=== PATIENT | female | born 1980 | race Caucasian/White ===

== ENCOUNTER 2023-04-27 17:18 | Emergency (ER) | payer OTHER, SELFPAY ==
[2023-04-27 17:24] VITALS: BP 132/93; PULSE 100; RESP 20; TEMP 37; O2SAT 97; BMI 23.7
--- NOTE | 2023-04-27 17:31 | XR_ITS ---
The [address] [address] Patient Name: TOPHER GARCIA MRN: [id number] date: 1980 Sex: F Assigned Patient Location: ER Current Patient Location: ER Accession/Order Number: [id number] Exam Date: 04/27/2023 17:40 Report Date: 04/27/2023 18:12 At the request of: ANTONIO VEGA Procedure: XR foot LT min 3V IMAGES REVIEWED: XR foot LT min 3V COMPARISON: None available. CLINICAL INDICATION: pain, hit by falling object FINDINGS/IMPRESSION: No evidence of acute osseous abnormality of the left foot. Electronically authenticated by: RIDGE MOYA Date: 04/27/2023 18:12
--- NOTE | 2023-04-27 17:32 | ED.LOWEXI1 ---
HPI - Extremity Injury (Lower) General Chief Complaint: Extremity Injury, Lower Stated Complaint: Left Foot Injury Time Seen by Provider: 04/27/23 17:21 Source: patient Mode of arrival: walk-in Limitations: no limitations History of Present Illness HPI Narrative: 42-year-old female presents for pain of the dorsum of her left foot. She's had it for a week. A week ago she dropped an item on the dorsum of her foot but she can't remember what it was. She's been able to walk and the pain is moderate. Related Data Allergies Allergy/AdvReac Type Severity Reaction Status Date / Time Unable to Assess Allergy Verified 04/27/23 17:24 Review of Systems ROS Narrative A ten point review of systems is negative except as noted above. Exam Narrative Exam Narrative: Nurses note and vital signs reviewed and patient is not hypoxic. General: The patient appears well and in no apparent distress. Patient is resting comfortably on cart. Skin: Warm, dry, no pallor noted. There is no rash noted. Head: Normocephalic, atraumatic Eye: Normal conjunctiva, no drainage Ears, Nose, Mouth, and Throat: oral mucosa is moist. Nares patent. Cardiovascular: Regular Rate and Rhythm Respiratory: Patient is in no distress, no accessory muscle use Back: non-tender GI: nontender Musculoskeletal: left ankle is nontender. She seems have some tenderness on the dorsum of her left foot but there is no bruise or erythema or visible swelling. Neurological: A&O, normal speech Psychiatric: Cooperative Constitutional Vital Signs, click to edit/add: Last Vital Signs Temp 98.6 F 04/27/23 17:24 Pulse 100 H 04/27/23 17:24 Resp 20 04/27/23 17:24 BP 132/93 H 04/27/23 17:24 Pulse Ox 97 04/27/23 17:24 O2 Del Method Room Air 04/27/23 17:24 Course Vital Signs Vital signs: Vital Signs Temperature 98.6 F 04/27/23 17:24 Pulse Rate 100 H 04/27/23 17:24 Respiratory Rate 20 04/27/23 17:24 Blood Pressure 132/93 H 04/27/23 17:24 Pulse Oximetry 97 04/27/23 17:24 Oxygen Delivery Method Room Air 04/27/23 17:24 Temperature 98.6 F 04/27/23 17:24 Pulse Rate 100 H 04/27/23 17:24 Respiratory Rate 20 04/27/23 17:24 Blood Pressure 132/93 H 04/27/23 17:24 Pulse Oximetry 97 04/27/23 17:24 Oxygen Delivery Method Room Air 04/27/23 17:24 MDM - Extremity Injury (Lower) MDM Narrative Medical decision making narrative: X-rays per radiologist showed no acute findings and she was recommended ice rest and elevation. Treatment diagnosis and follow-up were discussed with the patient. Differential Diagnosis Differential diagnosis: Likely other (foot contusion, foot fracture) Imaging Data left foot x-ray: Radiologist's impression: Procedure: XR foot LT min 3V IMAGES REVIEWED: XR foot LT min 3V COMPARISON: None available. CLINICAL INDICATION: pain, hit by falling object FINDINGS/IMPRESSION: No evidence of acute osseous abnormality of the left foot. Electronically authenticated by: RIDGE MOYA Date: 04/27/2023 18:12 Discharge Plan Discharge Chief Complaint: Extremity Injury, Lower Clinical Impression: Contusion of foot, left Patient Disposition: Home, Self-Care Time of Disposition Decision: 18:29 Condition: Good Mode of Transportation: Private Vehicle Instructions: Foot Contusion (ED) Stand Alone Forms: Portal Instructions Referrals: VEGA RAM [Primary Care Provider] - 1 week
== END 2023-04-27 18:36 | disposition home or self-care (01) ==
PROVIDERS: Emergency Provider Emergency Medicine; PCP Family Medicine
DX: S90.32XA Contusion of left foot, initial encounter (principal); W20.8XXA Other cause of strike by thrown, projected or falling object, initial encounter
CPT/HCPCS: 73630; 99283

== ENCOUNTER 2024-03-02 02:06 | Emergency (ER) | payer OTHER, SELFPAY ==
[2024-03-02 02:08] VITALS: BP 159/96; PULSE 65; TEMP 36.7; O2SAT 99; BMI 23.7
--- NOTE | 2024-03-02 02:22 | ED.DENTAL1 ---
HPI - Dental/Oral General Chief complaint: Dental/Oral Stated complaint: DENTAL PAIN Time Seen by Provider: 03/02/24 02:12 Source: patient Mode of arrival: walk-in Limitations: no limitations History of Present Illness HPI Narrative: 43-year-old female presents for dental pain. She is complaining of pain to her lower jaw anteriorly. She understands that she has some bad teeth and she has a dentist in [place]. It began throbbing yesterday and the pain is moderate to severe. No difficulty breathing or swelling and no fever. Related Data Home Medications ?Medication ?Instructions ?Recorded ?Confirmed Saccharomyces boulardii 250 mg 03/02/24 capsule (Florastor) alprazolam 1 mg tablet mg 03/02/24 dicyclomine 10 mg capsule mg 03/02/24 venlafaxine 37.5 mg mg PO 03/02/24 capsule,extended release 24 hr Previous Rx's ?Medication ?Instructions ?Recorded acetaminophen 300 mg-codeine 30 mg 1 tab PO Q6H PRN pain 5 days #20 03/02/24 tablet tabs penicillin V potassium 250 mg 250 mg PO QID 10 days #40 tabs 03/02/24 tablet Allergies Allergy/AdvReac Type Severity Reaction Status Date / Time Unable to Assess Allergy Verified 04/27/23 17:24 Review of Systems ROS Narrative A ten point review of systems is negative except as noted above. Exam Narrative Exam Narrative: Nurses note and vital signs reviewed and patient is not hypoxic. General: The patient appears well and in no apparent distress. Patient is resting comfortably on cart. Skin: Warm, dry, no pallor noted. There is no rash noted. Head: Normocephalic, atraumatic Eye: Normal conjunctiva, no drainage Ears, Nose, Mouth, and Throat: oral mucosa is moist. Nares patent. Dental caries present in 3 mandibular incisors. No swelling to the floor of her mouth and she is handling oral secretions well. No gingival swelling. Cardiovascular: Regular Rate and Rhythm Respiratory: Patient is in no distress, no accessory muscle use Back: non-tender GI: Soft and nontender Musculoskeletal: No joint swelling Neurological: Alert and oriented Psychiatric: Cooperative Constitutional Vital Signs, click to edit/add: Last Vital Signs Temp 98.1 F 03/02/24 02:08 Pulse 65 03/02/24 02:08 Resp 18 03/02/24 02:08 BP 159/96 H 03/02/24 02:08 Pulse Ox 99 03/02/24 02:08 O2 Del Method Room Air 03/02/24 02:08 Course Vital Signs Vital signs: Vital Signs Temperature 98.1 F 03/02/24 02:08 Pulse Rate 65 03/02/24 02:08 Respiratory Rate 18 03/02/24 02:08 Blood Pressure 159/96 H 03/02/24 02:08 Pulse Oximetry 99 03/02/24 02:08 Oxygen Delivery Method Room Air 03/02/24 02:08 Temperature 98.1 F 03/02/24 02:08 Pulse Rate 65 03/02/24 02:08 Respiratory Rate 18 03/02/24 02:08 Blood Pressure 159/96 H 03/02/24 02:08 Pulse Oximetry 99 03/02/24 02:08 Oxygen Delivery Method Room Air 03/02/24 02:08 MDM - Dental/Oral MDM Narrative Medical decision making narrative: She is provided pain medication and antibiotic prescriptions and was given first dose here as well. Treatment diagnosis and follow-up were discussed with the patient. Differential Diagnosis Differential diagnosis: Likely gingival abscess, dental caries, toothache and dental abscess Discharge Plan Discharge Stand Alone Forms: Portal Instructions Chief Complaint: Dental/Oral Clinical Impression: Toothache, Dental caries Patient Disposition: Home, Self-Care Time of Disposition Decision: 02:20 Condition: Good Mode of Transportation: Private Vehicle Prescriptions / Home Meds: New acetaminophen-codeine 300-30 mg tablet 1 tab PO Q6H PRN (Reason: pain) 5 Days Qty: 20 0RF penicillin V potassium 250 mg tablet 250 mg PO QID 10 Days Qty: 40 0RF No Action venlafaxine 37.5 mg capsule,extended release 24hr PO alprazolam 1 mg tablet dicyclomine 10 mg capsule Saccharomyces boulardii [Florastor] 250 mg capsule Print Language: Sammarinese Instructions: Toothache (ED), Tooth Extraction (DC) Referrals: VEGA RAM [Primary Care Provider] - 1 week
[2024-03-02] MEDS: PENICILLIN V POTASSIUM 250 MG TABLET 500 MG PO (02:27)
[2024-03-02] MEDS: ACETAMINOPHEN 300 MG/ 30 MG CODEINE TABLET 1 TAB PO (02:27)
[2024-03-02] MEDS: BENZOCAINE 30 ML, lidocaine HCL 15 ML MM (02:37)
== END 2024-03-02 02:39 | disposition home or self-care (01) ==
PROVIDERS: Emergency Provider Emergency Medicine; PCP Family Medicine
DX: K02.9 Dental caries, unspecified (principal); K08.89 Other specified disorders of teeth and supporting structures
CPT/HCPCS: 99283

== ENCOUNTER 2024-03-05 22:23 | Emergency (ER) | payer OTHER, SELFPAY ==
[2024-03-05 22:29] VITALS: BP 167/104; PULSE 86; TEMP 36.3; O2SAT 97; BMI 23.7
[2024-03-05 22:33] VITALS: BP 174/99
--- NOTE | 2024-03-05 22:38 | ED_ITS ---
HPI - Dental/Oral General Chief complaint: Dental/Oral Stated complaint: Dental Pain Time Seen by Provider: 03/05/24 22:28 Source: patient Mode of arrival: walk-in Limitations: no limitations History of Present Illness HPI Narrative: 43-year-old female presents for tooth ache. She had 3 teeth extracted today. They are on the anterior mandibular region. The pain is severe and throbbing and she has been taking Lodine and Tylenol 3. She is requesting the dental analgesia that she has had before. No fever or difficulty breathing or swallowing. Related Data Home Medications ?Medication ?Instructions ?Recorded ?Confirmed Saccharomyces boulardii 250 mg 03/02/24 capsule (Florastor) alprazolam 1 mg tablet mg 03/02/24 dicyclomine 10 mg capsule mg 03/02/24 venlafaxine 37.5 mg mg PO 03/02/24 capsule,extended release 24 hr Previous Rx's ?Medication ?Instructions ?Recorded acetaminophen 300 mg-codeine 30 mg 1 tab PO Q6H PRN pain 5 days #20 03/02/24 tablet tabs penicillin V potassium 250 mg 250 mg PO QID 10 days #40 tabs 03/02/24 tablet hydrocodone 5 mg-acetaminophen 325 1 tab PO Q6H PRN pain 3 days #10 03/05/24 mg tablet tabs Allergies Allergy/AdvReac Type Severity Reaction Status Date / Time No Known Drug Allergies Allergy Verified 03/05/24 22:32 Review of Systems ROS Narrative A ten point review of systems is negative except as noted above. Exam Narrative Exam Narrative: Nurses note and vital signs reviewed and patient is not hypoxic. General: The patient appears uncomfortable Skin: Warm, dry, no pallor noted. There is no rash noted. Head: Normocephalic, atraumatic Eye: Normal conjunctiva, no drainage Ears, Nose, Mouth, and Throat: oral mucosa is moist. Nares patent. Extraction site appears appropriate, no bleeding or pus present. No swelling to the floor of her mouth. Cardiovascular: Regular Rate and Rhythm Respiratory: Patient is in no distress, no accessory muscle use, lungs are clear to auscultation, no wheezing, rales or rhonchi Back: non-tender GI: Soft and nontender Musculoskeletal: The patient has no evidence of calf tenderness, no pitting edema, symmetrical pulses noted bilaterally Neurological: Awake and alert Psychiatric: Cooperative Constitutional Vital Signs, click to edit/add: Last Vital Signs Temp 97.4 F L 03/05/24 22:29 Pulse 86 03/05/24 22:29 Resp 18 03/05/24 22:29 BP 174/99 H 03/05/24 22:33 Pulse Ox 97 03/05/24 22:29 O2 Del Method Room Air 03/05/24 22:29 Course Vital Signs Vital signs: Vital Signs Temperature 97.4 F L 03/05/24 22:29 Pulse Rate 86 03/05/24 22:29 Respiratory Rate 18 03/05/24 22:29 Blood Pressure 167/104 H 03/05/24 22:29 Pulse Oximetry 97 03/05/24 22:29 Oxygen Delivery Method Room Air 03/05/24 22:29 Temperature 97.4 F L 03/05/24 22:29 Pulse Rate 86 03/05/24 22:29 Respiratory Rate 18 03/05/24 22:29 Blood Pressure 174/99 H 03/05/24 22:33 Pulse Oximetry 97 03/05/24 22:29 Oxygen Delivery Method Room Air 03/05/24 22:29 MDM - Dental/Oral MDM Narrative Medical decision making narrative: She is given IM Toradol and prescribed 10 [place] tablets and dispensed dental analgesia. Treatment diagnosis and follow-up were discussed with the patient. Differential Diagnosis Differential diagnosis: Likely dental caries, toothache, dental abscess and other (Postextraction pain) Discharge Plan Discharge Stand Alone Forms: Portal Instructions Chief Complaint: Dental/Oral Clinical Impression: Toothache Patient Disposition: Home, Self-Care Time of Disposition Decision: 22:36 Condition: Good Mode of Transportation: Private Vehicle Prescriptions / Home Meds: New hydrocodone-acetaminophen 5-325 mg tablet 1 tab PO Q6H PRN (Reason: pain) 3 Days Qty: 10 0RF No Action venlafaxine 37.5 mg capsule,extended release 24hr PO alprazolam 1 mg tablet dicyclomine 10 mg capsule Saccharomyces boulardii [Florastor] 250 mg capsule acetaminophen-codeine 300-30 mg tablet 1 tab PO Q6H PRN (Reason: pain) 5 Days Qty: 20 0RF penicillin V potassium 250 mg tablet 250 mg PO QID 10 Days Qty: 40 0RF Print Language: Georgian Instructions: Toothache (ED) Referrals: VEGA RAM [Primary Care Provider] - 1 week
--- OUTSIDE RECORDS SUMMARY | 2024-03-05 22:38 | XMS_ITS | CCD ---
Author Organization [facility] Care Team Providers Care Scaffold Erector Name Role Phone YO, DR FERRARI Primary Care Unavailable MARKER ., DR YOUNGER Admitting Unavailable MARKER ., DR YOUNGER Attending Unavailable MARKER ., DR YOUNGER Consulting Unavailable YO, DR FERRARI Primary Care Unavailable HAY ., DR PEREZ Admitting Unavailable HAY ., DR PEREZ Attending Unavailable HAY ., DR PEREZ Consulting Unavailable YO, DR FERRARI Primary Care Unavailable PAY ., DR MARIE Admitting Unavailable PAY ., DR MARIE Attending Unavailable PAY ., DR MARIE Consulting Unavailable HAY ., DR PEREZ Consulting Unavailable JAYY RODRIGUEZ Admitting Unavailable JAYY RODRIGUEZ Attending Unavailable YO, DR FERRARI Primary Care Unavailable ZIEBER, DR TRAVIS [place] Consulting Unavailable JAYY RODRIGUEZ Consulting Unavailable YO, DR FERRARI Primary Care Unavailable HAY ., DR PEREZ Admitting Unavailable HAY ., DR PEREZ Attending Unavailable GRECHNY ., VETO SAMUELS Consulting Unavailabl e YO, DR FERRARI Primary Care Unavailable HAY ., DR PEREZ Admitting Unavailable HAY ., DR PEREZ Attending Unavailable MARKER ., DR YOUNGER Consulting Unavailable YO, DR FERRARI Primary Care Unavailable GILBERT .RICHIE Admitting Unavailable GILBERT ., RICHIE Attending Unavailable PETERS ., MR GUTIERREZ Consulting Unavailable YO, DR FERRARI Primary Care Unavailable HAY ., DR PEREZ Admitting Unavailable HAY ., DR PEREZ Attending Unavailable HAY ., DR PEREZ Consulting Unavailable UMM LAMA Consulting Unavailable HEMJAYY AVENDANO Attending Unavailable HEMJAYY AVENDANO Attending Unavailable Allergies Allergy Classification Reported Allergen(s) Allergy Type Date of Onset Reaction(s) Facility (1 source) Amoxicillin / Clavulanate Drug Allergy 07-26-2013 [facility] Repository Problems Active Problems Problem Classification Problem Date Documented Date Episodic/Chronic Anxiety disorders (1 source) Anxiety disorder, unspecified; Translations: [ANXIETY DISORDER UNSPECIFIED] Onset: 11-08-2022 Chronic Disorders of teeth and jaw (4 sources) Other specified disorders of teeth and supporting structures; Translations: [OTH SPEC DISORDERS TEETH SUPP STRCT] Onset: 11-07-2022 Episodic E Codes: Natural/environment (1 source) Exposure to other specified factors, initial encounter; Translations: [EXPOSURE OTHER SPEC FACTORS INITIAL] Onset: 11-08-2022 Episodic Headache; including migraine (2 sources) Migraine, unspecified, not intractable, without status migrainosus; Translations: [MIGRAINE UNS NOT INTRACT W/O SM] Onset: 04-01-2022 Chronic Headache; including migraine (3 sources) Headache; including migraine; Translations: [HEADACHE UNSPECIFIED] Onset: 05-14-2022 Other aftercare (1 source) Other halfway (current) drug therapy; Translations: [OTH MOTOR ASSEMBLER CURRENT DRUG THERAPY] Onset: 11-08-2022 Episodic Other nervous system disorders (1 source) Other acute postprocedural pain; Translations: [OTHER ACUTE POSTPROCEDURAL PAIN] Onset: 11-08-2022 Episodic Substance-related disorders (2 sources) Nicotine dependence, cigarettes, uncomplicated; Translations: [Nicotine dependence, unspecified, uncomplicated] Onset: 06-07-2022 Chronic Superficial injury; contusion (1 source) Abrasion of oral cavity, initial encounter; Translations: [ABRASION ORAL CAVITY INITIAL ENCNTR] Onset: 11-08-2022 Episodic Unclassified (1 source) CONTACT W/AND (SUSP) EXPOS COVID-19; Translations: [CONTACT W/AND (SUSP) EXPOS COVID-19] Onset: 04-01-2022 Past or Other Problems Problem Classification Problem Date Documented Da te Episodic/Chronic Allergic reactions (5 sources) Urticaria, unspecified; Translations: [Allergic contact dermatitis due to other agents] Onset: 07-21-2022 Episodic Conditions associated with dizziness or vertigo (1 source) Dizziness and giddiness; Translations: [DIZZINESS AND GIDDINESS] Onset: 07-23-2022 Episodic Nausea and vomiting (4 sources) Nausea with vomiting, unspecified; Translations: [NAUSEA WITH VOMITING UNSPECIFIED] Onset: 03-30-2022 Episodic Other nervous system disorders (1 source) Paresthesia of skin; Translations: [PARESTHESIA OF SKIN] Onset: 05-18-2022 Episodic Other skin disorders (3 sources) Rash and other nonspecific skin eruption; Translations: [RASH OTH NONSPECIFIC SKIN ERUPTION] Onset: 07-20-2022 Episodic Other skin disorders (4 sources) Generalized hyperhidrosis; Translations: [GENERALIZED HYPERHIDROSIS] Onset: 06-03-2022 Episodic Poisoning by nonmedicinal substances (4 sources) Toxic effect of venom of bees, accidental (unintentional), initial encounter; Translations: [TOXIC EFF VENOM BEES ACC INIT ENC] Onset: 02-02-2022 Episodic Viral infection (1 source) Viral infection, unspecified; Translations: [VIRAL INFECTION UNSPECIFIED] Onset: 04-01-2022 Episodic Results Test Name Value Interpretation Reference Range Facil ity GROUP A STREP CULTUREon S. pyogenes Ag Ql (Unsp spec) Culture Observations: NEGATIVE FOR GROUP A STREPTOCOCCUS. Normal [facility] Comment on above: Performed By: #### S SCRN, GRASTCX #### [facility] [address] [place] [address] Dr. Sharonda White INFLUENZA A AND B AGon 07-21 INFLUANEGH SEE BELOW Normal [facility] Comment on above: Result Comment: Nega tive for Flu A protein angiten. Infection due to Flu A cannot be ruled out. Flu A angiten in the sample may be below the detection limit of the test. Performed By: #### I NFLUAB #### [facility] [address] [place] [address] Dr. Sharonda White INFLUBNEG SEE BELOW Normal [facility] Comment on above: Result Comment: Nega tive for Flu B protein antigen. Infection due to Flu B cannot be ruled out. Flu B antigen in the sample may be below the detection limit of the test. Performed By: #### I NFLUAB #### [facility] [address] [place] [address] Dr. Sharonda White INFLUENZA A AG Negative Normal NEGATIVE SEE COMMENT [facility] Comment on above: Performed By: #### I NFLUAB #### [facility] [address] [place] [address] Dr. Sharonda White INFLUENZA B AG Negative Normal NEGATIVE SEE COMMENT [facility] Comment on above: Performed By: #### I NFLUAB #### [facility] [address] [address] [address] Sharonda White STREPT SCREENon 07-21-2022 STREP SCREEN A Negative Normal NEGATIVE [facility] Comment on above: Performed By: #### S SCRN, GRASTCX #### [facility] [address] [address] [address] Sharonda White XR CHEST 2 Von 06-03-2022 XR CHEST 2 V EXAMINATION: XR CHES T 2 V HISTORY: Generalized hyperhidrosis ; night sweats, smoker COMPARISON: XR chest 12/11/2020 FINDINGS: LUNGS: No significant pulmonary parenchymal abnormalities. VASCULATURE: No increased pulmonary vasculature. PLEURA: No pneumothorax, effusion, or pleural thickening. CARDIAC: No cardiomegaly or cardiac silhouette abnormality. MEDIASTINUM: No visible mass or adenopathy. BONES: No fracture or visible bone lesion. OTHER: Negative. IMPRESSION: 1. Normal examination. Electronically authenticated by: TRAVIS MODI Date: 2022-06-03 15:10 Normal [facility] CBC AUTO DIFFon 05-14-2022 BASO # 0.1 103/ul Normal 0.0-0.1 [facility] Comment on above: Performed By: #### C BC #### [facility] [address] [place] [address] Dr. Sharonda White Basophils/100 WBC (Bld) 0.9 % Normal 0.2-2.0 [facility] Comment on above: Performed By: #### C BC #### [facility] [address] [place] [address] Dr. Sharonda White EO # 0.2 103/ul Normal 0.0-0.7 [facility] Comment on above: Performed By: #### C BC #### [facility] [address] [address] [address] Sharonda White Eosinophils/100 WBC (Bld) 1.7 % Normal 0.9-7.0 [facility] Comment on above: Performed By: #### C BC #### [facility] [address] [place] [address] Dr. Sharonda White Erythrocyte distribution width (RBC) [Ratio] 13.3 % Normal 11.0-15.0 [facility] Comment on above: Performed By: #### C BC #### [facility] [address] [place] [address] Dr. Sharonda White Hematocrit (Bld) [Volume fraction] 39.6 % Normal 36.0-48.0 [facility] Comment on above: Performed By: #### C BC #### [facility] [address] [place] [address] Dr. Sharonda White Hemoglobin (Bld) [Mass/Vol] 13.5 g/dL Normal 12.0-16.0 [facility] Comment on above: Performed By: #### C BC #### [facility] [address] [place] [address] Dr. Sharonda White IG # 0.04 10e3/ul Critically high 0.00-0.03 [facility] Comment on above: Performed By: #### C BC #### [facility] [address] [place] [address] Dr. Sharonda White IG % 0.4 % Normal 0.0-0.5 [facility] Comment on above: Performed By: #### C BC #### [facility] [address] [place] [address] Dr. Sharonda White LYMPH # 2.3 103/ul Normal 1.2-3.8 [facility] Comment on above: Performed By: #### C BC #### [facility] [address] [place] [address] Dr. Sharonda White Lymphocytes/100 WBC (Bld) 23.0 % Normal 20.5-60.0 [facility] Comment on above: Performed By: #### C BC #### [facility] [address] [place] [address] Dr. Sharonda White MANUAL DIFF REQ NO Normal [facility] Comment on above: Performed By: #### C BC #### [facility] [address] [place] [address] Dr. Sharonda White MCH (RBC) [Entitic mass] 30.1 pg Normal 26.7-34.0 [facility] Comment on above: Performed By: #### C BC #### [facility] [address] [place] [address] Dr. Sharonda White MCHC (RBC) [Mass/Vol] 34.1 g/dL Normal 29.9-35.2 [facility] Comment on above: Performed By: #### C BC #### [facility] [address] [address] [address] Sharonda White MCV (RBC) [Entitic vol] 88.2 fL Normal 81.0-99.0 [facility] Comment on above: Performed By: #### C BC #### [facility] [address] [place] [address] Dr. Sharonda White MONO # 0.7 103/ul Normal 0.3-0.8 [facility] Comment on above: Performed By: #### C BC #### [facility] [address] [place] [address] Dr. Sharonda White Monocytes/100 WBC (Bld) 7.3 % Normal 1.7-12.0 [facility] Comment on above: Performed By: #### C BC #### [facility] [address] [place] [address] Dr. Sharonda White NEUT # 6.6 103/ul Critically high 1.4-6.5 [facility] Comment on above: Performed By: #### C BC #### [facility] [address] [place] [address] Dr. Sharonda White Neutrophils/100 WBC (Bld) 66.7 % Normal 43.0-75.0 [facility] Comment on above: Performed By: #### C BC #### [facility] [address] [place] [address] Dr. Sharonda White Platelet mean volume (Bld) [Entitic vol] 9.2 fL Critically low 9.5-13.5 [facility] Comment on above: Performed By: #### C BC #### [facility] [address] [place] [address] Dr. Sharonda White PLT 366 103/ul Normal 150-450 [facility] Comment on above: Performed By: #### C BC #### [facility] [address] [place] [address] Dr. Sharonda White RBC 4.49 106/ul Normal 4.20-5.40 [facility] Comment on above: Performed By: #### C BC #### [facility] [address] [place] [address] Dr. Sharonda White WBC 9.9 103/ul Normal 4.0-11.0 [facility] Comment on above: Performed By: #### C BC #### [facility] [address] [place] [address] Dr. Sharonda White PROF CHEM 8 (BAS METB)on Anion gap [Moles/Vol] 12.2 mmol/L Normal [facility] Comment on above: Performed By: #### B MP #### [facility] [address] [place] [address] Dr. Sharonda White Calcium [Mass/Vol] 8.0 mg/dL Critically low 8.5-10.1 [facility] Comment on above: Performed By: #### B MP #### [facility] [address] [place] [address] Dr. Sharonda White Chloride [Moles/Vol] 108 mmol/L Critically high 98-107 [facility] Comment on above: Performed By: #### B MP #### [facility] [address] [place] [address] Dr. Sharonda White CO2 [Moles/Vol] 24.2 mmol/L Normal 21.0-32.0 [facility] Comment on above: Performed By: #### B MP #### [facility] [address] [place] [address] Dr. Sharonda White Creatinine [Mass/Vol] 0.51 mg/dL Critically low 0.55-1.02 [facility] Comment on above: Performed By: #### B MP #### [facility] [address] [place] [address] Dr. Sharonda White EGFR-AF [place] >60 Normal >=60 [facility] Comment on above: Performed By: #### B MP #### [facility] [address] [place] [address] Dr. Sharonda White EGFR-NON AF [place] >60 Normal >=60 [facility] Comment on above: Performed By: #### B MP #### [facility] [address] [address] [address] Sharonda White Glucose [Mass/Vol] 83 mg/dL Normal 74-106 [facility] Comment on above: Performed By: #### B MP #### [facility] [address] [address] [address] Sharonda White Potassium [Moles/Vol] 3.4 mmol/L Critically low 3.5-5.1 [facility] Comment on above: Performed By: #### B MP #### [facility] [address] [address] [address] Sharonda White Sodium [Moles/Vol] 141 mmol/L Normal 136-145 [facility] Comment on above: Performed By: #### B MP #### [facility] [address] [address] [address] Sharonda White Urea nitrogen [Mass/Vol] 13.0 mg/dL Normal 7.0-18.0 [facility] Comment on above: Performed By: #### B MP #### [facility] [address] [address] [address] Sharonda White Urea nitrogen/Creatinin e [Mass ratio] 25.5 mg/mg Normal [facility] Comment on above: Performed By: #### B MP #### [facility] [address] [address] [address] Sharonda White CBC AUTO DIFFon 03-30-2022 BASO # 0.1 103/ul Normal 0.0-0.1 [facility] Comment on above: Performed By: #### C BC #### [facility] [address] [address] [address] Sharonda White Basophils/100 WBC (Bld) 1.2 % Normal 0.2-2.0 [facility] Comment on above: Performed By: #### C BC #### [facility] [address] [place] [address] Dr. Sharonda White EO # 0.3 103/ul Normal 0.0-0.7 [facility] Comment on above: Performed By: #### C BC #### [facility] [address] [place] [address] Dr. Sharonda White Eosinophils/100 WBC (Bld) 2.9 % Normal 0.9-7.0 [facility] Comment on above: Performed By: #### C BC #### [facility] [address] [place] [address] Dr. Sharonda White Erythrocyte distribution width (RBC) [Ratio] 13.7 % Normal 11.0-15.0 [facility] Comment on above: Performed By: #### C BC #### [facility] [address] [place] [address] Dr. Sharonda White Hematocrit (Bld) [Volume fraction] 38.5 % Normal 36.0-48.0 [facility] Comment on above: Performed By: #### C BC #### [facility] [address] [place] [address] Dr. Sharonda White Hemoglobin (Bld) [Mass/Vol] 12.9 g/dL Normal 12.0-16.0 [facility] Comment on above: Performed By: #### C BC #### [facility] [address] [place] [address] Dr. Sharonda White IG # 0.02 10e3/ul Normal 0.00-0.03 [facility] Comment on above: Performed By: #### C BC #### [facility] [address] [place] [address] Dr. Sharonda White IG % 0.2 % Normal 0.0-0.5 [facility] Comment on above: Performed By: #### C BC #### [facility] [address] [place] [address] Dr. Sharonda White LYMPH # 2.8 103/ul Normal 1.2-3.8 [facility] Comment on above: Performed By: #### C BC #### [facility] [address] [place] [address] Dr. Sharonda White Lymphocytes/100 WBC (Bld) 30.7 % Normal 20.5-60.0 [facility] Comment on above: Performed By: #### C BC #### [facility] [address] [place] [address] Dr. Sharonda White MANUAL DIFF REQ NO Normal [facility] Comment on above: Performed By: #### C BC #### [facility] [address] [place] [address] Dr. Sharonda White MCH (RBC) [Entitic mass] 30.4 pg Normal 26.7-34.0 [facility] Comment on above: Performed By: #### C BC #### [facility] [address] [place] [address] Dr. Sharonda White MCHC (RBC) [Mass/Vol] 33.5 g/dL Normal 29.9-35.2 [facility] Comment on above: Performed By: #### C BC #### [facility] [address] [place] [address] Dr. Sharonda White MCV (RBC) [Entitic vol] 90.6 fL Normal 81.0-99.0 [facility] Comment on above: Performed By: #### C BC #### [facility] [address] [place] [address] Dr. Sharonda White MONO # 0.9 103/ul Critically high 0.3-0.8 [facility] Comment on above: Performed By: #### C BC #### [facility] [address] [place] [address] Dr. Sharonda White Monocytes/100 WBC (Bld) 9.7 % Normal 1.7-12.0 [facility] Comment on above: Performed By: #### C BC #### [facility] [address] [place] [address] Dr. Sharonda White NEUT # 5.0 103/ul Normal 1.4-6.5 [facility] Comment on above: Performed By: #### C BC #### [facility] [address] [place] [address] Dr. Sharonda White Neutrophils/100 WBC (Bld) 55.3 % Normal 43.0-75.0 [facility] Comment on above: Performed By: #### C BC #### [facility] [address] [place] [address] Dr. Sharonda White Platelet mean volume (Bld) [Entitic vol] 9.3 fL Critically low 9.5-13.5 [facility] Comment on above: Performed By: #### C BC #### [facility] [address] [place] [address] Dr. Sharonda White PLT 353 103/ul Normal 150-450 [facility] Comment on above: Performed By: #### C BC #### [facility] [address] [place] [address] Dr. Sharonda White RBC 4.25 106/ul Normal 4.20-5.40 [facility] Comment on above: Performed By: #### C BC #### [facility] [address] [place] [address] Dr. Sharonda White WBC 9.1 103/ul Normal 4.0-11.0 [facility] Comment on above: Performed By: #### C BC #### [facility] [address] [place] [address] Dr. Sharonda White [facility]on 03-18 SARS-CoV-2 (COVID-19) RNA EZIO+probe Ql (Unsp spec) Not detected Normal NOT DETECTED [facility] Comment on above: Result Comment: When diagnostic testing is negative, the possibility of a false negative should be considered in the context of a patient's recent exposures and the presence of clinical signs and symptoms consistent with SARS-CoV-2. This test is not yet approved or cleared by the [place] FDA. When there are no FDA-approved or cleared tests available, and other criteria are met, FDA can make tests available under an emergency access mechanism called an Emergency Use Authorization (EUA). The EUA for this test is supported by the [place] of Health and Human Service's declaration that circumstances exist to justify the emergency use of in vitro diagnostics for the detection and/or diagnosis of the virus that causes COVID-19. This EUA will remain in effect for the duration of the COVID-19 declaration justifying emergency of IVDs, unless it is terminated or revoked by the FDA (after which the test may no longer be used). Performed By: #### C VDTB #### [facility] [address] [place] [address] Dr. Sharonda White INFLUENZA A AND B AGon 03-30 INFLUENZA A AG Negative Normal NEGATIVE SEE COMMENT [facility] Comment on above: Performed By: #### I NFLUAB #### [facility] [address] [place] [address] Dr. Sharonda White INFLUENZA B AG Negative Normal NEGATIVE SEE COMMENT [facility] Comment on above: Performed By: #### I NFLUAB #### [facility] [address] [place] [address] Dr. Sharonda White INTERNAL CONTROLS Within Normal Limits Normal Wi thin Normal Limits [facility] Comment on above: Performed By: #### I NFLUAB #### [facility] [address] [place] [address] Dr. Sharonda White PROF 14(COMP METB)on 022 Albumin [Mass/Vol] 3.1 g/dL Critically low 3.4-5.0 [facility] Comment on above: Performed By: #### C MP #### [facility] [address] [place] [address] Dr. Sharonda White Albumin/Globulin [Mass ratio] 0.9 {ratio} Normal [facility] Comment on above: Performed By: #### C MP #### [facility] [address] [place] [address] Dr. Sharonda White ALP [Catalytic activity/Vol] 95 U/L Normal 46-116 [facility] Comment on above: Performed By: #### C MP #### [facility] [address] [place] [address] Dr. Sharonda White ALT [Catalytic activity/Vol] 17 U/L Normal 14-59 [facility] Comment on above: Performed By: #### C MP #### [facility] [address] [address] [address] Sharonda White Anion gap [Moles/Vol] 13.5 mmol/L Normal [facility] Comment on above: Performed By: #### C MP #### [facility] [address] [address] [address] Sharonda White AST [Catalytic activity/Vol] 13 U/L Critically low 15-37 [facility] Comment on above: Performed By: #### C MP #### [facility] [address] [address] [address] Sharonda White Calcium [Mass/Vol] 7.9 mg/dL Critically low 8.5-10.1 [facility] Comment on above: Performed By: #### C MP #### [facility] [address] [place] [address] Dr. Sharonda White Chloride [Moles/Vol] 107 mmol/L Normal 98-107 [facility] Comment on above: Performed By: #### C MP #### [facility] [address] [address] [address] Sharonda White CO2 [Moles/Vol] 22.9 mmol/L Normal 21.0-32.0 [facility] Comment on above: Performed By: #### C MP #### [facility] [address] [address] [address] Sharonda White Creatinine [Mass/Vol] 0.63 mg/dL Normal 0.55-1.02 [facility] Comment on above: Performed By: #### C MP #### [facility] [address] [address] [address] Sharonda White EGFR-AF [place] >60 Normal >=60 [facility] Comment on above: Performed By: #### C MP #### [facility] [address] [place] [address] Dr. Sharonda White EGFR-NON AF [place] >60 Normal >=60 [facility] Comment on above: Performed By: #### C MP #### [facility] [address] [place] [address] Dr. Sharonda White Globulin (S) [Mass/Vol] 3.3 g/dL Normal [facility] Comment on above: Performed By: #### C MP #### [facility] [address] [address] [address] Sharonda White Glucose [Mass/Vol] 119 mg/dL Critically high 74-106 [facility] Comment on above: Performed By: #### C MP #### [facility] [address] [place] [address] Dr. Sharonda White Potassium [Moles/Vol] 3.4 mmol/L Critically low 3.5-5.1 [facility] Comment on above: Performed By: #### C MP #### [facility] [address] [place] [address] Dr. Sharonda White Protein [Mass/Vol] 6.4 g/dL Normal 6.4-8.2 [facility] Comment on above: Performed By: #### C MP #### [facility] [address] [place] [address] Dr. Sharonda White Sodium [Moles/Vol] 140 mmol/L Normal 136-145 [facility] Comment on above: Performed By: #### C MP #### [facility] [address] [place] [address] Dr. Sharonda White TBIL <0.2 Normal 0.2-1.0 [facility] Comment on above: Performed By: #### C MP #### [facility] [address] [place] [address] Dr. Sharonda White Urea nitrogen [Mass/Vol] 8.0 mg/dL Normal 7.0-18.0 [facility] Comment on above: Performed By: #### C MP #### [facility] [address] [place] [address] Dr. Sharonda White Urea nitrogen/Creatinin e [Mass ratio] 12.7 mg/mg Normal [facility] Comment on above: Performed By: #### C MP #### [facility] [address] [place] [address] Dr. Sharonda White Q - SUREPATH-FPGS AND HPVon 07-22-2021 CLINICAL INFORMATION: None given Normal [facility] Business Process Consultant Comment on above: Order Comment: [facility] Testing performed at: [facility], [address] [place] [address], [phone], Hydroelectric Component Machinist: Greg Barron MD Testing performed at: [facility], [facility] ([facility])-[address], [address], Hydroelectric Component Machinist: Malcolm Hamilton MD [facility] Collection Date/Time: [facility] Results Received Date/Time: [facility] Reported Date/Time: Result Comment: [QAC ] Performed By: #### 1 [id number] #### [facility] Default [address] [place] [address] COMMENT SEE NOTE Normal [facility] Business Process Consultant Comment on above: Order Comment: [facility] Testing performed at: [facility], [address] [place] [address], [address] [place] [address], [phone], Hydroelectric Component Machinist: Greg Barron MD Testing performed at: [facility] ([facility])[address], [address], Hydroelectric Component Machinist: Malcolm Hamilton MD [facility] Collection Date/Time: [facility] Results Received Date/Time: [facility] Reported Date/Time: Result Comment: EXPL ANATORY NOTE: The Pap is a screening test for cervical cancer. It is not a diagnostic test and is subject to false negative and false positive results. It is most reliable when a satisfactory sample, regularly obtained, is submitted with relevant clinical findings and history, and when the Pap result is evaluated along with historic and current clinical information. [QAC] Performed By: #### 1 [id number] #### [facility] [address] [place] [address] COMMENT: This Pap test has been evaluated with computer assisted technology. Normal [facility] Business Process Consultant Comment on above: Order Comment: [facility] Testing performed at: [facility], [address], Hydroelectric Component Machinist: Greg Barron MD Testing performed at: [facility], [facility] ([facility], [address] [place] [address], , Hydroelectric Component Machinist: Malcolm Hamilton MD [facility] Collection Date/Time: [facility] Results Received Date/Time: [facility] Reported Date/Time: Result Comment: [QAC ] Performed By: #### 1 [id number] #### [facility] [address] [place] [address] MARKETING PR INTERN: SEE NOTE Normal [facility] Comment on above: Order Comment: [facility] Testing performed at: [facility], , Hydroelectric Component Machinist: Greg Barron MD Testing performed at: [facility], [facility] ([facility], [address] [place] [address], , Hydroelectric Component Machinist: Malcolm Hamilton MD [facility] Collection Date/Time: [facility] Results Received Date/Time: [facility] Reported Date/Time: Result Comment: YANG DENIS(ASCP) For informational purposes: All Cytology specimens are processed and screened at [facility]. [address] [place] [id number] [QAC] Performed By: #### 1 [id number] #### [facility] [address] [place] [address] HPV mRNA E6/E7, SUREPATH VIAL Not detected Normal NOT DETECTED [facility] Comment on above: Order Comment: [facility] Testing performed at: [facility], , Hydroelectric Component Machinist: Greg Barron MD Testing performed at: [facility])[address], , Hydroelectric Component Machinist: Malcolm Hamilton MD [facility] Collection Date/Time: [facility] Results Received Date/Time: [facility] Reported Date/Time: Result Comment: Meth odology: Technical Support Internship-Mediated Amplification This assay detects E6/E7 viral messenger RNA (mRNA) from 14 high-risk HPV types (16,18,31,33,35,39,45,51,52,56,58,59,66,68). The analytical performance characteristics of this assay have been determined by [employer]. The modifications have not been cleared or approved by the FDA. This assay has been validated pursuant to the CLIA regulations and is used for clinical purposes. For additional information, please refer to http://education.YouEye.Dodonation/faq/JFD145m8 (This link if provided for information/ educational purposes only.) [[facility]] Performed By: #### 1 [id number] #### [facility] [address] [place] [address] INTERPRETATION/RES ULT: Negative Normal [facility] Comment on above: Order Comment: [facility] Testing performed at: [facility], [address], Hydroelectric Component Machinist: Greg Barron MD Testing performed at: [facility])[address], [address], Hydroelectric Component Machinist: Malcolm Hamilton MD [facility] Collection Date/Time: [facility] Results Received Date/Time: [facility] Reported Date/Time: Result Comment: [QA ] Performed By: #### 1 [id number] #### [facility] [address] [place] [address] LMP: None given Normal [facility] Comment on above: Order Comment: [facility] Testing performed at: [facility], [address], Hydroelectric Component Machinist: Greg Barron MD Testing performed at: [facility], , Hydroelectric Component Machinist: Malcolm Hamilton MD [facility] Collection Date/Time: [facility] Results Received Date/Time: [facility] Reported Date/Time: Result Comment: [QAC ] Performed By: #### 1 [id number] #### [facility] [address] [place] [address] PREV. BX: None given Normal [facility] Business Process Consultant Comment on above: Order Comment: [facility], [address] [place] [address], [phone], Hydroelectric Component Machinist: Greg Barron MD Testing performed at: [facility], [facility] ([facility])[address], , Hydroelectric Component Machinist: Malcolm Hamilton MD [facility] Collection Date/Time: [facility] Results Received Date/Time: [facility] Reported Date/Time: Result Comment: [QAC ] Performed By: #### 1 [id number] #### [facility] [address] [place] [address] PREV. PAP: None given Normal [facility] Business Process Consultant Comment on above: Order Comment: [facility], [address] [place] [address], [phone], Hydroelectric Component Machinist: Greg Barron MD Testing performed at: [facility], , Hydroelectric Component Machinist: Malcolm Hamilton MD [facility] Collection Date/Time: [facility] Results Received Date/Time: [facility] Reported Date/Time: Result Comment: [QAC ] Performed By: #### 1 [id number] #### [facility] [address] [place] [address] SOURCE: None given Normal [facility] Business Process Consultant Comment on above: Order Comment: [facility], [address] [place] [address], [address] [place] [address] [place], [address], Hydroelectric Component Machinist: Greg Barron MD Testing performed at: [facility], [facility], [address] [place] [address], [phone], Hydroelectric Component Machinist: Malcolm Hamilton MD [facility] Collection Date/Time: [facility] Results Received Date/Time: [facility] Reported Date/Time: Result Comment: [QA ] Performed By: #### 1 [id number] #### [facility] [address] [place] [address] Encounters Encounter Date Encounter Type Care Provider Facility Start: 02-15-2024 End: 02-15-2024 ambulatory JAYY RODRIGUEZ Not Available Start: 10-19-2023 End: 10-19-2023 ambulatory JAYY RODRIGUEZ Not Available Start: 11-07-2022 End: 11-07-[address] VEGA RAM Facility:[facility] Start: 07-21-2022 End: 07-21-[address] VEGA RAM Facility:[facility] Start: 07-20-2022 End: 07-20-[address] VEGA RAM Facility:[facility] Start: 06-03-2022 End: 06-04-2022 ambulatory JAYY RODRIGUEZ Facility:[facility] Start: 05-14-2022 End: 05-14-[address] VEGA RAM Facility:[facility] Start: 03-31-2022 End: 03-31-[address] VEGA RAM Facility:[facility] Start: 03-30-2022 End: 03-31-[address] VEGA RAM Facility:[facility] Start: 02-02-2022 End: 02-02-[address] VEGA RAM Facility:[facility] Payers Date Payer Category Payer Unknown [id number] 2.16.84 [id number] 1980 Unknown [id number] 2.16.84 [id number] 1979 Unknown [id number] 2.16.84 [id number] 1979 Unknown [id number] 2.16.84 [id number] 1979 Unknown [id number] 2.16.84 [id number] 1979 Unknown [id number] 2.16.84 [id number] 1979 Unknown [id number] 2.16.84 [id number] 1979 Unknown [id number] 2.16.84 [id number] 1979 Unknown [id number] 2.16.84 [id number] 1979 Unknown [id number] 2.16.84 [id number] 1959 Unknown [id number] Clinical Note 07-22-2021 Note Date & Type Note Facility 07-22-2021 Note SATISFACTORY FOR EVALUATION [address] [place] Business Process Consultant Comment on above: Order Comment: [facility] Testing performed at: [facility], [facility], [address], Hydroelectric Component Machinist: Greg Barron MD Testing performed at: [facility], [facility])[address], [address], Hydroelectric Component Machinist: Malcolm Hamilton MD [facility] Collection Date/Time: [id number] [facility] Results Received Date/Time: [id number] [facility] Reported Date/Time: [id number] Result Comment: [[facility] ] Performed By: #### 1 [id number] #### [facility] [address] [place] [address] Summary Purpose Family History No Family History Records FoundNo Family History Records FoundNo Family History Records Found Advance Directives No Advanced Directives Records FoundNo Advanced Directives Records FoundNo Advanced Directives Records Found Additional Source Comments INFORMATION SOURCE (unrecogn ized section and content) DATE CREATED AUTHOR 07/28/2021 [facility] dical Specialist DATE CREATED AUTHOR AUTHOR'S ORGANRADHA ATION 11/09/2022 [facility] DATE CREATED AUTHOR AUTHOR'S ORGANRADHA ATION 02/17/2024 [facility] dical Specialists [facility] FOR RECORDS PERTAINING TO PATIENTS WHO ARE OR HAVE BEEN ENROLLED IN A CHEMICAL DEPENDENCY/SUBSTANCEABUSE PROGRAM, SOME INFORMATION MAY BE OMITTED. This clinical summary was aggregated from multiple sources. Caution should be exercised in using it in the provision of clinical care. This summary normalizes information from multiple sources, and as a consequence, information in this document may materially change the coding, format and clinical context of patient data. In addition, data may be omitted in some cases. CLINICAL DECISIONS SHOULD BE BASED ON THE PRIMARY CLINICAL RECORDS. [employer] provides no warranty or guarantee of the accuracy or completeness of information in this document.
[2024-03-05] MEDS: BENZOCAINE 30 ML, lidocaine HCL 15 ML MM (22:45)
[2024-03-05] MEDS: KETOROLAC TROMETHAMINE 60 MG/2 ML VIAL IM (22:46)
[2024-03-05] MEDS: HYDROCODONE/ACET 5-325 MG TABLET 1 TAB PO (23:25)
== END 2024-03-05 23:30 | disposition home or self-care (01) ==
PROVIDERS: Emergency Provider Emergency Medicine; PCP Family Medicine
DX: K08.89 Other specified disorders of teeth and supporting structures (principal)
CPT/HCPCS: 96372; 99284; J1885

== ENCOUNTER 2024-11-27 11:23 | Outpatient (OUT) | payer OTHER, BC, SELFPAY ==
--- NOTE | 2024-11-27 11:38 | XR_ITS ---
[facility] [place] [id number] Patient Name: TOPHER GARCIA MRN: [id number] date: 1980 Sex: F Assigned Patient Location: [facility] Current Patient Location: [facility] Accession/Order Number: [id number] Exam Date: 11/27/2024 12:03 Report Date: 11/27/2024 12:06 At the request of: JENNIFER RODRIGUEZ Procedure: XR lumbar spine min 4V LUMBAR SPINE -4 views: CLINICAL HISTORY: Chronic low back pain with worsening over the past few weeks. Radiation down the legs, greater on the right COMPARISON: None AP, lateral and both oblique views of the lumbosacral junction were obtained. There is no evidence of fracture. There is slight retrolisthesis of L5 on S1. Disc space narrowing is present at the lumbosacral junction. There are tiny endplate spurs and mild lower lumbar facet hypertrophy. No pars defect is identified. The sacroiliac joints are maintained. There are no paraspinal soft tissue abnormalities. XR/XR lumbar spine min 4V IMPRESSION: MILD DEGENERATIVE CHANGES. Impression dictated by: Jennifer Reyez M.D. 11/27/2024 12:06 PM Dictation Location: [place] [address] Electronically authenticated by: [id number] Y Date: 11/27/2024 12:06
== END 2024-11-27 11:24 | disposition home or self-care (01) ==
PROVIDERS: PCP Family Medicine
DX: M54.50 Low back pain, unspecified (principal); M79.604 Pain in right leg; M79.605 Pain in left leg; M51.369 Other intervertebral disc degeneration, lumbar region without mention of lumbar back pain or lower extremity pain
CPT/HCPCS: 72110

== ENCOUNTER 2025-01-18 22:05 | Emergency (ER) | payer SELFPAY ==
[2025-01-18 22:11] VITALS: BP 134/95; PULSE 90; TEMP 37.5; O2SAT 97; BMI 24.0
--- OUTSIDE RECORDS SUMMARY | 2025-01-18 22:12 | XMS_ITS | CCD ---
Author Organization [facility] [employer] Care Team Providers Care Stake Driver Name Role Phone YO, DR FERRARI Primary [...] Unavailable HAY ., DR PEREZ Consulting Unavailable JENNIFER RODRIGUEZ Admitting Unavailable JENNIFER RODRIGUEZ Attending Unavailable YO, DR FERRARI Primary Care Unavailable ZIEBER, DR TRAVIS [place] Consulting Unavailable HEMJENNIFER AVENDANO Consulting Unavailable YO, DR FERRARI Primary Care [...] GILBERT ., RICHIE Attending Unavailable PETERS ., BRENDA Consulting Unavailable YO, DR FERRARI Primary Care Unavailable HAY ., DR PEREZ Admitting Unavailable HAY ., DR PEREZ Attending Unavailable HAY ., DR PEREZ Consulting Unavailable UMM LAMA Consulting Unavailable [place] Jerry ANDERSON Primary Care Provider Jerry Ram MD Unavailable HemJennifer Nieves Unavailable JENNIFER RODRIGUEZ Attending Unavailable JENNIFER RODRIGUEZ Attending Unavailable JENNIFER RODRIGUEZ Attending Unavailable VIDYA VU Attending Unavailable Allergies Allergy Classification Reported Allergen(s) Allergy Type Date of Onset Reaction(s) Facility (1 source) Amoxicillin / Clavulanate Drug Allergy 07-26-2013 [facility] Repository (20 sources) Amoxicillin-Pot Clavulanate Drug Allergy 07-22-2021 [facility] Work Phone: (19 sources) Dicyclomine Drug Allergy 06-13-2024 Dizziness [facility] (1 source) tiZANidine Drug Allergy 12-26-2024 Other [facility] Medications Current Medications Medication Drug Class(es) Dates Sig (Normalized) Sig (Original) ALPRAZolam 0.5 mg oral tablet (20 sources) Benzodiazepine Start: 02-13-2024 End: 01-27-2025 take 1 tablet by mouth twice daily as needed for anxiety ALPRAZolam (Xanax) 0.5 MG tablet Indications: Adjustment disorder with anxiety Take 1 tablet (0.5 mg) by mouth 2 (two) times a day as needed for anxiety 60 tablet 12/28/2024 01/27/2025 Active azithromycin 250 mg oral tablet (5 sources) Macrolide Antimicrobial Start: 07-25-2024 End: 08-27-2024 take 2 tablets by mouth once daily, then take 1 tablet by mouth once daily azithromycin (Zithromax) 250 MG tablet Indications: Acute non-recurrent frontal sinusitis Take 2 tablets (500 mg) by mouth Daily for 1 day, THEN 1 tablet (250 mg) Daily for 4 days. 6 tablet 08/22/2024 08/27/2024 Active betamethasone 0.5 mg/ml topical cream (20 sources) Corticosteroid Start: 02-15-2024 betamethasone dipropionate 0.05 % cream Indications: Sun allergy Apply 1 application topically in the morning and 1 application before bedtime. 15 g 2 02/15/2024 Active dextromethorphan hydrobromide 15 mg / guaiFENesin 400 mg / pseudoephedrine hydrochloride 60 mg oral tablet (2 sources) alpha-Adrenergic Agonist, Uncompetitive G-ojuvkk-U-aspartate Receptor Antagonist, Sigma-1 Agonist Start: 07-25-2024 End: 08-04-2024 pseudoephedrine-D M-GG 60-15-400 MG tablet Indications: Nasal congestion , Acute cough Take 1 tablet by mouth in the morning and 1 tablet at noon and 1 tablet in the evening and 1 tablet before bedtime. Do all this for 10 days. 40 tablet 07/25/2024 08/04/2024 Active dicyclomine hydrochloride 10 mg oral capsule (6 sources) Anticholinergic Start: 02-15-2024 End: 06-13-2024 take 1 capsule by mouth twice daily as needed dicyclomine (Bentyl) 10 MG capsule Indications: Irritable bowel syndrome with both constipation and diarrhea Take 1 capsule (10 mg) by mouth 2 (two) times a day as needed (Loose stools) 60 capsule 2 02/15/2024 06/13/2024 Discontinued (Side effects) [id number] 0.3 ml EPINEPHrine 1 mg/ml auto-injector (20 sources) alpha-Adrenergic Agonist, beta-Adrenergic Agonist, Catecholamine Start: 12-20-2024 EPINEPHrine (Epipen) 0.3 MG/0.3ML injection syringe Indications: Allergy to honey bee venom Inject 0.3 mL (0.3 mg) as directed 1 (one) time for 1 dose Inject into upper leg. Call 911 after use. 12/20/2024 Active Start: 11-14-2024 End: 11-14-2024 EPINEPHrine (Epipen) 0.3 MG/ 0.3ML injection syringe Indications: Allergy to honey bee venom Inject 0.3 mL (0.3 mg) as directed Daily as needed for anaphylaxis Must be seen in ER following administration 0.6 mL 1 11/14/2024 11/14/2024 Discontinued Start: 02-15-2024 End: 11-14-2024 EPINEPHrine (Epipen) 0.3 MG/ 0.3ML injection syringe Indications: Allergy to honey bee venom Inject 0.3 mL (0.3 mg) as directed 1 (one) time for 1 dose Inject into upper leg. Call 911 after use. 2 each 1 11/14/2024 Active 1.5 ml fremanezumab-vfrm 150 mg/ml prefilled syringe (20 sources) Start: 02-15-2024 End: 11-14-2024 inject 1.5 mL by subcutaneous injection every 30 days fremanezumab (Ajovy) 225 MG/1.5ML prefilled syringe Indications: Chronic migraine without aura without status migrainosus, not intractable Inject 1.5 mL (225 mg) under the skin every 30 (thirty) days 1.5 mL 5 11/14/2024 Active meloxicam 15 mg oral tablet (1 source) Nonsteroidal Anti-inflammatory Drug Start: 11-28-2024 take 1 tablet by mouth once daily at mealtime meloxicam (Mobic) 15 MG tablet Indications: Lumbar pain with radiation down both legs Take 1 tablet (15 mg) by mouth Daily Take with food 30 tablet 2 11/28/2024 Active methylPREDNISolone (1 source) Corticosteroid Start: 08-22-2024 End: 08-29-2024 methylPREDNISolone (Medrol Dospak) 4 MG tablets Indications: Acute non-recurrent frontal sinusitis Follow schedule on package instructions 21 tablet 08/22/2024 08/29/2024 Active rifAXIMin 550 mg oral tablet (9 sources) Rifamycin Antibacterial Start: 11-14-2024 End: 11-28-2024 take 1 tablet by mouth in the morning, then take 1 tablet by mouth in the evening, then take 1 tablet by mouth at bedtime rifAXIMin (Xifaxan) 550 MG tablet Indications: Irritable bowel syndrome with diarrhea Take 1 tablet (550 mg) by mouth in the morning and 1 tablet (550 mg) in the evening and 1 tablet (550 mg) before bedtime. Do all this for 14 days. 42 tablet 11/14/2024 11/28/2024 Active Start: 06-13-2024 End: 06-27-2024 take 1 tablet by mouth in the morning, then take 1 tablet by mouth in the evening, then take 1 tablet by mouth at bedtime rifAXIMin (Xifaxan) 550 MG tablet Indications: Irritable bowel syndrome with both constipation and diarrhea Take 1 tablet (550 mg) by mouth in the morning and 1 tablet (550 mg) in the evening and 1 tablet (550 mg) before bedtime. Do all this for 14 days. 42 tablet 06/13/2024 06/27/2024 Active tiZANidine 4 mg oral tablet (7 sources) Central alpha-2 Adrenergic Agonist Start: 11-14-2024 End: 11-28-2024 tiZANidine (Zanaflex) 4 MG tablet Indications: Spasm of muscle of lower back Take 1 tablet (4 mg) by mouth as needed at bedtime for muscle spasms for up to 14 days 14 tablet 11/14/2024 11/28/2024 Active ubrogepant 100 mg oral tablet (8 sources) Start: 12-20-2024 Ubrogepant (Ub relvy) 100 MG tablet Indications: Chronic migraine without aura without status migrainosus, not intractable Take 100 mg by mouth Daily as needed (Migraine) Can take second dose x 1, if needed 1-2 hours following first dose 16 tablet 5 12/20/2024 Active Start: 11-14-2024 Ubrogepant (Ub relvy) 100 MG tablet Indications: Chronic migraine without aura without status migrainosus, not intractable (CMS/HCC) Take 100 mg by mouth Daily as needed (Migraine) Can take second dose x 1, if needed 1-2 hours following first dose 8 tablet 5 11/14/2024 Active 24 hr venlafaxine 75 mg extended release oral capsule (20 sources) Serotonin and Norepinephrine Reuptake Inhibitor Start: 10-19-2023 End: 04-19-2024 take 1 capsule by mouth once daily venlafaxine XR (Effexor XR) 37.5 MG 24 hr capsule Indications: Adjustment disorder with anxiety Take 1 capsule (37.5 mg) by mouth Daily 90 capsule 3 04/19/2024 Active Start: 10-19-2023 End: 04-19-2024 take 1 capsule by mouth once daily venlafaxine XR (Effexor XR) 75 MG 24 hr capsule Indications: Adjustment disorder with anxiety Take 1 capsule (75 mg) by mouth Daily 90 capsule 3 04/19/2024 Active Completed/Discontinued Medications Medication Drug Class(es) Dates Sig (Normalized) Sig (Original) Atogepant (Qulipta) 60 MG tablet (13 sources) Start: 06-13-2024 End: 11-14-2024 take 1 tablet by mouth once daily Atogepant (Qulipta) 60 MG tablet Indications: Chronic migraine without aura without status migrainosus, not intractable (CMS/HCC) Take 60 mg by mouth Daily 30 tablet 2 06/13/2024 11/14/2024 Discontinued (Cost of medication) Start: 06-13-2024 take 1 tablet by leigh once daily Atogepant (Qulipta) 60 MG tablet Indications: Chronic migraine without aura without status migrainosus, not intractable (CMS/HCC) Take 60 mg by mouth Daily 30 tablet 2 06/13/2024 Active fluconazole 150 mg oral tablet (17 sources) Azole Antifungal Start: 03-16-2024 End: 11-14-2024 fluconazole (Diflucan) 150 MG tablet Indications: Yeast infection Take 1 tablet , and if still with symptoms after 3 days take 1 tablet 2 tablet 03/16/2024 11/14/2024 Discontinued (Therapy completed) saccharomyces boulardii 250 mg oral capsule (17 sources) Start: 02-15-2024 End: 11-14-2024 take 1 capsule by mouth in the morning saccharomyces boulardii (Florastor) 250 MG capsule Indications: Irritable bowel syndrome with both constipation and diarrhea Take 1 capsule (250 mg) by mouth in the morning and 1 capsule (250 mg) before bedtime. 60 capsule 5 02/15/2024 11/14/2024 Discontinued (Other) Problems Active Problems Problem Classification Problem Date Documented Da te Episodic/Chronic Adjustment disorders (20 sources) Adjustment disorder with anxious mood; Translations: [Adjustment disorder with anxiety] Onset: 12-06-2022 04-19-2024 Chronic Anxiety disorders (20 sources) Anxiety disorder, unspecified; Translations: [Panic disorder with agoraphobia] Onset: 11-08-2022 12-06-2022 Chronic Chronic obstructive pulmonary disease and bronchiectasis (20 sources) Chronic obstructive lung disease; Translations: [Chronic obstructive pulmonary disease, unspecified] Onset: 12-06-2022 02-15-2024 Chronic Disorders of teeth and jaw (4 sources) Other specified disorders of teeth and supporting structures; Translations: [OTH SPEC DISORDERS TEETH SUPP STRCT] Onset: 11-07-2022 Episodic E Codes: Natural/environment (1 source) Exposure to other specified factors, initial encounter; Translations: [EXPOSURE OTHER SPEC FACTORS INITIAL] Onset: 11-08-2022 Episodic Headache; including migraine (20 sources) Migraine, unspecified, not intractable, without status migrainosus; Translations: [Migraine without aura, not refractory ] Onset: 04-01-2022 Resolved: 02-15-2024 02-15-2024 Chronic Headache; including migraine (3 sources) Headache; including migraine; Translations: [HEADACHE UNSPECIFIED] Onset: 05-14-2022 Other aftercare (1 source) Other skilled nursing (current) drug therapy; Translations: [OTH INTERMEDIATE CURRENT DRUG THERAPY] Onset: 11-08-2022 Episodic Other endocrine disorders (20 sources) Hypoglycemia; Translations: [Hypoglycemia, unspecified] Onset: 12-06-2022 12-06-2022 Chronic Other gastrointestinal disorders (20 sources) Irritable bowel syndrome; Translations: [Mixed irritable bowel syndrome] Onset: 12-06-2022 02-15-2024 Chronic Other gastrointestinal disorders (2 sources) Irritable bowel syndrome with diarrhea; Translations: [Irritable bowel syndrome with diarrhea] 11-14-2024 Chronic Other lower respiratory disease (2 sources) Cough; Translations: [Acute cough] 07-25-2024 Episodic Other nervous system disorders (20 sources) Carpal tunnel syndrome of left wrist; Translations: [Carpal tunnel syndrome, left upper limb] Onset: 12-06-2022 12-06-2022 Chronic Other nervous system disorders (1 source) Other acute postprocedural pain; Translations: [OTHER ACUTE POSTPROCEDURAL PAIN] Onset: 11-08-2022 Episodic Other screening for suspected conditions (not mental disorders or infectious disease) (4 sources) Patient encounter status; Translations: [Encounter for screening for malignant neoplasm of colon] 11-14-2024 Episodic Other upper respiratory disease (2 sources) Nasal congestion; Translations: [Nasal congestion] 07-25-2024 Episodic Other upper respiratory infections (3 sources) Acute frontal sinusitis; Translations: [Acute frontal sinusitis, unspecified] 07-25-2024 Episodic Spondylosis; intervertebral disc disorders; other back problems (1 source) Lumbar spondylosis; Translations: [Spondylosis without myelopathy or radiculopathy, lumbar region] Onset: 11-27-2024 11-27-2024 Chronic Spondylosis; intervertebral disc disorders; other back problems (6 sources) Low back pain; Translations: [Spasm of muscle of lower back] 11-14-2024 Episodic Substance-related disorders (20 sources) Nicotine dependence, cigarettes, uncomplicated; Translations: [Nicotine dependence, unspecified, uncomplicated] Onset: 06-07-2022 12-06-2022 Chronic Superficial injury; contusion (1 source) Abrasion of oral cavity, initial encounter; Translations: [ABRASION ORAL CAVITY INITIAL ENCNTR] Onset: 11-08-2022 Episodic Unclassified (1 source) CONTACT W/AND (SUSP) EXPOS COVID-19; Translations: [CONTACT W/AND (SUSP) EXPOS COVID-19] Onset: 04-01-2022 Past or Other Problems Problem Classification Problem Date Documented Date Episodic/Chronic Allergic reactions (20 sources) Urticaria, unspecified; Translations: [Allergic contact dermatitis due to other agents] Onset: 12-22-2015 Episodic Cancer of cervix (20 sources) Cervicovaginal cytology: High grade squamous intraepithelial lesion or carcinoma; Translations: [High grade squamous intraepithelial lesion on cytologic smear of cervix (HGSIL)] Onset: 12-06-2022 12-06-2022 Episodic Conditions associated with dizziness or vertigo (1 source) Dizziness and giddiness; Translations: [DIZZINESS AND GIDDINESS] Onset: 07-23-2022 Episodic Nausea and vomiting (4 sources) Nausea with vomiting, unspecified; Translations: [NAUSEA WITH VOMITING UNSPECIFIED] Onset: 03-30-2022 Episodic Neoplasms of unspecified nature or uncertain behavior (20 sources) Thrombocytosis; Translations: [Thrombocytosis] Onset: 12-06-2022 12-06-2022 Episodic Other nervous system disorders (1 source) Paresthesia of skin; Translations: [PARESTHESIA OF SKIN] Onset: 05-18-2022 Episodic Other skin disorders (3 sources) Rash and other nonspecific skin eruption; Translations: [RASH OTH NONSPECIFIC SKIN ERUPTION] Onset: 07-20-2022 Episodic Other skin disorders (4 sources) Generalized hyperhidrosis; Translations: [GENERALIZED HYPERHIDROSIS] Onset: 06-03-2022 Episodic Other upper respiratory infections (20 sources) Sinusitis; Translations: [Chronic sinusitis, unspecified] Onset: 12-06-2022 Resolved: 02-15-2024 02-15-2024 Chronic Poisoning by nonmedicinal substances (4 sources) Toxic effect of venom of bees, accidental (unintentional), initial encounter; Translations: [TOXIC EFF VENOM BEES ACC INIT ENC] Onset: 02-02-2022 Episodic Residual codes; unclassified (20 sources) Family history of breast cancer; Translations: [Family history of malignant neoplasm of breast] Onset: 07-22-2021 12-07-2022 Episodic Viral infection (1 source) Viral infection, unspecified; Translations: [VIRAL INFECTION UNSPECIFIED] Onset: 04-01-2022 Episodic Results Test Name Value Interpretation Reference Range Facil ity XR LUMBAR SPINE MIN 4Von [address] [address] XRay Report Signed Patient: MARION MERIDA MR#: [id number] : 1980 Acct:[id number] Age/Sex: 44 / F ADM Date: 11/27/24 Loc: [facility] Attending Dr: Non-Staff Physician Denzel Ordering Physician: JENNIFER RODRIGUEZ Date of Service: 11/27/24 Procedure(s): XR lumbar spine min 4V Accession Number(s): [id number] cc: JERRY RAM ; JENNIFER RODRIGUEZ [place] [address] Patient Name: MARION MERIDA MRN: [id number] date: 1980 Sex: F Assigned Patient Location: [facility] Current Patient Location: [facility] Accession/Order Number: [id number] Exam Date: 11/27/2024 12:03 Report Date: 11/27/2024 12:06 At the request of: JENNIFER RODRIGUEZ Procedure: XR lumbar spine min 4V LUMBAR SPINE -4 views: CLINICAL HISTORY: Chronic low back pain with worsening over the past few weeks. Radiation down the legs, greater on the right COMPARISON: None AP, lateral and both oblique views of the lumbosacral junction were obtained. There is no evidence of fracture. There is slight retrolisthesis of L5 on S1. Disc space narrowing is present at the lumbosacral junction. There are tiny endplate spurs and mild lower lumbar facet hypertrophy. No pars defect is identified. The sacroiliac joints are maintained. There are no paraspinal soft tissue abnormalities. XR/XR lumbar spine min 4V IMPRESSION: MILD DEGENERATIVE CHANGES. Impression dictated by: Jennifer Reyez M.D. 11/27/2024 12:06 PM Dictation Location: [place] [address] Electronically authenticated by: [id number] Y Date: 11/27/2024 12:06 Dictated By: Jennifer Reyez M.D. Signed By: 11/27/24 1208 DD/ 1206 TD/TT: Citizenship Teacher: [facility] Radiology, Radiologist, MD - 11/27/2024 [place] [address] XRay Report Signed Patient: MARION MERIDA MR#: [id number] : 1980 Acct:[id number] Age/Sex: 44 / F ADM Date: 11/27/24 Loc: [facility] Attending Dr: Non-Staff Physician Denzel Ordering Physician: JENNIFER RODRIGUEZ Date of Service: 11/27/24 Procedure(s): XR lumbar spine min 4V Accession Number(s): [id number] cc: JERRY RAM ; JENNIFER RODRIGUEZ [place] [address] Patient Name: MARION MERIDA MRN: [facility]:[id number] date: 1980 Sex: F Assigned Patient Location: [facility] Current Patient Location: [facility] Accession/Order Number: [id number] Exam Date: 11/27/2024 12:03 Report Date: 11/27/2024 12:06 At the request of: JENNIFER RODRIGUEZ Procedure: XR lumbar spine min 4V LUMBAR SPINE -4 views: CLINICAL HISTORY: Chronic low back pain with worsening over the past few weeks. Radiation down the legs, greater on the right COMPARISON: None AP, lateral and both oblique views of the lumbosacral junction were obtained. There is no evidence of fracture. There is slight retrolisthesis of L5 on S1. Disc space narrowing is present at the lumbosacral junction. There are tiny endplate spurs and mild lower lumbar facet hypertrophy. No pars defect is identified. The sacroiliac joints are maintained. There are no paraspinal soft tissue abnormalities. XR/XR lumbar spine min 4V IMPRESSION: MILD DEGENERATIVE CHANGES. Impression dictated by: Jennifer Reyez M.D. 11/27/2024 12:06 PM Dictation Location: [place] [address] Electronically authenticated by: [id number] Y Date: 11/27/2024 12:06 Dictated By: Jennifer Reyez M.D. Signed By: 11/27/24 1208 DD/ 1206 TD/TT: Citizenship Teacher: [facility] Radiology Study observation (narrative) [facility] Cat[employer]ji XR LUMBAR SPINE MIN 4VOrdere d By: Radiologist Radiology on 11-27-2024 [facility] [employer] Work Phone: GROUP A STREP CULTUREon S. pyogenes Ag Ql (Unsp spec) Culture Observations: NEGATIVE FOR GROUP A STREPTOCOCCUS. Normal [facility] Comment on above: Performed By: #### S CHARLOTTE GRASTCX #### [facility] [address] [place] [address] Dr. Sharonda White INFLUENZA A AND B AGon 07-21 INFLUANEGH SEE BELOW Normal [facility] Comment on above: Result Comment: Nega tive for Flu A protein angiten. Infection due to Flu A cannot be ruled out. Flu A angiten in the sample may be below the detection limit of the test. Performed By: #### I NFLUAB #### [facility] [address] [place] [address] Dr. Sharonda White INFLUBNEGH SEE BELOW Normal [facility] Comment on above: Result Comment: Nega tive for Flu B protein antigen. Infection due to Flu B cannot be ruled out. Flu B antigen in the sample may be below the detection limit of the test. Performed By: #### I NFLUAB #### [facility] [address] [place] [address] Dr. Sharonda White INFLUENZA A AG Negative Normal NEGATIVE SEE COMMENT [facility] Comment on above: Performed By: #### I NFLUAB #### [facility] [address] [place] [address] Dr. Sharonda White INFLUENZA B AG Negative Normal NEGATIVE SEE COMMENT [facility] Comment on above: Performed By: #### I NFLUAB #### [facility] [address] [place] [address] Dr. Sharonda White STREPT SCREENon 07-21-2022 STREP SCREEN A Negative Normal NEGATIVE The [facility] Comment on above: Performed By: #### S CHARLOTTE GRASTCX #### [facility] [address] [place] [address] Dr. Sharonda White XR CHEST 2 Von [...] TRAVIS MODI Date: 2022-06-03 15:10 Normal [facility] CBC AUTO DIFFon 05-14-2022 BASO # 0.1 103/ul Normal 0.0-0.1 [facility] Comment on above: Performed By: #### C BC #### [facility] [address] [place] [address] Dr. Sharonda White Basophils/100 WBC (Bld) 0.9 % Normal 0.2-2.0 [facility] Comment on above: Performed By: #### C BC #### [facility] [address] [place] [address] Dr. Sharonda White EO # 0.2 103/ul Normal 0.0-0.7 [facility] Comment on above: Performed By: #### C BC #### [facility] [address] [place] [address] [address] Sharonda White Eosinophils/100 WBC (Bld) 1.7 % Normal 0.9-7.0 [facility] Comment on above: Performed By: #### C BC #### [facility] [address] [place] [address] Dr. Sharonda White Erythrocyte distribution width (RBC) [Ratio] 13.3 % Normal 11.0-15.0 [facility] Comment on above: Performed By: #### C BC #### [facility] [address] [place] [address] Dr. Sharonda White Hematocrit (Bld) [Volume fraction] 39.6 % Normal 36.0-48.0 [facility] Comment on above: Performed By: #### C BC #### [facility] [address] [place] [address] [address] Sharonda White Hemoglobin (Bld) [Mass/Vol] 13.5 g/dL Normal 12.0-16.0 [facility] Comment on above: Performed By: #### C BC #### [facility] [address] [place] [address] [address] Sharonda White IG # 0.04 10e3/ul Critically high 0.00-0.03 [facility] Comment on above: Performed By: #### C BC #### [facility] [address] [place] [address] [address] Sharonda White IG % 0.4 % Normal 0.0-0.5 [facility] Comment on above: Performed By: #### C BC #### [facility] [address] [place] [address] Dr. Sharonda White LYMPH # 2.3 103/ul Normal 1.2-3.8 [facility] Comment on above: Performed By: #### C BC #### [facility] [address] [place] [address] Dr. Sharonda White Lymphocytes/100 WBC (Bld) 23.0 % Normal 20.5-60.0 [facility] Comment on above: Performed By: #### C BC #### [facility] [address] [place] [address] Dr. Sharonda White MANUAL DIFF REQ NO Normal [facility] Comment on above: Performed By: #### C BC #### [facility] [address] [place] [address] Dr. Sharonda White MCH (RBC) [Entitic mass] 30.1 pg Normal 26.7-34.0 [facility] Comment on above: Performed By: #### C BC #### [facility] [address] [place] [address] [address] Sharonda White MCHC (RBC) [Mass/Vol] 34.1 g/dL Normal 29.9-35.2 [facility] Comment on above: Performed By: #### C BC #### [facility] [address] [place] [address] Dr. Sharonda White MCV (RBC) [Entitic vol] 88.2 fL Normal 81.0-99.0 [facility] Comment on above: Performed By: #### C BC #### [facility] [address] [address] [address] Sharonda White MONO # 0.7 103/ul Normal 0.3-0.8 [facility] Comment on above: Performed By: #### C BC #### [facility] [address] [address] [address] Sharonda White Monocytes/100 WBC (Bld) 7.3 % Normal 1.7-12.0 [facility] Comment on above: Performed By: #### C BC #### [facility] [address] [place] [address] Dr. Sharonda White NEUT # 6.6 103/ul Critically high 1.4-6.5 [facility] Comment on above: Performed By: #### C BC #### [facility] [address] [place] [address] Dr. Sharonda White Neutrophils/100 WBC (Bld) 66.7 % Normal 43.0-75.0 [facility] Comment on above: Performed By: #### C BC #### [facility] [address] [place] [address] Dr. Sharonda White Platelet mean volume (Bld) [Entitic vol] 9.2 fL Critically low 9.5-13.5 [facility] Comment on above: Performed By: #### C BC #### [facility] [address] [place] [address] Dr. Sharonda White PLT 366 103/ul Normal 150-450 [facility] Comment on above: Performed By: #### C BC #### [facility] [address] [place] [address] Dr. Sharonda White RBC 4.49 106/ul Normal 4.20-5.40 The [facility] Comment on above: Performed By: #### C BC #### [facility] [address] [address] [address] Sharonda White WBC 9.9 103/ul Normal 4.0-11.0 [facility] Comment on above: Performed By: #### C BC #### [facility] [address] [place] [address] Dr. Sharonda White PROF CHEM 8 (BAS METB)on Anion gap [Moles/Vol] 12.2 mmol/L Normal [facility] Comment on above: Performed By: #### B MP #### [facility] [address] [address] [address] Sharonda White Calcium [Mass/Vol] 8.0 mg/dL Critically low 8.5-10.1 [facility] Comment on above: Performed By: #### B MP #### [facility] [address] [place] [address] Dr. Sharonda White Chloride [Moles/Vol] 108 mmol/L Critically high 98-107 [facility] Comment on above: Performed By: #### B MP #### [facility] [address] [place] [address] Dr. Sharonda White CO2 [Moles/Vol] 24.2 mmol/L Normal 21.0-32.0 [facility] Comment on above: Performed By: #### B MP #### [facility] [address] [place] [address] Dr. Sharonda White Creatinine [Mass/Vol] 0.51 mg/dL Critically low 0.55-1.02 [facility] Comment on above: Performed By: #### B MP #### [facility] [address] [place] [address] Dr. Sharonda White EGFR-AF ERITREAN >60 Normal >=60 [facility] Comment on above: Performed By: #### B MP #### [facility] [address] [place] [address] Dr. Sharonda White EGFR-NON AF ERITREAN >60 Normal >=60 [facility] Comment on above: Performed By: #### B MP #### [facility] [address] [place], [place] [id number] Dr. Sharonda White Glucose [Mass/Vol] 83 mg/dL Normal 74-106 [facility] Comment on above: Performed By: #### B MP #### [facility] [address] [address] [address] Sharonda White Potassium [Moles/Vol] 3.4 mmol/L Critically low 3.5-5.1 [facility] Comment on above: Performed By: #### B MP #### [facility] [address] [address] [address] Sharonda White Sodium [Moles/Vol] 141 mmol/L Normal 136-145 [facility] Comment on above: Performed By: #### B MP #### [facility] [address] [place] [address] Dr. Sharonda White Urea nitrogen [Mass/Vol] 13.0 mg/dL Normal 7.0-18.0 [facility] Comment on above: Performed By: #### B MP #### [facility] [address] [place] [address] Dr. Sharonda White Urea nitrogen/Creatinin e [Mass ratio] 25.5 mg/mg Normal [facility] Comment on above: Performed By: #### B MP #### [facility] [address] [place] [address] Dr. Sharonda White CBC AUTO DIFFon 03-30-2022 BASO # 0.1 103/ul Normal 0.0-0.1 [facility] Comment on above: Performed By: #### C BC #### [facility] [address] [place] [address] Dr. Sharonda White Basophils/100 WBC (Bld) 1.2 % Normal 0.2-2.0 The [facility] Comment on above: Performed By: #### C BC #### [facility] [address] [place] [address] Dr. Sharonda White EO # 0.3 103/ul Normal 0.0-0.7 [facility] Comment on above: Performed By: #### C BC #### [facility] [address] [place] [address] Dr. Sharonda White Eosinophils/100 WBC (Bld) 2.9 % Normal 0.9-7.0 [facility] Comment on above: Performed By: #### C BC #### [facility] [address] [place] [address] Dr. Sharonda White Erythrocyte distribution width (RBC) [Ratio] 13.7 % Normal 11.0-15.0 [facility] Comment on above: Performed By: #### C BC #### [facility] [address] [place] [address] Dr. Sharonda White Hematocrit (Bld) [Volume fraction] 38.5 % Normal 36.0-48.0 [facility] Comment on above: Performed By: #### C BC #### [facility] [address] [place] [address] Dr. Sharonda White Hemoglobin (Bld) [Mass/Vol] 12.9 g/dL Normal 12.0-16.0 [facility] Comment on above: Performed By: #### C BC #### [facility] [address] [place] [address] Dr. Sharonda White IG # 0.02 10e3/ul Normal 0.00-0.03 [facility] Comment on above: Performed By: #### C BC #### [facility] [address] [place] [address] Dr. Sharonda White IG % 0.2 % Normal 0.0-0.5 [facility] Comment on above: Performed By: #### C BC #### [facility] [address] [place] [address] Dr. Sharonda White LYMPH # 2.8 103/ul Normal 1.2-3.8 The [facility] Comment on above: Performed By: #### C BC #### [facility] [address] [place] [address] Dr. Sharonda White Lymphocytes/100 WBC (Bld) 30.7 % Normal 20.5-60.0 The [facility] Comment on above: Performed By: #### C BC #### [facility] [address] [place] [address] Dr. Sharonda White MANUAL DIFF REQ NO Normal [facility] Comment on above: Performed By: #### C BC #### [facility] [address] [place] [address] Dr. Sharonda White MCH (RBC) [Entitic mass] 30.4 pg Normal 26.7-34.0 [facility] Comment on above: Performed By: #### C BC #### [facility] [address] [place] [address] Dr. Sharonda White MCHC (RBC) [Mass/Vol] 33.5 g/dL Normal 29.9-35.2 [facility] Comment on above: Performed By: #### C BC #### [facility] [address] [place] [address] Dr. Sharonda White MCV (RBC) [Entitic vol] 90.6 fL Normal 81.0-99.0 [facility] Comment on above: Performed By: #### C BC #### [facility] [address] [place] [address] Dr. Sharonda White MONO # 0.9 103/ul Critically high 0.3-0.8 [facility] Comment on above: Performed By: #### C BC #### [facility] [address] [place] [address] Dr. Sharonda White Monocytes/100 WBC (Bld) 9.7 % Normal 1.7-12.0 [facility] Comment on above: Performed By: #### C BC #### [facility] [address] [place] [address] Dr. Sharonda White NEUT # 5.0 103/ul Normal 1.4-6.5 The [facility] Comment on above: Performed By: #### C BC #### [facility] [address] [place] [address] Dr. Sharonda White Neutrophils/100 WBC (Bld) 55.3 % Normal 43.0-75.0 [facility] Comment on above: Performed By: #### C BC #### [facility] [address] [place] [address] Dr. Sharonda White Platelet mean volume (Bld) [Entitic vol] 9.3 fL Critically low 9.5-13.5 The [facility] Comment on above: Performed By: #### C BC #### [facility] [address] [place] [address] Dr. Sharonda White PLT 353 103/ul Normal 150-450 [facility] Comment on above: Performed By: #### C BC #### [facility] [address] [place] [address] Dr. Sharonda White RBC 4.25 106/ul Normal 4.20-5.40 [facility] Comment on above: Performed By: #### C BC #### [facility] [address] [place] [address] Dr. Sharonda White WBC 9.1 103/ul Normal 4.0-11.0 [facility] Comment on above: Performed By: #### C BC #### [facility] [address] [place] [address] Dr. Sharonda White [facility] SARS-CoV-2 (COVID-19) RNA EZIO+probe Ql (Unsp spec) Not detected Normal NOT DETECTED The [facility] Comment on above: Result Comment: When diagnostic [...] for this test is supported by the [place] [employer] and [employer] Service's declaration that [...] longer be used). Performed By: #### C VDTBH #### [facility] [address] [place] [address] Dr. Sharonda White INFLUENZA A AND B AGon 03-30 INFLUENZA A AG Negative Normal NEGATIVE SEE COMMENT [facility] Comment on above: Performed By: #### I NFLUAB #### [facility] [address] [place] [address] Dr. Sharonda White INFLUENZA B AG Negative Normal NEGATIVE SEE COMMENT [facility] Comment on above: Performed By: #### I NFLUAB #### [facility] [address] [place] [address] Dr. Sharonda White INTERNAL CONTROLS Within Normal Limits Normal Wi thin Normal Limits [facility] Comment on above: Performed By: #### I NFLUAB #### [facility] [address] [place] [address] Dr. Sharonda White PROF 14(COMP METB)on 022 Albumin [Mass/Vol] 3.1 g/dL Critically low 3.4-5.0 Th e [facility] Comment on above: Performed By: #### C MP #### [facility] [address] [place] [address] Dr. Sharonda White Albumin/Globulin [Mass ratio] 0.9 {ratio} Normal [facility] Comment on above: Performed By: #### C MP #### [facility] [address] [place] [address] Dr. Sharonda White ALP [Catalytic activity/Vol] 95 U/L Normal 46-116 [facility] Comment on above: Performed By: #### C MP #### [facility] [address] [place] [address] Dr. Sharonda Wihte ALT [Catalytic activity/Vol] 17 U/L Normal 14-59 The [facility] Comment on above: Performed By: #### C MP #### [facility] [address] [place] [address] Dr. Sharonda White Anion gap [Moles/Vol] 13.5 mmol/L Normal [facility] Comment on above: Performed By: #### C MP #### [facility] [address] [place] [address] Dr. Sharonda White AST [Catalytic activity/Vol] 13 U/L Critically low 15-37 [facility] Comment on above: Performed By: #### C MP #### [facility] [address] [place] [address] Dr. Sharonda White Calcium [Mass/Vol] 7.9 mg/dL Critically low 8.5-10.1 [facility] Comment on above: Performed By: #### C MP #### [facility] [address] [place] [address] Dr. Sharonda White Chloride [Moles/Vol] 107 mmol/L Normal 98-107 [facility] Comment on above: Performed By: #### C MP #### [facility] [address] [place] [address] Dr. Sharonda White CO2 [Moles/Vol] 22.9 mmol/L Normal 21.0-32.0 [facility] Comment on above: Performed By: #### C MP #### [facility] [address] [place] [address] Dr. Sharonda White Creatinine [Mass/Vol] 0.63 mg/dL Normal 0.55-1.02 [facility] Comment on above: Performed By: #### C MP #### [facility] [address] [place] [address] Dr. Sharonda White EGFR-AF ERITREAN >60 Normal >=60 [facility] Comment on above: Performed By: #### C MP #### [facility] [address] [place] [address] Dr. Sharonda White EGFR-NON AF ERITREAN >60 Normal >=60 [facility] Comment on above: Performed By: #### C MP #### [facility] [address] [place] [address] Dr. Sharonda White Globulin (S) [Mass/Vol] 3.3 g/dL Normal [facility] Comment on above: Performed By: #### C MP #### [facility] [address] [place] [address] Dr. Sharonda White Glucose [Mass/Vol] 119 mg/dL Critically high 74-106 [facility] Comment on above: Performed By: #### C MP #### [facility] [address] [address] [address] Sharonda White Potassium [Moles/Vol] 3.4 mmol/L Critically low 3.5-5.1 [facility] Comment on above: Performed By: #### C MP #### [facility] [address] [address] [address] Sharonda White Protein [Mass/Vol] 6.4 g/dL Normal 6.4-8.2 [facility] Comment on above: Performed By: #### C MP #### [facility] [address] [address] [address] Sharonda White Sodium [Moles/Vol] 140 mmol/L Normal 136-145 [facility] Comment on above: Performed By: #### C MP #### [facility] [address] [address] [address] Sharonda White TBIL <0.2 Normal 0.2-1.0 [facility] Comment on above: Performed By: #### C MP #### [facility] [address] [address] [address] Sharonda White Urea nitrogen [Mass/Vol] 8.0 mg/dL Normal 7.0-18.0 [facility] Comment on above: Performed By: #### C MP #### [facility] [address] [address] [address] Sharonda White Urea nitrogen/Creatinin e [Mass ratio] 12.7 mg/mg Normal [facility] Comment on above: Performed By: #### C MP #### [facility] [address] [address] [address] Sharonda White Q - SUREPATH-FPGS AND HPVon 07-22-2021 CLINICAL INFORMATION: None given Normal [facility] Russian History Professor Comment on above: Order Comment: Quality Practice Testing performed at: [facility], [facility] [place], [facility], [address] [place] [address], [address] [place] [address] [place], [phone], Derrick Car Operator: Greg Barron MD Testing performed at: [facility], [facility], [address] [place] [address], [phone], Derrick Car Operator: Malcolm Hamilton MD [facility] Collection Date/Time: [facility] Results Received Date/Time: [facility] Reported Date/Time: Result Comment: [QAC ] Performed By: #### 1 [id number] #### [facility] Default [address] [place] [address] COMMENT SEE NOTE Normal [facility] Russian History Professor Comment on above: Order Comment: [facility] Testing performed at: [facility], [address] [place] [address], [address] [place] [address], [phone], Derrick Car Operator: Greg Barron MD Testing performed at: [facility], [facility] ([facility], [address] [place] [address], , Derrick Car Operator: Malcolm Hamilton MD [facility] Collection Date/Time: [facility] [...] 1 [id number] #### [facility] Default [address] [place] [address] COMMENT: This Pap test has been evaluated with computer assisted technology. Normal [facility] Russian History Professor Comment on above: Order Comment: [facility] Testing performed at: [facility], [address] [place] [address], [address] [place] [address], [phone], Derrick Car Operator: Greg Barron MD Testing performed at: [facility], [facility] (Quality Practice)[facility], [address] [place] [address], [phone], Derrick Car Operator: Malcolm Hamilton MD [facility] Collection Date/Time: [facility] Results Received Date/Time: [facility] Reported Date/Time: Result Comment: [QAC ] Performed By: #### 1 [id number] #### [facility] Default [address] [place] [address] COLLEGE HIRE: SEE NOTE Normal [facility] Comment on above: Order Comment: [facility] Testing performed at: [facility] [place], [address] [place] [address], [address] [place] [address], [address] [place] [address], Derrick Car Operator: Greg Barron MD Testing performed at: [facility], [facility] (Quality Practice)[facility], [address] [place] [address], , Derrick Car Operator: Malcolm Hamilton MD [facility] Collection Date/Time: [facility] Results Received Date/Time: [facility] Reported Date/Time: Result Comment: TNG, CT(ASCP) For informational purposes: All Cytology specimens are processed and screened at [facility]. [address] [place] [id number] [QAC] Performed By: #### 1 [id number] #### [facility] Default [address] [place] [address] HPV mRNA E6/E7, SUREPATH VIAL Not detected Normal NOT DETECTED [facility] Comment on above: Order Comment: [facility] Testing performed at: [facility], [address] [place] [address], [address] [place] [address], [phone], Derrick Car Operator: Greg Barron MD Testing performed at: [facility], [facility] (Quality Practice)[facility], [address] [place] [address], , Derrick Car Operator: Malcolm Hamilton MD [facility] Collection Date/Time: [facility] Results Received Date/Time: [facility] Reported Date/Time: Result Comment: Meth odology: Hand Cultivator-Mediated Amplification This assay detects E6/E7 viral messenger RNA (mRNA) from 14 high-risk HPV types (16,18,31,33,35,39,45,51,52,56,58,59,66,68). The analytical performance characteristics of this assay have been determined by [facility]. The modifications have not been cleared or approved by the FDA. This assay has been validated pursuant to the CLIA regulations and is used for clinical purposes. For additional information, please refer to http://education.Fotolia/faq/YTG680v9 (This link if provided for information/ educational purposes only.) [O6K] Performed By: #### 1 [id number] #### [facility] Default [address] [place] [address] INTERPRETATION/RES ULT: Negative Normal [facility] Comment on above: Order Comment: [facility] Testing performed at: [facility], [address] [place] [address], [address] [place] [address], Derrick Car Operator: Greg Barron MD Testing performed at: [facility] (Quality Practice)[address], [phone], Derrick Car Operator: Malcolm Hamilton MD [facility] Collection Date/Time: [facility] Results Received Date/Time: [facility] Reported Date/Time: Result Comment: [QAC ] Performed By: #### 1 [id number] #### [facility] Default [address] [place] [address] LMP: None given Normal [facility] Comment on above: Order Comment: [facility] Testing performed at: [facility], [phone], Derrick Car Operator: Greg Barron MD Testing performed at: [facility] (Quality Practice)[address], [phone], Derrick Car Operator: Malcolm Hamilton MD [facility] Collection Date/Time: [facility] Results Received Date/Time: [facility] Reported Date/Time: Result Comment: [QAC ] Performed By: #### 1 [id number] #### [facility] Default [address] [place] [address] PREV. BX: None given Normal [facility] Specialist Comment on above: Order Comment: [facility] Testing performed at: [facility], [address] [place] [address], [address] [place] [address], [phone], Derrick Car Operator: Greg Barron MD Testing performed at: [facility], [facility] (Quality Practice)[facility], [address] [place] [address], , Derrick Car Operator: Malcolm Hamilton MD [facility] Collection Date/Time: [facility] Results Received Date/Time: [facility] Reported Date/Time: Result Comment: [QAC ] Performed By: #### 1 [id number] #### [facility] Default [address] [id number] PREV. PAP: None given Normal [facility] Specialist Comment on above: Order Comment: [facility] Testing performed at: [facility], [address] [place] [address], [address] [place] [address], [phone], Derrick Car Operator: Greg Barron MD Testing performed at: [facility] (Quality Practice)[facility], [address] [place] [address], , Derrick Car Operator: Malcolm Hamilton MD [facility] Collection Date/Time: [facility] Results Received Date/Time: [facility] Reported Date/Time: Result Comment: [QAC ] Performed By: #### 1 [id number] #### [facility] Default [address] [place] [address] SOURCE: None given Normal [facility] Comment on above: Order Comment: [facility] Testing performed at: [facility], [address] [place] [address], [address] [place] [address], [phone], Derrick Car Operator: Greg Barron MD Testing performed at: [facility], [facility] Clinical Laboratories (Quality Practice)[facility], [address] [place] [address], [phone], Derrick Car Operator: Malcolm Hamilton MD [facility] Collection Date/Time: [facility] Results Received Date/Time: [facility] Reported Date/Time: Result Comment: [QAC ] Performed By: #### [id number] #### [facility] [address] [place] [address] Vital Signs Date Time Vital Sign Value Performing Clinician Onel root 11-14-2024 10:59-0400 Body height 162.6 cm Jennifer Hemmer PA Work Phone: [facility] 11-14-2024 10:59-0400 Body mass index (BMI) [Ratio] 24.58 kg/m2 Jennifer Hemmer PA Work Phone: [facility] 11-14-2024 10:59-0400 Body weight 64.95 kg Jennifer Hemmer PA Work Phone: [facility] 11-14-2024 10:59-0400 Diastolic blood pressure 78 mm[Hg] Jennifer Hemmer PA Work Phone: [facility] 11-14-2024 10:59-0400 Heart rate 82 /min Jennifer Hemmer PA Work Phone: [facility] 11-14-2024 10:59-0400 Respiratory rate 16 /min Jennifer Hemmer PA Work Phone: [facility] 11-14-2024 10:59-0400 SaO2% (BldA) [Mass fraction] 97 % Jennifer Hemmer PA Work Phone: [facility] 11-14-2024 10:59-0400 Systolic blood pressure 128 mm[Hg] Jennifer Hemmer PA Work Phone: [facility] 07-25-2024 14:34-0500 Body height 162.6 cm Vidya Vu CUSTOMER CONSULTANT Work Phone: [facility] 07-25-2024 14:34-0500 Body mass index (BMI) [Ratio] 24.85 kg/m2 Vidya Vu CUSTOMER CONSULTANT Work Phone: [facility] 07-25-2024 14:34-0500 Body weight 65.68 kg Vidya Vu CUSTOMER CONSULTANT Work Phone: [facility] 07-25-2024 14:34-0500 Diastolic blood pressure 72 mm[Hg] Vidya Vu CUSTOMER CONSULTANT Work Phone: [facility] 07-25-2024 14:34-0500 Heart rate 76 /min Vidya Vu CUSTOMER CONSULTANT Work Phone: [facility] 07-25-2024 14:34-0500 Respiratory rate 17 /min Vidya Vu CUSTOMER CONSULTANT Work Phone: [facility] 07-25-2024 14:34-0500 SaO2% (BldA) [Mass fraction] 98 % Vidya Vu CUSTOMER CONSULTANT Work Phone: [facility] 07-25-2024 14:34-0500 Systolic blood pressure 116 mm[Hg] Vidya Vu CUSTOMER CONSULTANT Work Phone: [facility] 06-13-2024 10:56-0500 Body mass index (BMI) [Ratio] 24.07 kg/m2 Jennifer Hemmer PA Work Phone: [facility] 06-13-2024 10:56-0500 Body weight 63.59 kg Jennifer Hemmer PA Work Phone: [facility] 06-13-2024 10:56-0500 Diastolic blood pressure 80 mm[Hg] Jennifer Hemmer PA Work Phone: [facility] 06-13-2024 10:56-0500 Heart rate 79 /min Jennifer Hemmer PA Work Phone: [facility] 06-13-2024 10:56-0500 Respiratory rate 16 /min Jennifer Hemmer PA Work Phone: [facility] 06-13-2024 10:56-0500 SaO2% (BldA) [Mass fraction] 99 % Jennifer Hemmer PA Work Phone: [facility] 06-13-2024 10:56-0500 Systolic blood pressure 125 mm[Hg] Jennifer Hemmer PA Work Phone: [facility] Encounters Encounter Date Encounter Type Care Provider Facility Start: 12-28-2024 End: 12-28-2024 Refill Jerry Ram MD Work Phone: [facility] Comment on above: Adjustment disorder with anxiety Start: 11-27-2024 End: 11-27-2024 Clinisync Result Encounter Jennifer LAWS Work Phone: [facility] Unsolicited Start: 11-27-2024 End: 11-27-2024 Clinisync Result Encounter Jennifer LAWS Work Phone: [facility] Unsolicited Start: 11-26-2024 End: 11-26-2024 Refill Jerry Ram MD Work Phone: [facility] Comment on above: Adjustment disorder with anxiety (CMS/HCC) Start: 11-19-2024 End: 11-26-2024 Telephone encounter Jennifer LAWS Work Phone: [facility] Start: 11-14-2024 End: 11-14-2024 Bamboo flowsheet Jennifer LAWS Work Phone: [facility] Start: 11-14-2024 End: 11-14-2024 Bamboo flowsheet Jennifer LAWS Work Phone: [facility] Start: 11-14-2024 End: 11-14-2024 Office outpatient visit 25 minutes Jennifer LAWS Work Phone: [facility] Comment on above: Chronic migraine wit hout aura without status migrainosus, not intractable (CMS/HCC) (Primary Dx); Screening for malignant neoplasm of colon; Screening mammogram for breast cancer; Allergy to honey bee venom; Spasm of muscle of lower back; Carpal tunnel syndrome of left wrist; Lumbar pain with radiation down both legs; Irritable bowel syndrome with diarrhea Start: 11-14-2024 End: 11-14-2024 ambulatory JENNIFER RODRIGUEZ Not Available Start: 10-22-2024 End: 10-23-2024 Refill Jerry Ram MD Work Phone: [facility] Comment on above: Adjustment disorder with anxiety (CMS/HCC) Start: 09-18-2024 End: 09-18-2024 Refill Jerry Ram MD Work Phone: [facility] Comment on above: Adjustment disorder with anxiety (CMS/HCC) Start: 08-22-2024 End: 08-22-2024 Telephone encounter Jerry Ram MD Work Phone: [facility] Start: 08-20-2024 End: 08-20-2024 Refill Jerry Ram MD Work Phone: [facility] Comment on above: Adjustment disorder with anxiety (CMS/HCC) Start: 07-25-2024 End: 07-25-2024 Office outpatient visit 25 minutes Vidya Vu CUSTOMER CONSULTANT Work Phone: [facility] Comment on above: Acute non-recurrent frontal sinusitis (Primary Dx); Nasal congestion; Acute cough Start: 07-25-2024 End: 07-25-2024 ambulatory VIDYA VU Not Available Start: 07-25-2024 End: 07-25-2024 Bamboo flowsheet Vidya Vu CUSTOMER CONSULTANT Work Phone: [facility] Start: 07-25-2024 End: 07-25-2024 Bamboo flowsheet Vidya Vu CUSTOMER CONSULTANT Work Phone: [facility] Start: 07-09-2024 End: 07-09-2024 Refill Jerry Ram MD Work Phone: [facility] Comment on above: Adjustment disorder with anxiety (CMS/HCC) Start: 06-13-2024 End: 06-13-2024 Bamboo flowsheet Jennifer Rodriguez PA Work Phone: [facility] Start: 06-13-2024 End: 06-13-2024 Bamboo flowsheet Jennifer Rodriguez PA Work Phone: [facility] Start: 06-13-2024 End: 06-13-2024 Office outpatient visit 25 minutes Jennifer LAWS Work Phone: [facility] Comment on above: Chronic migraine wit hout aura without status migrainosus, not intractable (CMS/HCC) (Primary Dx); Adjustment disorder with anxiety (CMS/HCC); Irritable bowel syndrome with both constipation and diarrhea Start: 06-13-2024 End: 06-13-2024 ambulatory JENNIFER RODRIGUEZ Not Available Start: 04-19-2024 End: 04-20-2024 Refill Jerry Ram MD Work Phone: [facility] Comment on above: Adjustment disorder with anxiety (CMS/HCC) Start: 03-26-2024 End: 03-26-2024 Telephone encounter Jerry Ram MD Work Phone: [facility] Comment on above: Med Refill (Please s end in Effexor 37.5 mg & Effexor 75mg to [facility] ) Start: 03-16-2024 End: 03-16-2024 Refill Jerry Ram MD Work Phone: [facility] Comment on above: Adjustment disorder with anxiety (CMS/HCC) Start: 02-15-2024 End: 02-15-2024 ambulatory JENNIFER RODRIGUEZ Not Available Start: 11-07-2022 End: 11-07-[address] JERRY RAM Facility:[facility] Start: 07-21-2022 End: 07-21-[address] JERRY RAM Facility:[facility] Start: 07-20-2022 End: 07-20-[address] JERRY RAM Facility:[facility] Start: 06-03-2022 End: 06-04-2022 ambulatory JENNIFER RODRIGUEZ Facility:[facility] Start: 05-14-2022 End: 05-14-[address] JERRY RAM Facility:[facility] Start: 03-31-2022 End: 03-31-[address] JERRY RAM Facility:[facility] Start: 03-30-2022 End: 03-31-[address] JERRY RAM Facility:[facility] Start: 02-02-2022 End: 02-02-[address] JERRY RAM Facility:[facility] Procedures Date Procedure Procedure Detail Performing Clinician Start: 11-27-2024 XR LUMBAR SPINE MIN 4V Jennifer Rodriguez PA Work Phone: Plan of Treatment Date Care Activity Detail Author Start: 03-18-2025 Influenza vaccination Influenz a Vaccine (Season Ended) [facility] Start: 12-26-2024 End: 12-26-2024 Patient encounter procedure 12/26/2024 11:00 AM EDT Office Visit [facility] [address] [place] [address] Jennifer Rodriguez PA [address] [place] [address] [facility] Start: 11-14-2024 End: 01-14-2026 DBT Breast - bilateral screening Bilateral screening mammogram with tomosynthesis Imaging Routine Screening mammogram for breast cancer Expected: 11/14/2024, Expires: 01/14/2026 [facility] Comment on above: Expected: 11/14/2024 , Expires: 01/14/2026 Start: 11-14-2024 End: 11-14-2025 Noninvasive colorectal cancer DNA and occult blood screening [Presence] in Stool Cologuard colon cancer screening Lab Routine Screening for malignant neoplasm of colon Expected: 11/14/2024 (Approximate), Expires: 11/14/2025 [facility] Work Phone: Comment on above: Expected: 11/14/2024 (Approximate), Expires: 11/14/2025 Start: 11-14-2024 End: 11-14-2025 XR Lumbar spine 4 Views XR LUMBAR SPINE AP/LAT/OBLIQUES Imaging Routine Lumbar pain with radiation down both legs Expected: 11/14/2024, Expires: 11/14/2025 [facility] Comment on above: Expected: 11/14/2024 , Expires: 11/14/2025 Start: 11-14-2024 End: 11-14-2024 Patient encounter procedure 11/14/2024 11:00 AM EDT Office Visit [facility] [address] [place] [address] Jennifer Rodriguez PA [address] [place] [address] Arrived [facility] Comment on above: Arrived Start: 11-07-2024 End: 11-07-2024 Patient encounter procedure 11/07/2024 11:00 AM EDT Office Visit [facility] [address] [place] [address] Jennifer Rodriguez, PA [address] [place] [address] [facility] Start: 09-13-2024 End: 09-13-2024 Patient encounter procedure 09/13/2024 11:00 AM EST Office Visit [facility] [address] [place] [address] Jennifer Rodriguez, PA [address] [place] [address] [facility] Start: 07-25-2024 End: 07-25-2024 Patient encounter procedure 07/25/2024 2:30 PM EST Office Visit [facility] [address] [place] [address] Vidya Vu, CUSTOMER CONSULTANT [address] [place] [address] Arrived [facility] Comment on above: Arrived Start: 06-13-2024 End: 06-13-2024 Patient encounter procedure 06/13/2024 11:00 AM EST Office Visit [facility] [address] [place] [address] Jennifer Rodriguez, PA [address] [place] [address] Arrived [facility] Comment on above: Arrived Start: 04-24-2024 End: 04-24-2024 Patient encounter procedure 04/24/2024 3:30 PM EDT Office Visit [facility] [address] [place] [address] Jennifer Rodriguez, PA [address] [place] [address] [facility] Start: 03-18-2024 Influenza vaccination Influenza Vacc ine (#1) [facility] Start: 2019 Screening for malignant neoplasm of breast Mammogram [facility] Start: 2009 Screening for malignant neoplasm of cervix [facility] Start: 2000 Screening for malignant neoplasm of cervix Pap Smear [facility] Start: 1979 Screening for malignant neoplasm of colon [facility] Payers Date Payer Category Payer [facility] [id number] 2024 Unknown [id number] 2023 Medicaid [id number] 2023 Medicaid (Managed Care) [facility] MEDICAID [id number] 1979 Unknown [id number]. 2.593 1979 Unknown [id number] [id number]. 2.593 1979 Unknown [id number] [id number]. 2.593 1979 Unknown [id number] 2.16.840.1.454824.3.579. 2.593 1979 Unknown [id number] 2.16.840.1.257328.3.579. 2.593 1979 Unknown [id number] [id number]. 2.593 1979 Unknown [id number] 2.16.840.1.157862.3.579. 2.593 1979 Unknown [id number] 2.16.840.1.731008.3.579. 2.593 1979 Unknown [id number] 2.16.840.1.860374.3.579. 2.1259 1979 Unknown [id number] [id number]. 2.1259 1979 Unknown [id number] [id number]. 2.1259 1979 Unknown [id number] [id number]. 2.1259 1959 Unknown [id number] Social History Date Type Detail Facility Start: 02-15-2024 Tobacco smoking stat [facility] Smokes tobacco daily [facility] History of tobacco use Cigarette Smoker [facility] Start: 02-15-2024 End: 11-14-2024 Cigarettes smoked current (pack per day) - Reported 1 [facility] Start: 02-15-2024 Tobacco use and exposure Smoke less tobacco non-user [facility] Start: 02-15-2024 End: 11-14-2024 Alcoholic beverage intake Ex-drinker (finding) [facility] Start: 02-15-2024 End: 11-14-2024 Tobacco use panel [facility] Start: 05-25-2023 Tobacco Comment 11-20 cigs/day [facility] Start: 1979 Sex assigned at Not on file N [facility] Functional Status Date Assessment Result Facility 11-14-2024 Patient Health [facility] ionnaire 2 item (PHQ-2) [Reported] [facility] Clinical Notes 07-22-2021 to 12-28-2024 Telephone Encounter - VETO Valderrama - 12/28/2024 12:45 PM EDTTelephone Encounter - VETO Valderrama - 12/28/2024 12:45 PM EDTTelephone Encounter - DEEDEE OCONNOR - 12/28/2024 11:04 AM EDT Note Date & Type Note Facility 12-28-2024 Telephone encounter Note OARRS reviewed, Rx sent into patient's pharmacy. [facility] 12-28-2024 Miscellaneous Notes OARRS reviewed, Rx sent into patient's pharmacy. Last OV 11-14-24 Refill 11-26-24 ALPRAZolam (Xanax) 0.5 MG tablet Ddm in [place] documented in this encounter [facility] 12-28-2024 Telephone encounter Note Last OV 11-14-24 Refill 11-26-24 [facility] 12-28-2024 Telephone encounter Note ALPRAZolam (Xanax) 0.5 MG tablet Ddm in [place] [facility] 11-26-2024 Telephone encounter Note Called and left a detailed message with [facility]. There was no option for me to speak with someone. Had to leave a message. Advised them of adequate documentation already provided for the migraine medications and of the necessity of the epi-pen as a potentially life saving medication. Asked them to return my call. [facility] 11-26-2024 Miscellaneous Notes Called and left a detailed message with [facility]. There was no option for me to speak with someone. Had to leave a message. Advised them of adequate documentation already provided for the migraine medications and of the necessity of the epi-pen as a potentially life saving medication. Asked them to return my call. UBRELVY DENIED. Printed out denial and given to Jennifer for review. AJOVY denied. Printed out denial and given to Jennifer for review. EPINEPHRINE denied. Printed out denial for Jennifer to review. documented in this encounter [facility] 11-26-2024 Telephone encounter Note OARRS reviewed, Rx sent into patient's pharmacy. [facility] 11-26-2024 Miscellaneous Notes OARRS reviewed, Rx sent into patient's pharmacy. Marion called requesting a refill on her Xanax to [facility] [place] documented in this encounter [facility] 11-26-2024 Telephone encounter Note Marion called requesting a refill on her Xanax to [facility] [place] [facility] 11-20-2024 Telephone encounter Note See other TE [facility] 11-20-2024 Telephone encounter Note See other TE [facility] 11-20-2024 Miscellaneous Notes See other TE EPINEPHRINE denied. Printed out denial for Jennifer to review. documented in this encounter [facility] 11-20-2024 Miscellaneous Notes See other TE AJOVY denied. Printed out denial and given to Jennifer for review. documented in this encounter [facility] 11-19-2024 Telephone encounter Note EPINEPHRINE denied. Printed out denial for Jennifer to review. [facility] 11-19-2024 Telephone encounter Note AJOVY denied. Printed out denial and given to Jennifer for review. [facility] 11-19-2024 Telephone encounter Note UBRELVY DENIED. Printed out denial and given to Jennifer for review. AJOVY denied. Printed out denial and given to Jennifer for review. EPINEPHRINE denied. Printed out denial for Jennifer to review. [facility] 11-14-2024 History of Presen t illness Narrative Images from the original note were not included. Subjective Patient ID: Marion Merida is a 44 y.o. female who presents for anxiety. Marion is present today for follow up anxiety. She is currently on Alprazolam as needed and is working well for her. Was not able to get the Xifaxin or Ubrelvy. Migraines worse around her menses and if the weather is hot. Still having BM's every time she eats or drinks anything. C/o back pain for years, muscle spasms, sometimes with minimal activity. Worsened lately. Taking Ibuprofen, trying to use heat and/or ice. Pain does radiate to her legs at times. Using wrist brace for carpal tunnel on left side. States she has allergy to bees, has severe swelling requiring Epi-Pen in past. Her insurance denied the pens. Current Outpatient Medications on File Prior to Visit Medication Sig Dispense Refill ALPRAZolam (Xanax) 0.5 MG tablet Take 1 tablet (0.5 mg) by mouth 2 (two) times a day as needed for anxiety 60 tablet 0 betamethasone dipropionate 0.05 % cream Apply 1 application topically in the morning and 1 application before bedtime. 15 g 2 venlafaxine XR (Effexor XR) 37.5 MG 24 hr capsule Take 1 capsule (37.5 mg) by mouth Daily 90 capsule 3 venlafaxine XR (Effexor XR) 75 MG 24 hr capsule Take 1 capsule (75 mg) by mouth Daily 90 capsule 3 [DISCONTINUED] Atogepant (Qulipta) 60 MG tablet Take 60 mg by mouth Daily (Patient not taking: Reported on 11/14/2024) 30 tablet 2 [DISCONTINUED] EPINEPHrine (Epipen) 0.3 MG/0.3ML injection syringe Inject 0.3 mL (0.3 mg) as directed 1 (one) time for 1 dose (Patient not taking: Reported on 11/14/2024) 0.3 mL 1 [DISCONTINUED] fluconazole (Diflucan) 150 MG tablet Take 1 tablet , and if still with symptoms after 3 days take 1 tablet 2 tablet 0 [DISCONTINUED] fremanezumab (Ajovy) 225 MG/1.5ML prefilled syringe Inject 1.5 mL (225 mg) under the skin every 30 (thirty) days (Patient not taking: Reported on 11/14/2024) 1.5 mL 5 [DISCONTINUED] saccharomyces boulardii (Florastor) 250 MG capsule Take 1 capsule (250 mg) by mouth in the morning and 1 capsule (250 mg) before bedtime. 60 capsule 5 No current facility-administered medications on file prior to visit. I have reviewed and reconciled the history and medication list with the patient today. Allergies Allergen Reactions Dicyclomine Dizziness Amoxicillin-Pot Clavulanate Other Reaction(s): Facial numbness and SOB Social History Tobacco Use Smoking status: Every Day Current packs/day: 1.00 Average packs/day: 1 pack/day for 20.0 years (20.0 ttl pk-yrs) Types: Cigarettes Smokeless tobacco: Never Tobacco comments: 11-20 cigs/day Vaping Use Vaping status: Never Used Substance Use Topics Alcohol use: Not Currently Drug use: Not Currently Family History Problem Relation Name Age of Onset Hypertension Mother Breast cancer Father's Sister Colon cancer Paternal Grandfather Coronary artery disease Other Hypertension Other Diabetes type II Other Lung cancer Other Prostate cancer Other Past Medical History: Diagnosis Date Abscess bug bite Acute exacerbation of chronic obstructive pulmonary disease ([facility]) 12/06/2022 Adjustment disorder with anxiety ([facility]) 12/06/2022 Anxiety Carpal tunnel syndrome of left wrist 12/06/2022 Cellulitis Chronic migraine with aura ([facility]) 12/06/2022 Eczema 12/06/2022 Gastroenteritis H/O CT scan of brain 10/20/2018 H/O CT scan of chest 04/06/2019 was negative for Pulmonary Embolism, No pulmonary infiltrates Hypoglycemia 12/06/2022 Irritable bowel syndrome with diarrhea 12/06/2022 Nervousness Panic disorder with agoraphobia (CMS/HCC) 12/06/2022 Smoker 12/06/2022 Thrombocytosis 12/06/2022 Past Surgical History: Procedure Laterality Date CT ANGIOGRAM CHEST 04/06/2019 CT ANGIOGRAM CHEST [facility] DILATION AND CURETTAGE OF UTERUS 1999, 2014 Visit Vitals BP 128/78 Pulse 82 Resp 16 Ht 5' 4 Wt 143 lb 3.2 oz SpO2 97% BMI 24.58 kg/m Smoking Status Every Day BSA 1.71 m Review of Systems Constitutional: Negative for chills, fatigue and fever. Respiratory: Negative for cough, shortness of breath and wheezing. Cardiovascular: Negative for chest pain, palpitations and leg swelling. Gastrointestinal: Positive for diarrhea. Negative for abdominal pain, constipation, nausea and vomiting. Musculoskeletal: Positive for arthralgias, back pain and myalgias. Skin: Negative for rash. Neurological: Positive for headaches. Psychiatric/Behavioral: The patient is nervous/anxious. Objective Physical Exam Constitutional: General: She is not in acute distress. Appearance: Normal appearance. She is well-developed. HENT: Head: Normocephalic and atraumatic. Eyes: General: No scleral icterus. Conjunctiva/sclera: Conjunctivae normal. Cardiovascular: Rate and Rhythm: Normal rate and regular rhythm. Heart sounds: Normal heart sounds. No murmur heard. Pulmonary: Effort: Pulmonary effort is normal. No respiratory distress. Breath sounds: Normal breath sounds. No wheezing, rhonchi or rales. Musculoskeletal: Lumbar back: Spasms, tenderness (Paraspinous bilat lower lumbar) and bony tenderness (Sacrum) present. Decreased range of motion. Positive right straight leg raise test. Comments: Pain with strength testing for BLE, strength 5-/5 BLE. SLR positive with radiation to thighs bilaterally, R > L. Skin: General: Skin is warm and dry. Neurological: General: No focal deficit present. Mental Status: She is alert and oriented to person, place, and time. Comments: Sensation intact BLE Psychiatric: Mood and Affect: Mood normal. Behavior: Behavior normal. Assessment/Plan Diagnoses and all orders for this visit: Chronic migraine without aura without status migrainosus, not intractable (CMS/HCC) - fremanezumab (Ajovy) 225 MG/1.5ML prefilled syringe; Inject 1.5 mL (225 mg) under the skin every 30 (thirty) days - Ubrogepant (Ubrelvy) 100 MG tablet; Take 100 mg by mouth Daily as needed (Migraine) Can take second dose x 1, if needed 1-2 hours following first dose -Currently on Venlafaxine without significant relief. -Has tried OTC Tylenol/Motrin. -Was on Aimovig 70 mg/mL from 03/07/2019-02/04/2020 without adequate control. -Was on Imitrex 100 mg as needed from 09/11/2015-06/16/2017 without adequate relief. -Was on Nurtec 75 mg from 06/15/2021-01/15/2022 without adequate relief. -Was on Ubrelvy 50 mg as needed from 01/15/2022-06/02/2022 without adequate relief. -Ubrelvy 100 mg is effective for the patient and provided pt with samples today. Can have as many as 5-8 migraines a month. Was having none while on the Ajovy, was working well for her and was well tolerated. Screening for malignant neoplasm of colon - Cologuard colon cancer screening; Future Provided patient with order to complete Cologuard testing as a screening for colon cancer. If results are negative, will plan to recheck a Cologuard in 3 years. If results are positive, would need to provide patient with referral for a screening Colonoscopy for further evaluation. Screening for malignant neoplasm of the breast - Bilateral screening mammogram with tomosynthesis; Future Provided patient with an order for an updated Mammogram. If results are negative/normal, will plan to continue with routine yearly screenings. Allergy to honey bee venom Refill provided on Epi-pen to use in case of Anaphylaxis. Reminded pt to call 911 after use. Spasm of muscle of lower back - tiZANidine (Zanaflex) 4 MG tablet; Take 1 tablet (4 mg) by mouth as needed at bedtime for muscle spasms for up to 14 days Start Tizanidine as needed for muscle spasms. Advised may cause drowsiness. Encouraged gentle stretching. Carpal tunnel syndrome of left wrist Recommended wrist cock-up splint for better relief of CTS symptoms. Follow up if does not improve. Lumbar pain with radiation down both legs Provided pt with referral to PT and order for x-rays of the lumbar spine due to duration and intensity of symptoms. Tried Chiropractor in the past with some relief. She can continue with certified social workers in health care as needed. Irritable bowel syndrome with diarrhea - rifAXIMin (Xifaxan) 550 MG tablet; Take 1 tablet (550 mg) by mouth in the morning and 1 tablet (550 mg) in the evening and 1 tablet (550 mg) before bedtime. Do all this for 14 days. Tried Dicyclomine and it caused dizziness. Has also taken probiotics without relief. Provided her with updated Rx for Xifaxin at this time. Follow up in about 6 weeks (around 12/26/2024) for Recheck. documented in this encounter [facility] 10-23-2024 Telephone encounter Note Appt scheduled [facility] 10-23-2024 Miscellaneous Notes Appt scheduled Please help pt get scheduled for a follow up appointment within the month. OARRS reviewed, Rx sent into patient's pharmacy. [place] called requesting a refill on her ALPRAZolam (Xanax) 0.5 MG to [facility] [place] documented in this encounter [facility] 10-22-2024 Telephone encounter Note Please help pt get scheduled for a follow up appointment within the month. OARRS reviewed, Rx sent into patient's pharmacy. [facility] 10-22-2024 Telephone encounter Note [place] called requesting a refill on her ALPRAZolam (Xanax) 0.5 MG to [facility] [place] [facility] 09-18-2024 Telephone encounter Note ALPRAZolam (Xanax) 0.5 MG tablet to [facility] [place] [facility] 09-18-2024 Miscellaneous Notes ALPRAZolam (Xanax) 0.5 MG tablet to [facility] [place] documented in this encounter [facility] 08-22-2024 Telephone encounter Note Patient called stating that she did test positive for covid as stated in other telephone encounter. She said she thinks now that it is turning into a sinus infection. She berry she has a lot of pressure in her ears and can't barely hear. She has green phlegm as well. Otc meds are not working. She wondered [facility] [place] 08-22-2024 Miscellaneous Notes Patient called stating that she did test positive for covid as stated in other telephone encounter. She said she thinks now that it is turning into a sinus infection. She berry she has a lot of pressure in her ears and can't barely hear. She has green phlegm as well. Otc meds are not working. She wondered if something [facility] be [facility] [place]. documented in this encounter [facility] 08-20-2024 Telephone encounter Note Advised pt to take OTC medications to treat her symptoms. [facility] 08-20-2024 Miscellaneous Notes Advised pt to take OTC medications to treat her symptoms. Patient tested positive for covid and wondered if something could be sent in for her cough low grade fever, runny nose. ALPRAZolam (Xanax) 0.5 MG tablet [facility] [place] documented in this encounter [facility] 08-20-2024 Telephone encounter Note Patient tested positive for covid and wondered if something could be sent in for her cough low grade fever, runny nose. [facility] 08-20-2024 Telephone encounter Note ALPRAZolam (Xanax) 0.5 MG tablet D[facility] [place] [facility] 07-25-2024 History of Presen t illness Narrative Images from the original note were not included. Subjective Patient ID: [place] Merida is a 44 y.o. female who presents for sinus issues. [place] presents today with sinus issues, she things she had the flu and then it went into sinus pressure, with ear pain and headache. This has been for on for the last 2 weeks. Current Outpatient Medications on File Prior to Visit Medication Sig Dispense Refill ALPRAZolam (Xanax) 0.5 MG tablet Take 1 tablet (0.5 mg) by mouth 2 (two) times a day as needed for anxiety 60 tablet 0 Atogepant (Qulipta) 60 MG tablet Take 60 mg by mouth Daily 30 tablet 2 betamethasone dipropionate 0.05 % cream Apply 1 application topically in the morning and 1 application before bedtime. 15 g 2 EPINEPHrine (Epipen) 0.3 MG/0.3ML injection syringe Inject 0.3 mL (0.3 mg) as directed 1 (one) time for 1 dose 0.3 mL 1 fluconazole (Diflucan) 150 MG tablet Take 1 tablet , and if still with symptoms after 3 days take 1 tablet 2 tablet 0 fremanezumab (Ajovy) 225 MG/1.5ML prefilled syringe Inject 1.5 mL (225 mg) under the skin every 30 (thirty) days 1.5 mL 5 saccharomyces boulardii (Florastor) 250 MG capsule Take 1 capsule (250 mg) by mouth in the morning and 1 capsule (250 mg) before bedtime. 60 capsule 5 venlafaxine XR (Effexor XR) 37.5 MG 24 hr capsule Take 1 capsule (37.5 mg) by mouth Daily 90 capsule 3 venlafaxine XR (Effexor XR) 75 MG 24 hr capsule Take 1 capsule (75 mg) by mouth Daily 90 capsule 3 No current facility-administered medications on file prior to visit. I have reviewed and reconciled the history and medication list with the patient today. Allergies Allergen Reactions Dicyclomine Dizziness Amoxicillin-Pot Clavulanate Other Reaction(s): Facial numbness and SOB Social History Tobacco Use Smoking status: Every Day Current packs/day: 1.00 Average packs/day: 1 pack/day for 20.0 years (20.0 ttl pk-yrs) Types: Cigarettes Smokeless tobacco: Never Tobacco comments: 11-20 cigs/day Vaping Use Vaping status: Never Used Substance Use Topics Alcohol use: Not Currently Drug use: Not Currently Family History Problem Relation Name Age of Onset Hypertension Mother Breast cancer Father's Sister Colon cancer Paternal Grandfather Coronary artery disease Other Hypertension Other Diabetes type II Other Lung cancer Other Prostate cancer Other Past Medical History: Diagnosis Date Abscess bug bite Acute exacerbation of chronic obstructive pulmonary disease ([facility]) 12/06/2022 Adjustment disorder with anxiety ([facility]) 12/06/2022 Anxiety Carpal tunnel syndrome of left wrist 12/06/2022 Cellulitis Chronic migraine with aura ([facility]/HCC) 12/06/2022 Eczema 12/06/2022 Gastroenteritis H/O CT scan of brain 10/20/2018 H/O CT scan of chest 04/06/2019 was negative for Pulmonary Embolism, No pulmonary infiltrates Hypoglycemia 12/06/2022 Irritable bowel syndrome with diarrhea 12/06/2022 Nervousness Panic disorder with agoraphobia ([facility]/HCC) 12/06/2022 Smoker 12/06/2022 Thrombocytosis 12/06/2022 Past Surgical History: Procedure Laterality Date CT ANGIOGRAM CHEST 04/06/2019 CT ANGIOGRAM CHEST [facility] DILATION AND CURETTAGE OF UTERUS 1999, 2014 Visit Vitals Smoking Status Every Day Review of Systems Constitutional: Positive for fever. HENT: Positive for congestion, ear pain, sinus pressure and sore throat. Eyes: Negative. Respiratory: Negative. Cardiovascular: Negative. Gastrointestinal: Negative. Genitourinary: Negative. Musculoskeletal: Negative. Skin: Negative. Endocrine: Negative. Objective Physical Exam Vitals reviewed. Constitutional: Appearance: She is ill-appearing. HENT: Head: Normocephalic and atraumatic. Right Ear: Tympanic membrane, ear canal and external ear normal. Left Ear: Tympanic membrane, ear canal and external ear normal. Nose: Congestion and rhinorrhea present. Mouth/Throat: Mouth: Mucous membranes are moist. Pharynx: Oropharyngeal exudate and posterior oropharyngeal erythema present. Eyes: Conjunctiva/sclera: Conjunctivae normal. Cardiovascular: Rate and Rhythm: Normal rate and regular rhythm. Heart sounds: Normal heart sounds. Pulmonary: Effort: Pulmonary effort is normal. Breath sounds: Normal breath sounds. Abdominal: Palpations: Abdomen is soft. Musculoskeletal: General: Normal range of motion. Cervical back: Normal range of motion and neck supple. Skin: General: Skin is warm and dry. Neurological: General: No focal deficit present. Mental Status: She is alert and oriented to person, place, and time. Psychiatric: Mood and Affect: Mood normal. Behavior: Behavior normal. Thought Content: Thought content normal. Judgment: Judgment normal. Assessment/Plan 1. Acute non-recurrent frontal sinusitis (Primary) Discussed diagnosis, use of azithromycin and its most common side effects. Instructed to continue the capmist DM as ordered and follow up if continued symptoms. - azithromycin (Zithromax) 250 MG tablet; 2 tabs x 1 day then 1 tab x 4 days Dispense: 6 tablet; Refill: 0 2. Nasal congestion Discussed use of capmist DM and its most common side effects. - [id number] 60-15-400 MG tablet; Take 1 tablet by mouth in the morning and 1 tablet at noon and 1 tablet in the evening and 1 tablet before bedtime. Do all this for 10 days. Dispense: 40 tablet; Refill: 0 3. Acute cough - [id number] 60-15-400 MG tablet; Take 1 tablet by mouth in the morning and 1 tablet at noon and 1 tablet in the evening and 1 tablet before bedtime. Do all this for 10 days. Dispense: 40 tablet; Refill: 0 No follow-ups on file. documented in this encounter [facility] 07-25-2024 Instructions Vidya Vu NP - 07/25/2024 2:30 PM EST Mallory ordered Capmist Dm ordered documented in this encounter [facility] 07-09-2024 Telephone encounter Note OARRS reviewed, Rx sent into patient's pharmacy. [facility] 07-09-2024 Miscellaneous Notes OARRS reviewed, Rx sent into patient's pharmacy. ALPRAZolam (Xanax) 0.5 MG tablet [ [facility] [place] documented in this encounter [facility] 07-09-2024 Telephone encounter Note ALPRAZolam (Xanax) 0.5 MG tablet [ [facility] [place] [facility] 06-13-2024 History of Presen t illness Narrative Images from the original note were not included. HPI Med Refill Additional comments: xanax Last edited by Keerthi Dee MA on 06/13/2024 10:55 AM. HPI Med Refill Additional comments: xanax Last edited by Keerthi Dee MA on 06/13/2024 10:55 AM. Subjective Patient ID: [place] Merida is a 44 y.o. female who presents for a medication follow up. [place] is in today for a medication follow up on her alprazolam. States its working well and has no complaints with the medication at this time. Has had a little more anxiety lately, has had a lot going on. States about 5 minutes after she eats, she has to go to the restroom. Having watery bowel movements for a long. Having BM every time she eats. Denies it being abnormally foul smelling. Has been going on since she had her son. Couldn't tolerate Bentyl, made her dizzy. Current Outpatient Medications on File Prior to Visit Medication Sig Dispense Refill betamethasone dipropionate 0.05 % cream Apply 1 application topically in the morning and 1 application before bedtime. 15 g 2 fluconazole (Diflucan) 150 MG tablet Take 1 tablet , and if still with symptoms after 3 days take 1 tablet 2 tablet 0 fremanezumab (Ajovy) 225 MG/1.5ML prefilled syringe Inject 1.5 mL (225 mg) under the skin every 30 (thirty) days 1.5 mL 5 saccharomyces boulardii (Florastor) 250 MG capsule Take 1 capsule (250 mg) by mouth in the morning and 1 capsule (250 mg) before bedtime. 60 capsule 5 venlafaxine XR (Effexor XR) 37.5 MG 24 hr capsule Take 1 capsule (37.5 mg) by mouth Daily 90 capsule 3 venlafaxine XR (Effexor XR) 75 MG 24 hr capsule Take 1 capsule (75 mg) by mouth Daily 90 capsule 3 [DISCONTINUED] ALPRAZolam (Xanax) 0.5 MG tablet Take 1 tablet (0.5 mg) by mouth 2 (two) times a day as needed for anxiety 60 tablet 0 [DISCONTINUED] dicyclomine (Bentyl) 10 MG capsule Take 1 capsule (10 mg) by mouth 2 (two) times a day as needed (Loose stools) 60 capsule 2 EPINEPHrine (Epipen) 0.3 MG/0.3ML injection syringe Inject 0.3 mL (0.3 mg) as directed 1 (one) time for 1 dose 0.3 mL 1 No current facility-administered medications on file prior to visit. I have reviewed and reconciled the history and medication list with the patient today. Allergies Allergen Reactions Dicyclomine Dizziness Amoxicillin-Pot Clavulanate Other Reaction(s): Facial numbness and SOB Social History Tobacco Use Smoking status: Every Day Current packs/day: 1.00 Average packs/day: 1 pack/day for 20.0 years (20.0 ttl pk-yrs) Types: Cigarettes Smokeless tobacco: Never Tobacco comments: 11-20 cigs/day Vaping Use Vaping status: Never Used Substance Use Topics Alcohol use: Not Currently Drug use: Not Currently Family History Problem Relation Name Age of Onset Hypertension Mother Breast cancer Father's Sister Colon cancer Paternal Grandfather Coronary artery disease Other Hypertension Other Diabetes type II Other Lung cancer Other Prostate cancer Other Past Medical History: Diagnosis Date Abscess bug bite Acute exacerbation of chronic obstructive pulmonary disease ([facility]) 12/06/2022 Adjustment disorder with anxiety ([facility]) 12/06/2022 Anxiety Carpal tunnel syndrome of left wrist 12/06/2022 Cellulitis Chronic migraine with aura ([facility]) 12/06/2022 Eczema 12/06/2022 Gastroenteritis H/O CT scan of brain 10/20/2018 H/O [address] scan of chest 04/06/2019 was negative for Pulmonary Embolism, No pulmonary infiltrates Hypoglycemia 12/06/2022 Irritable bowel syndrome with diarrhea 12/06/2022 Nervousness Panic disorder with agoraphobia ([facility]) 12/06/2022 Smoker 12/06/2022 Thrombocytosis 12/06/2022 Past Surgical History: Procedure Laterality Date CT ANGIOGRAM CHEST 04/06/2019 CT ANGIOGRAM CHEST [facility] DILATION AND CURETTAGE OF UTERUS 1999, 2014 Visit Vitals BP 125/80 Pulse 79 Resp 16 Wt 140 lb 3.2 oz SpO2 99% BMI 24.07 kg/m Smoking Status Every Day BSA 1.69 m Review of Systems Constitutional: Negative for chills, fatigue and fever. Respiratory: Negative for cough, shortness of breath and wheezing. Cardiovascular: Negative for chest pain, palpitations and leg swelling. Gastrointestinal: Negative for abdominal pain, constipation, diarrhea, nausea and vomiting. Skin: Negative for rash. Psychiatric/Behavioral: The patient is nervous/anxious. Objective Physical Exam Constitutional: General: She is not in acute distress. Appearance: Normal appearance. She is well-developed. HENT: Head: Normocephalic and atraumatic. Eyes: General: No scleral icterus. Conjunctiva/sclera: Conjunctivae normal. Cardiovascular: Rate and Rhythm: Normal rate and regular rhythm. Heart sounds: Normal heart sounds. No murmur heard. Pulmonary: Effort: Pulmonary effort is normal. No respiratory distress. Breath sounds: Normal breath sounds. No wheezing, rhonchi or rales. Skin: General: Skin is warm and dry. Neurological: General: No focal deficit present. Mental Status: She is alert and oriented to person, place, and time. Psychiatric: Mood and Affect: Mood normal. Behavior: Behavior normal. Assessment/Plan Diagnoses and all orders for this visit: Chronic migraine without aura without status migrainosus, not intractable (CMS/HCC) - Atogepant (Qulipta) 60 MG tablet; Take 60 mg by mouth Daily Pt has to try Qulipta per her insurance prior to being approved for [facility]. Provided pt with #16 samples and a prescription. -Currently on Venlafaxine without significant relief. -Has tried OTC Tylenol/Motrin. -Was on Aimovig 70 mg/mL from 03/07/2019-02/04/2020 without adequate control. -Was on Imitrex 100 mg as needed from 09/11/2015-06/16/2017 without adequate relief. -Was on Nurtec 75 mg from 06/15/2021-01/15/2022 without adequate relief. -Was on Ubrelvy 50 mg as needed from 01/15/2022-06/02/2022 without adequate relief. Can have as many as 7-8 migraines a month. Was having none while on the Ajovy, was working well for her and was well tolerated. If Qulipta is not effective for patient, will try again to get Ajovy approved for patient. Adjustment disorder with anxiety (CMS/HCC) - ALPRAZolam (Xanax) 0.5 MG tablet; Take 1 tablet (0.5 mg) by mouth 2 (two) times a day as needed for anxiety OARRS report generated and reviewed. Stable with prn use of the above. Refill provided today. Will continue to monitor every three months. Irritable bowel syndrome with both constipation and diarrhea - rifAXIMin (Xifaxan) 550 MG tablet; Take 1 tablet (550 mg) by mouth in the morning and 1 tablet (550 mg) in the evening and 1 tablet (550 mg) before bedtime. Do all this for 14 days. Persistent issue for pt. Bentyl not effective and not tolerated. Will have patient start Xifaxin as prescribed. Provided pt with #9 samples and a prescription. Reviewed how the medication works. If not effective, would recommend she try an OTC probiotic daily. Follow up in about 3 months (around 09/13/2024) for Medication Follow Up. documented in this encounter [facility] 04-20-2024 Telephone encounter Note scheduled [facility] 04-20-2024 Miscellaneous Notes scheduled Please help pt get set up for a medication follow up visit sometime this month. Last refill on Alprazolam until seen. OARRS reviewed, Rx sent into patient's pharmacy. documented in this encounter [facility] 04-19-2024 Telephone encounter Note Please help pt get set up for a medication follow up visit sometime this month. Last refill on Alprazolam until seen. OARRS reviewed, Rx sent into patient's pharmacy. [facility] 03-16-2024 Telephone encounter Note OARRS reviewed, Rx sent into patient's pharmacy. [facility] 03-16-2024 Miscellaneous Notes OARRS reviewed, Rx sent into patient's pharmacy. ALPRAZolam (Xanax) [facility] [place] documented in this encounter [facility] 03-16-2024 Telephone encounter Note ALPRAZolam (Xanax) [facility] [place] [facility] 07-22-2021 Note SATISFACTORY FOR EVALUATION [address] [place] [employer] History Professor Comment on above: Order Comment: [facility] Testing performed at: [facility] [place], [address] [place] [address], [id number], [place] Car Operator: Greg Barron MD Testing performed at: [facility], [facility], [id number], [place] Car Operator: Malcolm Hamilton MD [facility] Collection Date/Time: [id number] [facility] Results Received Date/Time: [facility] Reported Date/Time: [id number] Result Comment: [[facility] ] Performed By: #### [id number] #### [facility] Default [address] [place] [address] Evaluation note Diagnosis Adjustment disorder with anxiety (CMS/HCC) Adjustment disorder with anxiety [facility] Diagnosis Chronic migraine without aura without status migrainosus, not intractable (CMS/HCC)- Primary Adjustment disorder with anxiety (CMS/HCC) Adjustment disorder with anxiety Irritable bowel syndrome with both constipation and diarrhea [facility] Diagnosis Adjustment disorder with anxiety (CMS/HCC) Adjustment disorder with anxiety [facility] Diagnosis Adjustment disorder with anxiety (CMS/HCC) Adjustment disorder with anxiety [facility] Diagnosis Acute non-recurrent frontal sinusitis- Primary Nasal congestion Other diseases of nasal cavity and sinuses Acute cough [facility] Diagnosis Adjustment disorder with anxiety (CMS/HCC) Adjustment disorder with anxiety [facility] Diagnosis Acute non-recurrent frontal sinusitis- Primary [facility] Diagnosis Adjustment disorder with anxiety (CMS/HCC) Adjustment disorder with anxiety [facility] Diagnosis Adjustment disorder with anxiety (CMS/HCC) Adjustment disorder with anxiety [facility] Diagnosis Chronic migraine without aura without status migrainosus, not intractable (CMS/HCC)- Primary Screening for malignant neoplasm of colon Screening mammogram for breast cancer Allergy to honey bee venom Spasm of muscle of lower back Carpal tunnel syndrome of left wrist Lumbar pain with radiation down both legs Lumbago Irritable bowel syndrome with diarrhea Irritable bowel syndrome [facility] Diagnosis Adjustment disorder with anxiety (CMS/HCC) Adjustment disorder with anxiety [facility] Diagnosis Adjustment disorder with anxiety Adjustment disorder with anxiety documented in this encounter [facility] Summary Purpose Family History No Family History Records FoundNo Family History Records FoundNo Family History Records Found Advance Directives No Advanced Directives Records FoundNo Advanced Directives Records FoundNo Advanced Directives Records Found Additional Source Comments INFORMATION SOURCE (unrecogn ized section and content) DATE CREATED AUTHOR 07/28/2021 [facility] dical Specialist DATE CREATED AUTHOR AUTHOR'S ORGANIZ ATION 11/09/2022 [facility] DATE CREATED AUTHOR AUTHOR'S ORGANIZ ATION 11/15/2024 [facility] dical Specialists EPIC Reason for Visit (unrecogniz ed section and content) Reason Onset Date Comments Med Refill 04/19/2024 Xanax and Effexo r Drug [place] Reason Comments Med Refill xanax Reason Onset Date Comments Med Refill 03/16/2024 Reason Onset Date Comments Med Refill 03/26/2024 Please send in E ffexor 37.5 mg & Effexor 75mg to [facility] [place] Reason Onset Date Comments Med Refill 07/09/2024 Reason Onset Date Comments Med Refill 08/20/2024 Reason Onset Date Comments Med Refill 12/28/2024 Care Teams (unrecognized sec tion and content) Stake Driver Relationship Specialty Start Date End Date Jerry Ram MD [address] [place] [place] [address] PCP - [facility] 12/06/22 Stake Driver Relationship Specialty Start Date End Date Jerry Ram MD [address] [place] [address] PCP - [facility] 12/06/22 Jerry Ram MD [address] [place] [address] [facility] 04/17/24 Stake Driver Relationship Specialty Start Date End Date Jerry Ram MD [address] [place] [address] PCP - [facility] 12/06/22 Jerry Ram MD [address] [place] [address] [facility] 04/17/24 Stake Driver Relationship Specialty Start Date End Date Jerry Ram MD [address] [facility] [address] [place] [address] PCP - [facility] 12/06/22 Stake Driver Relationship Specialty Start Date End Date Jerry Ram MD [address] [place] [address] PCP - [facility] 12/06/22 Jerry Ram MD [address] [place] [address] PCP - [facility] 04/17/24 Stake Driver Relationship Specialty Start Date End Date Jerry Ram MD [address] [place] [address] PCP - [facility] 12/06/22 Jerry Ram MD [address] [place] [address] PCP - [facility] 04/17/24 Stake Driver Relationship Specialty Start Date End Date Jerry Ram MD [address] [place] [address] PCP - [facility] 12/06/22 Jerry Ram MD [address] [place] [address] PCP - [facility] 04/17/24 Stake Driver Relationship Specialty Start Date End Date Jerry Ram MD [address] [place] [address] PCP - [facility] 12/06/22 Jerry Ram MD [address] [place] [address] PCP - [facility] 04/17/24 Stake Driver Relationship Specialty Start Date End Date Jerry Ram MD [address] [place] [address] PCP - [facility] 12/06/22 Jennifer Rodriguez PA [address] [place] [address] [facility] 07/18/24 Stake Driver Relationship Specialty Start Date End Date Jerry Ram MD [address] [place] [address] PCP - General Family [facility] 12/06/22 Jennifer Rodriguez PA [address] [place] [address] [facility] 07/18/24 Stake Driver Relationship Specialty Start Date End Date Jerry Ram MD [address] [place] [address] PCP - General [facility] 12/06/22 Jennifer Rodriguez PA [address] [place] [address] [facility] 07/18/24 Stake Driver Relationship Specialty Start Date End Date Jerry Ram MD [address] [place] [address] PCP - General Family [facility] 12/06/22 Jennifer Rodriguez PA [address] [place] [address] [facility] 07/18/24 Stake Driver Relationship Specialty Start Date End Date Jerry Ram MD [address] [place] [address] PCP - General Family [facility] 12/06/22 Jennifer Rodriguez PA [address] [facility] [address] [place] [address] [facility] 07/18/24 Stake Driver Relationship Specialty Start Date End Date Jerry Ram MD [address] [facility] [address] [place] [address] PCP - General Family [facility] 12/06/22 Jennifer Rodriguez PA [address] [facility] [address] [place] [address] [facility] 07/18/24 Stake Driver Relationship Specialty Start Date End Date Jerry Ram MD [address] [facility] [place] [address] PCP - General Family [facility] 12/06/22 Jennifer Rodriguez PA [address] [facility] [place] [address] [facility] 07/18/24 FOR RECORDS PERTAINING TO PATIENTS WHO ARE [...] BE BASED ON THE PRIMARY CLINICAL RECORDS. [facility] [employer] [facility]. provides no warranty or guarantee of the accuracy or completeness of information in this document.
--- NOTE | 2025-01-18 22:44 | ED.NAVMDI1 ---
HPI - Nausea/Vomiting/Diarrhea General Chief complaint: Nausea/Vomiting/Diarrhea Stated complaint: vomiting Time Seen by Provider: 01/18/25 22:39 Source: patient Mode of arrival: walk-in History of Present Illness HPI Narrative: daily cigarette smoker. Presents ill for the past week with watery diarrhea, post tussive emesis. Cough productive of green phlegm. Not able to sleep because of cough and has sinus pressure. Complains of fever and chills. No headache Related Data Home Medications �Medication �Instructions �Recorded �Confirmed alprazolam 1 mg tablet 1 mg PO BID PRN anxiety 03/02/24 01/18/25 venlafaxine 37.5 mg 37.5 mg PO DAILY 03/02/24 01/18/25 capsule,extended release 24 hr prednisone 10 mg tablet 10 mg PO Q6H 01/18/25 01/18/25 Previous Rx's �Medication �Instructions �Recorded penicillin V potassium 250 mg 250 mg PO QID 10 days #40 tabs 03/02/24 tablet Allergies Allergy/AdvReac Type Severity Reaction Status Date / Time No Known Drug Allergies Allergy Verified 01/18/25 22:14 Review of Systems ROS Status of ROS 10 or more systems reviewed and unremarkable except as noted in history and below PFSH PFSH Social History Little interest or pleasure in doing things: not at all Feeling down, depressed, or hopeless: not at all Exam Constitutional Vital Signs, click to edit/add: Last Vital Signs Temp 99.5 F 01/18/25 22:11 Pulse 80 01/19/25 01:40 Resp 18 01/19/25 01:40 BP 116/78 01/19/25 01:35 Pulse Ox 96 01/19/25 01:40 O2 Del Method Room Air 01/19/25 01:40 Common normals: no apparent distress, average body habitus, oriented x3, no limitations, healthy appearing, alert and well nourished [facility] Common normals: normocephalic and head/scalp atraumatic Other: maxillary sinus tenderness Eye Common normals: PERRL, EOMs intact bilaterally and conjunctivae normal Respiratory Common normals: normal respiratory effort, no retractions, no use of accessory muscles and clear to auscultation bilaterally Cardio Common normals: regular rate, regular rhythm, S1 normal heart sound and S2 normal heart sound GI Common normals: Normal to inspection, nondistended, normoactive bowel sounds present, soft to palpation and non-tender Extremity Common normals: normal to inspection and full ROM Neuro Common normals: oriented x3 and CN's II-XII intact bilaterally Psych Appearance: grossly normal Course Vital Signs Vital signs: Vital Signs Temperature 99.5 F 01/18/25 22:11 Pulse Rate 90 01/18/25 22:11 Respiratory Rate 20 01/18/25 22:11 Blood Pressure 134/95 H 01/18/25 22:11 Pulse Oximetry 97 01/18/25 22:11 Oxygen Delivery Method Room Air 01/18/25 22:11 Temperature 99.5 F 01/18/25 22:11 Pulse Rate 80 01/19/25 01:40 Respiratory Rate 18 01/19/25 01:40 Blood Pressure 116/78 01/19/25 01:35 Pulse Oximetry 96 01/19/25 01:40 Oxygen Delivery Method Room Air 01/19/25 01:40 MDM - Nausea/Vomiting/Diarrhea MDM Narrative Medical decision making narrative: ill with cough productive of green phlegm. Post tussive emesis. also nausea/vomiting and diarrhea. No recurrence of nausea/vomiting since this AM but continues to have watery diarrhea. Sinus pressure and tenderness. CT facial bones without sign of sinusitis. Cxray per my preliminary review with ? early infiltrate vs atelectasis RLL. Patient continues to cough frequently. Treated with solumedrol and duoneb as well as zithromax she mistakenly went to the bathroom to urinate and also had diarrhea. Since then not able to provide diarrhea sample. she no longer wanted to wait to give a sample. Discharged home with zofran, prednisone, zithromax and an albuterol inhaler Lab Data Labs: Lab Results 01/18/25 01/18/25 01/18/25 Range/Units 23:00 23:01 23:03 WBC 12.7 H (4.0-11.0) 10^3/uL RBC 4.51 (4.20-5.40) 10^6/uL Hgb 13.9 (12.0-16.0) g/dL Hct 40.2 (36.0-48.0) % MCV 89.1 (81.0-99.0) fL MCH 30.8 (26.7-34.0) pg MCHC 34.6 (29.9-35.2) g/dL RDW 13.7 (11.0-15.0) % Plt Count 393 (150-450) 10^3/uL MPV 9.0 L (9.5-13.5) fL Neut % (Auto) 68.6 (43.0-75.0) % Lymph % (Auto) 19.5 L (20.5-60.0) % [place] % (Auto) 8.7 (1.7-12.0) % Eos % (Auto) 2.0 (0.9-7.0) % Baso % (Auto) 0.8 (0.2-2.0) % Neut # (Auto) 8.7 H (1.4-6.5) 10^3/uL Lymph # (Auto) 2.5 (1.2-3.8) 10^3/uL [place] # (Auto) 1.1 H (0.3-0.8) 10^3/uL Eos # (Auto) 0.3 (0.0-0.7) 10^3/uL Baso # (Auto) 0.1 (0.0-0.1) 10^3/uL Abs Immat Gran (auto) 0.05 H (0.00-0.03) 10^3/uL Imm/Tot Granulo (auto) 0.4 (0.0-0.5) % Sodium 139 (136-145) mmol/L Potassium 3.4 L (3.5-5.1) mmol/L Chloride 102 (98-107) mmol/L Carbon Dioxide 26.8 (21.0-32.0) mmol/L Anion Gap 13.6 BUN 14.0 (7.0-18.0) mg/dL Creatinine 0.78 (0.55-1.02) mg/dL Est GFR ( Amer) >60 (>=60 mL/min/1.73m^2) Est GFR (Non-Af Amer) >60 (>=60 mL/min/1.73m^2) BUN/Creatinine Ratio 17.9 Glucose 107 H (74-106) mg/dL Lactate 1.2 (0.4-2.0) mmol/L Calcium 8.7 (8.5-10.1) mg/dL Total Bilirubin <0.1 L (0.2-1.0) mg/dL AST 15 (15-37) U/L ALT 26 (14-59) U/L Alkaline Phosphatase 135 H (46-116) U/L Total Protein 7.1 (6.4-8.2) g/dL Albumin 3.2 L (3.4-5.0) g/dL Globulin 3.9 g/dL Albumin/Globulin Ratio 0.8 Lipase 20.0 (16.0-77.0) U/L Urine Color Yellow (YELLOW) Urine Clarity Clear (CLEAR) Urine pH 5.5 (5.0-9.0) Ur Specific [place] >=1.030 A (1.005-1.025) Urine Protein Trace (NEG/TRACE) mg/dL Urine Glucose (UA) Negative (NEGATIVE) mg/dL Urine Ketones Negative (NEGATIVE) mg/dL Urine Occult Blood Negative (NEGATIVE) Urine Nitrite Negative (NEGATIVE) Urine Bilirubin Negative (NEGATIVE) Urine Urobilinogen 1.0 (0.2-1.0) EU/dL Ur Leukocyte Esterase Negative (NEGATIVE) Urine RBC 0-2 (0-2) #/HPF Urine WBC 0-2 A (NONE SEEN) #/HPF Ur Squamous Epith Cells Few A (NONE/RARE) #/LPF Urine Crystals None seen (None Seen) #/HPF Urine Bacteria Trace A (NONE SEEN) #/HPF Urine Casts None seen (NONE SEEN) #/LPF Urine Mucus Trace A (NONE SEEN) Ur Culture Indicated? No Influenza Type A Ag Negative Influenza Type B Ag Negative SARS-CoV-2 Ag (CV2AG) Negative (NEGATIVE) Discharge Plan Discharge Chief Complaint: Nausea/Vomiting/Diarrhea Clinical Impression: Gastroenteritis, Pneumonia, Acute bronchospasm Patient Disposition: Home, Self-Care Prescriptions / Home Meds: No Action prednisone 10 mg tablet 10 mg PO Q6H venlafaxine 37.5 mg capsule,extended release 24hr 37.5 mg PO DAILY alprazolam 1 mg tablet 1 mg PO BID PRN (Reason: anxiety) penicillin V potassium 250 mg tablet 250 mg PO QID 10 Days Qty: 40 0RF Print Language: Lao Instructions: Gastroenteritis (ED), Bronchospasm (ED), Pneumonia (ED) Additional Instructions: follow up with your doctor in the next 2-3 days for recheck Referrals: VEGA RAM [Primary Care Provider, Family Practice] - 1 week Discharge Date/Time: 01/19/25 02:20
--- NOTE | 2025-01-18 22:47 | XR_ITS ---
The [address] [address] Patient Name: TOPHER GARCIA MRN: [id number] date: 1980 Sex: F Assigned Patient Location: ER Current Patient Location: Accession/Order Number: [id number] Exam Date: 01/19/2025 09:28 Report Date: 01/19/2025 09:29 At the request of: UMM LAMA MD Procedure: XR chest 1V Plain film chest Single view HISTORY: Sinus pain. Cough. COMPARISON: 06/03/2022 FINDINGS: SUPPORT DEVICES: None POSTSURGICAL CHANGES: None HEART: Within normal limits PULMONARY DON: Within normal limits MEDIASTINUM: Unremarkable LUNGS AND PLEURA: No acute lung process, pleural effusion or pneumothorax identified. BONY STRUCTURES: Intact ADDITIONAL FINDINGS None XR/XR chest 1V IMPRESSION: No acute process. Impression dictated by: Malcolm Luo M.D. 01/19/2025 9:29 AM Dictation [facility] Electron[facility] authenticated by: [id number] Y Date: 01/19/2025 09:29
[2025-01-18 23:19] LABS: Glucose Urine UA NEGATIVE (NEGATIVE)
[2025-01-18 23:19] LABS: Hematocrit 40.2 % (36.0-48.0); Hemoglobin 13.9 g/dL (12.0-16.0); Immature Granulocytes Abs Auto 0.05 10^3/uL (0.00-0.03); Immature Granulocytes Pct Auto 0.4 % (0.0-0.5); Lymphocytes Absolute Auto 2.5 10^3/uL (1.2-3.8); Mean Corpuscular HGB Conc 34.6 g/dL (29.9-35.2); Mean Corpuscular Hemoglobin 30.8 pg (26.7-34.0); Mean Corpuscular Volume 89.1 fL (81.0-99.0); Platelet Count 393 10^3/uL (150-450); Red Blood Count 4.51 10^6/uL (4.20-5.40); White Blood Count 12.7 10^3/uL (4.0-11.0)
[2025-01-18] MEDS: 0.9 % SODIUM CHLORIDE 1,000 ML 999 ML IV (23:28)
[2025-01-18 23:30] LABS: Cast Seen? NONE SEEN #/LPF (NONE SEEN); Crystals Seen? None Seen #/HPF (None Seen); Urine Culture Indicated NO
[2025-01-18 23:34] LABS: Alanine Aminotransferase 26 U/L (14-59); Albumin Globulin Ratio 0.8; Albumin Level 3.2 g/dL (3.4-5.0); Alkaline Phosphatase 135 U/L (46-116); Anion Gap 13.6; Aspartate Amino Transferase 15 U/L (15-37); Blood Urea Nitrogen 14.0 mg/dL (7.0-18.0); Calcium 8.7 mg/dL (8.5-10.1); Carbon Dioxide 26.8 mmol/L (21.0-32.0); Chloride 102 mmol/L (98-107); Estimated GFR (African America >60 (>=60 mL/min/1.73m^2); Estimated GFR (Non-African Ame >60 (>=60 mL/min/1.73m^2); Globulin 3.9 g/dL; Glucose 107 mg/dL (74-106); Lipase 20.0 U/L (16.0-77.0); Potassium 3.4 mmol/L (3.5-5.1); Sodium 139 mmol/L (136-145); Total Protein 7.1 g/dL (6.4-8.2)
[2025-01-18 23:34] LABS: SARS-CoV-2 Ag NEGATIVE (NEGATIVE)
[2025-01-18 23:36] LABS: Lactate/Lactic Acid 1.2 mmol/L (0.4-2.0)
[2025-01-19] MEDS: AZITHROMYCIN 500 MG in 0.9 % SODIUM CHLORIDE 250 ML 250 MG IV (01:34)
[2025-01-19 01:35] VITALS: BP 116/78; PULSE 78; O2SAT 98
[2025-01-19] MEDS: IPRATROPIUM/ALBUTEROL SULFATE 3 ML AMPUL.NEB IH (01:37)
[2025-01-19 01:40] VITALS: PULSE 80; O2SAT 96
[2025-01-19] MEDS: METHYLPREDNISOLONE SOD SUCC PF 125 MG/2 ML VIAL IVP (01:51)
[2025-01-19] MEDS: AZITHROMYCIN 250 MG TABLET 500 MG PO (01:55)
[2025-01-19] MEDS: ALBUTEROL SULFATE 200 PUFF/6.7 GM INHALER IH (02:20)
== END 2025-01-19 02:20 | disposition home or self-care (01) ==
PROVIDERS: Emergency Provider Internal Medicine; PCP Family Medicine
DX: J18.9 Pneumonia, unspecified organism (principal); K52.9 Noninfective gastroenteritis and colitis, unspecified; J98.01 Acute bronchospasm; F17.210 Nicotine dependence, cigarettes, uncomplicated
CPT/HCPCS: 36415; 70486; 71045; 80053; 81001; 83605; 83690; 85025; 87045; 87046; 87177; 87209; 87427; 87493; 87804; 87811; 94640; 96361; 96374; 96375; 99285; J0456; J2919

== ENCOUNTER 2025-02-22 20:15 | Emergency (ER) | payer OTHER, SELFPAY ==
[2025-02-22 20:22] VITALS: BP 141/88; PULSE 101; TEMP 36.6; BMI 24.0
--- OUTSIDE RECORDS SUMMARY | 2025-02-22 20:22 | XMS_ITS | Encounter Summary ---
Author Organization [facility] Address [address] [place] [address] Care Team Providers Care Manager Center Name Role Phone Jerry Melo MD Primary Care Provider [phone] Jerry Melo MD Unavailable Jennifer Chapman PA Unavailable [phone] Vidya Henderson CONCRETER Unavailable Encounter Details Date Type Department Care Team (Late st Contact Info) Description 02/20/2024 [facility] [address] [facility] [address] [place] [address] Jerry Melo MD [address] [facility] [address] [place] [address] Social History Tobacco Use Types Packs/Day Years Used Date Smoking Tobacco: Every Day Cigarettes 1 20 Smokeless Tobacco: Never Comments:11-20 cigs/day Alcohol Use Standard Drinks/Week Comments Not Currently 0 (1 standard drink = 0.6 oz pur e alcohol) Comments Unknown Sex and Gender Information Value Date Recorded Sex Assigned at Not on file Legal Sex Female 7:28 PM EDT Gender Identity Not on file Sexual Orientation Not on file documented as of this encounter Plan of Treatment Not on file documented as of this encounter Visit Diagnoses Not on filedocumented in this encounter Care Teams Manager Center Relationship Specialty Start Date End Date Jerry Melo MD [address] [facility] [address] [place] [address] PCP - General Family Medicine 12/06/22 Jerry Melo MD [address] [facility] [address] [place] [address] PCP - [facility] 04/17/2407/17 Jennifer Chapman, PA [address] [facility] [address] [place], [place] [id number] [facility] 07/18/24 Vidya Henderson, CONCRETER [address] [facility] [address] [place] [address] PCP - [place] [facility] 01/15/25 documented as of this encounter
--- OUTSIDE RECORDS SUMMARY | 2025-02-22 20:22 | XMS_ITS | Encounter Summary ---
Author Organization [facility] Address [address] [place] [address] Care Team Providers Care Naval Architect Specialist Name Role Phone Jerry Melo MD Primary Care Provider [phone] Jennifer Chapman PA Unavailable [phone] Vidya Henderson MANUAL CONTROL AUGER PRESS OPERATOR Unavailable Encounter Details Date Type Department Care Team (Late st Contact Info) Description 11/15/[address] [place] [facility] 112 [facility] 110 [place] [address] Jerry Melo MD 112 [facility] 110 [place] [address] Social History Tobacco Use Types Packs/Day Years Used Date Smoking Tobacco: Every Day Cigarettes 1 20 Smokeless Tobacco: Never Comments:11-20 cigs/day Alcohol Use Standard Drinks/Week Comments Not Currently 0 (1 standard drink = 0.6 oz pur e alcohol) PHQ-2 Answer Date Recorded Patient Health Questionnaire-2 Score 0 11/14/2024 Comments Unknown Sex and Gender Information Value Date Recorded Sex Assigned at Not on file Legal Sex Female 7:28 PM EDT Gender Identity Not on file Sexual Orientation Not on file documented as of this encounter Plan of Treatment Not on file documented as of this encounter Visit Diagnoses Not on filedocumented in this encounter Care Teams Naval Architect Specialist Relationship Specialty Start Date End Date Jerry Melo MD 112 [facility] 110 [place] [address] PCP - General Family Medicine 12/06/22 Jennifer Chapman PA [address] [facility] [address] [place] [address] [facility] 07/18/24 Vidya Henderson NP [address] [facility] [address] [place] [address] PCP - [place] [facility] 01/15/25 documented as of this encounter
--- OUTSIDE RECORDS SUMMARY | 2025-02-22 20:22 | XMS_ITS | Encounter Summary ---
Author Organization [facility] Address [address] [place] [address] Care Team Providers Care Plug Saw Operator Name Role Phone Jerry Melo MD Primary Care Provider [phone] Jennifer Chapman PA Unavailable [phone] Vidya Henderson MANAGER MEDICAL Unavailable Encounter Details Date Type Department Care Team (Late st Contact Info) Description 11/16/2024 Abstract [facility] [place] [facility] [address] [facility] 110 [place] [address] Jerry Melo MD 112 [facility] 110 [place], [place] [id number] Social History Tobacco Use Types Packs/Day Years [...] on filedocumented in this encounter Care Teams Plug Saw Operator Relationship Specialty Start Date End Date Jerry Melo MD 112 [facility] 110 [place] [address] PCP - General Family Medicine 12/06/22 Jennifer Chapman PA [address] [facility] [address] [place] [address] [facility] 07/18/24 Vidya Hendesron NP [address] [facility] [address] [place] [address] PCP - [place] [facility] 01/15/25 documented as of this encounter
--- OUTSIDE RECORDS SUMMARY | 2025-02-22 20:22 | XMS_ITS | Patient Health Record ---
Author Organization [facility] Address [address] [place] [address] Care Team Providers Care Saddle And Side Wire Stitcher Name Role Phone Emeli Mcallister Primary Care Provider Allergies Allergen (clinical drug ingredient) Drug/Non Drug Allergy documented on EMR Reaction Allergy Type Onset Date Status Penicillin Unknown Drug Allergy Active Reason For Referral No Information Plan Of Treatment No Information Insurance Providers Payer Name Payer Address Payer Phone Subscriber Number Group Number Insured Name Patient Relationship to Insured Coverage Start Date Coverage End Date [employer] [place] Medicaid [address] CLAIMS DEPT [facility] [place] [address] [id number] TOPHER GARCIA Self - patient is the insured 3 3 Wrap [facility] [address] [place] [address] [phone] [id number] TOPHER GARCIA Self - patient is the insured 3 3 [facility] [address] [place] [address] [id number] RADHATOPHER LOZANO Self - patient is the insured 3 3 Dental Wrap [facility] [address] [place] [address] [id number] TOPHER GARCIA Self - patient is the insured 3 3
--- OUTSIDE RECORDS SUMMARY | 2025-02-22 20:22 | XMS_ITS | Encounter Summary ---
Author Organization [facility] Address [address] [place] [address] Care Team Providers Care Coconut Boiler Name Role Phone Jerry Melo MD Primary Care Provider [phone] Jennifer Chapman PA Unavailable [phone] Viday Henderson SAFETY ATTENDANT Unavailable Encounter Details Date Type Department Care Team (Late st Contact Info) Description 11/15/2024 Abstract [facility] [place] [facility] 112 [facility] 110 [place] [address] Jerry Melo MD 112 [facility] 110 [place] [address] Social History Tobacco Use Types Packs/Day Years [...] on filedocumented in this encounter Care Teams Coconut Boiler Relationship Specialty Start Date End Date Jerry Melo MD 112 [facility] 110 [place] [address] PCP - General Family Medicine 12/06/22 Jennifer Chapman PA [address] [facility] [address] [place] [address] [facility] 07/18/24 Vidya Henderson NP [address] [facility] [address] [place] [address] PCP - [place] [facility] 01/15/25 documented as of this encounter
--- OUTSIDE RECORDS SUMMARY | 2025-02-22 20:22 | XMS_ITS | Encounter Summary ---
Author Organization [facility] Address [address] [place] [address] Care Team Providers Care Java Mobile Developer Name Role Phone Jerry Melo MD Primary Care Provider [phone] Jennifer Chapman PA Unavailable [phone] Vidya Henderson SORTING AND FOLDING SUPERVISOR Unavailable Encounter Details Date Type Department Care Team (Late st Contact Info) Description 12/24/2024 Abstract [facility] [place] [facility] 112 [facility] 110 [place] [address] Jerry Melo MD 112 [facility] 110 [place], [place] [id number] Social History Tobacco Use Types Packs/Day Years [...] on filedocumented in this encounter Care Teams Java Mobile Developer Relationship Specialty Start Date End Date Jerry Melo MD 112 [facility] 110 [place] [address] PCP - General Family Medicine 12/06/22 Jennifer Chapman PA [address] [facility] [address] [place] [address] [facility] 07/18/24 Vidya Henderson NP [address] [facility] [address] [place] [address] PCP - [place] [facility] 01/15/25 documented as of this encounter
--- OUTSIDE RECORDS SUMMARY | 2025-02-22 20:22 | XMS_ITS | Clinical Summary ---
Author Organization [facility] Address [address] [place] [address] Care Team Providers Care Manager Gaming Name Role Phone Jerry Ram MD Primary Care Provider [phone] Jayy Chapman PA Unavailable [phone] Vidya Henderson NP Unavailable Allergies Active Allergy Reactions Criticality Noted Date Comments Amoxicillin-Pot Clavulanate 07/22/19 22 Other Reaction(s): Facial numbness and SOB Dicyclomine Dizziness Medium 06/13/2024 Tizanidine Other 12/26/2024 Sedation Medications betamethasone dipropionate 0.05 % creamIndications :Sun allergy Apply 1 application topically in the morning and 1 application before bedtime. 15 g 2 02/15/20 24 Active venlafaxine XR (Effexor XR) 37.5 MG 24 hr capsuleIndicatio ns:Adjustment disorder with anxiety Take 1 capsule (37.5 mg) by mouth Daily 90 capsule 3 04/19/20 24 Active venlafaxine XR (Effexor XR) 75 MG 24 hr capsuleIndicatio ns:Adjustment disorder with anxiety Take 1 capsule (75 mg) by mouth Daily 90 capsule 3 04/19/20 24 Active fremanezumab (Ajovy) 225 MG/1.5ML prefilled syringeIndicatio ns:Chronic migraine without aura without status migrainosus, not intractable Inject 1.5 mL (225 mg) under the skin every 30 (thirty) days 1.5 mL 5 11/15/19 25 Active meloxicam (Mobic) 15 MG tabletIndication s:Lumbar pain with radiation down both legs Take 1 tablet (15 mg) by mouth Daily Take with food 30 tablet 2 11/29/19 25 Active EPINEPHrine (Epipen) 0.3 MG/0.3ML injection syringeIndicatio ns:Allergy to honey bee venom Inject 0.3 mL (0.3 mg) as directed 1 (one) time for 1 dose Inject into upper leg. Call 911 after use. 12/21/19 25 Active Ubrogepant (Ubrelvy) 100 MG tabletIndication s:Chronic migraine without aura without status migrainosus, not intractable Take 100 mg by mouth Daily as needed (Migraine) Can take second dose x 1, if needed 1-2 hours following first dose 16 tablet 5 12/21/19 25 Active pseudoephedrine- DM-GG 60-15-400 MG tabletIndication s:COVID Take 1 tablet by mouth every 6 (six) hours if needed (Cough) 28 tablet 01/18/20 25 Active ALPRAZolam (Xanax) 0.5 MG tabletIndication s:Adjustment disorder with anxiety Take 1 tablet (0.5 mg) by mouth 2 (two) times a day as needed for anxiety 60 tablet 01/29/20 25 025 Active ALPRAZolam (Xanax) 0.5 MG tabletIndication s:Adjustment disorder with anxiety Take 1 tablet (0.5 mg) by mouth 2 (two) times a day as needed for anxiety 60 tablet 12/29/19 25 025 Discontinu ed(Reorder ) predniSONE (Deltasone) 10 MG tabletIndication s:COVID Take 1 tablet (10 mg) by mouth 3 (three) times a day for 3 days, THEN 1 tablet (10 mg) 2 (two) times a day for 3 days, THEN 1 tablet (10 mg) Daily for 3 days. 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) 12/06/2022 Hypoglycemia 12/06/2022 Irritable bowel syndrome wit h both constipation and diarrhea 12/06/2022 Panic disorder with agoraphobia 12/06/2022 Smoker 12/06/2022 Thrombocytosis 12/06/2022 Family history of breast cancer 07/22/2021 Sun allergy 12/22/2015 Resolved Problems Problem Noted Date Diagnosed Date Resolved Date Episodic migraine 02/15/2024 02/15/2024 Chronic migraine with aura 12/06/2022 1 07/25/2022 Sinusitis 12/06/2022 02/15/2024 Encounters Date Type Department Care Team Description 01/28/2025 Refill [facility] [address] [facility] [address] [place] [address] Jerry Ram MD Adjustment disorder with anxiety 01/21/2025 Patient Outreach [facility] [address] [place] [address] [employer] LSW 01/17/2025 [facility] [address] [facility] [address] [place] [address] Jerry Ram MD 12/28/2024 [facility] [address] [facility] [address] [place] [address] Jerry Ram MD Adjustment disorder with anxiety 12/24/2024 Abstract [facility] [address] [facility] [address] [place] [address] Jerry Ram MD 12/17/2024 Abstract [facility] [address] [facility] [address] [place] [address] Jerry Ram MD 11/27/2024 Abstract [facility] [address] [facility] [address] [place] [address] Jerry Ram MD 11/27/2024 Results Follow-Up [facility] [address] [facility] [address] [place] [address] Jayy Chapman PA Lumbar pain with radiation down both legs (Primary Dx) 11/27/2024 Clinisync Result Encounter [facility] External Department Unsolicited Jayy Chapman PA 11/27/2024 Telephone [facility] [address] [place] [address] Jayy Chapman PA medication denial 11/26/2024 Refill [facility] [address] [place] [address] Jerry Ram MD Adjustment disorder with anxiety from Last 3 Months Family History Medical History Relation Name Comments Breast cancer Father's Sister Hypertension Mother Coronary artery disease Other Diabetes type II Other Hypertension Other Lung cancer Other Prostate cancer Other Colon cancer Paternal Grandfather Relation Name Status Comments Father's Sister Mother Alive Other family hx Paternal Grandfather Social History Tobacco Use Types Packs/Day Years Used Date Smoking Tobacco: Every Day Cigarettes 1 20 Smokeless Tobacco: Never Tobacco Cessation:Ready to Q uit: Not Asked; Counseling Given: Not Answered Comments:11-20 cigs/day Alcohol Use Standard Drinks/Week Comments Not Currently 0 (1 standard drink = 0.6 oz pur e alcohol) PHQ-2 Answer Date Recorded Patient Health Questionnaire-2 Score 0 11/14/2024 Comments Unknown Sex and Gender Information Value Date Recorded Sex Assigned at Not on file Legal Sex Female 7:28 PM EDT Gender Identity Not on file Sexual Orientation Not on file Last Filed Vital Signs Vital Sign Reading Time Taken Comments Blood Pressure 128/78 11/14/2024 10:59 AM EDT Pulse 82 11/14/2024 10:59 AM EDT Temperature 37.2 C (98.9 F) 05/25/2023 1:49 PM EST Respiratory Rate 16 11/14/2024 10:59 AM EDT Oxygen Saturation 97% 11/14/2024 10:59 AM EDT Inhaled Oxygen Concentration - - Weight 65 kg (143 lb 3.2 oz) 11/14/2024 10:59 AM EDT Height 162.6 cm (5' 4 ) 11/14/2024 10:59 AM EDT Body Mass Index 24.58 11/14/2024 10:59 AM EDT Plan of Treatment Health Maintenance Due Date Last Done Comments CT Colonography 1979 Colonoscopy 1979 Colorectal Cancer Screening 1979 FIT-DNA 1979 FIT 1979 FOBT 1979 Sigmoidoscopy 1979 Pap Smear 2000 Cervical Cancer Screening 2009 HPV/Cotest 2009 Mammogram 2019 Influenza Vaccine (#1) 2025 Procedures Procedure Name Priority Date/Time Associated Diagnosis Comments XR LUMBAR SPINE MIN 4V 11/27/2024 12:06 PM EDT from Last 3 Months Results * XR LUMBAR SPINE MIN 4V (11/27/2024 12:06 PM EDT) Anatomical Region Laterality Modality Other 11/27/2024 12:0 6 PM EDT Narrative 11/27/2024 12:08 [place] [address] XRay Report Signed Patient: TOPHER GARCIA MR#: [id number] : 1980 Acct:[id number] Age/Sex: 44 / F ADM Date: 11/27/24 Loc: RAD Attending Dr: Non-Staff Physician Denzel Ordering Physician: JAYY CHAPMAN Date of Service: 11/27/24 Procedure(s): XR lumbar spine min 4V Accession Number(s): [id number] cc: JERRY RAM ; JAYY CHAPMAN [place] [id number] Patient Name: TOPHER GARCIA MRN: [id number] date: 1980 Sex: F Assigned Patient Location: RAD Current Patient Location: RAD Accession/Order Number: [id number] Exam Date: 11/27/2024 12:03 Report Date: 11/27/2024 12:06 At the request of: JAYY CHAPMAN Procedure: XR lumbar spine min 4V LUMBAR [...] IMPRESSION: MILD DEGENERATIVE CHANGES. Impression dictated by: Jayy Reyez M.D. 11/27/2024 12:06 PM Dictation Location: [place] [address] Electronically authenticated by: [id number] Y Date: 11/27/2024 12:06 Dictated By: Jayy Reyez M.D. Signed By: 11/27/24 1208 DD/ 1206 TD/TT: Piano Instructor: Procedure Note Radiology, Radiologist, MD - 11/27/2024 [place] [address] XRay Report Signed Patient: TOPHER GARCIA MMR#: [id number] : 1980Acct:[id number] Age/Sex: 44 / FADM Date: 11/27/24 Loc: [facility] Attending Dr: Non-Staff Physician Denzel Ordering Physician: JAYY CHAPMAN Date of Service: 11/27/24 Procedure(s): XR lumbar spine min 4V Accession Number(s): [id number] cc: JERRY RAM ; JAYY CHAPMAN [place] [id number] Patient Name: TOPHER GARCIA MRN: [id number] date: 1980 Sex: F Assigned Patient [facility]: [facility] Current Patient Location: [facility] Accession/Order Number: [id number] Exam Date: 11/27/2024 12:03 Report Date: 11/27/2024 12:06 At the request of: JAYY CHAPMAN Procedure: XR lumbar spine min 4V LUMBAR SPINE -4 views: CLINICAL HISTORY: Chronic low back pain with worsening over the past few weeks. Radiation down the legs, greater on the right COMPARISON: None AP, lateral and both oblique views of the lumbosacral junction wereobtained. There is no evidence of fracture. There is slight retrolisthesis of L5on S1. Disc space narrowing is present at the lumbosacral junction. Thereare tiny endplate spurs and mild lower lumbar facet hypertrophy. No parsdefect is identified. The sacroiliac joints are maintained. There are noparaspinal soft tissue abnormalities. XR/XR lumbar spine min 4V IMPRESSION: MILD DEGENERATIVE CHANGES. Impression dictated by: Jayy Reyez M.D. 11/27/2024 12:06 PM Dictation Location: [place] [address] Electronically authenticated by: [id number] Y Date: 2:06 Dictated By: Jayy Reyez M.D. Signed By:11/27/24 1208 DD/ 1206 TD/TT: Piano Instructor: Jayy [facility] Final Result from Last 3 Months Insurance [employer] [facility] Care Teams Manager Gaming Relationship Specialty Start Date End Date Jerry Ram MD [address] [facility] [address] [place] [address] PCP - General Family Medicine 12/06/22 Jayy Chapman PA [address] [facility] [address] [place], [place] [id number] PCP - [facility] 07/18/24 Vidya Henderson, WRITER PRODUCER [address] [facility] [address] [place] [address] [facility] 01/15/25
--- OUTSIDE RECORDS SUMMARY | 2025-02-22 20:22 | XMS_ITS | Encounter Summary ---
Author Organization [facility] Address [address] [place] [address] Care Team Providers Care Survey Worker Name Role Phone Jerry Melo MD Primary Care Provider [phone] Jerry Melo MD Unavailable Jerry Melo MD Unavailable Jennifer Chapman PA Unavailable [phone] Vidya Henderson NP Unavailable Encounter Details Date Type Department Care Team (Late st Contact Info) Description 12/09/2022 Abstract [facility] [address] [facility] [address] [place] [address] Jerry Melo MD [address] [facility] [address] [place], [place] [id number] Social History Tobacco Use Types Packs/Day Years Used Date Smoking Tobacco: Every Day Cigarettes 1 20 Smokeless Tobacco: Never Alcohol Use Standard Drinks/Week Comments Not Currently [...] on filedocumented in this encounter Care Teams Survey Worker Relationship Specialty Start Date End Date Jerry Melo MD [address] [facility] [address] [place], [place] [id number] PCP - General Family Medicine 12/06/22 Jerry Melo MD [address] [place] [address] [place] [address] [facility] 01/15/23 Jerry Melo MD [address] [place] [address] [place] [address] [facility] 04/17/2407/17 Jennifer Chapman PA [address] [facility] [address] [place] [address] [facility] 07/18/24 Vidya Henderson, RETAIL RESET MERCHANDISER [address] [facility] [address] [place] [address] PCP - [place] [facility] 01/15/25 documented as of this encounter
--- OUTSIDE RECORDS SUMMARY | 2025-02-22 20:22 | XMS_ITS | Encounter Summary ---
Author Organization [facility] Address [address] [place] [address] Care Team Providers Care Syrup Shed Supervisor Name Role Phone Jerry Melo MD Primary Care Provider [phone] Jerry Melo MD Unavailable Jerry Melo MD Unavailable Jennifer Chapman PA Unavailable [phone] Vidya Henderson NP Unavailable Encounter Details Date Type Department Care Team (Late st Contact Info) Description 04/28/2023 Orders Only [facility] [address] [facility] [address] [place] [id number] A, Unknown Practice [address] [place], [place] [address] Social History Tobacco Use Types Packs/Day Years [...] on file documented as of this encounter Procedures Procedure Name Priority Date/Time Associated Diagnosis Comments XR FOOT 3+ VIEWS LEFT Routine 04/27/2023 10:23 AM EDT documented in this encounter Results * XR foot 3+ views left (04/27/2023 10:23 AM EDT) Anatomical Region Laterality Modality Lower Extremities, Foot Left Radiogra phic Imaging us Unknown Practice A IMG XR PROCEDURES Final Resul t documented in this encounter Visit Diagnoses Not on filedocumented in this encounter Care Teams Syrup Shed Supervisor Relationship Specialty Start Date End Date Jerry Melo MD [address] [facility] [address] [place] [address] PCP - General Family Medicine 12/06/22 Jerry Melo MD [address] [facility] [address] [place] [address] PCP - [facility] 01/15/23 Jerry Melo MD [address] [facility] [address] [place] [address] [facility] 04/17/2407/17 Jennifer Chapman PA [address] [facility] [address] [place] [address] PCP - [facility] 07/18/24 Vidya Henderson, SNOW PLOW OPERATOR [address] [facility] [address] [place] [address] PCP - [facility] 01/15/25 documented as of this encounter
--- OUTSIDE RECORDS SUMMARY | 2025-02-22 20:22 | XMS_ITS | Encounter Summary ---
Author Organization [facility] Address [address] [place] [address] Care Team Providers Care Packing Checker Name Role Phone Jerry Melo MD Primary Care Provider [phone] Jennifer Chapman PA Unavailable [phone] Vidya Henderson RISK MGR Unavailable Encounter Details Date Type Department Care Team (Late st Contact Info) Description 12/17/2024 Abstract [facility] [place] [facility] 112 [facility] 110 [place] [address] Jerry Melo MD 112 [facility] [place] [facility] 110 [place], [place] [id number] Social History Tobacco Use Types Packs/Day Years [...] on filedocumented in this encounter Care Teams Packing Checker Relationship Specialty Start Date End Date Jerry Melo MD 112 [facility] [place] [facility] 110 [place] [address] PCP - General Family Medicine 12/06/22 Jennifer Chapman PA [address] [facility] [address] [place] [address] [facility] 07/18/24 Vidya Henderson NP [address] [facility] [address] [place] [address] PCP - [place] [facility] 01/15/25 documented as of this encounter
--- OUTSIDE RECORDS SUMMARY | 2025-02-22 20:22 | XMS_ITS | Encounter Summary ---
Author Organization [facility] Address [address] [place] [address] Care Team Providers Care Community Fundraiser Name Role Phone Jerry Melo MD Primary Care Provider [phone] Jerry Melo MD Unavailable Jerry Melo MD Unavailable Jennifer Chapman PA Unavailable [phone] Vidya Henderson NP Unavailable Encounter Details Date Type Department Care Team (Late st Contact Info) Description 03/31/2023 Abstract [facility] [address] [facility] [address] [place] [address] Jerry Melo MD [address] [facility] [address] [place], [place] [id number] Social History Tobacco Use Types Packs/Day Years [...] on filedocumented in this encounter Care Teams Community Fundraiser Relationship Specialty Start Date End Date Jerry Melo MD [address] [facility] [address] [place], [place] [phone] PCP - General Family Medicine 12/06/22 Jerry Melo MD [address] [facility] [address] [place] [address] [facility] 01/15/23 Jerry Melo MD [address] [place] [address] [place] [address] [facility] 04/17/2407/17 Jennifer Chapman PA [address] [facility] [address] [place] [address] [facility] 07/18/24 Vidya Henderson, SCHOOL BUS AIDE [address] [facility] [address] [place] [address] PCP - [place] [facility] 01/15/25 documented as of this encounter
--- OUTSIDE RECORDS SUMMARY | 2025-02-22 20:22 | XMS_ITS | Encounter Summary ---
Author Organization [facility] Address [address] [place] [address] Care Team Providers Care Cherry Pitter Name Role Phone Jerry Melo MD Primary Care Provider [phone] Jerry Melo MD Unavailable Jennifer Chapman PA Unavailable [phone] Vidya Henderson ACCOUNTING SPECIALIST Unavailable Encounter Details Date Type Department Care Team (Late st Contact Info) Description 02/16/2024 [facility] [address] [facility] 110 [place] [address] Jerry Melo MD [address] [facility] 110 [place] [address] Social History Tobacco Use Types Packs/Day Years [...] on filedocumented in this encounter Care Teams Cherry Pitter Relationship Specialty Start Date End Date Jerry Melo MD [address] [facility] 110 [place] [address] PCP - General Family Medicine 12/06/22 Jerry Melo MD [address] [facility] [address] [place] [address] PCP - [facility] 04/17/2407/17 Jennifer Chapman, PA [address] [facility] [address] [place], [place] [address] [facility] 07/18/24 Vidya Henderson, ACCOUNTING SPECIALIST [address] [facility] [address] [place] [address] PCP - [place] [facility] 01/15/25 documented as of this encounter
--- OUTSIDE RECORDS SUMMARY | 2025-02-22 20:22 | XMS_ITS | Encounter Summary ---
Author Organization [facility] Address [address] [place] [address] Care Team Providers Care Ballet Company Artistic Director Name Role Phone Jerry Melo MD Primary Care Provider [phone] Jennifer Chapman PA Unavailable [phone] Vidya Henderson FURNACE CHARGER Unavailable Encounter Details Date Type Department Care Team (Late st Contact Info) Description 11/27/2024 Abstract [facility] [place] [facility] 112 [facility] 110 [place] [address] Jerry Melo MD 112 [facility] 110 [place], [place] [id number] Social History Tobacco Use Types Packs/Day Years [...] on filedocumented in this encounter Care Teams [employer] Artistic Director Relationship Specialty Start Date End Date Jerry Mleo MD [address] [facility] 110 [place] [address] PCP - General Family Medicine 12/06/22 Jennifer Chapman PA [address] [facility] [address] [place] [address] [facility] 07/18/24 Vidya Henderson NP [address] [facility] [address] [place] [address] PCP - [place] [facility] 01/15/25 documented as of this encounter
--- OUTSIDE RECORDS SUMMARY | 2025-02-22 20:22 | XMS_ITS | Clinical Summary ---
Author Organization [facility] Address [id number] [address] [place] [address] Care Team Providers Care Er Tech Name Role Phone Jerry Melo MD Primary Care Provider [phone] Allergies No known active allergies Medications venlafaxine (EFFEXOR) 75 mg tablet Take 75 mg by mouth daily. Active ALPRAZolam (XANAX) 0.5 mg tablet Take 0.5 mg by mouth nightly as needed for anxiety. Active ketorolac (TORADOL) 10 mg tablet Take 10 mg by mouth every 6 (six) hours as needed for pain. Active diphenhydrAMINE (BENADRYL) 25 mg capsule Take 1 capsule (25 mg total) by mouth every 6 (six) hours as needed for itching for up to 10 doses. 10 capsule 12/10/2021 Active famotidine (PEPCID) 20 mg tablet Take 1 tablet (20 mg total) by mouth in the morning and 1 tablet (20 mg total) before bedtime. 20 tablet 12/10/2021 Active Social History Tobacco Use Types Packs/Day Years Used Date Smoking Tobacco: Some Days Cigarettes 0.3 20 Smokeless Tobacco: Never Tobacco Cessation:Ready to Q uit: Yes Alcohol Use Standard Drinks/Week Comments Never 0 (1 standard drink = 0.6 oz pur e alcohol) Childcare Answer Date Recorded Childcare Unknown 12/27/2018 Employment Answer Date Recorded Employment Unknown 12/27/2018 Purpose - Life Answer Date Recorded Purpose and direction in life Unknown Comments Unknown Sex and Gender Information Value Date Recorded Sex Assigned at Not on file Legal Sex Female 11:52 AM EDT Gender Identity Not on file Sexual Orientation Not on file Last Filed Vital Signs Vital Sign Reading Time Taken Comments Blood Pressure 126/79 12/10/2021 2:33 PM EDT Pulse 68 12/10/2021 2:33 PM EDT Temperature 36.9 C (98.4 F) 12/10/2021 1:20 PM EDT Respiratory Rate 18 12/10/2021 2:33 PM EDT Oxygen Saturation 98% 12/10/2021 2:33 PM EDT Inhaled Oxygen Concentration - - Weight 66.7 kg (147 lb) 12/10/2021 1:20 PM EDT Height 162.6 cm (5' 4 ) 08/31/2021 11:24 AM EST Body Mass Index 25.23 08/31/2021 11:24 AM EST Plan of Treatment Health Maintenance Due Date Last Done Comments Depression Screening 1991 Tobacco Screening 1991 Adult BMI Screening 1997 DTaP,Tdap and Td Vaccines (1 - Tdap) 1998 Pap Smear 2000 Influenza Vaccine 03/18/2025 Medical Devices Not on file Insurance [employer] Care Teams Er Tech Relationship Specialty Start Date [place] [address] PCP - General Family Medicine 08/31/21
--- OUTSIDE RECORDS SUMMARY | 2025-02-22 20:23 | XMS_ITS | CCD ---
Author Organization [facility] CliniSyhi Care Team Providers Care [employer] Operator Name Role Phone YO, DR FERRARI Primary [...] PEREZ Consulting Unavailable [facility] Consulting Unavailable Jerry Ram MD Primary Care Provider [phone] Jerry Ram MD Unavailable HemJennifer Nieves Unavailable JENNIFER RODRIGUEZ Attending Unavailable JENNIFER RODRIGUEZ Attending Unavailable JNENIFER RODRIGUEZ Attending Unavailable VIDYA VU Attending Unavailable Allergies Allergy Classification Reported Allergen(s) Allergy Type Date of Onset Reaction(s) Facility (1 source) Amoxicillin / Clavulanate Drug Allergy 07-26-2013 [facility] Repository (20 sources) Amoxicillin-Pot Clavulanate Drug Allergy 07-22-2021 [facility] Healthcare Work Phone: (20 sources) Dicyclomine Drug Allergy 06-13-2024 Dizziness [facility] Healthcare (2 sources) tiZANidine Drug Allergy 12-26-2024 Other [facility] Medications Current Medications Medication Drug Class(es) Dates Sig (Normalized) Sig (Original) ALPRAZolam 0.5 mg oral tablet (20 sources) Benzodiazepine Start: 02-13-2024 End: 02-27-2025 take 1 tablet by mouth twice daily as needed for anxiety ALPRAZolam (Xanax) 0.5 MG tablet Indications: Adjustment disorder with anxiety Take 1 tablet (0.5 mg) by mouth 2 (two) times a day as needed for anxiety 60 tablet 01/28/2025 02/27/2025 Active azithromycin 250 mg oral tablet (5 [...] / pseudoephedrine hydrochloride 60 mg oral tablet (3 sources) alpha-Adrenergic Agonist, Uncompetitive A-nzqlff-A-aspartat e Receptor Antagonist, Sigma-1 Agonist Start: 01-17-2025 take 1 tablet by mouth every six hours pseudoephedrine-DM -GG 60-15-400 MG tablet Indications: COVID Take 1 tablet by mouth every 6 (six) hours if needed (Cough) 28 tablet 01/17/2025 Active Start: 07-25-2024 End: 08-04-2024 jkbljdlthmhcjev-FT-WX 60-15- 400 MG tablet Indications: Nasal congestion , Acute [...] capsule 2 02/15/2024 06/13/2024 Discontinued (Side effects) [id number] 0.3 ml EPINEPHrine 1 mg/ml auto-injector (20 [...] 11/14/2024 Active meloxicam 15 mg oral tablet (2 sources) Nonsteroidal Anti-inflammatory Drug Start: 11-28-2024 take 1 [...] 11/28/2024 Active ubrogepant 100 mg oral tablet (9 sources) Start: 12-20-2024 Ubrogepant (Ub relvy) 100 [...] medication) Start: 06-13-2024 take 1 tablet by once daily Atogepant (Qulipta) 60 MG tablet [...] Onset: 05-14-2022 Other aftercare (1 source) Other adjunct faculty for medical terminology (current) drug therapy; Translations: [OTH USP CURRENT DRUG THERAPY] Onset: 11-08-2022 Episodic Other [...] Spondylosis; intervertebral disc disorders; other back problems (2 sources) Lumbar spondylosis; Translations: [Spondylosis without myelopathy or radiculopathy, lumbar region] Onset: 11-27-2024 11-27-2024 Chronic Spondylosis; intervertebral disc disorders; other back problems (6 sources) Low back pain; Translations: [Spasm of muscle of lower back] 11-14-2024 Episodic Substance-related disorders (20 sources) Nicotine dependence, cigarettes, uncomplicated; Translations: [Nicotine dependence, unspecified, uncomplicated] Onset: 11-21-2022 05-22-2023 Chronic Superficial injury; contusion (1 source) Abrasion [...] Facil ity XR LUMBAR SPINE [place] [address] [place] [address] XRay Report Signed Patient: MARION MERIDA MR#: [id number] : 1980 Acct:[id number] Age/Sex: 44 / F ADM Date: 11/27/24 Loc: RAD Attending Dr: Non-Staff Physician Denzel Ordering Physician: JENNIFER RODRIGUEZ Date of Service: 11/27/24 Procedure(s): XR lumbar spine min 4V Accession Number(s): [id number] cc: JERRY RAM ; JENNIFER RODRIGUEZ [place] [address] Patient Name: MARION MERIDA MRN: [id number] date: 1980 Sex: F Assigned Patient Location: [facility] Current Patient Location: [facility] Accession/Order Number: [id number] Exam Date: 11/27/2024 12:03 Report Date: 11/27/2024 [...] Reyez M.D. 11/27/2024 12:06 PM Dictation Location: [place] [address] Electronically authenticated by: [id number] Y Date: 11/27/2024 12:06 Dictated By: Jennifer Reyez M.D. Signed By: 11/27/24 1208 DD/ 1206 TD/TT: Meter And Service Line Inspector: [facility] Radiology, Radiologist, - 11/27/2024 [place] [address] XRay Report Signed Patient: MARION MERIDA MR#: [id number] : 1980 Acct:[id number] Age/Sex: 44 / F ADM Date: 11/27/24 Loc: DEEP Attending Dr: Non-Staff Physician Denzel Ordering Physician: JENNIFER RODRIGUEZ Date of Service: 11/27/24 Procedure(s): XR lumbar spine min 4V Accession Number(s): [id number] cc: JERRY RAM ; JENNIFER RODRIGUEZ [place] [address] Patient Name: MARION MERIDA MRN: [facility]:[id number] date: 1980 Sex: F Assigned Patient Location: [facility] Current Patient Location: [facility] Accession/Order Number: [id number] Exam Date: 11/27/2024 12:03 Report Date: 11/27/2024 [...] Reyez M.D. 11/27/2024 12:06 PM Dictation Location: [place] [address] Electronically authenticated by: [id number] Y Date: 11/27/2024 12:06 Dictated By: Jennifer Reyez M.D. Signed By: 11/27/24 1208 DD/ 1206 TD/TT: Meter And Service Line Inspector: [facility] Radiology Study observation (narrative) [facility] Cap[employer]ue XR LUMBAR SPINE MIN 4VOrdere d By: Radiologist Radiology on 11-27-2024 [facility] Work Phone: GROUP A STREP CULTUREon S. pyogenes Ag Ql (Unsp spec) Culture Observations: NEGATIVE FOR GROUP A STREPTOCOCCUS. Normal [facility] Comment on above: Performed By: #### S SCRN GRASTCX #### [facility] Laboratory [address] [place] [address] Dr. Sharonda White INFLUENZA A [facility] B [facility]on [facility] Normal [facility] Comment on above: Result Comment: Nega tive for Flu A protein angiten. Infection due to Flu A cannot be ruled out. Flu A angiten in the sample may be below the detection limit of the test. Performed By: #### I NFLUAB #### [facility] Laboratory [address] [place] [address] Dr. Sharonda White INFLUBNEGH SEE BELOW Normal [facility] Comment on above: Result Comment: Nega tive for Flu B protein antigen. Infection due to Flu B cannot be ruled out. Flu B antigen in the sample may be below the detection limit of the test. Performed By: #### I NFLUAB #### [facility] Laboratory [address] [place] [address] Dr. Sharonda White INFLUENZA A AG Negative Normal NEGATIVE SEE COMMENT [facility] Comment on above: Performed By: #### I NFLUAB #### [facility] Laboratory [address] [place] [address] Dr. Sharonda White INFLUENZA B AG Negative Normal NEGATIVE SEE COMMENT [facility] Comment on above: Performed By: #### I NFLUAB #### [facility] Laboratory [address] [place] [address] [address] Sharonda White STREPT SCREENon 07-21-2022 STREP SCREEN A Negative Normal NEGATIVE [facility] Comment on above: Performed By: #### S SCRSHAYNA TracyTCX #### [facility] Laboratory [address] [place] [address] [address] Sharonda White XR CHEST 2 [place] [...] TRAVIS MODI Date: 2022-06-03 15:10 Normal [facility] CBC AUTO DIFFon 05-14-2022 BASO # 0.1 103/ul Normal 0.0-0.1 [facility] Comment on above: Performed By: #### C BC #### [facility] Laboratory [address] [place] [address] [address] Sharonda White Basophils/100 WBC (Bld) 0.9 % Normal 0.2-2.0 [facility] Comment on above: Performed By: #### C BC #### [facility] Laboratory [address] [place] [address] [address] Sharonda White EO # 0.2 103/ul Normal 0.0-0.7 [facility] Comment on above: Performed By: #### C BC #### [facility] Laboratory [address] [place] [address] [address] Sharonda White Eosinophils/100 WBC (Bld) 1.7 % Normal 0.9-7.0 [facility] Comment on above: Performed By: #### C BC #### [facility] Laboratory [address] [place] [address] Dr. Sharonda White Erythrocyte distribution width (RBC) [Ratio] 13.3 % Normal 11.0-15.0 [facility] Comment on above: Performed By: #### C BC #### [facility] Laboratory [address] [place] [address] [address] Sharonda White Hematocrit (Bld) [Volume fraction] 39.6 % Normal 36.0-48.0 [facility] Comment on above: Performed By: #### C BC #### [facility] Laboratory [address] [place] [address] [address] Sharonda White Hemoglobin (Bld) [Mass/Vol] 13.5 g/dL Normal 12.0-16.0 [facility] Comment on above: Performed By: #### C BC #### [facility] Laboratory [address] [place] [address] Dr. Sharonda White IG # 0.04 10e3/ul Critically high 0.00-0.03 [facility] Comment on above: Performed By: #### C BC #### [facility] Laboratory [address] [place] [address] Dr. Sharonda White IG % 0.4 % Normal 0.0-0.5 [facility] Comment on above: Performed By: #### C BC #### [facility] Laboratory [address] [place] [address] Dr. Sharonda White LYMPH # 2.3 103/ul Normal 1.2-3.8 [facility] Comment on above: Performed By: #### C BC #### [facility] Laboratory [address] [place] [address] Dr. Sahronda White Lymphocytes/100 WBC (Bld) 23.0 % Normal 20.5-60.0 [facility] Comment on above: Performed By: #### C BC #### [facility] Laboratory [address] [place] [address] Dr. Sharonda White MANUAL DIFF REQ NO Normal [facility] Comment on above: Performed By: #### C BC #### [facility] Laboratory [address] [place] [address] Dr. Sharonda White MCH (RBC) [Entitic mass] 30.1 pg Normal 26.7-34.0 [facility] Comment on above: Performed By: #### C BC #### [facility] Laboratory [address] [place] [address] [address] Sharonda White MCHC (RBC) [Mass/Vol] 34.1 g/dL Normal 29.9-35.2 [facility] Comment on above: Performed By: #### C BC #### [facility] Laboratory [address] [place] [address] [address] Sharonda White MCV (RBC) [Entitic vol] 88.2 fL Normal 81.0-99.0 [facility] Comment on above: Performed By: #### C BC #### [facility] Laboratory [address] [place] [address] [address] Sharonda White MONO # 0.7 103/ul Normal 0.3-0.8 [facility] Comment on above: Performed By: #### C BC #### [facility] Laboratory [address] [place] [address] Dr. Sharonda White Monocytes/100 WBC (Bld) 7.3 % Normal 1.7-12.0 [facility] Comment on above: Performed By: #### C BC #### [facility] Laboratory [address] [place] [address] [address] Sharonda White NEUT # 6.6 103/ul Critically high 1.4-6.5 [facility] Comment on above: Performed By: #### C BC #### [facility] Laboratory [address] [place] [address] Dr. Sharonda White Neutrophils/100 WBC (Bld) 66.7 % Normal 43.0-75.0 [facility] Comment on above: Performed By: #### C BC #### [facility] Laboratory [address] [place] [address] [address] Sharonda White Platelet mean volume (Bld) [Entitic vol] 9.2 fL Critically low 9.5-13.5 [facility] Comment on above: Performed By: #### C BC #### [facility] Laboratory [address] [place] [address] [address] Sharonda White PLT 366 103/ul Normal 150-450 [facility] Comment on above: Performed By: #### C BC #### [facility] Laboratory [address] [place] [address] [address] Sharonda White RBC 4.49 106/ul Normal 4.20-5.40 [facility] Comment on above: Performed By: #### C BC #### [facility] Laboratory [address] [place] [address] [address] Sharonda White WBC 9.9 103/ul Normal 4.0-11.0 [facility] Comment on above: Performed By: #### C BC #### [facility] Laboratory [address] [place] [address] Dr. Sharonda White PROF CHEM 8 (BAS METB)on Anion gap [Moles/Vol] 12.2 mmol/L Normal [facility] Comment on above: Performed By: #### B MP #### [facility] Laboratory [address] [place] [address] Dr. Sharonda White Calcium [Mass/Vol] 8.0 mg/dL Critically low 8.5-10.1 [facility] Comment on above: Performed By: #### B MP #### [facility] Laboratory [address] [place] [address] Dr. Sharonda White Chloride [Moles/Vol] 108 mmol/L Critically high 98-107 [facility] Comment on above: Performed By: #### B MP #### [facility] Laboratory [address] [place] [address] Dr. Sharonda White CO2 [Moles/Vol] 24.2 mmol/L Normal 21.0-32.0 [facility] Comment on above: Performed By: #### B MP #### [facility] Laboratory [address] [place] [address] Dr. Sharonda White Creatinine [Mass/Vol] 0.51 mg/dL Critically low 0.55-1.02 [facility] Comment on above: Performed By: #### B MP #### [facility] Laboratory [address] [place] [address] Dr. Sharonda White EGFR-AF BULGARIAN >60 Normal >=60 [facility] Comment on above: Performed By: #### B MP #### [facility] Laboratory [address] [place] [address] [address] Sharonda White EGFR-NON AF BULGARIAN >60 Normal >=60 [facility] Comment on above: Performed By: #### B MP #### [facility] Laboratory [address] [place] [address] [address] Shraonda White Glucose [Mass/Vol] 83 mg/dL Normal 74-106 [facility] Comment on above: Performed By: #### B MP #### [facility] Laboratory [address] [place] [address] [address] Sharonda White Potassium [Moles/Vol] 3.4 mmol/L Critically low 3.5-5.1 [facility] Comment on above: Performed By: #### B MP #### [facility] Laboratory [address] [place] [address] [address] Sharonda White Sodium [Moles/Vol] 141 mmol/L Normal 136-145 [facility] Comment on above: Performed By: #### B MP #### [facility] Laboratory [address] [place] [address] [address] Sharonda White Urea nitrogen [Mass/Vol] 13.0 mg/dL Normal 7.0-18.0 [facility] Comment on above: Performed By: #### B MP #### [facility] Laboratory [address] [place] [address] Dr. Sharonda White Urea nitrogen/Creatinin e [Mass ratio] 25.5 mg/mg Normal [facility] Comment on above: Performed By: #### B MP #### [facility] Laboratory [address] [place] [address] [address] Sharonda White CBC AUTO DIFFon 03-30-2022 BASO # 0.1 103/ul Normal 0.0-0.1 [facility] Comment on above: Performed By: #### C BC #### [facility] Laboratory [address] [place] [address] Dr. Sharonda White Basophils/100 WBC (Bld) 1.2 % Normal 0.2-2.0 [facility] Comment on above: Performed By: #### C BC #### [facility] Laboratory [address] [place] [address] Dr. Sharonda White EO # 0.3 103/ul Normal 0.0-0.7 [facility] Comment on above: Performed By: #### C BC #### [facility] Laboratory [address] [place] [address] Dr. Sharonda White Eosinophils/100 WBC (Bld) 2.9 % Normal 0.9-7.0 [facility] Comment on above: Performed By: #### C BC #### [facility] Laboratory [address] [place] [address] Dr. Sharonda White Erythrocyte distribution width (RBC) [Ratio] 13.7 % Normal 11.0-15.0 [facility] Comment on above: Performed By: #### C BC #### [facility] Laboratory [address] [place] [address] Dr. Sharonda White Hematocrit (Bld) [Volume fraction] 38.5 % Normal 36.0-48.0 [facility] Comment on above: Performed By: #### C BC #### [facility] Laboratory [address] [place] [address] Dr. Sharonda White Hemoglobin (Bld) [Mass/Vol] 12.9 g/dL Normal 12.0-16.0 [facility] Comment on above: Performed By: #### C BC #### [facility] Laboratory [address] [place] [address] Dr. Sharonda White IG # 0.02 10e3/ul Normal 0.00-0.03 [facility] Comment on above: Performed By: #### C BC #### [facility] Laboratory [address] [place] [address] Dr. Sharonda White IG % 0.2 % Normal 0.0-0.5 [facility] Comment on above: Performed By: #### C BC #### [facility] Laboratory [address] [place] [address] Dr. Sharonda White LYMPH # 2.8 103/ul Normal 1.2-3.8 [facility] Comment on above: Performed By: #### C BC #### [facility] Laboratory [address] [place] [address] Dr. Sharonda White Lymphocytes/100 WBC (Bld) 30.7 % Normal 20.5-60.0 [facility] Comment on above: Performed By: #### C BC #### [facility] Laboratory [address] [place] [address] Dr. Sharonda White MANUAL DIFF REQ NO Normal [facility] Comment on above: Performed By: #### C BC #### [facility] Laboratory [address] [place] [address] Dr. Sharonda White MCH (RBC) [Entitic mass] 30.4 pg Normal 26.7-34.0 [facility] Comment on above: Performed By: #### C BC #### [facility] Laboratory [address] [place] [address] Dr. Sharonda White MCHC (RBC) [Mass/Vol] 33.5 g/dL Normal 29.9-35.2 [facility] Comment on above: Performed By: #### C BC #### [facility] Laboratory [address] [place] [address] Dr. Sharonda White MCV (RBC) [Entitic vol] 90.6 fL Normal 81.0-99.0 [facility] Comment on above: Performed By: #### C BC #### [facility] Laboratory [address] [place] [address] Dr. Sharonda White MONO # 0.9 103/ul Critically high 0.3-0.8 [facility] Comment on above: Performed By: #### C BC #### [facility] Laboratory [address] [place] [address] Dr. Sharonda White Monocytes/100 WBC (Bld) 9.7 % Normal 1.7-12.0 [facility] Comment on above: Performed By: #### C BC #### [facility] Laboratory [address] [place] [address] Dr. Sharonda White NEUT # 5.0 103/ul Normal 1.4-6.5 [facility] Comment on above: Performed By: #### C BC #### [facility] Laboratory [address] [place] [address] Dr. Sharonda White Neutrophils/100 WBC (Bld) 55.3 % Normal 43.0-75.0 [facility] Comment on above: Performed By: #### C BC #### [facility] Laboratory [address] [place] [address] Dr. Sharonda White Platelet mean volume (Bld) [Entitic vol] 9.3 fL Critically low 9.5-13.5 [facility] Comment on above: Performed By: #### C BC #### [facility] Laboratory [address] [place] [address] Dr. Sharonda White PLT 353 103/ul Normal 150-450 [facility] Comment on above: Performed By: #### C BC #### [facility] Laboratory [address] [place] [address] Dr. Sharonda White RBC 4.25 106/ul Normal 4.20-5.40 [facility] Comment on above: Performed By: #### C BC #### [facility] Laboratory [address] [place] [address] Dr. Sharonda White WBC 9.1 103/ul Normal 4.0-11.0 [facility] Comment on above: Performed By: #### C BC #### [facility] Laboratory [address] [place] [address] Dr. Sharonda White Covid-19 PCR ([facility])on 03-18 SARS-CoV-2 (COVID-19) RNA EZIO+probe Ql (Unsp spec) Not detected Normal NOT DETECTED [facility] Comment on above: Result Comment: When diagnostic [...] for this test is supported by the [place] of Health and Human Service's declaration that [...] used). Performed By: #### C VDTB #### [facility] Laboratory [address] [place] [address] Dr. Sharonda White INFLUENZA A AND B AGon 03-30 INFLUENZA A AG Negative Normal NEGATIVE SEE COMMENT [facility] Comment on above: Performed By: #### I NFLUAB #### [facility] Laboratory [address] [place] [address] Dr. Sharonda White INFLUENZA B AG Negative Normal NEGATIVE SEE COMMENT [facility] Comment on above: Performed By: #### I NFLUAB #### [facility] Laboratory [address] [place] [address] Dr. Sharonda White INTERNAL CONTROLS Within Normal Limits Normal Wi thin Normal Limits [facility] Comment on above: Performed By: #### I NFLUAB #### [facility] Laboratory [address] [place] [address] Dr. Sharonda White PROF 14(COMP METB)on 022 Albumin [Mass/Vol] 3.1 g/dL Critically low 3.4-5.0 Th e [facility] Comment on above: Performed By: #### C MP #### [facility] Laboratory [address] [place] [address] Dr. Sharonda White Albumin/Globulin [Mass ratio] 0.9 {ratio} Normal [facility] Comment on above: Performed By: #### C MP #### [facility] Laboratory [address] [place] [address] Dr. Sharonda White ALP [Catalytic activity/Vol] 95 U/L Normal 46-116 [facility] Comment on above: Performed By: #### C MP #### [facility] Laboratory [address] [place] [address] Dr. Sharonda White ALT [Catalytic activity/Vol] 17 U/L Normal 14-59 [facility] Comment on above: Performed By: #### C MP #### [facility] [address] [place] [address] Dr. Sharonda White Anion gap [Moles/Vol] 13.5 mmol/L Normal [facility] Comment on above: Performed By: #### C MP #### [facility] [address] [place] [address] Dr. Sharonda White AST [Catalytic activity/Vol] 13 U/L Critically low 15-37 [facility] Comment on above: Performed By: #### C MP #### [facility] [address] [place] [address] Dr. Sharonda White Calcium [Mass/Vol] 7.9 mg/dL Critically low 8.5-10.1 Th e [facility] Comment on above: Performed By: #### C MP #### [facility] [address] [place] [address] Dr. Sharonda White Chloride [Moles/Vol] 107 mmol/L Normal 98-107 [facility] Comment on above: Performed By: #### C MP #### [facility] [address] [place] [address] Dr. Sharonda White CO2 [Moles/Vol] 22.9 mmol/L Normal 21.0-32.0 [facility] Comment on above: Performed By: #### C MP #### [facility] [address] [place] [address] Dr. Sharonda White Creatinine [Mass/Vol] 0.63 mg/dL Normal 0.55-1.02 [facility] Comment on above: Performed By: #### C MP #### [facility] [address] [place] [address] Dr. Sharonda White EGFR-AF BULGARIAN >60 Normal >=60 [facility] Comment on above: Performed By: #### C MP #### [facility] [address] [place] [address] Dr. Sharonda White EGFR-NON AF BULGARIAN >60 Normal >=60 [facility] Comment on above: Performed By: #### C MP #### [facility] [address] [place] [address] Dr. Sharonda White Globulin (S) [Mass/Vol] 3.3 g/dL Normal [facility] Comment on above: Performed By: #### C MP #### [facility] [address] [address] [address] Sharonda White Glucose [Mass/Vol] 119 mg/dL Critically high 74-106 [facility] Comment on above: Performed By: #### C MP #### [facility] [address] [address] [address] Sharonda White Potassium [Moles/Vol] 3.4 mmol/L Critically low 3.5-5.1 [facility] Comment on above: Performed By: #### C MP #### [facility] [address] [address] [address] Sharonda White Protein [Mass/Vol] 6.4 g/dL Normal 6.4-8.2 [facility] Comment on above: Performed By: #### C MP #### [facility] [address] [place] [address] Dr. Sharonda White Sodium [Moles/Vol] 140 mmol/L Normal 136-145 [facility] Comment on above: Performed By: #### C MP #### [facility] [address] [address] [address] Sharonda White TBIL <0.2 Normal 0.2-1.0 [facility] Comment on above: Performed By: #### C MP #### [facility] [address] [address] [address] Sharonda White Urea nitrogen [Mass/Vol] 8.0 mg/dL Normal 7.0-18.0 [facility] Comment on above: Performed By: #### C MP #### [facility] [address] [address] [address] Sharonda White Urea nitrogen/Creatinin e [Mass ratio] 12.7 mg/mg Normal [facility] Comment on above: Performed By: #### C MP #### [facility] [address] [address] [address] Sharonda White Q - SUREPATH-FPGS AND HPVon 07-22-2021 CLINICAL INFORMATION: None given Normal [facility] Comment on above: Order Comment: [facility] Testing performed at: [employer], [facility], [address] [place] [address], [address] [place] [address], [phone], Clinical Pharmacy Manager: Greg Barron MD Testing performed at: [facility], [facility] ([employer], [address] [place] [address], [phone], Clinical Pharmacy Manager: Malcolm Hamilton MD [facility] Collection Date/Time: [facility] Results Received Date/Time: [facility] Reported Date/Time: Result Comment: [QAC ] Performed By: #### 1 [id number] #### [facility] Default [address] [place] [address] COMMENT SEE NOTE Normal [facility] Comment on above: Order Comment: [facility] Testing performed at: [employer], [facility], [address] [place] [address], [address] [place] [address], [phone], Clinical Pharmacy Manager: Greg Barron MD Testing performed at: [facility], [facility] ([employer], [address] [place] [address], [phone], Clinical Pharmacy Manager: Malcolm Hamilton MD [facility] Collection Date/Time: [facility] [...] 1 [id number] #### [facility] Default [address] [place] [address] COMMENT: This Pap test has been evaluated with computer assisted technology. Normal [facility] Comment on above: Order Comment: [facility] Testing performed at: [employer], [facility], [address] [place] [address], [address] [place] [address], [phone], Clinical Pharmacy Manager: Greg Barron MD Testing performed at: [facility], [facility], [address] [place] [address], , Clinical Pharmacy Manager: Malcolm Hamilton MD [facility] Collection Date/Time: [facility] Results Received Date/Time: [facility] Reported Date/Time: Result Comment: [QAC ] Performed By: #### 1 [id number] #### [facility] Default [address] [place] [address] [employer] FORCES SENIOR SERGEANT: SEE NOTE Normal [facility] Comment on above: Order Comment: [facility] Testing performed at: [employer], [address], Clinical Pharmacy Manager: Greg Barron MD Testing performed at: [facility] ([employer])[address], , Clinical Pharmacy Manager: Malcolm Hamilton MD [facility] Collection Date/Time: [facility] Results Received Date/Time: [facility] Reported Date/Time: Result Comment: BELLG CT(ASCP) For informational purposes: All Cytology specimens are processed and screened at [facility]. [address] [place] [id number] [QA] Performed By: #### 1 [id number] #### [facility] Default [address] [place] [address] HPV mRNA E6/E7, SUREPATH VIAL Not detected Normal NOT DETECTED [facility] Comment on above: Order Comment: [facility] Testing performed at: [facility], [address] [place] [address], [address] [place] [address], [phone], Clinical Pharmacy Manager: Greg Barron MD Testing performed at: [facility])[facility], [address] [place] [address], , Clinical Pharmacy Manager: Malcolm Hamilton MD [facility] Collection Date/Time: [facility] Results Received Date/Time: [facility] Reported Date/Time: Result Comment: Meth odology: Induction Coordination Power Engineer-Mediated Amplification This assay detects E6/E7 viral messenger RNA (mRNA) from 14 high-risk HPV types (16,18,31,33,35,39,45,51,52,56,58,59,66,68). The analytical performance characteristics of this assay have been determined by [employer]. The modifications have not been cleared or approved by the FDA. This assay has been validated pursuant to the CLIA regulations and is used for clinical purposes. For additional information, please refer to http://education.OriginG[employer]/faq/LBI326q4 (This link if provided for information/ educational purposes only.) [[facility]] Performed By: #### 1 [id number] #### [facility] Default [address] [place] [address] INTERPRETATION/RES ULT: Negative Normal [facility] Comment on above: Order Comment: [facility] Testing performed at: [employer], [address], Clinical Pharmacy Manager: Greg Barron MD Testing performed at: [facility])[address], [address], Clinical Pharmacy Manager: Malcolm Hamilton MD [facility] Collection Date/Time: [facility] Results Received Date/Time: [facility] Reported Date/Time: Result Comment: [[facility] ] Performed By: #### 1 [id number] #### [facility] Default [address] [place] [address] LMP: None given Normal [facility] Comment on above: Order Comment: [facility] Testing performed at: [employer], [address], Clinical Pharmacy Manager: Greg Barron MD Testing performed at: [facility], [facility] ([employer])[address], [address], Clinical Pharmacy Manager: Malcolm Hamilton MD [facility] Collection Date/Time: [facility] Results Received Date/Time: [facility] Reported Date/Time: Result Comment: [QAC ] Performed By: #### 1 [id number] #### [facility] Default [address] [place] [address] PREV. BX: None given Normal [facility] Comment on above: Order Comment: [facility] Testing performed at: [employer], [employer], [address] [place] [address], [address] [place] [address], [address] [place] [address], Clinical Pharmacy Manager: Greg Barron MD Testing performed at: [facility])[facility], [address] [place] [address], [phone], Clinical Pharmacy Manager: Malcolm Hamilton MD [facility] Collection Date/Time: [facility] Results Received Date/Time: [facility] Reported Date/Time: Result Comment: [QAC ] Performed By: #### 1 [id number] #### [facility] Default [address] [place] [address] PREV. PAP: None given Normal [facility] Comment on above: Order Comment: [facility] Testing performed at: [employer], [employer], [address] [place] [address], [address] [place] [address], [address] [place] [address], Clinical Pharmacy Manager: Greg Barron MD Testing performed at: [facility] ([employer])[address], [address], Clinical Pharmacy Manager: Malcolm Hamilton MD [facility] Collection Date/Time: [facility] Results Received Date/Time: [facility] Reported Date/Time: Result Comment: [QAC ] Performed By: #### 1 [id number] #### [facility] Default [address] [place] [address] SOURCE: None given Normal [facility] Comment on above: Order Comment: [facility] Testing performed at: [employer], [facility], [address] [place] [address], [address] [place] [address], [phone], Clinical Pharmacy Manager: Greg Barron MD Testing performed at: [facility], [facility], [address] [place] [address], [employer], [phone], Clinical Pharmacy Manager: Malcolm Hamilton MD [facility] Collection Date/Time: [facility] Results Received Date/Time: [facility] Reported Date/Time: Result Comment: [[facility] ] Performed By: #### 1 [id number] #### [facility] Default [address] [place] [address] Vital Signs Date Time Vital Sign Value Performing Clinician Onel root 11-14-2024 10:59-0400 Body height 162.6 cm Jennifer Hemmer PA Work Phone: [facility] 11-14-2024 10:59-0400 Body mass index (BMI) [Ratio] 24.58 kg/m2 Jennifer Hemmer PA Work Phone: [facility] 11-14-2024 10:59-0400 Body weight 64.95 kg Jennifer Hemmer PA Work Phone: [facility] 11-14-2024 10:59-0400 Diastolic blood pressure 78 mm[Hg] Jennifer Hemmer PA Work Phone: [facility] 11-14-2024 10:59-0400 Heart rate 82 /min Jennifer Hemmer PA Work Phone: [facility] 11-14-2024 10:59-0400 Respiratory rate 16 /min Jennifer Hemmer PA Work Phone: [facility] 11-14-2024 10:59-0400 SaO2% (BldA) [Mass fraction] 97 % Jennifer Hemmer PA Work Phone: [facility] 11-14-2024 10:59-0400 Systolic blood pressure 128 mm[Hg] Jennifer Hemmer PA Work Phone: [facility] 07-25-2024 14:34-0500 Body height 162.6 cm Vidya Vu EXCELLENCE SPECIALIST Work Phone: [facility] 07-25-2024 14:34-0500 Body mass index (BMI) [Ratio] 24.85 kg/m2 Vidya Vu EXCELLENCE SPECIALIST Work Phone: [facility] 07-25-2024 14:34-0500 Body weight 65.68 kg Vidya Vu EXCELLENCE SPECIALIST Work Phone: [facility] 07-25-2024 14:34-0500 Diastolic blood pressure 72 mm[Hg] Vidya Vu EXCELLENCE SPECIALIST Work Phone: [facility] 07-25-2024 14:34-0500 Heart rate 76 /min Vidya Vu EXCELLENCE SPECIALIST Work Phone: [facility] 07-25-2024 14:34-0500 Respiratory rate 17 /min Vidya Vu EXCELLENCE SPECIALIST Work Phone: [facility] 07-25-2024 14:34-0500 SaO2% (BldA) [Mass fraction] 98 % Vidya Vu EXCELLENCE SPECIALIST Work Phone: [facility] 07-25-2024 14:34-0500 Systolic blood pressure 116 mm[Hg] Vidya Vu EXCELLENCE SPECIALIST Work Phone: [facility] 06-13-2024 10:56-0500 Body mass index (BMI) [Ratio] 24.07 kg/m2 Jennifer Hemmer PA Work Phone: [facility] 06-13-2024 10:56-0500 Body weight 63.59 kg Jennifer Hemmer PA Work Phone: [facility] 06-13-2024 10:56-0500 Diastolic blood pressure 80 mm[Hg] Jennifer Hemmer PA Work Phone: [facility] 06-13-2024 10:56-0500 Heart rate 79 /min Jennifer Hemmer PA Work Phone: [facility] 06-13-2024 10:56-0500 Respiratory rate 16 /min Jennifer Hemmer PA Work Phone: [facility] 06-13-2024 10:56-0500 SaO2% (BldA) [Mass fraction] 99 % Jennifer Hemmer PA Work Phone: [facility] 06-13-2024 10:56-0500 Systolic blood pressure 125 mm[Hg] Jennifer Hemmer PA Work Phone: [facility] Encounters Encounter Date Encounter Type Care Provider Facility Start: 01-28-2025 End: 01-28-2025 Refill Jerry Ram MD Work Phone: [facility] Comment on above: Adjustment disorder with anxiety Start: 12-28-2024 End: 12-28-2024 Refill Jerry Ram MD Work Phone: [facility] Comment on above: Adjustment disorder with anxiety Start: 11-27-2024 End: 11-27-2024 Clinisync Result Encounter Jennifer LAWS Work Phone: [facility] Unsolicited Start: 11-27-2024 End: 11-27-2024 Clinisync Result Encounter Jennifer Rodriguez PA Work Phone: [facility] Unsolicited Start: 11-26-2024 End: 11-26-2024 Refill Jerry Ram MD Work Phone: [facility] 100 Comment on above: Adjustment disorder with anxiety (CMS/HCC) Start: 11-19-2024 End: 11-26-2024 Telephone encounter Jennifer LAWS Work Phone: [facility] Start: 11-14-2024 End: 11-14-2024 Bamboo flowsheet Jennifer Rodriguez PA Work Phone: [facility] Start: 11-14-2024 End: 11-14-2024 Bamboo flowsheet Jennifer Rodriguez PA Work Phone: [facility] Start: 11-14-2024 [...] Office outpatient visit 25 minutes Vidya Vu EXCELLENCE SPECIALIST Work Phone: [facility] Comment on above: Acute non-recurrent frontal sinusitis (Primary Dx); Nasal congestion; Acute cough Start: 07-25-2024 End: 07-25-2024 ambulatory VIDYA VU Not Available Start: 07-25-2024 End: 07-25-2024 Bamboo flowsheet Vidya Vu EXCELLENCE SPECIALIST Work Phone: [facility] Start: 07-25-2024 End: 07-25-2024 Bamboo flowsheet Vidya Vu EXCELLENCE SPECIALIST Work Phone: [facility] Start: 07-09-2024 End: 07-09-2024 Refill Jerry Ram MD Work Phone: [facility] Comment on above: Adjustment disorder with anxiety (CMS/HCC) Start: 06-13-2024 End: 06-13-2024 Bamboo flowsheet Jennifer Rodriguez PA Work Phone: [facility] Start: 06-13-2024 End: 06-13-2024 Bamboo flowsheet Jennifer LAWS Work Phone: [facility] Start: 06-13-2024 [...] 37.5 mg & Effexor 75mg to Drug [place] ) Start: 03-16-2024 End: 03-16-2024 Refill [...] 11-27-2024 XR LUMBAR SPINE MIN 4V Jennifer LAWS Work Phone: Plan of Treatment Date Care Activity Detail Author Start: 03-18-2025 [facility] Start: 02-12-2025 End: 02-12-2025 Patient encounter procedure 02/12/2025 10:30 AM EDT Office Visit [facility] [address] [place] [address] Jennifer Rodriguez PA [address] [place] [address] [facility] Start: 12-26-2024 End: 12-26-2024 Patient encounter procedure 12/26/2024 11:00 AM EDT Office Visit [facility] [address] [place] [address] Jennifer Rodriguez PA [address] [place] [address] [facility] Start: 11-14-2024 End: 01-14-2026 DBT Breast - bilateral screening Bilateral screening mammogram with tomosynthesis Imaging Routine Screening mammogram for breast cancer Expected: 11/14/2024, Expires: 01/14/[address] [facility] Comment on above: Expected: 11/14/2024 , Expires: 01/14/2026 Start: 11-14-2024 End: 11-14-2025 Noninvasive colorectal cancer DNA and occult blood screening [Presence] in Stool Cologuard colon cancer screening Lab Routine Screening for malignant neoplasm of colon Expected: 11/14/2024 (Approximate), Expires: 11/14/[address] [facility] Work Phone: Comment on above: Expected: 11/14/2024 (Approximate), Expires: 11/14/2025 Start: 11-14-2024 End: 11-14-2025 XR Lumbar spine 4 Views XR LUMBAR SPINE AP/LAT/OBLIQUES Imaging Routine Lumbar pain with radiation down both legs Expected: 11/14/2024, Expires: 11/14/2025 [facility] Comment on above: Expected: 11/14/2024 , Expires: 11/14/2025 Start: 11-14-2024 End: 11-14-2024 Patient encounter procedure 11/14/2024 11:00 AM EDT Office Visit [facility] [address] [place] [address] Jennifer Rodriguez, PA [address] [place] [address] Arrived [facility] Comment on above: Arrived Start: 11-07-2024 End: 11-07-2024 Patient encounter procedure 11/07/2024 11:00 AM EDT Office Visit [facility] [address] [place] [address] Jennifer Rodriguez PA [address] [place] [address] [facility] Start: 09-13-2024 End: 09-13-2024 Patient encounter procedure 09/13/2024 11:00 AM EST Office Visit [facility] [address] [place] [address] Jennifer Rodriguez, PA [address] [place] [address] [facility] Start: 07-25-2024 End: 07-25-2024 Patient encounter procedure 07/25/2024 2:30 PM EST Office Visit [facility] [address] [place] [address] Vidya Vu, EXCELLENCE SPECIALIST [address] [place] [address] Arrived [facility] Comment on above: Arrived Start: 06-13-2024 End: 06-13-2024 Patient encounter procedure 06/13/2024 11:00 AM EST Office Visit [facility] [address] [place] [address] Jennifer Rodriguez, PA [address] [place] [address] Arrived [facility] Comment on above: Arrived Start: 04-24-2024 End: 04-24-2024 Patient encounter procedure 04/24/2024 3:30 PM EDT Office Visit [facility] [address] [place] [address] Jennifer Rodriguez PA [address] [place] [address] [facility] Start: 03-18-2024 Influenza vaccination Influenza Vacc ine (#1) [facility] Start: 2019 Screening for malignant neoplasm of breast Mammogram [facility] Start: 2009 Screening for malignant neoplasm of cervix [facility] Start: 2000 Screening for malignant neoplasm of cervix Pap Smear [facility] Start: 1979 Screening for malignant neoplasm of colon [facility] Payers Date Payer Category Payer [facility] [id number] 2024 Unknown [id number] 2023 Medicaid [id number] 2023 Medicaid (Managed Care) [facility] MEDICAID [id number] 1979 Unknown [id number] 2.16.840.1.271969.3.579. 2.593 1979 Unknown [id number] 2.16.840.1.405170.3.579. 2.593 1979 Unknown [id number] 2.16.840.1.960234.3.579. 2.593 1979 Unknown [id number] 2.16.840.1.577511.3.579. 2.593 1979 Unknown [id number] 2.16.840.1.873086.3.579. 2.593 1979 Unknown [id number] 2.16.840.1.471814.3.579. 2.593 1979 Unknown [id number] 2.16.840.1.340401.3.579. 2.593 1979 Unknown [id number] 2.16.840.1.970904.3.579. 2.593 1979 Unknown [id number] 2.16.840.1.537508.3.579. 2.1259 1979 Unknown [id number] 2.16.840.1.990426.3.579. 2.1259 1979 Unknown [id number] 2.16.840.1.117533.3.579. 2.1259 1979 Unknown [id number] [id number]. 2.1259 1959 Unknown [id number] Social History Date Type Detail Facility Start[facility]15[facility]24 [facility] History of tobacco use [facility] Start: 02-15-2024 End: 11-14-2024 Cigarettes smoked current (pack per day) - Reported 1 [facility] Start: 02-15-2024 Tobacco use and exposure Smoke less tobacco non-user [facility] Start: 02-15-2024 End: 11-14-2024 Alcoholic beverage intake [facility] Start: 02-15-2024 End: 11-14-2024 Tobacco use panel [facility] Start: 05-25-2023 Tobacco Comment 11-20 cigs/day [facility] Start: 1980 Sex assigned at Not on file N [facility] Functional Status Date Assessment Result Facility 11-14-2024 Patient Health [facility] ionnaire 2 item (PHQ-2) [Reported] [facility] Clinical Notes 07-22-2021 to 01-28-2025 Telephone Encounter - Kiera Moore - 01/28/2025 9:02 AM EDTTelephone Encounter - Kiera Moore - 01/28/2025 9:02 AM EDTTelephone Encounter - VETO Valderrama - 12/28/2024 12:45 PM EDT Note Date & Type Note Facility 01-28-2025 Telephone encounter Note ALPRAZolam (Xanax) 0.5 MG tablet Ddm in [place] [facility] 01-28-2025 Miscellaneous Notes ALPRAZolam (Xanax) 0.5 MG tablet Ddm in [place] documented in this encounter [facility] 12-28-2024 Telephone encounter Note OARRS reviewed, Rx sent into patient's pharmacy. [facility] 12-28-2024 Miscellaneous Notes OARRS reviewed, Rx sent into patient's pharmacy. Last OV 11-14-24 Refill 11-26-24 ALPRAZolam (Xanax) 0.5 MG tablet Ddm in [place] documented in this encounter [facility] 12-28-2024 Telephone encounter Note Last OV 11-14-24 Refill 11-26-[address] [facility] 12-28-2024 Telephone encounter Note ALPRAZolam (Xanax) 0.5 MG tablet Ddm in [place] [facility] 11-26-2024 Telephone encounter Note Called and left a detailed message with [employer]. There was no option for me to speak with someone. Had to leave a message. Advised them of adequate documentation already provided for the migraine medications and of the necessity of the epi-pen as a potentially life saving medication. Asked them to return my call. [facility] 11-26-2024 Miscellaneous Notes Called and left a detailed message with [employer]. There was no option for me to [...] Jennifer to review. documented in this encounter [facility] 11-26-2024 Telephone encounter Note OARRS reviewed, Rx sent into patient's pharmacy. [facility] [facility] 11-26-2024 Miscellaneous Notes OARRS reviewed, Rx sent into patient's pharmacy. [place] called requesting a refill on her Xanax to [facility] in [place] documented in this encounter [facility] 11-26-2024 Telephone encounter Note [place] called requesting a refill on her Xanax to [facility] [place] [facility] 11-20-2024 Telephone encounter Note See other TE [facility] 11-20-2024 Telephone encounter Note See other TE [facility] 11-20-2024 Miscellaneous Notes See other TE EPINEPHRINE denied. Printed out denial for Jennifer to review. documented in this encounter [facility] 11-20-2024 Miscellaneous Notes See other TE AJOVY denied. Printed out denial and given to Jennifer for review. documented in this encounter [facility] 11-19-2024 Telephone encounter Note EPINEPHRINE denied. Printed out denial for Jennifer to review. [facility] 11-19-2024 Telephone encounter Note AJOVY denied. Printed out denial and given to Jennifer for review. [facility] 11-19-2024 Telephone encounter Note UBRELVY DENIED. Printed out denial and given to Jennifer for review. AJOVY denied. Printed out denial and given to Jennifer for review. EPINEPHRINE denied. Printed out denial for Jennifer to review. [facility] 11-14-2024 History of Presen t illness Narrative [...] Acute exacerbation of chronic obstructive pulmonary disease ([facility]) 12/06/2022 Adjustment disorder with anxiety ([facility]) 12/06/2022 Anxiety Carpal tunnel syndrome of left wrist 12/06/2022 Cellulitis Chronic migraine with aura ([facility]) 12/06/2022 Eczema 12/06/2022 Gastroenteritis H/O CT scan of brain 10/20/2018 H/O CT scan of chest 04/06/2019 was negative for Pulmonary Embolism, No pulmonary infiltrates Hypoglycemia 12/06/2022 Irritable bowel syndrome with diarrhea 12/06/2022 Nervousness Panic disorder with agoraphobia ([facility]) 12/06/2022 Smoker 12/06/2022 Thrombocytosis 12/06/2022 Past Surgical [...] without aura without status migrainosus, not intractable ([facility]) - fremanezumab (Ajovy) 225 MG/1.5ML prefilled syringe; [...] with some relief. She can continue with elderly caregiver as needed. Irritable bowel syndrome with diarrhea [...] 12/26/2024) for Recheck. documented in this encounter [facility] 10-23-2024 Telephone encounter Note Appt scheduled [facility] 10-23-2024 Miscellaneous Notes Appt scheduled Please help pt get scheduled for a follow up appointment within the month. OARRS reviewed, Rx sent into patient's pharmacy. [place] called requesting a refill on her ALPRAZolam (Xanax) 0.5 MG to [facility] documented in this encounter [facility] 10-22-2024 Telephone encounter Note Please help pt get scheduled for a follow up appointment within the month. OARRS reviewed, Rx sent into patient's pharmacy. [facility] 10-22-2024 Telephone encounter Note [place] called requesting a refill on her ALPRAZolam (Xanax) 0.5 MG to [facility] 09-18-2024 Telephone encounter Note ALPRAZolam (Xanax) 0.5 MG tablet to [facility] [place] [facility] 09-18-2024 Miscellaneous Notes ALPRAZolam (Xanax) 0.5 MG tablet to [facility] [place] documented in this encounter [facility] 08-22-2024 Telephone encounter Note Patient called stating [...] [facility] [place] 08-22-2024 Miscellaneous Notes Patient called stating that [...] [facility] [place] documented in this encounter [facility] 08-20-2024 Telephone encounter Note Advised pt to take OTC medications to treat her symptoms. [facility] 08-20-2024 Miscellaneous Notes Advised pt to take OTC medications to treat her symptoms. Patient tested positive for covid and wondered if something could be sent in for her cough low grade fever, runny nose. ALPRAZolam (Xanax) 0.5 MG tablet [facility] [place] documented in this encounter [facility] 08-20-2024 Telephone encounter Note Patient tested positive for covid and wondered if something could be sent in for her cough low grade fever, runny nose. [facility] 08-20-2024 Telephone encounter Note ALPRAZolam (Xanax) 0.5 MG tablet [facility] [place] [facility] 07-25-2024 History of Presen t illness Narrative [...] Acute exacerbation of chronic obstructive pulmonary disease ([facility]) 12/06/2022 Adjustment disorder with anxiety ([facility]) 12/06/2022 Anxiety Carpal tunnel syndrome of left wrist 12/06/2022 Cellulitis Chronic migraine with aura ([facility]) 12/06/2022 Eczema 12/06/2022 Gastroenteritis H/O CT scan of brain 10/20/2018 H/O CT scan of chest 04/06/2019 was negative for Pulmonary Embolism, No pulmonary infiltrates Hypoglycemia 12/06/2022 Irritable bowel syndrome with diarrhea 12/06/2022 Nervousness Panic disorder with agoraphobia ([facility]) 12/06/2022 Smoker 12/06/2022 Thrombocytosis 12/06/2022 Past Surgical [...] and its most common side effects. - myzurormrppceim-MM-IV 60-15-400 MG tablet; Take 1 tablet by mouth in the morning and 1 tablet at noon and 1 tablet in the evening and 1 tablet before bedtime. Do all this for 10 days. Dispense: 40 tablet; Refill: 0 3. Acute cough - vrdusjpmnmgaptm-YA-WY 60-15-400 MG tablet; Take 1 tablet by mouth in the morning and 1 tablet at noon and 1 tablet in the evening and 1 tablet before bedtime. Do all this for 10 days. Dispense: 40 tablet; Refill: 0 No follow-ups on file. documented in this encounter [facility] 07-25-2024 Instructions Vidya Vu NP - 07/25/2024 2:30 PM EST Mallory ordered Capmist Dm ordered documented in this encounter [facility] 07-09-2024 Telephone encounter Note OARRS reviewed, Rx sent into patient's pharmacy. [facility] 07-09-2024 Miscellaneous Notes OARRS reviewed, Rx sent into patient's pharmacy. ALPRAZolam (Xanax) 0.5 MG tablet [ [facility] [place] documented in this encounter [facility] 07-09-2024 Telephone encounter Note ALPRAZolam (Xanax) 0.5 MG tablet [ [facility] [place] [facility] 06-13-2024 History of Presen t illness Narrative [...] Acute exacerbation of chronic obstructive pulmonary disease ([facility]) 12/06/2022 Adjustment disorder with anxiety ([facility]) 12/06/2022 Anxiety Carpal tunnel syndrome of left wrist 12/06/2022 Cellulitis Chronic migraine with aura ([facility]) 12/06/2022 Eczema 12/06/2022 Gastroenteritis H/O CT scan of brain 10/20/2018 H/O [address] scan of chest 04/06/2019 was negative for Pulmonary Embolism, No pulmonary infiltrates Hypoglycemia 12/06/2022 Irritable bowel syndrome with diarrhea 12/06/2022 Nervousness Panic disorder with agoraphobia ([facility]) 12/06/2022 Smoker 12/06/2022 Thrombocytosis 12/06/2022 Past Surgical [...] without aura without status migrainosus, not intractable ([facility]) - Atogepant (Qulipta) 60 MG tablet; Take 60 mg by mouth Daily Pt has to try Qulipta per her insurance prior to being approved for [employer]. Provided pt with #16 samples and a [...] Medication Follow Up. documented in this encounter [facility] 04-20-2024 Telephone encounter Note scheduled [facility] 04-20-2024 Miscellaneous Notes scheduled Please help pt get set up for a medication follow up visit sometime this month. Last refill on Alprazolam until seen. OARRS reviewed, Rx sent into patient's pharmacy. documented in this encounter [facility] 04-19-2024 Telephone encounter Note Please help pt get set up for a medication follow up visit sometime this month. Last refill on Alprazolam until seen. OARRS reviewed, Rx sent into patient's pharmacy. [facility] 03-16-2024 Telephone encounter Note OARRS reviewed, Rx sent into patient's pharmacy. [facility] 03-16-2024 Miscellaneous Notes OARRS reviewed, Rx sent into patient's pharmacy. ALPRAZolam (Xanax) [facility] [place] documented in this encounter [facility] 03-16-2024 Telephone encounter Note ALPRAZolam (Xanax) 0.5 MG tablet [facility] [place] [facility] 07-22-2021 Note SATISFACTORY FOR EVALUATION [address] [place] [employer] Comment on above: Order Comment: [facility] Testing performed at: [facility], [facility], [address] [place] [address], [id number], Clinical Pharmacy Manager: Greg Barron MD Testing performed at: [facility], [facility], [address], Clinical Pharmacy Manager: Malcolm Hamilton MD [facility] Collection Date/Time: [facility] Results Received Date/Time: [id number] [facility] Reported Date/Time: [id number] Result Comment: [[facility] ] Performed By: #### [id number] #### [facility] Laboratory Default [address] [place] [address] Evaluation note Diagnosis Adjustment disorder with anxiety (CMS/HCC) Adjustment disorder with anxiety documented in this encounter [facility] note* Diagnosis Chronic migraine without aura without status migrainosus, not intractable (CMS/HCC)- Primary Adjustment disorder with anxiety (CMS/HCC) Adjustment disorder with anxiety Irritable bowel syndrome with both constipation and diarrhea documented in this encounter [facility] note* Diagnosis Adjustment disorder with anxiety (CMS/HCC) Adjustment disorder with anxiety documented in this encounter [facility] note* Diagnosis Adjustment disorder with anxiety (CMS/HCC) Adjustment disorder with anxiety documented in this encounter [facility] note* Diagnosis Acute non-recurrent frontal sinusitis- Primary Nasal congestion Other diseases of nasal cavity and sinuses Acute cough documented in this encounter [facility] note* Diagnosis Adjustment disorder with anxiety (CMS/HCC) Adjustment disorder with anxiety documented in this encounter [facility]* Diagnosis Acute non-recurrent frontal sinusitis- Primary documented in this encounter [facility]* Diagnosis Adjustment disorder with anxiety ([facility]) Adjustment disorder with anxiety documented in this encounter [facility]* Diagnosis Adjustment disorder with anxiety ([facility]) Adjustment disorder with anxiety documented in this encounter [facility]* Diagnosis Chronic migraine without aura without status migrainosus, not intractable ([facility])- Primary Screening for malignant neoplasm of colon Screening mammogram for breast cancer Allergy to honey bee venom Spasm of muscle of lower back Carpal tunnel syndrome of left wrist Lumbar pain with radiation down both legs Lumbago Irritable bowel syndrome with diarrhea Irritable bowel syndrome documented in this encounter [facility]* Diagnosis Adjustment disorder with anxiety ([facility]) Adjustment disorder with anxiety documented in this [...] section and content) DATE CREATED AUTHOR 07/28/2021 [facility] dical Specialist DATE CREATED AUTHOR AUTHOR'S ORGANIZ ATION 11/09/2022 [facility] DATE CREATED AUTHOR AUTHOR'S ORGANIZ ATION 11/15/2024 [facility] Specialists EPIC Reason for Visit (unrecogniz ed section and content) Reason Onset Date Comments Med Refill 04/19/2024 Xanax and Effexo r [facility] [place] Reason Comments Med Refill xanax Reason Onset Date Comments Med Refill 03/16/2024 Reason Onset Date Comments Med Refill 03/26/2024 Please send in E ffexor 37.5 mg & Effexor 75mg to [facility] [place] Reason Onset Date Comments Med Refill 07/09/2024 Reason Onset Date Comments Med Refill 08/20/2024 Reason Onset Date Comments Med Refill 12/28/2024 Reason Onset Date Comments Med Refill 01/28/2025 Care Teams (unrecognized sec tion and content) [employer] Relationship Specialty Start Date End Date Jerry Ram MD [address] [place] [address] PCP - [facility] Medicine 12/06/22 [employer] Relationship Specialty Start Date End Date Jerry Ram MD [address] [place] [address] PCP - [facility] 12/06/22 Jerry Ram MD [address] [place] [address] [facility] 04/17/24 [employer] Relationship Specialty Start Date End Date Jerry Ram MD [address] [place] [address] PCP - [facility] 12/06/22 Jerry Ram MD [address] [place] [address] [facility] 04/17/24 [employer] Relationship Specialty Start Date End Date Jerry Ram MD [address] [place] [address] PCP - [facility] 12/06/22 [employer] Relationship Specialty Start Date End Date Jerry Ram MD [address] [place] [address] PCP - [facility] 12/06/22 Jerry Ram MD [address] [place] [address] [facility] 04/17/24 [employer] Relationship Specialty Start Date End Date Jerry Ram MD [address] [place] [address] PCP - [facility] 12/06/22 Jerry Ram MD [address] [place] [address] PCP - [facility] 04/17/24 [employer] Relationship Specialty Start Date End Date Jerry Ram MD [address] [place] [address] PCP - [facility] 12/06/22 Jerry Ram MD [address] [place] [address] PCP - [facility] 04/17/24 [employer] Relationship Specialty Start Date End Date Jerry Ram MD [address] [place] [address] PCP - [facility] 12/06/22 Jerry Ram MD [address] [place] [address] PCP - [facility] 04/17/24 [employer] Relationship Specialty Start Date End Date Jerry Ram MD [address] [place] [address] PCP - General Family [facility] 12/06/22 Jennifer Rodriguez PA [address] [place] [address] PCP - [facility] 07/18/24 [employer] Relationship Specialty Start Date End Date Jerry Ram MD [address] [place] [address] PCP - General [facility] 12/06/22 Jennifer Rodriguez PA [address] [place] [address] [facility] - [facility] 07/18/24 [employer] Relationship Specialty Start Date End Date Jerry Ram MD [address] [place] [address] PCP - General Family [facility] 12/06/22 Jennifer Rodriguez PA [address] [place] [address] [facility] 07/18/24 [employer] Relationship Specialty Start Date End Date Jerry Ram MD [address] [place] [address] PCP - General [facility] 12/06/22 Jennifer Rodriguez PA [address] [place] [address] [facility] 07/18/24 [employer] Relationship Specialty Start Date End Date Jerry Ram MD [address] [place] [address] PCP - General Family [facility] 12/06/22 Jennifer Rodriguez PA [address] [place] [address] [facility] 07/18/24 [employer] Relationship Specialty Start Date End Date Jerry Ram MD [address] [place] [address] PCP - General Family [facility] 12/06/22 Jennifer Rodriguez PA [address] [facility] [address] [place] [address] [facility] 07/18/24 [employer] Relationship Specialty Start Date End Date Jerry Ram MD [address] [facility] [address] [place] [address] PCP - General Family [facility] 12/06/22 Jennifer Rodriguez PA [address] [facility] [address] [place] [address] [facility] 07/18/24 [employer] Relationship Specialty Start Date End Date Jerry Ram MD [address] [facility] [facility] [address] [place] [address] PCP - General Family [facility] 12/06/22 Jennifer Rodriguez PA [address] [facility] [place] [address] [facility] 07/18/24 FOR RECORDS PERTAINING TO PATIENTS WHO [...] BE BASED ON THE PRIMARY CLINICAL RECORDS. [facility] [employer] [facility]. provides no warranty or guarantee of the accuracy or completeness of information in this document.
--- NOTE | 2025-02-22 21:19 | XR_ITS ---
The [address] [address] Patient Name: TOPHER GARCIA MRN: [id number] date: 1980 Sex: F Assigned Patient Location: ER Current Patient Location: ER Accession/Order Number: [id number] Exam Date: 02/22/2025 21:55 Report Date: 02/22/2025 21:55 At the request of: ARABELLA ARANDA DO Procedure: XR chest 2V PA AND LATERAL CHEST: CLINICAL HISTORY: cough COMPARISON: 01/18/2025 FINDINGS: Unremarkable cardiomediastinal. Lungs clear. No effusion or pneumothorax. XR/XR chest 2V IMPRESSION: NO ACUTE CARDIOPULMONARY ABNORMALITY. Impression dictated by: Nathan Chapman M.D. 02/22/2025 9:55 PM Dictation Location: [place] [address] Electronically authenticated by: [id number] Y Date: 02/22/2025 21:55
[2025-02-22] MEDS: GUAIFENESIN 200 MG/DEXTROMETHORPHAN 20 MG 10 ML UNIT DOSE CUP PO (21:35)
[2025-02-22] MEDS: 0.9 % SODIUM CHLORIDE 1,000 ML 1000 ML IV (21:42)
[2025-02-22 21:53] LABS: Hematocrit 42.0 % (36.0-48.0); Hemoglobin 14.5 g/dL (12.0-16.0); Immature Granulocytes Abs Auto 0.05 10^3/uL (0.00-0.03); Immature Granulocytes Pct Auto 0.4 % (0.0-0.5); Lymphocytes Absolute Auto 1.9 10^3/uL (1.2-3.8); Mean Corpuscular HGB Conc 34.5 g/dL (29.9-35.2); Mean Corpuscular Hemoglobin 30.1 pg (26.7-34.0); Mean Corpuscular Volume 87.1 fL (81.0-99.0); Platelet Count 418 10^3/uL (150-450); Red Blood Count 4.82 10^6/uL (4.20-5.40); White Blood Count 11.9 10^3/uL (4.0-11.0)
[2025-02-22 22:03] LABS: SARS-CoV-2 Ag NEGATIVE (NEGATIVE)
[2025-02-22 22:05] LABS: Anion Gap 10.8; Blood Urea Nitrogen 11.0 mg/dL (7.0-18.0); Calcium 8.9 mg/dL (8.5-10.1); Carbon Dioxide 27.7 mmol/L (21.0-32.0); Chloride 103 mmol/L (98-107); Estimated GFR (African America >60 (>=60 mL/min/1.73m^2); Estimated GFR (Non-African Ame >60 (>=60 mL/min/1.73m^2); Glucose 96 mg/dL (74-106); Potassium 3.5 mmol/L (3.5-5.1); Sodium 138 mmol/L (136-145)
--- NOTE | 2025-02-23 06:31 | ED.GENADUL1 ---
HPI HPI - General Adult General Chief complaint: Shortness of Breath/Dyspnea Stated complaint: SOB COUGH Time Seen by Provider: 02/22/25 20:34 Source: patient Mode of arrival: walk-in Limitations: no limitations History of Present Illness HPI narrative: Patient is a 44-year-old female presenting to the emergency department for concerns of pneumonia. Patient states that over the last 4 days she has had increasingly worsening cough, headache, and sinus congestion. She states this feels like her similar episode of pneumonia a couple months ago. She states the cough is productive of green sputum. She feels congested in the center part of her chest as well. She endorses subjective fevers and chills. She states she becomes mildly short of breath with exertion. She denies hemoptysis. No abdominal pain, nausea, or vomiting. She has taken Augmentin over the last 2 days for empiric treatment of her illness. Related Data Home Medications ?Medication ?Instructions ?Recorded ?Confirmed venlafaxine 37.5 mg 37.5 mg PO DAILY 03/02/24 02/22/25 capsule,extended release 24 hr prednisone 10 mg tablet 10 mg PO Q6H 01/18/25 01/18/25 albuterol sulfate 90 mcg/actuation 2 puff inhalation Q4H PRN 02/22/25 02/22/25 aerosol inhaler shortness of breath or wheezing alprazolam 0.5 mg tablet 0.5 mg PO BID 02/22/25 02/22/25 Previous Rx's ?Medication ?Instructions ?Recorded penicillin V potassium 250 mg 250 mg PO QID 10 days #40 tabs 03/02/24 tablet azithromycin 250 mg tablet See Rx Instructions PO .COMPLEX #6 02/22/25 (Zithromax Z-Layo) tabs Allergies Allergy/AdvReac Type Severity Reaction Status Date / Time No Known Drug Allergies Allergy Verified 02/22/25 20:27 Opioid HPI Opioid Management Most Recent Opioid Data: Last Pain Scale 7 02/22/25, 20:22 Review of Systems ROS Status of ROS 10 or more systems reviewed and unremarkable except as noted in history and below PFSH PFSH Social History Little interest or pleasure in doing things: not at all Feeling down, depressed, or hopeless: not at all Exam Narrative Exam Narrative: CONSTITUTIONAL: Appears ill and fatigue but nontoxic, awake, alert, answering questions and following commands appropriately SKIN: Was warm and dry, nondiaphoretic. EYES: Sclera white. EARS, NOSE, THROAT: Moist oral mucosa. RESPIRATORY: Clear to auscultation bilaterally, no wheezes, crackles, or stridor, no use of accessory muscles CARDIOVASCULAR: Normal rate and regular rhythm. There is no S3, S4, murmur, rub. GASTROINTESTINAL: Abdomen was nondistended. MUSCULOSKELETAL: There was no lower extremity edema. NEUROLOGIC: Patient is awake and alert. Facies were symmetrical. Constitutional Vital Signs, click to edit/add: Last Vital Signs Temp 98 F 02/22/25 20:22 Pulse 101 H 02/22/25 20:22 Resp 20 02/22/25 20:22 BP 141/88 02/22/25 20:22 Course Vital Signs Vital signs: Vital Signs Temperature 98 F 02/22/25 20:22 Pulse Rate 101 H 02/22/25 20:22 Respiratory Rate 20 02/22/25 20:22 Blood Pressure 141/88 02/22/25 20:22 Temperature 98 F 02/22/25 20:22 Pulse Rate 101 H 02/22/25 20:22 Respiratory Rate 20 02/22/25 20:22 Blood Pressure 141/88 02/22/25 20:22 Medical Decision Making MDM Narrative Medical decision making narrative: Patient is a 44-year-old female presenting to the emergency department with a 4-day history of flulike symptoms including productive cough, subjective fevers, and sinus congestion. Vital signs on arrival are significant for mild tachycardia, which resolved during my examination. She is afebrile and hemodynamically stable. Patient looks generally fatigued and sounds congested, otherwise her physical examination was unremarkable. Her lungs are clear to auscultation bilaterally. She is in no respiratory distress. Differential diagnose includes viral URI, pneumonia, atypical pneumonia, or other electrolyte/metabolic derangement. IV was established and laboratory studies were obtained. Chest x-ray was ordered. She was treated symptomatically with 1 L bolus normal saline, Mucinex DM, and oral Zofran. Laboratory studies were unremarkable. No significant electrolyte or metabolic derangement. No evidence of acute kidney injury. Mild leukocytosis. No anemia. COVID test negative. Chest x-ray independently reviewed/interpreted by myself demonstrated no acute cardiopulmonary process. On reevaluation, patient states she feels somewhat improved. I do believe her presentation is secondary to a viral URI, possible atypical pneumonia. I did elect to empirically treated with a Z-Layo. She was instructed to follow-up with her PCP for further care. Return precautions were given including any new or concerning symptoms, such as intractable fever or shortness of breath. Patient understands and agrees the plan. Lab Data Lab results reviewed: Yes I reviewed the patient's lab results Labs: Lab Results 02/22/25 02/22/25 Range/Units 21:40 21:41 WBC 11.9 H (4.0-11.0) 10^3/uL RBC 4.82 (4.20-5.40) 10^6/uL Hgb 14.5 (12.0-16.0) g/dL Hct 42.0 (36.0-48.0) % MCV 87.1 (81.0-99.0) fL MCH 30.1 (26.7-34.0) pg MCHC 34.5 (29.9-35.2) g/dL RDW 13.7 (11.0-15.0) % Plt Count 418 (150-450) 10^3/uL MPV 8.9 L (9.5-13.5) fL Neut % (Auto) 72.6 (43.0-75.0) % Lymph % (Auto) 15.9 L (20.5-60.0) % Young % (Auto) 8.5 (1.7-12.0) % Eos % (Auto) 1.7 (0.9-7.0) % Baso % (Auto) 0.9 (0.2-2.0) % Neut # (Auto) 8.7 H (1.4-6.5) 10^3/uL Lymph # (Auto) 1.9 (1.2-3.8) 10^3/uL Young # (Auto) 1.0 H (0.3-0.8) 10^3/uL Eos # (Auto) 0.2 (0.0-0.7) 10^3/uL Baso # (Auto) 0.1 (0.0-0.1) 10^3/uL Abs Immat Gran (auto) 0.05 H (0.00-0.03) 10^3/uL Imm/Tot Granulo (auto) 0.4 (0.0-0.5) % Sodium 138 (136-145) mmol/L Potassium 3.5 (3.5-5.1) mmol/L Chloride 103 (98-107) mmol/L Carbon Dioxide 27.7 (21.0-32.0) mmol/L Anion Gap 10.8 BUN 11.0 (7.0-18.0) mg/dL Creatinine 0.67 (0.55-1.02) mg/dL Est GFR ( Amer) >60 (>=60 mL/min/1.73m^2) Est GFR (Non-Af Amer) >60 (>=60 mL/min/1.73m^2) BUN/Creatinine Ratio 16.4 Glucose 96 (74-106) mg/dL Calcium 8.9 (8.5-10.1) mg/dL SARS-CoV-2 Ag (CV2AG) Negative (NEGATIVE) Imaging Data Chest x-ray: Radiologist's impression: ITS Impressions Chest X-Ray 02/22/25 21:19 IMPRESSION: NO ACUTE CARDIOPULMONARY ABNORMALITY. Impression dictated by: Nathan Chapman M.D. 02/22/2025 9:55 PM Dictation Location: [place] [id number] Electronically authenticated by: [id number] Y Date: 02/22/2025 21:55 Discharge Plan Discharge Chief Complaint: Shortness of Breath/Dyspnea Clinical Impression: URI (upper respiratory infection) Qualifiers: URI type: unspecified viral URI Qualified Code(s): J06.9 - Acute upper respiratory infection, unspecified Patient Disposition: Home, Self-Care Time of Disposition Decision: 22:07 Condition: Good Mode of Transportation: Private Vehicle Prescriptions / Home Meds: New azithromycin [Zithromax Z-Layo] 250 mg tablet See Rx Instructions .ROUTE .COMPLEX Qty: 6 0RF Rx Instructions: For 250 mg dose pack: take 500 mg today (day 1), then 250 mg for 4 days (days 2-5) No Action prednisone 10 mg tablet 10 mg PO Q6H venlafaxine 37.5 mg capsule,extended release 24hr 37.5 mg PO DAILY penicillin V potassium 250 mg tablet 250 mg PO QID 10 Days Qty: 40 0RF albuterol sulfate 90 mcg/actuation HFA aerosol inhaler 2 puff INHALATION Q4H PRN (Reason: shortness of breath or wheezing) alprazolam 0.5 mg tablet 0.5 mg PO BID Print Language: Tajik Instructions: Pneumonia (ED) Referrals: VEGA RAM [Primary Care Provider, Family Practice] - 1 week Discharge Date/Time: 02/22/25 22:29
== END 2025-02-22 22:29 | disposition home or self-care (01) ==
PROVIDERS: Emergency Provider Student in an Organized Health Care Education/Training Program; PCP Family Medicine
DX: J06.9 Acute upper respiratory infection, unspecified (principal); R05.9 Cough, unspecified; R51.9 Headache, unspecified; R09.81 Nasal congestion; R09.89 Other specified symptoms and signs involving the circulatory and respiratory systems; R06.02 Shortness of breath
CPT/HCPCS: 36415; 71046; 80048; 85025; 87811; 96374; 99285; J2405

== ENCOUNTER 2025-02-26 19:49 | Emergency (ER) | payer MEDICAID, SELFPAY ==
[2025-02-26 19:53] VITALS: PULSE 92; TEMP 36.8; O2SAT 99; BMI 24.0
--- OUTSIDE RECORDS SUMMARY | 2025-02-26 20:11 | XMS_ITS | CCD ---
Author Organization [facility] Care Team Providers Care Skidder Name Role Phone YO, DR FERRARI Primary [...] PEREZ Consulting Unavailable JENNIFER RODRIGUEZ Admitting Unavailable HEMJENNIFER AVENDANO Attending Unavailable YO, DR FERRARI Primary Care [...] Unavailable Jerry Ram MD Primary Care Provider Jerry Ram MD Unavailable Jennifer Arredondo Unavailable JENNIFER RODRIGUEZ Attending Unavailable JENNIFER RODRIGUEZ Attending Unavailable JENNIFER RODRIGUEZ Attending Unavailable VIDYA VU Attending Unavailable Santiago HOME WORKER, Vidya Milan Unavailable Allergies Allergy Classification Reported Allergen(s) Allergy Type Date of Onset Reaction(s) Facility (1 source) Amoxicillin / Clavulanate Drug Allergy 07-26-2013 [facility] (20 sources) Amoxicillin-Pot Clavulanate Drug Allergy 07-22-2021 [facility] Work Phone: (20 sources) Dicyclomine Drug Allergy 06-13-2024 Dizziness [facility] (3 sources) tiZANidine Drug Allergy 12-26-2024 Other [facility] Medications Current Medications Medication Drug Class(es) Dates Sig (Normalized) Sig (Original) ALPRAZolam 0.5 mg oral tablet (20 sources) Benzodiazepine Start: 02-13-2024 End: 03-28-2025 take 1 tablet by mouth twice daily as needed for anxiety ALPRAZolam (Xanax) 0.5 MG tablet Indications: Adjustment disorder with anxiety Take 1 tablet (0.5 mg) by mouth 2 (two) times a day as needed for anxiety 60 tablet 02/26/2025 03/28/2025 Active azithromycin 250 mg oral tablet (6 sources) Macrolide Antimicrobial Start: 02-23-2025 azithromycin (Zithromax) 250 MG tablet TAKE 2 TABLETS by mouth today, THEN take 1 TABLET once a day FOR the next 4 DAYS. 02/23/2025 Active Start: 07-25-2024 End: 08-27-2024 take 2 tablets [...] / pseudoephedrine hydrochloride 60 mg oral tablet (4 sources) alpha-Adrenergic Agonist, Uncompetitive M-srakcq-Y-aspartat e Receptor Antagonist, Sigma-1 Agonist Start: 01-17-2025 take 1 tablet by mouth every six hours pseudoephedrine-DM -GG 60-15-400 MG tablet Indications: COVID Take 1 tablet by mouth every 6 (six) hours if needed (Cough) 28 tablet 01/17/2025 Active Start: 07-25-2024 End: 08-04-2024 zbnkbgaittnaapp-NC-YX 60-15- 400 MG tablet Indications: Nasal congestion [...] capsule 2 02/15/2024 06/13/2024 Discontinued (Side effects) [id number] 0.3 ml EPINEPHrine 1 mg/ml auto-injector (20 [...] 11/14/2024 Active meloxicam 15 mg oral tablet (3 sources) Nonsteroidal Anti-inflammatory Drug Start: 11-28-2024 take [...] 11/28/2024 Active ubrogepant 100 mg oral tablet (10 sources) Start: 12-20-2024 Ubrogepant (Ub relvy) 100 [...] Start: 06-13-2024 take 1 tablet by leigh th once daily Atogepant (Qulipta) 60 MG tablet [...] Onset: 05-14-2022 Other aftercare (1 source) Other group home (current) drug therapy; Translations: [OTH GROUP HOME CURRENT DRUG THERAPY] Onset: 11-08-2022 Episodic Other [...] Spondylosis; intervertebral disc disorders; other back problems (3 sources) Lumbar spondylosis; Translations: [Spondylosis without myelopathy [...] Facil ity XR LUMBAR SPINE [place] [address] [address] XRay Report Signed Patient: MARION MERIDA MR#: [id number] : 1980 Acct:[id number] Age/Sex: 44 / F ADM Date: 11/27/24 Loc: RAD Attending Dr: Non-Staff Physician MBlanca Ordering Physician: JENNIFER RODRIGUEZ Date of Service: 11/27/24 Procedure(s): XR lumbar spine min 4V Accession Number(s): [id number] cc: JERRY RAM ; JENNIFER RODRIGUEZ [address] [address] Patient Name: MARION MERIDA MRN: [id number] date: 1980 Sex: F Assigned Patient Location: [facility] Current Patient Location: [facility] Accession/Order Number: [id number] Exam Date: 11/27/2024 12:03 Report Date: 11/27/2024 [...] Reyez M.D. 11/27/2024 12:06 PM Dictation Location: [place] [address] Electronically authenticated by: [id number] Y Date: 11/27/2024 12:06 Dictated By: Jennifer Reyez M.D. Signed By: 11/27/24 1208 DD/ 1206 TD/TT: Shredder Tender: [facility] Radiology, Radiologist, - 11/27/2024 [place] [address] XRay Report Signed Patient: MARION MERIDA MR#: [id number] : 1980 Acct:[id number] Age/Sex: 44 / F ADM Date: 11/27/24 Loc: [facility] Attending Dr: Non-Staff Physician Denzel Ordering Physician: JENNIFER RODRIGUEZ Date of Service: 11/27/24 Procedure(s): XR lumbar spine min 4V Accession Number(s): [id number] cc: JERRY RAM ; JENNIFER RODRIGUEZ [place] [id number] Patient Name: MARION MERIDA MRN: [facility]:[id number] date: 1980 Sex: F Assigned Patient Location: [facility] Current Patient Location: [facility] Accession/Order Number: [id number] Exam Date: 11/27/2024 12:03 Report Date: 11/27/2024 [...] Reyez M.D. 11/27/2024 12:06 PM Dictation Location: [place] [address] Electronically authenticated by: [id number] Y Date: 11/27/2024 12:06 Dictated By: Jennifer Reyez M.D. Signed By: 11/27/24 1208 DD/ 1206 TD/TT: Shredder Tender: [facility] Radiology Study observation (narrative) [facility] XR LUMBAR SPINE MIN 4VOrdere d By: Radiologist Radiology [facility]27-20[facility]: GROUP A STREP CULTUREon S. pyogenes Ag Ql (Unsp spec) Culture Observations: NEGATIVE FOR GROUP A STREPTOCOCCUS. Normal [facility] Comment on above: Performed By: #### S SCRN, GRASTCX #### [facility] [address] [place] [address] Dr. Sharonda White INFLUENZA A AND B AGon 07-21 INFLUANEGH SEE BELOW Normal [facility] Comment on above: Result Comment: Nega tive for Flu A protein angiten. Infection due to Flu A cannot be ruled out. Flu A angiten in the sample may be below the detection limit of the test. Performed By: #### I NFLUAB #### [facility] [address] [place] [address] Dr. Sharonda White INFLUBNEGH SEE BELOW Normal [facility] Comment on above: Result Comment: Nega tive for Flu B protein antigen. Infection due to Flu B cannot be ruled out. Flu B antigen in the sample may be below the detection limit of the test. Performed By: #### I NFLUAB #### [facility] [address] [place] [address] Dr. Sharonda White INFLUENZA A AG Negative Normal NEGATIVE SEE COMMENT [facility] Comment on above: Performed By: #### I NFLUAB #### [facility] [address] [place] [address] [address] Sharonda White INFLUENZA B AG Negative Normal NEGATIVE SEE COMMENT [facility] Comment on above: Performed By: #### I NFLUAB #### [facility] [address] [place] [address] [address] Sharonda White STREPT SCREENon 07-21-2022 STREP SCREEN A Negative Normal NEGATIVE [facility] Comment on above: Performed By: #### S SCRN, GRASTCX #### [facility] [address] [place] [address] Dr. Sharonda White XR CHEST 2 [place] [...] TRAVIS MODI Date: 2022-06-03 15:10 Normal [facility] CBC AUTO DIFFon 05-14-2022 BASO # 0.1 103/ul Normal 0.0-0.1 [facility] Comment on above: Performed By: #### C BC #### [facility] [address] [place] [address] Dr. Sharonda White Basophils/100 WBC (Bld) 0.9 % Normal 0.2-2.0 [facility] Comment on above: Performed By: #### C BC #### [facility] [address] [place] [address] Dr. Sharonda White EO # 0.2 103/ul Normal 0.0-0.7 [facility] Comment on above: Performed By: #### C BC #### [facility] [address] [place] [address] Dr. Sharonda White Eosinophils/100 WBC (Bld) 1.7 % Normal 0.9-7.0 [facility] Comment on above: Performed By: #### C BC #### [facility] [address] [place] [address] [address] Sharonda White Erythrocyte distribution width (RBC) [Ratio] 13.3 % Normal 11.0-15.0 [facility] Comment on above: Performed By: #### C BC #### [facility] [address] [place] [address] [address] Sharonda White Hematocrit (Bld) [Volume fraction] 39.6 % Normal 36.0-48.0 [facility] Comment on above: Performed By: #### C BC #### [facility] [address] [place] [address] Dr. Sharonda White Hemoglobin (Bld) [Mass/Vol] 13.5 g/dL Normal 12.0-16.0 [facility] Comment on above: Performed By: #### C BC #### [facility] [address] [place] [address] Dr. Sharonda White IG # 0.04 10e3/ul Critically high 0.00-0.03 [facility] Comment on above: Performed By: #### C BC #### [facility] [address] [place] [address] Dr. Sharonda White IG % 0.4 % Normal 0.0-0.5 [facility] Comment on above: Performed By: #### C BC #### [facility] [address] [place] [address] Dr. Sharonda White LYMPH # 2.3 103/ul Normal 1.2-3.8 [facility] Comment on above: Performed By: #### C BC #### [facility] [address] [place] [address] Dr. Sharonda White Lymphocytes/100 WBC (Bld) 23.0 % Normal 20.5-60.0 [facility] Comment on above: Performed By: #### C BC #### [facility] [address] [place] [address] Dr. Sharonda White MANUAL DIFF REQ NO Normal [facility] Comment on above: Performed By: #### C BC #### [facility] [address] [place] [address] [address] Sharonda White MCH (RBC) [Entitic mass] 30.1 pg Normal 26.7-34.0 [facility] Comment on above: Performed By: #### C BC #### [facility] [address] [place] [address] Dr. Sharonda White MCHC (RBC) [Mass/Vol] 34.1 g/dL Normal 29.9-35.2 [facility] Comment on above: Performed By: #### C BC #### [facility] [address] [place] [address] Dr. Sharonda White MCV (RBC) [Entitic vol] 88.2 fL Normal 81.0-99.0 [facility] Comment on above: Performed By: #### C BC #### [facility] [address] [place] [address] Dr. Sharonda White MONO # 0.7 103/ul Normal 0.3-0.8 [facility] Comment on above: Performed By: #### C BC #### [facility] [address] [place] [address] Dr. Sharonda White Monocytes/100 WBC (Bld) 7.3 % Normal 1.7-12.0 [facility] Comment on above: Performed By: #### C BC #### [facility] [address] [place] [address] Dr. Sharonda White NEUT # 6.6 103/ul Critically high 1.4-6.5 [facility] Comment on above: Performed By: #### C BC #### [facility] [address] [place] [address] Dr. Sharonda White Neutrophils/100 WBC (Bld) 66.7 % Normal 43.0-75.0 [facility] Comment on above: Performed By: #### C BC #### [facility] [address] [place] [address] Dr. Sharonda White Platelet mean volume (Bld) [Entitic vol] 9.2 fL Critically low 9.5-13.5 [facility] Comment on above: Performed By: #### C BC #### [facility] [address] [place] [address] [address] Sharonda White PLT 366 103/ul Normal 150-450 [facility] Comment on above: Performed By: #### C BC #### [facility] [address] [place] [address] [address] Sharonda White RBC 4.49 106/ul Normal 4.20-5.40 [facility] Comment on above: Performed By: #### C BC #### [facility] [address] [place] [address] Dr. Sharonda White WBC 9.9 103/ul Normal 4.0-11.0 [facility] Comment on above: Performed By: #### C BC #### [facility] [address] [place] [address] Dr. Sharonda White PROF CHEM 8 (BAS METB)on Anion gap [Moles/Vol] 12.2 mmol/L Normal [facility] Comment on above: Performed By: #### B MP #### [facility] [address] [place] [address] Dr. Sharonda White Calcium [Mass/Vol] 8.0 mg/dL Critically low 8.5-10.1 [facility] Comment on above: Performed By: #### B MP #### [facility] [address] [place] [address] Dr. Sharonda White Chloride [Moles/Vol] 108 mmol/L Critically high 98-107 [facility] Comment on above: Performed By: #### B MP #### [facility] [address] [place] [address] Dr. Sharonda White CO2 [Moles/Vol] 24.2 mmol/L Normal 21.0-32.0 [facility] Comment on above: Performed By: #### B MP #### [facility] [address] [place] [address] Dr. Sharonda White Creatinine [Mass/Vol] 0.51 mg/dL Critically low 0.55-1.02 [facility] Comment on above: Performed By: #### B MP #### [facility] [address] [place] [address] [address] Sharonda White EGFR-AF AFGHAN >60 Normal >=60 [facility] Comment on above: Performed By: #### B MP #### [facility] [address] [place] [address] Dr. Sharonda White EGFR-NON AF AFGHAN >60 Normal >=60 [facility] Comment on above: Performed By: #### B MP #### [facility] [address] [place] [address] [address] Sharonda White Glucose [Mass/Vol] 83 mg/dL Normal 74-106 [facility] Comment on above: Performed By: #### B MP #### [facility] [address] [place] [address] Dr. Sharonda White Potassium [Moles/Vol] 3.4 mmol/L Critically low 3.5-5.1 [facility] Comment on above: Performed By: #### B MP #### [facility] [address] [place] [address] Dr. Sharonda White Sodium [Moles/Vol] 141 mmol/L Normal 136-145 [facility] Comment on above: Performed By: #### B MP #### [facility] [address] [place] [address] Dr. Sharonda White Urea nitrogen [Mass/Vol] 13.0 mg/dL Normal 7.0-18.0 [facility] Comment on above: Performed By: #### B MP #### [facility] [address] [place] [address] Dr. Sharonda White Urea nitrogen/Creatinin e [Mass ratio] 25.5 mg/mg Normal [facility] Comment on above: Performed By: #### B MP #### [facility] [address] [place] [address] Dr. Sharonda White CBC AUTO DIFFon 03-30-2022 BASO # 0.1 103/ul Normal 0.0-0.1 [facility] Comment on above: Performed By: #### C BC #### [facility] [address] [place] [address] Dr. Sharonda White Basophils/100 WBC (Bld) 1.2 % Normal 0.2-2.0 [facility] Comment on above: Performed By: #### C BC #### [facility] [address] [place] [address] Dr. Sharonda White EO # 0.3 103/ul Normal 0.0-0.7 [facility] Comment on above: Performed By: #### C BC #### [facility] [address] [place] [address] Dr. Sharonda White Eosinophils/100 WBC (Bld) 2.9 % Normal 0.9-7.0 [facility] Comment on above: Performed By: #### C BC #### [facility] [address] [place] [address] Dr. Sharonda White Erythrocyte distribution width (RBC) [Ratio] 13.7 % Normal 11.0-15.0 [facility] Comment on above: Performed By: #### C BC #### [facility] [address] [place] [address] Dr. Sharonda White Hematocrit (Bld) [Volume fraction] 38.5 % Normal 36.0-48.0 [facility] Comment on above: Performed By: #### C BC #### [facility] [address] [place] [address] Dr. Sharonda White Hemoglobin (Bld) [Mass/Vol] 12.9 g/dL Normal 12.0-16.0 [facility] Comment on above: Performed By: #### C BC #### [facility] [address] [place] [address] Dr. Sharonda White IG # 0.02 10e3/ul Normal 0.00-0.03 [facility] Comment on above: Performed By: #### C BC #### [facility] [address] [place] [address] Dr. Sharonda White IG % 0.2 % Normal 0.0-0.5 [facility] Comment on above: Performed By: #### C BC #### [facility] [address] [place] [address] Dr. Sharonda White LYMPH # 2.8 103/ul Normal 1.2-3.8 [facility] Comment on above: Performed By: #### C BC #### [facility] [address] [place] [address] Dr. Sharonda White Lymphocytes/100 WBC (Bld) 30.7 % Normal 20.5-60.0 [facility] Comment on above: Performed By: #### C BC #### [facility] [address] [place] [address] Dr. Sharonda White MANUAL DIFF REQ NO Normal [facility] Comment on above: Performed By: #### C BC #### [facility] [address] [place] [address] Dr. Sharonda White MCH (RBC) [Entitic mass] 30.4 pg Normal 26.7-34.0 [facility] Comment on above: Performed By: #### C BC #### [facility] [address] [place] [address] Dr. Sharonda White MCHC (RBC) [Mass/Vol] 33.5 g/dL Normal 29.9-35.2 [facility] Comment on above: Performed By: #### C BC #### [facility] [address] [place] [address] Dr. Sharonda White MCV (RBC) [Entitic vol] 90.6 fL Normal 81.0-99.0 [facility] Comment on above: Performed By: #### C BC #### [facility] [address] [place] [address] Dr. Sharonda White MONO # 0.9 103/ul Critically high 0.3-0.8 [facility] Comment on above: Performed By: #### C BC #### [facility] [address] [place] [address] Dr. Sharonda White Monocytes/100 WBC (Bld) 9.7 % Normal 1.7-12.0 [facility] Comment on above: Performed By: #### C BC #### [facility] [address] [place] [address] Dr. Sharonda White NEUT # 5.0 103/ul Normal 1.4-6.5 [facility] Comment on above: Performed By: #### C BC #### [facility] [address] [place] [address] Dr. Sharonda White Neutrophils/100 WBC (Bld) 55.3 % Normal 43.0-75.0 [facility] Comment on above: Performed By: #### C BC #### [facility] [address] [place] [address] Dr. Sharonda White Platelet mean volume (Bld) [Entitic vol] 9.3 fL Critically low 9.5-13.5 [facility] Comment on above: Performed By: #### C BC #### [facility] [address] [place] [address] Dr. Sharonda White PLT 353 103/ul Normal 150-450 [facility] Comment on above: Performed By: #### C BC #### [facility] [address] [place] [address] Dr. Sharonda White RBC 4.25 106/ul Normal 4.20-5.40 [facility] Comment on above: Performed By: #### C BC #### [facility] [address] [place] [address] Dr. Sharonda White WBC 9.1 103/ul Normal 4.0-11.0 [facility] Comment on above: Performed By: #### C BC #### [facility] [address] [place] [address] Dr. Sharonda White Covid-19 PCR ([facility])on 03-18 SARS-CoV-2 (COVID-19) RNA EZIO+probe Ql (Unsp spec) Not detected Normal NOT DETECTED [facility] Comment on above: Result Comment: When diagnostic [...] for this test is supported by the Third Loader of Health and Human Service's declaration that [...] used). Performed By: #### C VDTB #### [facility] [address] [place] [address] Dr. Sharonda White INFLUENZA A AND B AGon 03-30 INFLUENZA A AG Negative Normal NEGATIVE SEE COMMENT [facility] Comment on above: Performed By: #### I NFLUAB #### [facility] [address] [place] [address] Dr. Sharonda White INFLUENZA B AG Negative Normal NEGATIVE SEE COMMENT [facility] Comment on above: Performed By: #### I NFLUAB #### [facility] [address] [place] [address] Dr. Sharonda White INTERNAL CONTROLS Within Normal Limits Normal Wi thin Normal Limits [facility] Comment on above: Performed By: #### I NFLUAB #### [facility] [address] [place] [address] Dr. Sharonda White PROF 14(COMP METB)on 022 Albumin [Mass/Vol] 3.1 g/dL Critically low 3.4-5.0 [facility] Comment on above: Performed By: #### C MP #### [facility] [address] [place] [address] Dr. Sharonda White Albumin/Globulin [Mass ratio] 0.9 {ratio} Normal [facility] Comment on above: Performed By: #### C MP #### [facility] [address] [place] [address] Dr. Sharonda White ALP [Catalytic activity/Vol] 95 U/L Normal 46-116 [facility] Comment on above: Performed By: #### C MP #### [facility] [address] [place] [address] Dr. Sharonda White ALT [Catalytic activity/Vol] 17 U/L Normal 14-59 [facility] Comment on above: Performed By: #### C MP #### [facility] [address] [place] [address] Dr. Sharonda White Anion gap [Moles/Vol] 13.5 mmol/L Normal [facility] Comment on above: Performed By: #### C MP #### [facility] [address] [address] [address] Sharonda White AST [Catalytic activity/Vol] 13 U/L Critically low 15-37 [facility] Comment on above: Performed By: #### C MP #### [facility] [address] [place] [address] Dr. Sharonda White Calcium [Mass/Vol] 7.9 mg/dL Critically low 8.5-10.1 [facility] Comment on above: Performed By: #### C MP #### [facility] [address] [place] [address] Dr. Sharonda White Chloride [Moles/Vol] 107 mmol/L Normal 98-107 [facility] Comment on above: Performed By: #### C MP #### [facility] [address] [place] [address] Dr. Sharonda White CO2 [Moles/Vol] 22.9 mmol/L Normal 21.0-32.0 [facility] Comment on above: Performed By: #### C MP #### [facility] [address] [place] [address] Dr. Sharonda White Creatinine [Mass/Vol] 0.63 mg/dL Normal 0.55-1.02 [facility] Comment on above: Performed By: #### C MP #### [facility] [address] [place] [address] Dr. Sharonda White EGFR-AF AFGHAN >60 Normal >=60 [facility] Comment on above: Performed By: #### C MP #### [facility] [address] [place] [address] Dr. Sharonda White EGFR-NON AF AFGHAN >60 Normal >=60 [facility] Comment on above: Performed By: #### C MP #### [facility] [address] [address] [address] Sharonda White Globulin (S) [Mass/Vol] 3.3 g/dL Normal [facility] Comment on above: Performed By: #### C MP #### [facility] [address] [address] [address] Sharonda White Glucose [Mass/Vol] 119 mg/dL Critically high 74-106 [facility] Comment on above: Performed By: #### C MP #### [facility] [address] [address] [address] Sharonda White Potassium [Moles/Vol] 3.4 mmol/L Critically low 3.5-5.1 [facility] Comment on above: Performed By: #### C MP #### [facility] [address] [place] [address] Dr. Sharonda Wihte Protein [Mass/Vol] 6.4 g/dL Normal 6.4-8.2 [facility] Comment on above: Performed By: #### C MP #### [facility] [address] [place] [address] Dr. Sharonda White Sodium [Moles/Vol] 140 mmol/L Normal 136-145 [facility] Comment on above: Performed By: #### C MP #### [facility] [address] [place] [address] Dr. Sharonda White TBIL <0.2 Normal 0.2-1.0 [facility] Comment on above: Performed By: #### C MP #### [facility] [address] [place] [address] Dr. Sharonda White Urea nitrogen [Mass/Vol] 8.0 mg/dL Normal 7.0-18.0 [facility] Comment on above: Performed By: #### C MP #### [facility] [address] [place] [address] Dr. Sharonda White Urea nitrogen/Creatinin e [Mass ratio] 12.7 mg/mg Normal [facility] Comment on above: Performed By: #### C MP #### [facility] [address], [place] [address] Dr. Sharonda White Q - SUREPATH-FPGS AND HPVon 07-22-2021 CLINICAL INFORMATION: None given Normal [facility] Wood Preparation Supervisor Comment on above: Order Comment: [facility] Testing performed at: [employer], [facility], [address] [place] [address], [address] [place] [address], [phone], Manufacturing Engineer Supervisor: Greg Barron MD Testing performed at: [facility], [facility] ([facility], [address] [place] [address], [phone], Manufacturing Engineer Supervisor: Malcolm Hamilton MD [facility] Collection Date/Time: [facility] Results Received Date/Time: [facility] Reported Date/Time: Result Comment: [QAC ] Performed By: #### [id number] #### [facility] Default [address] [place] [address] COMMENT SEE NOTE Normal [facility] Wood Preparation Supervisor Comment on above: Order Comment: [facility] Testing performed at: [employer], [facility], [address] [place] [address], [address] [place] [address], [phone], Manufacturing Engineer Supervisor: Greg Barron MD Testing performed at: [facility] ([facility], [address] [place] [address], [phone], Manufacturing Engineer Supervisor: Malcolm Hamilton MD [facility] Collection Date/Time: [facility] [...] 1 [id number] #### [facility] Default [address] [place] [address] COMMENT: This Pap test has been evaluated with computer assisted technology. Normal [facility] Wood Preparation Supervisor Comment on above: Order Comment: [facility] Testing performed at: [facility], [address] [place] [address], [address] [place] [address], [phone], Manufacturing Engineer Supervisor: Greg Barron MD Testing performed at: [facility], [facility] ([facility], [address] [place] [address], , Manufacturing Engineer Supervisor: Malcolm Hamilton MD [facility] Collection Date/Time: [facility] Results Received Date/Time: [facility] Reported Date/Time: Result Comment: [QAC ] Performed By: #### [id number] #### [facility] Default [address] [place] [address] BEEF CATTLE SPECIALIST: SEE NOTE Normal [facility] Wood Preparation Supervisor Comment on above: Order Comment: [facility] Testing performed at: [facility], [address] [place] [address], [address] [place] [address], , Manufacturing Engineer Supervisor: Greg Barron MD Testing performed at: [facility], [facility] ([facility], [address] [place] [address], , Manufacturing Engineer Supervisor: Malcolm Hamilton MD [facility] Collection Date/Time: [facility] Results Received Date/Time: [facility] Reported Date/Time: Result Comment: TNG, CT(ASCP) For informational purposes: All Cytology specimens are processed and screened at [facility]. [address] [place] [id number] [QAC] Performed By: #### [id number] #### [facility] Default [address] [place] [address] HPV mRNA E6/E7, SUREPATH VIAL Not detected Normal NOT DETECTED [facility] Wood Preparation Supervisor Comment on above: Order Comment: [facility] Testing performed at: [facility], [address] [place] [address], [address] [place] [address], [phone], Manufacturing Engineer Supervisor: Greg Barron MD Testing performed at: [facility], [facility] ([facility], [address] [place] [address], [phone], Manufacturing Engineer Supervisor: Malcolm Hamilton MD [facility] Collection Date/Time: [facility] Results Received Date/Time: [facility] Reported Date/Time: Result Comment: Meth odology: Column Precaster-Mediated Amplification This assay detects E6/E7 viral messenger RNA (mRNA) from 14 high-risk HPV types (16,18,31,33,35,39,45,51,52,56,58,59,66,68). The analytical performance characteristics of this assay have been determined by [employer]. The modifications have not been cleared or approved by the FDA. This assay has been validated pursuant to the CLIA regulations and is used for clinical purposes. For additional information, please refer to http://education.Tantaline/faq/SFF605x8 (This link if provided for information/ educational purposes only.) [[facility]] Performed By: #### [id number] #### [facility] Default [address] [place] [address] INTERPRETATION/RES ULT: Negative Normal [facility] Comment on above: Order Comment: [facility] Testing performed at: [facility], [address], Manufacturing Engineer Supervisor: Greg Barron MD Testing performed at: [facility], [facility] ([address], [phone], Manufacturing Engineer Supervisor: Malcolm Hamilton MD [facility] Collection Date/Time: [facility] Results Received Date/Time: [facility] Reported Date/Time: Result Comment: [[facility] ] Performed By: #### 1 [id number] #### [facility] Default [address] [place] [address] LMP: None given Normal [facility] Comment on above: Order Comment: [facility] Testing performed at: [employer], [address], Manufacturing Engineer Supervisor: Greg Barron MD Testing performed at: [facility], [facility] ([facility], [address] [place] [address], [phone], Manufacturing Engineer Supervisor: Malcolm Hamilton MD [facility] Collection Date/Time: [facility] Results Received Date/Time: [facility] Reported Date/Time: Result Comment: [QAC ] Performed By: #### [id number] #### [facility] [address] [place] [address] PREV. BX: None given Normal [facility] Specialist Comment on above: Order Comment: [facility] Testing performed at: [facility], [address] [place] [address], [address] [place] [address], [phone], Manufacturing Engineer Supervisor: Greg Barron MD Testing performed at: [facility] ([employer])[address], [address], Manufacturing Engineer Supervisor: Malcolm Hamilton MD [facility] Collection Date/Time: [facility] Results Received Date/Time: [facility] Reported Date/Time: Result Comment: [QAC ] Performed By: #### 1 [id number] #### [facility] Default [address] [place] [address] PREV. PAP: None given Normal [facility] Wood Preparation Supervisor Comment on above: Order Comment: [facility] Testing performed at: [facility], [address] [place] [address], [address] [place] [address], [phone], Manufacturing Engineer Supervisor: Greg Barron MD Testing performed at: [facility] ([employer])[address], [address], Manufacturing Engineer Supervisor: Malcolm Hamilton MD [facility] Collection Date/Time: [facility] Results Received Date/Time: [facility] Reported Date/Time: Result Comment: [QAC ] Performed By: #### 1 [id number] #### [facility] Default [address] [place] [address] SOURCE: None given Normal [facility] Wood Preparation Supervisor Comment on above: Order Comment: [facility] Testing performed at: [employer], [facility], [facility], [address] [place] [address] - [address] , [place], [address], Manufacturing Engineer Supervisor: Greg Barron MD Testing performed at: [facility], [facility], [facility] [place], [address], Manufacturing Engineer Supervisor: Malcolm Hamilton MD [facility] Collection Date/Time: [facility] Results Received Date/Time: [facility] Reported Date/Time: Result Comment: [[facility] ] Performed By: #### 1 [id number] #### [facility] Default [address] [place] [address] Vital Signs Date Time Vital Sign Value Performing Clinician Onel root 11-14-2024 10:59-0400 Body height 162.6 cm Jennifer Hemmer PA Work Phone: [facility] 11-14-2024 10:59-0400 Body mass index (BMI) [Ratio] 24.58 kg/m2 Jennifer Hemmer PA Work Phone: [facility] 11-14-2024 10:59-0400 Body weight 64.95 kg Jennifer Hemmer PA Work Phone: [facility] 11-14-2024 10:59-0400 Diastolic blood pressure 78 mm[Hg] Jennifer Hemmer PA Work Phone: [facility] 11-14-2024 10:59-0400 Heart rate 82 /min Jennifer Hemmer PA Work Phone: [facility] 11-14-2024 10:59-0400 Respiratory rate 16 /min Jennifer Hemmer PA Work Phone: [facility] 11-14-2024 10:59-0400 SaO2% (BldA) [Mass fraction] 97 % Jennifer Hemmer PA Work Phone: [facility] 11-14-2024 10:59-0400 Systolic blood pressure 128 mm[Hg] Jennifer Hemmer PA Work Phone: [facility] 07-25-2024 14:34-0500 Body height 162.6 cm Vidya Vu HOME WORKER Work Phone: [facility] 07-25-2024 14:34-0500 Body mass index (BMI) [Ratio] 24.85 kg/m2 Vidya Vu HOME WORKER Work Phone: [facility] 07-25-2024 14:34-0500 Body weight 65.68 kg Vidya Vu HOME WORKER Work Phone: [facility] 07-25-2024 14:34-0500 Diastolic blood pressure 72 mm[Hg] Vidya Vu HOME WORKER Work Phone: [facility] 07-25-2024 14:34-0500 Heart rate 76 /min Vidya Vu HOME WORKER Work Phone: [facility] 07-25-2024 14:34-0500 Respiratory rate 17 /min Vidya Vu HOME WORKER Work Phone: [facility] 07-25-2024 14:34-0500 SaO2% (BldA) [Mass fraction] 98 % Vidya Vu HOME WORKER Work Phone: [facility] 07-25-2024 14:34-0500 Systolic blood pressure 116 mm[Hg] Vidya Vu HOME WORKER Work Phone: [facility] 06-13-2024 10:56-0500 Body mass index (BMI) [Ratio] 24.07 kg/m2 Jennifre Hemmer PA Work Phone: [facility] 06-13-2024 10:56-0500 Body weight 63.59 kg Jennifer Hemmer PA Work Phone: [facility] 06-13-2024 10:56-0500 Diastolic blood pressure 80 mm[Hg] Jennifer Hemmer PA Work Phone: [facility] 06-13-2024 10:56-0500 Heart rate 79 /min Jennifer Hemmer PA Work Phone: [facility] 06-13-2024 10:56-0500 Respiratory rate 16 /min Jennifer Hemmer PA Work Phone: [facility] 06-13-2024 10:56-0500 SaO2% (BldA) [Mass fraction] 99 % Jennifer LAWS Work Phone: [facility] 06-13-2024 10:56-0500 Systolic blood pressure 125 mm[Hg] Jennifer LAWS Work Phone: [facility] Encounters Encounter Date Encounter Type Care Provider Facility Start: 02-26-2025 End: 02-26-2025 Telephone encounter Little Johnson ROOM ATTENDANT Work Phone: [facility] Start: 01-28-2025 End: 01-28-2025 Refill Jerry Ram [...] Office outpatient visit 25 minutes Vidya Vu HOME WORKER Work Phone: [facility] Comment on above: Acute non-recurrent frontal sinusitis (Primary Dx); Nasal congestion; Acute cough Start: 07-25-2024 End: 07-25-2024 ambulatory VIDYA VU Not Available Start: 07-25-2024 End: 07-25-2024 Bamboo flowsheet Vidya Vu HOME WORKER Work Phone: [facility] Start: 07-25-2024 End: 07-25-2024 Bamboo flowsheet Vidya Vu HOME WORKER Work Phone: [facility] Start: 07-09-2024 [...] 06-13-2024 Office outpatient visit 25 minutes Jennifer Rodriguez PA Work Phone: [facility] Comment on [...] 37.5 mg & Effexor 75mg to [facility] [place] ) Start: 03-16-2024 End: 03-16-2024 Refill [...] Detail Author Start: 03-18-2025 Influenza vaccination [facility] Start: 02-12-2025 End: 02-12-2025 Patient encounter procedure 02/12/2025 10:30 AM EDT Office Visit [facility] [address] [place] [address] Jennifer Rodriguez PA [address] [place] [address] [facility] Start: 12-26-2024 End: 12-26-2024 Patient encounter procedure 12/26/2024 11:00 AM EDT Office Visit [facility] [address] [place] [address] Jennifer Rodriguez PA [address] [place] [address] [facility] Start: 11-14-2024 End: 01-14-2026 DBT Breast - bilateral screening Bilateral screening mammogram with tomosynthesis Imaging Routine Screening mammogram for breast cancer Expected: 11/14/2024, Expires: 01/14/2026 [facility] Comment on above: Expected: 11/14/2024 , Expires: 01/14/2026 Start: 11-14-2024 End: 11-14-2025 Noninvasive colorectal cancer DNA and occult blood screening [Presence] in Stool Cologuard colon cancer screening Lab Routine Screening for malignant neoplasm of colon Expected: 11/14/2024 (Approximate), Expires: 11/14/2025 [facility] Work Phone: Comment on above: Expected: [...] [address] [place] [address] Jennifer Rodriguez PA [address] [place] [address] Arrived [facility] Comment on above: Arrived Start: 11-07-2024 End: 11-07-2024 Patient encounter procedure 11/07/2024 11:00 AM EDT Office Visit [facility] [address] [place] [address] Jennifer Rodriguez PA [address] [place] [address] [facility] Start: 09-13-2024 End: 09-13-2024 Patient encounter procedure 09/13/2024 11:00 AM EST Office Visit [facility] [address] [place] [address] Jennifer Rodriguez PA [address] [place] [address] [facility] Start: 07-25-2024 End: 07-25-2024 Patient encounter procedure 07/25/2024 2:30 PM EST Office Visit [facility] [address] [place] [address] Vidya Vu, HOME WORKER [address] [place] [address] Arrived [facility] Comment on above: Arrived Start: 06-13-2024 End: 06-13-2024 Patient encounter procedure 06/13/2024 11:00 AM EST Office Visit [facility] [address] [place] [address] Jennifer Rodriguez PA [address] [place] [address] Arrived [facility] Comment on above: Arrived Start: 04-24-2024 End: 04-24-2024 Patient encounter procedure 04/24/2024 3:30 PM EDT Office Visit [facility] [address] [place] [address] Jennifer Rodriguez PA [address] [place] [address] [facility] Start: 03-18-2024 Influenza vaccination Influenza Vacc ine (#1) [facility] Start: 2019 Screening for malignant neoplasm of breast Mammogram [facility] Start: 2009 Screening for malignant neoplasm of cervix [facility] Start: 2000 Screening for malignant neoplasm of cervix Pap Smear [facility] Start: 1979 Screening for malignant neoplasm of colon [facility] Payers Date Payer Category [facility] [id number] 2024 Unknown [id number] 2023 Medicaid [id number] 2023 Medicaid (Managed Care) [employer] [id number] 1979 Unknown [id number] [id number]. 593 1979 Unknown [id number] 2.16.840.1.612540.3.579.2. 593 1979 Unknown [id number] 2.16.840.1.298693.3.579.2. 593 1979 Unknown [id number] 2.16.840.1.411005.3.579.2. 593 1979 Unknown [id number] 2.16.840.1.459352.3.579.2. 593 1979 Unknown [id number] 2.16.840.1.904300.3.579.2. 593 1979 Unknown [id number] 2.16.840.1.421042.3.579.2. 593 1979 Unknown [id number] 2.16.840.1.206771.3.579.2. 593 1979 Unknown [id number] 2.16.840.1.662479.3.579.2. 1259 1979 Unknown [id number] 2.16.840.1.981083.3.579.2. 1259 1979 Unknown [id number] 2.16.840.1.972432.3.579.2. 1259 1979 Unknown [id number] 2.16.840.1.459745.3.579.2. 1259 1959 Unknown [id number] Social History Date Type Detail Facility Start: 02-15-2024 Tobacco smoking stat us MOIS Smokes tobacco daily [facility] History of tobacco use Cigarette Smoker N [facility] Start: 02-15-2024 End: 11-14-2024 Cigarettes smoked current (pack per day) - Reported 1 [facility] Start: 02-15-2024 Tobacco use and exposure Smoke less tobacco non-user [facility] Start: 02-15-2024 End: 11-14-2024 Alcoholic beverage intake Ex-drinker (finding) [facility] Start: 02-15-2024 End: 11-14-2024 Tobacco use panel [facility] Start: 05-25-2023 Tobacco Comment 11-20 cigs/day [facility] Start: 1980 Sex assigned at Not on file N [facility] Functional Status Date Assessment Result Facility 11-14-2024 Patient Health [facility] ionnaire 2 item (PHQ-2) [Reported] [facility] Clinical Notes 07-22-2021 to 02-26-2025 Little Johnson LPN - 02/26/2025 9:58 AM EDTTelephone Encounter - Kiera Moore - 01/28/2025 9:02 AM EDTTelephone Encounter - Kiera Moore - 01/28/2025 9:02 AM EDTPatient Instructions Note Date & Type Note Facility 02-26-2025 History of Presen t illness Narrative Pt requests refill on Xanax documented in this encounter [facility] 01-28-2025 Telephone encounter Note ALPRAZolam (Xanax) 0.5 MG tablet [facility] in [place] [facility] 01-28-2025 Miscellaneous Notes ALPRAZolam (Xanax) 0.5 MG tablet [facility] in [place] documented in this encounter [facility] 12-28-2024 Telephone encounter Note OARRS reviewed, Rx sent into patient's pharmacy. [facility] 12-28-2024 Miscellaneous Notes OARRS reviewed, Rx sent into patient's pharmacy. Last OV 11-14-24 Refill 11-26-24 ALPRAZolam (Xanax) 0.5 MG tablet [facility] in [place] documented in this encounter [facility] 12-28-2024 Telephone encounter Note Last OV 11-14-24 Refill 11-26-24 [facility] 12-28-2024 Telephone encounter Note ALPRAZolam (Xanax) 0.5 MG tablet Ddm in [place] [facility] 11-26-2024 Telephone encounter Note Called and left a detailed message with [employer]. There was no option for me to speak with someone. Had to leave a message. Advised them of adequate documentation already provided for the migraine medications and of the necessity of the epi-pen as a potentially life saving medication. Asked them to return my call. [facility] 11-26-2024 Miscellaneous Notes Called and left a detailed message with [facility]. There was no option for me to [...] Jennifer to review. documented in this encounter [facility] 11-26-2024 Telephone encounter Note OARRS reviewed, Rx sent into patient's pharmacy. [facility] 11-26-2024 Miscellaneous Notes OARRS reviewed, Rx sent into patient's pharmacy. [place] called requesting a refill on her Xanax to [facility] in [place] documented in this encounter [facility] 11-26-2024 Telephone encounter Note [place] called requesting a refill on her Xanax to [facility] in [place] [facility] 11-20-2024 Telephone encounter Note See other TE [facility] 11-20-2024 Telephone encounter Note See other TE [facility] 11-20-2024 Miscellaneous Notes See other TE EPINEPHRINE denied. Printed out denial for Jennifer to review. documented in this encounter [facility] 11-20-2024 Miscellaneous Notes See other TE AJOVY denied. Printed out denial and given to Jennifer for review. documented in this encounter [facility] 11-19-2024 Telephone encounter Note EPINEPHRINE denied. Printed out denial for Jennifer to review. [facility] 11-19-2024 Telephone encounter Note AJOVY denied. Printed out denial and given to Jennifer for review. [facility] 11-19-2024 Telephone encounter Note UBRELVY DENIED. Printed out denial and given to Jennifer for review. AJOVY denied. Printed out denial and given to Jennifer for review. EPINEPHRINE denied. Printed out denial for Jennifer to review. [facility] 11-14-2024 History of Presen t illness Narrative [...] Acute exacerbation of chronic obstructive pulmonary disease ([facility]) 12/06/2022 Adjustment disorder with anxiety ([facility]) 12/06/2022 Anxiety Carpal tunnel syndrome of left wrist 12/06/2022 Cellulitis Chronic migraine with aura ([facility]) 12/06/2022 Eczema 12/06/2022 Gastroenteritis H/O CT scan of brain 10/20/2018 H/O CT scan of chest 04/06/2019 was negative for Pulmonary Embolism, No pulmonary infiltrates Hypoglycemia 12/06/2022 Irritable bowel syndrome with diarrhea 12/06/2022 Nervousness Panic disorder with agoraphobia ([facility]) 12/06/2022 Smoker 12/06/2022 Thrombocytosis 12/06/2022 Past Surgical [...] with some relief. She can continue with primary care md as needed. Irritable bowel syndrome with diarrhea [...] 12/26/2024) for Recheck. documented in this encounter [facility] 10-23-2024 Telephone encounter Note Appt scheduled [facility] 10-23-2024 Miscellaneous Notes Appt scheduled Please help pt get scheduled for a follow up appointment within the month. OARRS reviewed, Rx sent into patient's pharmacy. [place] called requesting a refill on her ALPRAZolam (Xanax) 0.5 MG to [facility] documented in this encounter [facility] 10-22-2024 Telephone encounter Note Please help pt get scheduled for a follow up appointment within the month. OARRS reviewed, Rx sent into patient's pharmacy. [facility] 10-22-2024 Telephone encounter Note [place] called requesting a refill on her ALPRAZolam (Xanax) 0.5 MG to [facility] [place] [facility] 09-18-2024 Telephone encounter Note ALPRAZolam (Xanax) 0.5 MG tablet to [facility] [place] [facility] 09-18-2024 Miscellaneous Notes ALPRAZolam (Xanax) 0.5 MG tablet to [facility] [place] documented in this encounter [facility] 08-22-2024 Telephone encounter Note Patient called [...] [facility] [place] 08-22-2024 Miscellaneous Notes Patient called stating [...] [facility] [place] documented in this encounter [facility] 08-20-2024 Telephone encounter Note Advised pt to take OTC medications to treat her symptoms. [facility] 08-20-2024 Miscellaneous Notes Advised pt to take OTC medications to treat her symptoms. Patient tested positive for covid and wondered if something could be sent in for her cough low grade fever, runny nose. ALPRAZolam (Xanax) 0.5 MG tablet [facility] in [place] documented in this encounter [facility] 08-20-2024 Telephone encounter Note Patient tested positive for covid and wondered if something could be sent in for her cough low grade fever, runny nose. [facility] 08-20-2024 Telephone encounter Note ALPRAZolam (Xanax) 0.5 MG tablet [facility] in [place] [facility] 07-25-2024 History of Presen t illness [...] Acute exacerbation of chronic obstructive pulmonary disease ([facility]) 12/06/2022 Adjustment disorder with anxiety ([facility]) 12/06/2022 Anxiety Carpal tunnel syndrome of left wrist 12/06/2022 Cellulitis Chronic migraine with aura ([facility]) 12/06/2022 Eczema 12/06/2022 Gastroenteritis H/O CT scan of brain 10/20/2018 H/O [address] scan of chest 04/06/2019 was negative for Pulmonary Embolism, No pulmonary infiltrates Hypoglycemia 12/06/2022 Irritable bowel syndrome with diarrhea 12/06/2022 Nervousness Panic disorder with agoraphobia ([facility]) 12/06/2022 Smoker 12/06/2022 Thrombocytosis 12/06/2022 [...] and its most common side effects. - wngcaxziydcpbmj-TG-VX 60-15-400 MG tablet; Take 1 tablet by mouth in the morning and 1 tablet at noon and 1 tablet in the evening and 1 tablet before bedtime. Do all this for 10 days. Dispense: 40 tablet; Refill: 0 3. Acute cough - grjqvosbhycodzh-AD-WP 60-15-400 MG tablet; Take 1 tablet by mouth in the morning and 1 tablet at noon and 1 tablet in the evening and 1 tablet before bedtime. Do all this for 10 days. Dispense: 40 tablet; Refill: 0 No follow-ups on file. documented in this encounter [facility] 07-25-2024 Instructions Vidya Vu NP - 07/25/2024 2:30 PM EST Mallory ordered Capmist Dm ordered documented in this encounter [facility] 07-09-2024 Telephone encounter Note OARRS reviewed, Rx sent into patient's pharmacy. [facility] 07-09-2024 Miscellaneous Notes OARRS reviewed, Rx sent into patient's pharmacy. ALPRAZolam (Xanax) 0.5 MG tablet [ DDM [place] documented in this encounter [facility] 07-09-2024 Telephone encounter Note ALPRAZolam (Xanax) 0.5 MG tablet [ DDM [place] [facility] 06-13-2024 History of Presen t illness [...] Acute exacerbation of chronic obstructive pulmonary disease ([facility]) 12/06/2022 Adjustment disorder with anxiety ([facility]) 12/06/2022 Anxiety Carpal tunnel syndrome of left wrist 12/06/2022 Cellulitis Chronic migraine with aura ([facility]) 12/06/2022 Eczema 12/06/2022 Gastroenteritis H/O CT scan of brain 10/20/2018 H/O CT scan of chest 04/06/2019 was negative for Pulmonary Embolism, No pulmonary infiltrates Hypoglycemia 12/06/2022 Irritable bowel syndrome with diarrhea 12/06/2022 Nervousness Panic disorder with agoraphobia ([facility]) 12/06/2022 Smoker 12/06/2022 Thrombocytosis 12/06/2022 [...] her insurance prior to being approved for [employer]. Provided pt with #16 samples and a [...] Medication Follow Up. documented in this encounter [facility] 04-20-2024 Telephone encounter Note scheduled [facility] 04-20-2024 Miscellaneous Notes scheduled Please help pt get set up for a medication follow up visit sometime this month. Last refill on Alprazolam until seen. OARRS reviewed, Rx sent into patient's pharmacy. documented in this encounter [facility] 04-19-2024 Telephone encounter Note Please help pt get set up for a medication follow up visit sometime this month. Last refill on Alprazolam until seen. OARRS reviewed, Rx sent into patient's pharmacy. [facility] 03-16-2024 Telephone encounter Note OARRS reviewed, Rx sent into patient's pharmacy. [facility] 03-16-2024 Miscellaneous Notes OARRS reviewed, Rx sent into patient's pharmacy. ALPRAZolam (Xanax) 0.5 [facility] tablet [facility] [place] documented in this encounter [facility] 03-16-2024 Telephone encounter Note ALPRAZolam (Xanax) 0.5 MG tablet [facility] [place] [facility] 07-22-2021 Note SATISFACTORY FOR EVALUATION [address] [place] Preparation Supervisor Comment on above: Order Comment: [facility] Testing performed at: [facility], [facility], [address] [place] [address], [id number], Manufacturing Engineer Supervisor: Greg Barron MD Testing performed at: [facility], [facility] ([facility])[address], [id number], Manufacturing Engineer Supervisor: Malcolm Hamilton MD [facility] Collection Date/Time: [facility] Results Received Date/Time: [facility] Reported Date/Time: Result Comment: [[facility] ] Performed By: #### [id number] #### [facility] Laboratory Default [address] [place] [address] Evaluation note Diagnosis Adjustment disorder with anxiety (CMS/HCC) Adjustment disorder with anxiety documented in this encounter [facility] note* Diagnosis Chronic migraine without aura without status migrainosus, not intractable (CMS/HCC)- Primary Adjustment disorder with anxiety (CMS/HCC) Adjustment disorder with anxiety Irritable bowel syndrome with both constipation and diarrhea documented in this encounter [facility]* Diagnosis Adjustment disorder with anxiety (CMS/HCC) Adjustment disorder with anxiety documented in this encounter [facility] note* Diagnosis Adjustment disorder with anxiety (CMS/HCC) Adjustment disorder with anxiety documented in this encounter [facility]* Diagnosis Acute non-recurrent frontal sinusitis- Primary Nasal congestion Other diseases of nasal cavity and sinuses Acute cough documented in this encounter [facility] note* Diagnosis Adjustment disorder with anxiety ([facility]) Adjustment disorder with anxiety documented [facility] encounter [facility]* Diagnosis Acute non-recurrent frontal sinusitis- Primary documented in this encounter [facility]* Diagnosis Adjustment disorder with anxiety ([facility]) Adjustment disorder with anxiety documented in this encounter [facility]* Diagnosis Adjustment disorder with anxiety ([facility]) Adjustment disorder with anxiety documented in this encounter [facility]* Diagnosis Chronic migraine without aura without status migrainosus, not intractable ([facility])- Primary Screening for malignant neoplasm of colon Screening mammogram for breast cancer Allergy to honey bee venom Spasm of muscle of lower back Carpal tunnel syndrome of left wrist Lumbar pain with radiation down both legs Lumbago Irritable bowel syndrome with diarrhea Irritable bowel syndrome documented in this encounter [facility]* Diagnosis Adjustment disorder with anxiety ([facility]) Adjustment disorder with anxiety documented in this [...] section and content) DATE CREATED AUTHOR 07/28/2021 [facility] dical Specialist DATE CREATED AUTHOR AUTHOR'S ORGANIZ ATION 11/09/2022 [facility] DATE CREATED AUTHOR AUTHOR'S ORGANIZ ATION 11/15/2024 [facility] dical Specialists EPIC Reason for Visit (unrecogniz ed section and content) Reason Onset Date Comments Med Refill 04/19/2024 Xanax and Effexo r [facility] [place] Reason Comments Med Refill xanax Reason Onset Date Comments Med Refill 03/16/2024 Reason Onset Date Comments Med Refill 03/26/2024 Please send in E ffexor 37.5 mg & Effexor 75mg to [facility] [place] Reason Onset Date Comments Med Refill 07/09/2024 Reason Onset Date Comments Med Refill 08/20/2024 Reason Onset Date Comments Med Refill 12/28/2024 Reason Onset Date Comments Med Refill 01/28/2025 Care Teams (unrecognized sec tion and content) Skidder Relationship Specialty Start Date End Date Jerry Ram MD [address] [place] [address] [place] [address] PCP - General Family Medicine 12/06/22 Skidder Relationship Specialty Start Date End Date Jerry Ram MD [address] [facility] [address] [place] [address] PCP - General Family [facility] 12/06/22 Jerry Ram MD [address] [facility] [address] [place] [address] PCP - [facility] 04/17/24 Skidder Relationship Specialty Start Date End Date Jerry Ram MD [address] [facility] [address] [place] [address] PCP - General Family Medicine 12/06/22 Jerry Ram MD [address] [facility] [address] [place] [address] PCP - [facility] 04/17/24 Skidder Relationship Specialty Start Date End Date Jerry Ram MD [address] [facility] [address] [place] [address] PCP - General Family Medicine 12/06/22 Skidder Relationship Specialty Start Date End Date Jerry Ram MD [address] [facility] [address] [place] [address] PCP - General Family Medicine 12/06/22 Jerry Ram MD [address] [facility] [address] [place] [address] PCP - [facility] 04/17/24 Skidder Relationship Specialty Start Date End Date Jerry Ram MD [address] [place] [address] PCP - General Family [facility] 12/06/22 Jerry Ram MD [address] [place] [address] [place] [address] PCP - [facility] 04/17/24 Skidder Relationship Specialty Start Date End Date Jerry Ram MD [address] [place] [place] [address] PCP - [facility] 12/06/22 Jerry Ram MD [address] [place] [place] [address] PCP - [facility] 04/17/24 Skidder Relationship Specialty Start Date End Date Jerry Ram MD [address] [place] [address] PCP - [facility] 12/06/22 Jerry Ram MD [address] [place] [place] [address] PCP - [facility] 04/17/24 Skidder Relationship Specialty Start Date End Date Jerry Ram MD [address] [place] [place] [address] PCP - General Family [facility] 12/06/22 Jennifer Rodriguez PA [address] [place] [address] [facility] 07/18/24 Skidder Relationship Specialty Start Date End Date Jerry Ram MD [address] [place] [address] PCP - General Family [facility] 12/06/22 Jennifer Rodriguez, PA [address] [place] [place] [address] [facility] 07/18/24 Skidder Relationship Specialty Start Date End Date Jerry Ram MD [address] [place] [address] PCP - [facility] 12/06/22 Jennifer Rodriguez, VETO [address] [place] [place] [address] [facility] 07/18/24 Skidder Relationship Specialty Start Date End Date Jerry Ram MD [address] [place] [place] [address] PCP - [facility] 12/06/22 Jennifer Rodriguez, PA [address] [place] [address] [place] [address] [facility] 07/18/24 Skidder Relationship Specialty Start Date End Date Jerry Ram MD [address] [place] [place] [address] PCP - [facility] Family [facility] 12/06/22 Jennifer Rodriguez PA [address] [place] [address] [facility] 07/18/24 Skidder Relationship Specialty Start Date End Date Jerry Ram MD [address] [place] [address] PCP - [facility] 12/06/22 Jennifer Rodriguez PA [address] [place] [address] [facility] 07/18/24 Skidder Relationship Specialty Start Date End Date Jerry Ram MD [address] [place] [place] [address] PCP - [facility] 12/06/22 Jennifer Rodriguez PA [address] [place] [place] [address] [facility] 07/18/24 Skidder Relationship Specialty Start Date End Date Jerry Ram MD [address] [place] [place] [address] PCP - [facility] 12/06/22 Jennifer Rodriguez PA [address] [place] [address] [facility] 07/18/24 Skidder Relationship Specialty Start Date End Date Jerry Ram MD [address] [place] [place] [address] PCP - [facility] 12/06/22 Jennifer Rodriguez PA [address] [place] [place] [address] [facility] 07/18/24 Vidya Vu NP [address] [facility] [address] [place] [address] KASSI Gonzales 01/15/25 FOR RECORDS PERTAINING TO PATIENTS WHO ARE [...] BE BASED ON THE PRIMARY CLINICAL RECORDS. [facility]. provides no warranty or guarantee of the accuracy or completeness of information in this document.
[2025-02-26] MEDS: ONDANSETRON 4 MG RAPDIS TABLET SL (20:35)
[2025-02-26] MEDS: BENZONATATE 100 MG CAPSULE 200 MG PO (20:35)
[2025-02-26] MEDS: DEXAMETHASONE SOD PHOS 10 MG/ML VIAL PO (20:36)
--- NOTE | 2025-02-26 20:44 | ED_ITS ---
HPI - URI/Sore Throat General Chief Complaint: Upper Respiratory Infection Stated Complaint: COUGHING Time Seen by Provider: 02/26/25 19:55 History of Present Illness HPI Narrative: The patient is a 44-year-old female presenting with worsening upper respiratory symptoms. She was diagnosed with atypical pneumonia two days ago and started on azithromycin. She was also prescribed prednisone and an albuterol inhaler for a prior lung condition but has not been taking them. Over the past two days, her cough has worsened and become productive with phlegm. She reports associated sinus congestion and symptoms concerning for sinusitis, along with sweats and chills, but denies fever, shortness of breath, hemoptysis, or chest pain. She has been unable to control her cough with Robitussin and has been vomiting her medications due to forceful coughing. She returns today due to persistent cough and inability to sleep. Related Data Home Medications ?Medication ?Instructions ?Recorded ?Confirmed venlafaxine 37.5 mg 37.5 mg PO DAILY 03/02/24 capsule,extended release 24 hr albuterol sulfate 90 mcg/actuation 2 puff inhalation Q 4H PRN 02/22/25 02/26/25 aerosol inhaler shortness of breath or wheez ing alprazolam 0.5 mg tablet 0.5 mg PO BID 02/22/2502/26 Previous Rx's ?Medication ?Instructions ?Recorded azithromycin 250 mg tablet See Rx Instructions PO .COM PLEX #6 02/22/25 (Zithromax Z-Layo) tabs amoxicillin 875 mg-potassium 1 tab PO BID 10 days #20 tabs 02/26/25 clavulanate 125 mg tablet benzonatate 200 mg capsule 200 mg PO TID PRN cough #20 caps 02/26/25 ipratropium bromide 21 mcg (0.03 2 spray intranasal BI D #30 mL 02/26/25 %) nasal spray ondansetron 4 mg disintegrating 4 mg PO Q4H PRN nausea and 02/26/25 tablet vomiting #14 tabs prednisone 20 mg tablet 20 mg PO DAILY 3 days #3 tab s 02/26/25 Allergies Allergy/AdvReac Type Severity Reaction Status Date / Time No Known Drug Allergies Allergy Verified 02/22/25 20:27 PFSH PFSH Social History Little interest or pleasure in doing things: not at all Feeling down, depressed, or hopeless: not at all Exam Constitutional Vital Signs, click to edit/add: Last Vital Signs Temp 98.3 F 02/26/25 19:53 Pulse 88 02/26/25 21:28 Resp 20 02/26/25 21:28 BP 136/70 02/26/25 21:28 Pulse Ox 98 02/26/25 21:28 O2 Del Method Room Air 02/26/25 21:28 Documenting provider has reviewed patient's vital signs: yes Common normals: average body habitus, oriented x3 and no limitations General appearance: cooperative, ill appearing and well hydrated [facility] Common normals: normocephalic Face and sinus: normal facial exam and sinuses nontender Nose: external nose normal and mucous membranes and turbinates abnormal External ear: external ears normal and mastoids normal Tympanic membrane: TMs normal bilaterally Mouth: oral and palatal mucosa normal, lip normal and tongue normal Throat: posterior oropharynx normal, tonsils normal and uvula midline Lymph Lymphatic: no lymphadenopathy noted Respiratory Common normals: normal respiratory effort Auscultation: rhonchi and wheezes Cardio Common normals: regular rate, regular rhythm and no murmurs Extremity Common normals: normal to inspection, full ROM and normal capillary refill Neuro Common normals: oriented x3 Sensorium/orientation: awake, alert, oriented to person, oriented to place and oriented to time Psych Common normals: mental status grossly normal, thought process normal, c ooperative, affect normal and speech normal Course Vital Signs Vital signs: Vital Signs Temperature 98.3 F 02/26/25 19:53 Pulse Rate 92 H 02/26/25 19:53 Respiratory Rate 16 02/26/25 19:53 Pulse Oximetry 99 02/26/25 19:53 Oxygen Delivery Method Room Air 02/26/25 19:53 Temperature 98.3 F 02/26/25 19:53 Pulse Rate 88 02/26/25 21:28 Respiratory Rate 20 02/26/25 21:28 Blood Pressure 136/70 02/26/25 21:28 Pulse Oximetry 98 02/26/25 21:28 Oxygen Delivery Method Room Air 02/26/25 21:28 MDM - URI/Sore Throat MDM Narrative Medical decision making narrative: The patient is a 44-year-old female with a recent diagnosis of atypical pneumonia currently on day three of azithromycin therapy who presents with worsening upper respiratory symptoms, including increased productive cough, sinus congestion concerning for superimposed sinusitis, yellowish drainage from nasal passages, and pharynx that is erythematous and systemic symptoms such as sweats and chills. She reports non-adherence to prescribed prednisone and albuterol inhaler. Physical exam reveals rhonchus breath sounds and wheezing on the left, without signs of systemic toxicity or hypoxia. Given the clinical picture, she was treated in the ED with a DuoNeb treatment and a dose of Decadron 10 mg to address airway inflammation and bronchospasm. Prednisone was re-prescribed for three days to provide systemic corticosteroid coverage. The albuterol inhaler was reintroduced with instructions for use every 4 hours. Tessalon Perles were administered for symptomatic cough suppression, although initial effect was limited. Augmentin will be started for a sinusitis that presents today with her frontal sinus congestion, drainage, and cough. The patient was counseled extensively on medication adherence and the importance of follow-up with her primary care provider for further management. She was advised to return to the ED if she develops worsening symptoms such as fever, shortness of breath, chest pain, or hemoptysis. Current management aims to control airway inflammation, treat infection, and provide symptomatic relief while monitoring for potential complications. Medical Records Attestation: I reviewed the patient's medical records. Discharge Plan Discharge Chief Complaint: Upper Respiratory Infection Clinical Impression: History of pneumonia Sinusitis Qualifiers: Sinusitis location: unspecified location Chronicity: acute Recurrence: not specified as recurrent Qualified Code(s): J01.90 - Acute sinusitis, unspecified Patient Disposition: Home, Self-Care Time of Disposition Decision: 21:12 Condition: Good Prescriptions / Home Meds: New amoxicillin-pot clavulanate 875-125 mg tablet 1 tab PO BID 10 Days Qty: 20 0RF benzonatate 200 mg capsule 200 mg PO TID PRN (Reason: cough) Qty: 20 0RF prednisone 20 mg tablet 20 mg PO DAILY 3 Days Qty: 3 0RF ondansetron 4 mg tablet,disintegrating 4 mg PO Q4H PRN (Reason: nausea and vomiting) Qty: 14 0RF ipratropium bromide 21 mcg (0.03 %) spray,non-aerosol 2 spray intranasal BID Qty: 30 0RF Rx Instructions: administer into each nostril No Action venlafaxine 37.5 mg capsule,extended release 24hr 37.5 mg PO DAILY albuterol sulfate 90 mcg/actuation HFA aerosol inhaler 2 puff INHALATION Q4H PRN (Reason: shortness of breath or wheezing) alprazolam 0.5 mg tablet 0.5 mg PO BID azithromycin [Zithromax Z-Layo] 250 mg tablet See Rx Instructions .ROUTE .COMPLEX Qty: 6 0RF Rx Instructions: For 250 mg dose pack: take 500 mg today (day 1), then 250 mg for 4 days (days 2-5) Print Language: Tamazight Instructions: Sinusitis (ED) Additional Instructions: You have been diagnosed with sinusitis and an upper respiratory infection. To help you get better, you have been prescribed Augmentin (an antibiotic) to take as directed?make sure to complete the entire course even if you start feeling better. You will also take prednisone, a steroid, to reduce inflammation and swelling; please follow the dosing instructions carefully. Use your albuterol inhaler every 4 hours as needed to help open your airways and relieve wheezing or shortness of breath. Tessalon Perles have been prescribed to help reduce your cough; take them as directed but avoid crushing or chewing the capsules. If you experience nausea, you may take Zofran as prescribed.Atrovent nasal spray can be used to help with congestion in your sinuses and nasal passages. Make sure to rest, drink plenty of fluids, and avoid irritants like smoke. Contact your primary care provider for follow-up within the next few days. Seek emergency care immediately if you develop a high fever, difficulty breathing, chest pain, worsening sinus pain or swelling, persistent vomiting, or if your symptoms worsen or do not improve Referrals: VEGA RAM [Primary Care Provider, Family Practice] - 1 week Discharge Date/Time: 02/26/25 21:29
[2025-02-26] MEDS: IPRATROPIUM/ALBUTEROL SULFATE 3 ML AMPUL.NEB IH (20:46)
[2025-02-26 20:48] VITALS: PULSE 80; O2SAT 98
--- NOTE | 2025-02-26 20:51 | PC.NURSE ---
RT in room to administer aerosol treatment.
[2025-02-26] MEDS: AMOXICILLIN/POT CLAV 875-125 MG TABLET 1 TAB PO (21:16)
[2025-02-26 21:28] VITALS: BP 136/70; PULSE 88; O2SAT 98
== END 2025-02-26 21:29 | disposition home or self-care (01) ==
PROVIDERS: Emergency Provider Internal Medicine; PCP Family Medicine
DX: Z87.01 Personal history of pneumonia (recurrent) (principal); J01.90 Acute sinusitis, unspecified; R05.9 Cough, unspecified
CPT/HCPCS: 94640; 99284; J1100; Q0162

== ENCOUNTER 2025-05-31 01:53 | Emergency (ER) | payer OTHER, SELFPAY ==
[2025-05-31 01:56] VITALS: BP 146/93; PULSE 86; TEMP 36.6; O2SAT 100; BMI 24.9
--- OUTSIDE RECORDS SUMMARY | 2025-05-31 02:08 | XMS_ITS | CCD ---
Author Organization [facility] CliniSyks Care Team Providers Care Dip Guider Stoves Name Role Phone YO, DR FERRARI Primary [...] Unavailable ZIEBER, DR TRAVIS [employer] Unavailable JENNIFER RODRIGUEZ Consulting Unavailable YO, DR FERRARI Primary [...] Jerry Ram MD Unavailable Jennifer Arredondo Unavailable Vidya Vu NP Unavailable Little Johnson LPN Unavailable JENNIFER RODRIGUEZ Attending Unavailable HEMJENNIFER AVENDANO Attending Unavailable HEMJENNIFER AVENDANO Attending Unavailable VIDYA VU Attending Unavailable Allergies Allergy ClassificationReported Allergen(s)Allergy TypeDate of OnsetReaction(s) Facility (1 source)Amoxicillin / ClavulanateDrug Igyrxed13-74-4753[facility] (20 sources)Amoxicillin-Pot ClavulanateDrug Kkqrlbu69-97-4567EL[facility] Work Phone: (20 sources)DicyclomineDrug Sebrhml02-65-1339AmuamodioHQXJ [facility] (8 sources)tiZANidineDrug Fxyrmzk38-64-6219YxlkuCXJA [facility] Medications Current Medications MedicationDrug Class(es)DatesSig (Normalized)Sig (Original)albuterol 0.833 mg/ml / ipratropium bromide 0.167 mg/ml inhalation solution (4 sources)Anticholinergic, beta2-Adrenergic AgonistStart: 03-07-2025 ipratropium-albuterol (Duo-Neb) 0.5-2.5 mg/3 mL nebulizer solution Indications: Chronic obstructivepulmonary disease, unspecified COPD type (HCC) Take 3 mL by nebulization 4 (four) times a day as needed for wheezing or shortness of breath 50 mL 2 03/07/2025 ActiveALPRAZolam 0.5 mg oral tablet (20 sources)BenzodiazepineStart: 02-13-2024 End: 32-57-8896nghb 1 tablet by mouth twice daily as needed for anxiety ALPRAZolam (Xanax) 0.5 MG tablet Indications: Adjustment disorder with anxiety Take 1 tablet (0.5 mg) by mouth 2 (two) times a day as needed for anxiety 60 tablet 05/20/2025 06/19/2025 Activeamoxicillin 875 mg / clavulanate 125 mg oral tablet (5 sources)Penicillin-class AntibacterialStart: 03-07-2025 End: 89-17-1965bkwh 1 tablet by mouth in the morningamoxicillin-clavulanate (Augmentin) 875-125 MG tablet Indications: Acute bronchitis, unspecified org anism Take 1 tablet (875 mg) by mouth in the morning and 1 tablet (875 mg) before bedtime. Do all this for 4 days. 8 tablet 03/07/2025 03/11/2025 Active Start: 02-27-2025 End: 46-90-5117lcogqfzhoqf-clavulanate (Augmentin) 875-125 MG tablet 02/27/2025 03/07/2025 Discontinued (Reorder)baclofen 10 mg oral tablet (4 sources)gamma-Aminobutyric Acid-ergic AgonistStart: 69-99-2166hcpw 1 tablet by mouth twice daily as needed for muscle spasmsbaclofen (Lioresal) 10 MG tablet Indications: Lumbar spondylosis Take 1 tablet (10 mg) by mouth 2 (two) times a day as needed for muscle spasms 60 tablet 2 03/07/2025 Activebetamethasone 0.5 mg/ml topical cream (20 sources)CorticosteroidStart: 75-54-4888vzpvwefrqnhrq dipropionate 0.05 % cream Indications: Sun allergy Apply 1 application topically in the morning and 1 application before bedtime. 15 g 2 02/15/2024 Activedextromethorphan hydrobromide 15 mg / guaiFENesin 400 mg / pseudoephedrine hydrochloride 60 mg oraltablet (9 sources)alpha-Adrenergic Agonist, Uncompetitive B-abcjhx-Z-aspartate Receptor Antagonist, Sigma-1 AgonistStart: 08-48-1143qjlo 1 tablet by mouth every six wzqvbsokmmqiavrywbpf-KP-YO 60-15-400 MG tablet Indications: COVID Take 1 tablet by mouth every 6 (six) hours if needed (Cough) 28 tablet 01/17/2025 ActiveStart: 07-25-2024 End: 77-31-3183wyewscygjrgrumi-DM-GG 60-15-400 MG tablet Indications: Nasal congestion , Acute cough Take 1 tabletby mouth in the morning and 1 tablet at noon and 1 tablet in the evening and 1 tablet before bedtime. Do all this for 10 days. 40 tablet 07/25/2024 08/04/2024 Activedicyclomine hydrochloride 10 mg oral capsule (6 sources)AnticholinergicStart: 02-15-2024 End: 63-95-0483ycyj 1 capsule by mouth twice daily as neededdicyclomine (Bentyl) 10 MG capsule Indications: Irritable bowel syndrome with both constipation and diarrhea Take 1 capsule (10 mg) by mouth 2 (two) times a day as needed (Loose stools) 60 capsule 2 02/15/2024 06/13/2024 Discontinued (Side effects)[id number] 0.3 ml EPINEPHrine 1 mg/ml auto-injector (20 sources)alpha-Adrenergic Agonist, beta-Adrenergic Agonist, Catecholamine Start: 64-85-7756VFFWKZXltnn (Epipen) 0.3 MG/0.3ML injection syringe Indications: Allergy to honey bee venom Inject 0.3 mL (0.3 mg) as directed 1 (one) time for 1 dose Inject into upper leg. Call 911 after use. 12/20/2024 ActiveStart: 11-14-2024 End: 82-24-9949IIOUTKHjydy (Epipen) 0.3 MG/0.3ML injection syringe Indications: Allergy to honey bee venom Inject 0.3 mL (0.3 mg) as directed Daily as needed for anaphylaxis Must be seen in ER following administration 0.6 mL 1 11/14/2024 11/14/2024 DiscontinuedStart: 02-15-2024 End: 05-33-3461RSVFJNWqksw (Epipen) 0.3 MG/0.3ML injection syringe Indications: Allergy to honey bee venom Inject 0.3 mL (0.3 mg) as directed 1 (one) time for 1 dose Inject into upper leg. Call 911 after use. 2 each 1 11/14/2024 Active1.5 ml fremanezumab-vfrm 150 mg/ml prefilled syringe (20 sources)Start: 02-15-2024 End: 83-45-8967kwpeth 1.5 mL by subcutaneous injection every 30 daysfremanezumab (Ajovy) 225 MG/1.5ML prefilled syringe Indications: Chronic migraine without aura without status migrainosus, not intractable Inject 1.5 mL (225 mg) under the skin every 30 (thirty) days1.5 mL 5 11/14/2024 Activeipratropium bromide 0.021 mg/actuat metered dose nasal spray (5 sources)AnticholinergicStart: 04-16-1330hruxeelzbcz (Atrovent) 0.03 % nasal spray 02/27/2025 Activemeloxicam 15 mg oral tablet (8 sources)Nonsteroidal Anti-inflammatory DrugStart: 39-86-6994darr 1 tablet by mouth once daily at mealtimemeloxicam (Mobic) 15 MG tablet Indications: Lumbar pain with radiation down both legs Take 1 tablet(15 mg) by mouth Daily Take with food 30 tablet 2 11/28/2024 ActivemethylPREDNISolone (1 source)CorticosteroidStart: 08-22-2024 End: 78-56-6864pullhyQZULEGFgxqti (Medrol Dospak) 4 MG tablets Indications: Acute non-recurrent frontal sinusitis Follow schedule on package instructions 21 tablet 08/22/2024 08/29/2024 Activeondansetron 4 mg disintegrating oral tablet (5 sources)Serotonin-3 Receptor AntagonistStart: 93-42-5527kcasvfqudwt ODT (Zofran-ODT) 4 MG disintegrating tablet 02/27/2025 ActiverifAXIMin 550 mg oral tablet (9 sources)Rifamycin AntibacterialStart: 11-14-2024 End: 42-22-1319bige 1 tablet by mouth in the morning, then take 1 tablet by mouth in the evening, then take 1 tablet by mouth at bedtimerifAXIMin (Xifaxan) 550 MG tablet Indications: Irritable bowel syndrome with diarrhea Take 1 tablet (550 mg) by mouth in the morning and 1 tablet (550 mg) in the evening and 1 tablet (550 mg) before bedtime. Do all this for 14 days. 42 tablet 11/14/2024 11/28/2024 ActiveStart: 06-13-2024 End: 32-55-3218lzas 1 tablet by mouth in the morning, then take 1 tablet by mouth in the evening, then take 1 tablet by mouth at bedtimerifAXIMin (Xifaxan) 550 MG tablet Indications: Irritable bowel syndrome with both constipation and d iarrhea Take 1 tablet (550 mg) by mouth in the morning and 1 tablet (550 mg) in the evening and 1 tablet (550 mg) before bedtime. Do all this for 14 days. 42 tablet 06/13/2024 06/27/2024 ActivetiZANidine 4 mg oral tablet (7 sources)Central alpha-2 Adrenergic AgonistStart: 11-14-2024 End: 18-29-0746qeQOCuyaqe (Zanaflex) 4 MG tablet Indications: Spasm of muscle of lower back Take 1 tablet (4 mg) by mouth as needed at bedtime for muscle spasms for up to 14 days 14 tablet 11/14/2024 11/28/2024 Activeubrogepant 100 mg oral tablet (15 sources)Start: 61-96-4397Scftvotrtc (Ubrelvy) 100 MG tablet Indications: Chronic migraine without aura without status migrainosus, not intractable Take 100 mg by mouth Daily as needed (Migraine) Can take second dose x 1, if needed 1-2 hours following first dose 16 tablet 5 12/20/2024 ActiveStart: 11-14-2024 Ubrogepant (Ubrelvy) 100 MG tablet Indications: Chronic migraine without aura without status migrainosus, not intractable (CMS/HCC) Take 100 mg by mouth Daily as needed (Migraine) Can take second dose x 1, if needed 1-2 hours following first dose 8 tablet 5 11/14/2024 Wxbbhv96 hr venlafaxine 37.5 mg extended release oral capsule (20 sources)Serotonin and Norepinephrine Reuptake InhibitorStart: 51-26-1980exgi 1 capsule by mouth once dailyvenlafaxine XR (Effexor XR) 37.5 MG 24 hr capsule Indications: Adjustment disorder with anxiety Take 1 capsule (37.5 mg) by mouth Daily 90 capsule 3 04/01/2025 ActiveStart: 17-46-5938yjww 1 capsule by mouth once dailyvenlafaxine XR (Effexor XR) 75 MG 24 hr capsule Indications: Adjustment disorder with anxiety Take 1 capsule (75 mg) by mouth Daily 90 capsule 3 04/01/2025 ActiveStart: 10-19-2023 End: 73-13-3405zjeo 1 capsule by mouth once dailyvenlafaxine XR (Effexor XR) 37.5 MG 24 hr capsule Indications: Adjustment disorder with anxiety Take 1 capsule (37.5 mg) by mouth Daily 90 capsule 3 04/19/2024 ActiveStart: 10-19-2023 End: 29-20-7031flbc 1 capsule by mouth once dailyvenlafaxine XR (Effexor XR) 75 MG 24 hr capsule Indications: Adjustment disorder with anxiety Take 1 capsule (75 mg) by mouth Daily 90 capsule 3 04/19/2024 Active Completed/Discontinued Medications MedicationDrug Class(es)DatesSig (Normalized)Sig (Original)Atogepant (Qulipta) 60 MG tablet (13 sources)Start: 06-13-2024 End: 44-51-4448vabz 1 tablet by mouth once dailyAtogepant (Qulipta) 60 MG tablet Indications: Chronic migraine without aura without status migrainosus, not intractable (CMS/HCC) Take 60 mg by mouth Daily 30 tablet 2 06/13/2024 11/14/2024 Discontinued (Cost of medication)Start: 84-39-2408panx 1 tablet by mouth once dailyAtogepant (Qulipta) 60 MG tablet Indications: Chronic migraine without aura without status migrainosus, not intractable (CMS/HCC) Take 60 mg by mouth Daily 30 tablet 2 06/13/2024 Activeazithromycin 250 mg oral tablet (9 sources)Macrolide AntimicrobialStart: 02-23-2025 End: 97-10-2385glayynngkgye (Zithromax) 250 MG tablet TAKE 2 TABLETS by mouth today, THEN take 1 TABLET once a dayFOR the next 4 DAYS. 02/23/2025 03/07/2025 Discontinued (Therapy completed)Start: 07-25-2024 End: 31-90-0439ukbk 2 tablets by mouth once daily, then take 1 tablet by mouth once dailyazithromycin (Zithromax) 250 MG tablet Indications: Acute non- recurrent frontal sinusitis Take 2 tablets (500 mg) by mouth Daily for 1 day, THEN 1 tablet (250 mg) Daily for 4 days. 6 tablet 08/22/2024 08/27/2024 Active benzonatate 200 mg oral capsule (3 sources)Non-narcotic AntitussiveStart: 02-27-2025 End: 04-81-8211agdkgmpbpwu (Tessalon) 200 MG capsule 02/27/2025 03/07/2025 Discontinued (Other)fluconazole 150 mg oral tablet (17 sources)Azole AntifungalStart: 03-16-2024 End: 69-62-3656hfsvpcctahy (Diflucan) 150 MG tablet Indications: Yeast infection Take 1 tablet , and if still withsymptoms after 3 days take 1 tablet 2 tablet 03/16/2024 11/14/2024 Discontinued (Therapy completed)saccharomyces boulardii 250 mg oral capsule (17 sources)Start: 02-15-2024 End: 86-63-8598xvzo 1 capsule by mouth in the morningsaccharomyces boulardii (Florastor) 250 MG capsule Indications: Irritable bowel syndrome with both c onstipation and diarrhea Take 1 capsule (250 mg) by mouth in the morning and 1 capsule (250 mg) before bedtime. 60 capsule 5 02/15/2024 11/14/2024 Discontinued (Other)1 ml triamcinolone acetonide 40 mg/ml prefilled syringe (4 sources)CorticosteroidStart: 03-07-2025 End: 92-06-8096bznwgvuaktiix acetonide (Kenalog-40) injection 40 mgStart: 03-07-2025 End: 55-26-6468fsmkbd 40 mg by intramuscular injection once40 mg, Intramuscular, Once, On [place] 03/07/25 at 1545, For 1 dose Problems Active Problems Problem ClassificationProblemDateDocumented DateEpisodic/ChronicAcute bronchitis (2 sources)Acute bronchitis; Translations: [Acute bronchitis, unspecified] 70-70-7386UidwcnvyGchazglxdj disorders (20 sources)Adjustment disorder with anxious mood; Translations: [Adjustment disorder with anxiety]Onset: 894304-00-8205ThgfgdmSgxqepq disorders (20 sources)Anxiety disorder, unspecified; Translations: [Panic disorder with agoraphobia]Onset: 451951-99-0557LtaygftVpqzzsj obstructive pulmonary disease and bronchiectasis (20 sources)Chronic obstructive lung disease; Translations: [Chronic obstructive pulmonary disease, unspecified]Onset: 786874-43-9603GmgxjcuSutopxkml of teeth and jaw (4 sources)Other specified disorders of teeth and supporting structures; Translations: [OTH SPEC DISORDERS TEETH SUPP STRCT]Onset: 37-07-7027BykwncdcK Codes: Natural/environment (1 source)Exposure to other specified factors, initial encounter; Translations: [EXPOSURE OTHER SPEC FACTORS INITIAL]Onset: 94-79-0612PjfcslfkBtzainqh; including migraine (20 sources)Migraine, unspecified, not intractable, without status migrainosus; Translations: [Migraine withoutaura, not refractory ]Onset: 04-01-2022 Resolved: 672347-81-4652BsbnrmaLnhwinfb; including migraine (3 sources)Headache; including migraine; Translations: [HEADACHE UNSPECIFIED] Onset: 03-38-9754Jtkkl aftercare (1 source)Other fci (current) drug therapy; Translations: [OTH RESIDENTIAL CURRENT DRUG THERAPY]Onset: 03-23-2000OemiyabrUnzjp endocrine disorders (20 sources)Hypoglycemia; Translations: [Hypoglycemia, unspecified]Onset: 793218-33-7967AukeoiwYulgu gastrointestinal disorders (20 sources)Irritable bowel syndrome; Translations: [Mixed irritable bowel syndrome]Onset: 879852-07-1181UhldgahIvjxk gastrointestinal disorders (2 sources)Irritable bowel syndrome with diarrhea; Translations: [Irritable bowel syndrome with diarrhea]58-76-4858BwynnexSayxo lower respiratory disease (2 sources)Cough; Translations: [Acute cough]55-28-8155FgkzxjirAxgnz nervous system disorders (20 sources)Carpal tunnel syndrome of left wrist; Translations: [Carpal tunnel syndrome, left upper limb]Onset: 477119-38-2520DnisdmdXfmwq nervous system disorders (1 source)Other acute postprocedural pain; Translations: [OTHER ACUTE POSTPROCEDURAL PAIN]Onset: 24-88-0314BieoaiyeXgwjp screening for suspected conditions (not mental disorders or infectious disease) (4 sources)Patient encounter status; Translations: [Encounter for screening for malignant neoplasm of colon]11-04-4767ZazxuvndUwnli upper respiratory disease (2 sources)Nasal congestion; Translations: [Nasal congestion]41-88-0449Wkjymlyo Other upper respiratory infections (3 sources)Acute frontal sinusitis; Translations: [Acute frontal sinusitis, unspecified]57-76-8195TitnacbtOhrzfbszzqv; intervertebral disc disorders; other back problems (10 sources)Lumbar spondylosis; Translations: [Spondylosis without myelopathy or radiculopathy, lumbar region]Onset: 495141-13-8624LvwyyioBxziijndvow; intervertebral disc disorders; other back problems (6 sources)Low back pain; Translations: [Spasm of muscle of lower back] 53-69-5565HjyarilgPnoecrdqw-related disorders (20 sources)Nicotine dependence, cigarettes, uncomplicated; Translations: [Nicotine dependence, unspecified, uncomplicated]Onset: ChronicSuperficial injury; contusion (1 source)Abrasion of oral cavity, initial encounter; Translations: [ABRASION ORAL CAVITY INITIAL ENCNTR]Onset: 69-35-4160MqoeyzdoFcufmcjomodb (1 source)CONTACT W/AND (SUSP) EXPOS COVID-19; Translations: [CONTACT W/AND (SUSP) EXPOS COVID-19]Onset: 04-01-2022 Past or Other Problems Problem ClassificationProblemDateDocumented DateEpisodic/ChronicAllergic reactions (20 sources)Urticaria, unspecified; Translations: [Allergic contact dermatitis due to other agents]Onset: 06-79-6706JnylcohuHtqclr of cervix (20 sources)Cervicovaginal cytology: High grade squamous intraepithelial lesion or carcinoma; Translations: [High grade squamous intraepithelial lesion on cytologic smear of cervix (HGSIL)]Onset: 283394-41-4408MgoffhymMkiniwnpwu associated with dizziness or vertigo (1 source)Dizziness and giddiness; Translations: [DIZZINESS AND GIDDINESS]Onset: 19-48-0099YuqdehteKbvxex and vomiting (4 sources)Nausea with vomiting, unspecified; Translations: [NAUSEA WITH VOMITING UNSPECIFIED]Onset: 47-91-8152AdncnaxqIbsbxibaj of unspecified nature or uncertain behavior (20 sources)Thrombocytosis; Translations: [Thrombocytosis]Onset: 12-06-2022 86-27-1651IvoxaazhPuvbe nervous system disorders (1 source)Paresthesia of skin; Translations: [PARESTHESIA OF SKIN]Onset: 34-60-3806WvkalhkmPjklq skin disorders (3 sources)Rash and other nonspecific skin eruption; Translations: [RASH OTH NONSPECIFIC SKIN ERUPTION]Onset: 50-91-6277XgnqohjaErhdl skin disorders (4 sources)Generalized hyperhidrosis; Translations: [GENERALIZED HYPERHIDROSIS] Onset: 40-10-3372YwogkugkFsgfs upper respiratory infections (20 sources)Sinusitis; Translations: [Chronic sinusitis, unspecified]Onset: 12-06-2022 Resolved: 978260-18-9827WfgxfszIrtacimho by nonmedicinal substances (4 sources)Toxic effect of venom of bees, accidental (unintentional), initial encounter; Translations: [TOXIC EFF VENOM BEES ACC INIT ENC]Onset: 02-02-2022 EpisodicResidual codes; unclassified (20 sources)Family history of breast cancer; Translations: [Family history of malignant neoplasm of breast]Onset: 496422-43-6298PhulrtkhSouiq infection (1 source)Viral infection, unspecified; Translations: [VIRAL INFECTION UNSPECIFIED]Onset: 67-64-4914Tgcwadnx Results Test NameValueInterpretationReference RangeFacilityXR LUMBAR SPINE MIN 4Von 59-54-8352[place] [address] XRay Report Signed Patient: MARION MERIDA MR#: [id number] : 1980 Acct:[id number] Age/Sex: 44 / F ADM Date: 11/27/24 Loc: RAD Attending Dr: Non-Staff Physician M.DArcenio Ordering Physician: JENNIFER RODRIGUEZ Date of Service: 11/27/24 Procedure(s): XR lumbar spine min 4V Accession Number(s): [id number] cc: JERRY RAM ; JENNIFER RODRIGUEZ [place] [id number] Patient Name: MRAION MERIDA MRN: [id number] date: 1980 Sex: F Assigned Patient Location: [facility] Current Patient Location: [facility] Accession/Order Number: [id number] Exam Date: 11/27/2024 12:03 Report Date: 11/27/2024 [...] Reyez M.D. 11/27/2024 12:06 PM Dictation Location: [place] [address] Electronically authenticated by: [id number] Y Date: 11/27/2024 12:06 Dictated By: Jennifer Reyez M.D. Signed By: 11/27/24 1208 DD/ 1206 TD/TT: Tree Thinner:TBHRadiology, Radiologist, - 11/27/2024 [place] [address] XRay Report Signed Patient: MARION MERIDA MR#: [id number] : 1980 Acct:[id number] Age/Sex: 44 / F ADM Date: 11/27/24 Loc: DEEP Attending Dr: Non-Staff Physician Denzel Ordering Physician: JENNIFER RODRIGUEZ Date of Service: 11/27/24 Procedure(s): XR lumbar spine min 4V Accession Number(s): [id number] cc: JERRY RAM ; JENNIFER RODRIGUEZ [address] [address] Patient Name: MARION MERIDA MRN: [id number] date: 1980 Sex: F Assigned Patient Location: [facility] Current Patient Location: [facility] Accession/Order Number: [id number] Exam Date: 11/27/2024 12:03 Report Date: 11/27/2024 [...] Reyez M.D. 11/27/2024 12:06 PM Dictation Location: [place] [address] Electronically authenticated by: [id number] Y Date: 11/27/2024 12:06 Dictated By: Jennifer Reyez M.D. Signed By: 11/27/24 1208 DD/ 1206 TD/TT: Tree Thinner: MEGAN HealthcareRadiology Study observation (narrative)[facility]OM[facility] HealthcareXR LUMBAR SPINE MIN 4VOrdered By: Radiologist Radiology on 18-45-3244PL[facility] Work Phone: GROUP A STREP CULTUREon 07-21-2022S. pyogenes Ag Ql (Unsp spec)Culture Observations: NEGATIVE FOR GROUP A STREPTOCOCCUS.NormalThe [facility] Medical CenterComment on above: Performed By: #### SSCRN, GRASTCX #### [facility] [address] [place] [address] Dr. Sharonda Page AND B AGon 28-58-0869YIPGJBVDIOCNNThe [facility] SystemComment on above:Result Comment: Negative for Flu A protein angiten. Infection due to Flu A cannot be ruled out. FluA angiten in the sample may be below the detection limit of the test.Performed By: #### INFLUAB #### [facility] [address] [place] [address] Dr. Sharonda TreadwellUBNEGHSGREGORY [facility] on above: Result Comment: Negative for Flu B protein antigen. Infection due to Flu B cannot be ruled out. FluB antigen in the sample may be below the detection limit of the test.Performed By: #### INFLUAB #### [facility] [address] [place] [address] Dr. Sharonda Page AGNegativeNormalNEGATIVE SEE COMMENTThe [facility] on above:Performed By: #### INFLUAB #### [facility] [address] [place] [address] Dr. Sharonda Issa AGNegativeNormalNEGATIVE SEE COMMENTThe [facility] CenterComment on above:Performed By: #### INFLUAB #### [facility] [address] [place] [address] Dr. Sharonda WhiteSTREPT SCREENon 65-09-3559TTVFL SCREEN ANegativeNormalNEGATIVEThe [facility] CenterComment on above:Performed By: #### SSCRN, GRASTCX #### [facility] [address] [place] [address] Dr. Sharonda WhiteXR CHEST 2 Von 25-74-4252NI CHEST 2 VEXAMINATION: XR CHEST 2 V HISTORY: Generalized hyperhidrosis ; night [...] Electronically authenticated by: TRAVIS MODI Date: 2022-06-03 15:10No[address] [facility] [facility] AUTO DIFFon 24-97-6688LQKT #0.1 103/ulNormal0.0-0.1The [facility] CenterComment on above:Performed By: #### CBC #### [facility] [address] [place] [address] Dr. Sharonda WhiteBasophils/100 WBC (Bld)0.9 %Normal0.2-2.0The [facility] Comment on above:Performed By: #### CBC #### [facility] [address] [place] [address] Dr. Sharonda Story #0.2 103/ulNormal0.0-0.7The [facility] CenterComment on above: Performed By: #### CBC #### [facility] [address] [place] [address] Dr. Sharonda Zaidiosinophils/100 WBC (Bld)1.7 %Normal0.9-7.0The [facility] Comment on above:Performed By: #### CBC #### [facility] [address] [place] [address] Dr. Sharonda Zaidirythrocyte distribution width (RBC) [Ratio]13.3 %Jpewly01.0-15.0 The [facility] CenterComment on above:Performed By: #### CBC #### [facility] [address] [place] [address] Dr. Sharonda WhiteHematocrit (Bld) [Volume fraction]39.6 %Gmkije90.0-48.0The [facility] CenterComment on above:Performed By: #### CBC #### [facility] [address] [place] [address] Dr. Sharonda WhiteHemoglobin (Bld) [Mass/Vol]13.5 g/oCKsjoix76.0-16.0The [facility] CenterComment on above:Performed By: #### CBC #### [facility] [address] [place] [address] Dr. Sharonda Prabhakar #0.04 10e3/ulCritically high0.00-0.03The [facility] Comment on above:Performed By: #### CBC #### [facility] [address] [place] [address] Dr. Sharonda Prabhakar %0.4 %Normal0.0-0.5The [facility] CenterComment on above: Performed By: #### CBC #### [facility] [address] [place] [address] Dr. Sharonda LopezH #2.3 103/ulNormal1.2-3.8The [facility] CenterComment on above:Performed By: #### CBC #### [facility] [address] [place] [address] Dr. Sharonda Moncadamphocytes/100 WBC (Bld)23.0 %Oeildv44.5-60.0The [facility] CenterComment on above:Performed By: #### CBC #### [facility] [address] [place] [address] Dr. Sharonda Herrera DIFF REQNONormalThe [facility] Medical CenterComment on above: Performed By: #### CBC #### [facility] [address] [place] [address] Dr. Sharonda Etienne (RBC) [Entitic mass]30.1 fqIyeohl09.7-34.0The [facility] CenterComment on above:Performed By: #### CBC #### [facility] [address] [place] [address] Dr. Sharonda Etienne (RBC) [Mass/Vol]34.1 g/mIIzavfg27.9-35.2The [facility] CenterComment on above:Performed By: #### CBC #### [facility] [address] [place] [address] Dr. Sharonda Etienne (RBC) [Entitic vol]88.2 nASwxwwi35.0-99.0The [facility] CenterComment on above:Performed By: #### CBC #### [facility] [address] [place] [address] Dr. Sharonda Vaughn #0.7 103/ulNormal0.3-0.8The [facility] CenterComment on above:Performed By: #### CBC #### [facility] [address] [place] [address] Dr. Sharonda Berumenocytes/100 WBC (Bld)7.3 %Normal1.7-12.0[facility] Comment on above:Performed By: #### CBC #### [facility] [address] [place] [address] Dr. Sharonda Ashraf #6.6 103/ulCritically high1.4-6.5The [facility] Comment on above:Performed By: #### CBC #### [facility] [address] [place] [address] Dr. Sharonda Lawsutrophils/100 WBC (Bld)66.7 %Bssosx18.0-75.0The [facility] CenterComment on above:Performed By: #### CBC #### [facility] [address] [place] [address] Dr. Sharonda WhitePlatelet mean volume (Bld) [Entitic vol]9.2 fLCritically low 9.5-13.5The [facility] CenterComment on above:Performed By: #### CBC #### [facility] [address] [place] [address] Dr. Sharonda WhitePLT366 103/jbDbjhaz947-528Uzk [facility] CenterComment on above: Performed By: #### CBC #### [facility] [address] [place] [address] Dr. Sharonda WhiteRBC4.49 106/ulNormal4.20-5.40The [facility] CenterComment on above:Performed By: #### CBC #### [facility] [address] [place] [address] Dr. Sharonda WhiteWBC9.9 103/ulNormal4.0-11.0The [facility] CenterComment on above: Performed By: #### CBC #### [facility] [address] [place] [address] Dr. Sharonda WhitePROF CHEM 8 (BAS METB)on 60-38-5843Zfvdi gap [Moles/Vol]12.2 mmol/LNormalWilson HealthComment on above:Performed By: #### BMP #### [facility] [address] [place] [address] Dr. Sharonda WhiteCalcium [Mass/Vol]8.0 mg/dLCritically low8.5-10.1The [facility] CenterComment on above:Performed By: #### BMP #### [facility] [address] [place] [address] Dr. Sharonda WhiteChloride [Moles/Vol]108 mmol/LCritically jwcr20-936Rjb [facility] CenterComment on above:Performed By: #### BMP #### [facility] [address] [place] [address] Dr. Sharonda WhiteCO2 [Moles/Vol]24.2 mmol/QExgrtj44.0-32.0The [facility] Comment on above:Performed By: #### BMP #### [facility] [address] [address] [address] Sharonda WhiteCreatinine [Mass/Vol]0.51 mg/dLCritically low0.55-1.02The [facility] CenterComment on above:Performed By: #### BMP #### [facility] [address] [address] [address] Mcdonough ChangEGFR-AF MONTENEGRIN>60Normal>=60The [facility] CenterComment on above:Performed By: #### BMP #### [facility] [address] [address] [address] Sharonda ZaidiGFR-NON AF MONTENEGRIN>60Normal>=60The [facility] CenterComment on above:Performed By: #### BMP #### [facility] [address] [place] [address] Dr. Sharonda WhiteGlucose [Mass/Vol]83 mg/rTWbeian24-135Ytl [facility] Comment on above:Performed By: #### BMP #### [facility] [address] [place] [address] Dr. Sharonda WhitePotassium [Moles/Vol]3.4 mmol/LCritically low3.5-5.1The [facility] CenterComment on above:Performed By: #### BMP #### [facility] [address] [place] [address] Dr. Sharonda WhiteSodium [Moles/Vol]141 mmol/NAafudw454-492Ykh [facility] Comment on above:Performed By: #### BMP #### [facility] [address] [place] [address] Dr. Sharonda WhiteUrea nitrogen [Mass/Vol]13.0 mg/dLNormal7.0-18.0The [facility] CenterComment on above:Performed By: #### BMP #### [facility] [address] [place] [address] Dr. Sharonda Dill nitrogen/Creatinine [Mass ratio]25.5 mg/mgNormalThe [facility] CenterComment on above:Performed By: #### BMP #### [facility] [address] [place] [address] Dr. Sharonda Claudio AUTO DIFFon 04-01-5739VFSU #0.1 103/ulNormal0.0-0.1The [facility] CenterComment on above:Performed By: #### CBC #### [facility] [address] [place] [address] Dr. Sharonda WhiteBasophils/100 WBC (Bld)1.2 %Normal0.2-2.0The [facility] Comment on above:Performed By: #### CBC #### [facility] [address] [place] [address] Dr. Sharonda Story #0.3 103/ulNormal0.0-0.7The [facility] CenterComment on above: Performed By: #### CBC #### [facility] [address] [place] [address] Dr. Sharonda Zaidiosinophils/100 WBC (Bld)2.9 %Normal0.9-7.0The [facility] Comment on above:Performed By: #### CBC #### [facility] [address] [place] [address] Dr. Sharonda Zaidirythrocyte distribution width (RBC) [Ratio]13.7 %Cgsykx45.0-15.0 The [facility] CenterComment on above:Performed By: #### CBC #### [facility] [address] [place] [address] Dr. Sharonda WhiteHematocrit (Bld) [Volume fraction]38.5 %Akvrnx33.0-48.0The [facility] CenterComment on above:Performed By: #### CBC #### [facility] [address] [place] [address] Dr. Sharonda WhiteHemoglobin (Bld) [Mass/Vol]12.9 g/kIZyoyvd05.0-16.0The [facility] CenterComment on above:Performed By: #### CBC #### [facility] [address] [place] [address] Dr. Sharonda Prabhakar #0.02 10e3/ulNormal0.00-0.03The [facility] on above:Performed By: #### CBC #### [facility] [address] [address] [address] Sharonda Prabhakar %0.2 %Normal0.0-0.5The [facility] CenterComcorewell health [facility] on above: Performed By: #### CBC #### [facility] [address] [address] [address] Sharonda Salguero #2.8 103/ulNormal1.2-3.8The [facility] CenterComcorewell health [facility]worth [facility] on above:Performed By: #### CBC #### [facility] [address] [place] [address] Dr. Sharonda Lopezhocytes/100 WBC (Bld)30.7 %Ljjscu98.5-60.0The [facility] on above:Performed By: #### CBC #### [facility] [address] [place] [address] Dr. Sharonda Herrera DIFF REQNONormalThe [facility] CenterComment on above: Performed By: #### CBC #### [facility] [address] [place] [address] Dr. Sharonda Vallecillo (RBC) [Entitic mass]30.4 xsAmbbeu71.7-34.0The [facility] on above:Performed By: #### CBC #### [facility] [address] [place] [address] Dr. Sharonda Etienne (RBC) [Mass/Vol]33.5 g/oZKqcqio12.9-35.2The [facility] Centerment on above:Performed By: #### CBC #### [facility] [address] [place] [address] Dr. Sharonda Etienne (RBC) [Entitic vol]90.6 yJYhhorb08.0-99.0The [facility] on above:Performed By: #### CBC #### [facility] [address] [place] [address] Dr. Sharonda Vaughn #0.9 103/ulCritically high0.3-0.8The [facility] Comment on above:Performed By: #### CBC #### [facility] [address] [address] [address] Sharonda Berumenocytes/100 WBC (Bld)9.7 %Normal1.7-12.0The [facility] Comment on above:Performed By: #### CBC #### [facility] [address] [place] [address] Dr. Sharonda LawsUT #5.0 103/ulNormal1.4-6.5The [facility] CenterComment on above:Performed By: #### CBC #### [facility] [address] [place] [address] Dr. Sharonda Lawsutrophils/100 WBC (Bld)55.3 %Civhcz94.0-75.0The [facility] CenterComment on above:Performed By: #### CBC #### [facility] [address] [place] [address] Dr. Sharonda WhitePlatelet mean volume (Bld) [Entitic vol]9.3 fLCritically low 9.5-13.5The [facility] CenterComment on above:Performed By: #### CBC #### [facility] [address] [place] [address] Dr. Sharonda WhitePLT353 103/qgCytfpv443-634Hxg [facility] CenterComment on above: Performed By: #### CBC #### [facility] [address] [place] [address] Dr. Sharonda WhiteRBC4.25 106/ulNormal4.20-5.40The [facility] CenterComment on above:Performed By: #### CBC #### [facility] [address] [place] [address] Dr. Sharonda WhiteWBC9.1 103/ulNormal4.0-11.0The [facility] CenterComment on above: Performed By: #### CBC #### [facility] [address] [place] [address] Dr. Sharonda Duttonvid-19 PCR (CVDTBH)on 32-98-4995JEIX-CoV-2 (COVID-19) RNA EZIO+probe Ql (Unsp spec)Not detectedNormalNOT DETECTEDThe [facility] Comment on above:Result Comment: When diagnostic testing is negative, the [...] for this test is supported by the [employer] of Health and Human Service's declaration that circumstances exist to justify the emergency use of in vitro diagnostics for the detection and/or diagnosis of the virus that causes COVID-19. This EUA will remain in effect for the duration of the COVID-19 declaration justifying emergency of IVDs, unless it is terminated or revoked by the FDA (after which the test may no longer be used).Performed By: #### CVDTBH #### [facility] [address] [place] [address] Dr. Sharonda Mckeon A AND B AGon 52-37-8682APBSYPLVV A AGNegativeNormal NEGATIVE SEE COMMENTThe [facility] CenterComment on above:Performed By: #### INFLUAB #### [facility] [address] [place] [address] Dr. Sharonda WhiteINFLBABAR B AGNegativeNormalNEGATIVE SEE COMMENTThe [facility] CenterComment on above:Performed By: #### INFLUAB #### [facility] [address] [place] [address] Dr. Sharonda WhiteINTERNAL CONTROLSWithin Normal LimitsNormalWithin Normal Limits The [facility] CenterComment on above:Performed By: #### INFLUAB #### [facility] [address] [place] [address] Dr. Sharonda WhitePROF 14(COMP METB)on 07-41-6347Qyhmjgr [Mass/Vol]3.1 g/dL Critically low3.4-5.0The [facility] CenterComment on above:Performed By: #### CMP #### [facility] [address] [address] [address] Sharonda WhiteAlbumin/Globulin [Mass ratio]0.9 {ratio}NormalThe [facility] CenterComment on above:Performed By: #### CMP #### [facility] [address] [address] [address] Sharonda WoodsP [Catalytic activity/Vol]95 U/EUoxipp27-222Egi [facility] CenterComment on above:Performed By: #### CMP #### [facility] [address] [address] [address] Sharonda oWodsT [Catalytic activity/Vol]17 U/DXzpzno20-08Hbp [facility] CenterComment on above:Performed By: #### CMP #### [facility] [address] [place] [address] Dr. Sharonda Trammellon gap [Moles/Vol]13.5 mmol/LNormalThe [facility] Comment on above:Performed By: #### CMP #### [facility] [address] [place] [address] Dr. Sharonda WhiteAST [Catalytic activity/Vol]13 U/LCritically btx87-21Djq [facility] CenterComment on above:Performed By: #### CMP #### [facility] [address] [place] [address] Dr. Sharonda WhiteCalcium [Mass/Vol]7.9 mg/dLCritically low8.5-10.1The [facility] CenterComment on above:Performed By: #### CMP #### [facility] [address] [place] [address] Dr. Sharonda WhiteChloride [Moles/Vol]107 mmol/QTfqphj47-006Udy [facility] Comment on above:Performed By: #### CMP #### [facility] [address] [place] [address] Dr. Sharonda WhiteCO2 [Moles/Vol]22.9 mmol/IXvyquz34.0-32.0The [facility] Comment on above:Performed By: #### CMP #### [facility] [address] [place] [address] Dr. Sharonda WhiteCreatinine [Mass/Vol]0.63 mg/dLNormal0.55-1.02The [facility] CenterComment on above:Performed By: #### CMP #### [facility] [address] [place] [address] Dr. Sharonda ZaidiGFR-AF MONTENEGRIN>60Normal>=60The [facility] CenterComment on above:Performed By: #### CMP #### [facility] [address] [place] [address] Dr. Sharonda ZaidiGFR-NON AF MONTENEGRIN>60Normal>=60The [facility] CenterComment on above:Performed By: #### CMP #### [facility] [address] [place] [address] Dr. Sharonda WhiteGlobulin (S) [Mass/Vol]3.3 g/dLNormalThe [facility] CenterComment on above:Performed By: #### CMP #### [facility] [address] [place] [address] Dr. Sharonda WhiteGlucose [Mass/Vol]119 mg/dLCritically uacx36-654Dli [facility] CenterComment on above:Performed By: #### CMP #### [facility] [address] [place] [address] Dr. Sharonda WhitePotassium [Moles/Vol]3.4 mmol/LCritically low3.5-5.1The [facility] CenterComment on above:Performed By: #### CMP #### [facility] [address] [place] [address] Dr. Sharonda WhiteProtein [Mass/Vol]6.4 g/dLNormal6.4-8.2The [facility] Comment on above:Performed By: #### CMP #### [facility] [address] [place] [address] Dr. Sharonda WhiteSodium [Moles/Vol]140 mmol/AKcxlbm380-394Chx [facility] Comment on above:Performed By: #### CMP #### [facility] [address] [place] [address] Dr. Yilan ChangTBIL<0.4Vkhmcd9.2-1.0The [facility] CenterComment on above: Performed By: #### CMP #### [facility] [address] [place] [address] Dr. Sharonda Dill nitrogen [Mass/Vol]8.0 mg/dLNormal7.0-18.0[facility] HealthComment on above:Performed By: #### CMP #### [facility] [address] [address] [address] Sharonda Dill nitrogen/Creatinine [Mass ratio]12.7 mg/mgNormalThe [facility] CenterComment on above:Performed By: #### CMP #### [facility] [address] [place] [address] Dr. Sharonda Hernadez - SUREPATH-FPGS AND HPVon 84-50-4687KVCCBUMW INFORMATION:None givenNormalNorthern California Medical SpecialistComment on above:Order Comment: [facility] Testing performed at: [employer], [address], Ui Developer: Greg Barron MD Testing performed at: [facility] ([employer])[address], [address], Ui Developer: Malcolm Hamilton MD [facility] Collection Date/Time: [facility] Results Received Date/Time: [facility] Reported Date/Time: [id number] Comment: [QA]Performed By: #### [id number] #### [facility] Default [address] [place] [id number] NOTENormalNorthern Stamford HospitalComment on above:Order Comment: [facility] Testing performed at: [employer], [address] [place] [address], [phone], Ui Developer: Greg Barron MD Testing performed at: [facility], [facility] ([employer])[address], [address], Ui Developer: Mlacolm Hamilton MD [facility] Collection Date/Time: [facility] Results Received Date/Time: [facility] Reported Date/Time: [id number] Comment: EXPLANATORY NOTE: The Pap is a screening test for cervical cancer. It is not a diagnostic test and is subject to false negative and false positive results. It is most reliable when a satisfactory sample, regularly obtained, is submitted with relevant clinical findings and history, and when the Pap result is evaluated along with historic and current clinical information. [QAC]Performed By: #### [id number] #### [facility] [address] [place], [place] [address]MEDPVKY:This Pap test has been evaluated with computer assisted technology.[facility] Medical SpecialistComment on above:Order Comment: [facility] Testing performed at: [email or web address], [employer], [address], Ui Developer: Greg Barron MD Testing performed at: [facility] ([employer])[facility], [address] [place] [address], [address], Ui Developer: Malcolm Hamilton MD [facility] Collection Date/Time: [facility] Results Received Date/Time: [facility] Reported Date/Time: Comment: [QAC]Performed By: #### [id number] #### [facility] [address] [place], [place] [id number]:[facility]ANoCore[facility] [employer] Comment on above:Order Comment: [facility] Testing performed at: [employer], [employer] [facility], [address] [place] [address], [phone], Ui Developer: Greg Barron MD Testing performed at: [facility] ([employer])[facility], [address] [place] [address], [phone], Ui Developer: Malcolm Hamilton MD [facility] Collection Date/Time: [facility] Results Received Date/Time: [facility] Reported Date/Time: [id number] Comment: TNG, CT(ASCP) For informational purposes: All Cytology specimens are processed and screened at [facility]. [address] [place] [id number] [[facility]]Performed By: #### [id number] #### [facility] Default [address] [place], [place] [address]PJA mRNA E6/E7, [employer] VIALNot detectedNormalNOT DETECTED [facility] Stamford HospitalComment on above:Order Comment: [facility] Testing performed at: [employer], [address], Ui Developer: Greg Barron MD Testing performed at: [facility], [facility] ([facility])[address], [address], Ui Developer: Malcolm Hamilton MD [facility] Collection Date/Time: [facility] Results Received Date/Time: [facility] Reported Date/Time: Comment: Methodology: Home Teaching Grades 9 Thru 12 Teacher-Mediated Amplification This assay detects E6/E7 viral messenger RNA (mRNA) from 14 high-risk HPV types (16,18,31,33,35,39,45,51,52,56,58,59,66,68). The analytical performance characteristics of this assay have been determined by [employer]. The modifications have not been cleared or approved by the FDA. This assay has been validated pursuant to the CLIA regulations and is used for clinical purposes. For additional information, please refer to http://education.[employer].FOB.com/faq/PHQ373w0 (This link if provided for information/ educational purposes only.) [O6K]Performed By: #### [id number] #### [facility] Default [address] [place], [place] [address]AIEEHOTLSFADMV/RESULT:NegativeNormalNorthern Stamford HospitalComment on above:Order Comment: [facility] Testing performed at: [employer], [address], Ui Developer: Greg Barron MD Testing performed at: [facility], [facility] ([employer])[facility], [address] [place] [address], [address], Ui Developer: Malcolm Hamilton MD [facility] Collection Date/Time: [facility] Results Received Date/Time: [facility] Reported Date/Time: [id number] Comment: [QAC]Performed By: #### [id number] #### [facility] [address] [place], [place] [address]GDB:None givenNormalNorthern Stamford HospitalComcorewell health butterworth hospital on above:Order Comment: [facility] Testing performed at: [facility], [address] [place] [address], [phone], Ui Developer: Greg Barron MD Testing performed at: [facility] ([facility], [address] [place] [address], [phone], Ui Developer: Malcolm Hamilton MD [facility] Collection Date/Time: [facility] Results Received Date/Time: [facility] Reported Date/Time: [id number] Comment: [QAC]Performed By: #### [id number] #### [facility] [address] [place], [place] [address]HDNB. BX:None givenNormalNorthern Stamford HospitalComcorewell health butterworth hospital on above:Order Comment: [facility] Testing performed at: [employer], [employer] [facility], [address] [place] [address], [address] [place] [address], [phone], Ui Developer: Greg Barron MD Testing performed at: [facility] ([employer])[facility], [address] [place] [address], [address], Ui Developer: Malcolm Hamilton MD [facility] Collection Date/Time: [facility] Results Received Date/Time: [facility] Reported Date/Time: [id number] Comment: [QAC]Performed By: #### [id number] #### [facility] Default [address] [place], [place] [address]OFCB. PAP:None givenNormalNorthern Stamford HospitalComment on above:Order Comment: [facility] Testing performed at: [email or web address], [address] [place] [address], [address] [place] [address], [address] [place] [address], Ui Developer: Greg Barron MD Testing performed at: [facility], [facility] ([employer])[facility], [address] [place] [address], [address], Ui Developer: Malcolm Hamilton MD [facility] Collection Date/Time: [facility] Results Received Date/Time: [facility] Reported Date/Time: [id number] Comment: [QAC]Performed By: #### [id number] #### [facility] [address] [place], [place] [address]UWBTIF:None givenNormalNorthern Stamford HospitalComment on above:Order Comment: [facility] Testing performed at: [email or web address], [address] [place] [address], [address] [place] [address], [address] [place] [address], Ui Developer: Greg Barron MD Testing performed at: [facility], [facility] ([employer])[address], [address], Ui Developer: Malcolm Hamilton MD [facility] Collection Date/Time: [facility] Results Received Date/Time: [facility] Reported Date/Time: [id number] Comment: [QAC]Performed By: #### [id number] #### [facility] Default [address] [place] [address] Vital Signs Date TimeVital SignValuePerforming PoasbihmsCyaucaka41-15-2032 15:16-0400Body vlpwym247.6 cmJennifer LAWS Work Phone: [facility] HospitalMihvncgqtp14-17-7100 15:16-0400Body mass index (BMI) [Ratio]24.89 kg/b8WwnxrJennifer LAWS Work Phone: [facility] HospitalZiieupnukb44-50-8288 15:16-0400Body temperature 98.29 [degF]Jennifer Hemmer PA Work Phone: [facility] CenterZbruruwlpr01-24-0277 15:16-0400Body heuhzk49.77 kgSonuen Hemmer PA Work Phone: [facility] CenterDwqzjbgikd63-69-5591 15:16-0400Diastolic blood qdepqmgh74 mm[Hg]Jennifer Hemmer PA Work Phone: [facility] CenterWbweqcutcu30-62-7298 15:16-0400Heart rate94 /min Jennifer Hemmer PA Work Phone: [facility] CenterShzwjtezvc69-34-0091 15:16-0400Respiratory rate16 /minKaren Hemmer PA Work Phone: [place] [address]Frbnjyrnld47-22-7566 15:16-2711GkW9% (BldA) [Mass fraction]96 %Jennifer Hemmer PA Work Phone: [facility] CenterDznefdshjp00-49-1901 15:16-0400Systolic blood mm[Hg]Jennifer Hemmer PA Work Phone: [facility] CenterPwhnpyneoo16-94-9829 10:59-0400Body ynzvhz562.6 cmKaren Hemmer PA Work Phone: [facility] CenterMptrbusoiu97-23-0151 10:59-0400Body mass index (BMI) [Ratio]24.58 kg/e2Rowlk Hemmer PA Work Phone: [facility] CenterFifbkivhbi15-47-8381 10:59-0400Body .95 kgKaren Hemmer PA Work Phone: [facility] CenterCjmeurdziw44-54-9180 10:59-0400Diastolic blood pxonlmas52 mm[Hg]Jennifer Hemmer PA Work Phone: [facility] CenterMlloeczpll37-55-9701 10:59-0400Heart rate82 /min Jennifer Hemmer PA Work Phone: [facility] CenterEvmxnfcpsn33-20-5199 10:59-0400Respiratory rate16 /minKaren Hemmer PA Work Phone: [phone] [place], [place] [address]Pikqmoesis64-97-2165 10:59-0736QmZ5% (BldA) [Mass fraction]97 %Jennifer Rodriguez PA Work Phone: [facility] HospitalUvgobutepk74-27-6897 10:59-0400Systolic blood imjngelo445 mm[Hg]Jennifer Rodriguez PA Work Phone: [facility] HospitalNbxrvwsnpb15-70-5395 14:34-0500Body .6 cmVidya Vu REGULATORY AFFAIRS SPECIALIST Work Phone: [facility] HospitalEqysvoavpf53-43-3721 14:34-0500Body mass index (BMI) [Ratio]24.85 kg/m2Vidya Vu REGULATORY AFFAIRS SPECIALIST Work Phone: [facility] HospitalKibphyfjkg69-84-9823 14:34-0500Body kfkozv91.68 kgVidya Vu REGULATORY AFFAIRS SPECIALIST Work Phone: [facility] HospitalWtvazeadla36-66-3460 14:34-0500Diastolic blood hiungvuj88 mm[Hg]Vidya Vu REGULATORY AFFAIRS SPECIALIST Work Phone: [facility] CenterKnkkbtzfdm91-37-7024 14:34-0500Heart rate76 /min Vidya Vu REGULATORY AFFAIRS SPECIALIST Work Phone: [facility] HospitalOvkhvblpfw57-03-6869 14:34-0500Respiratory rate17 /minKierika Vu REGULATORY AFFAIRS SPECIALIST Work Phone: [facility] CenterJrwxmbbmne71-20-3383 14:34-0787BmE0% (BldA) [Mass fraction]98 %Vidya Vu REGULATORY AFFAIRS SPECIALIST Work Phone: [facility] HospitalCguuyaixzu62-77-3058 14:34-0500Systolic blood gwamqkkh938 mm[Hg]Vidya Vu REGULATORY AFFAIRS SPECIALIST Work Phone: [facility] HospitalOjizzurkcb76-80-5841 10:56-0500Body mass index (BMI) [Ratio]24.07 kg/m0DmhohJennifer Rodriguez PA Work Phone: [facility] HospitalUzpzfouqnv48-18-5574 10:56-0500Body ieevqr47.59 kgJennifer Rodriguez PA Work Phone: [facility] HospitalParptfjubk65-64-5882 10:56-0500Diastolic blood jifaripy04 mm[Hg]Jennifer Rodriguez PA Work Phone: [facility] HospitalEzobymhvai19-65-0184 10:56-0500Heart rate79 /min Jennifer Rodriguez PA Work Phone: [facility] HospitalPdrcnxfmxq48-97-5545 10:56-0500Respiratory rate16 /minJennifer Rodriguez PA Work Phone: noRe[facility] HospitalVbglevomdn59-40-5378 10:56-2135DgJ0% (BldA) [Mass fraction]99 %Jennifer Rodriguez PA Work Phone: noReyn[facility] HospitalUfgmcnotkw56-79-8312 10:56-0500Systolic blood nigxrfad914 mm[Hg]Jennifer Rodriguez PA Work Phone: [facility] Encounters Encounter DateEncounter TypeCare ProviderFacilityStart: 05-20-2025 End: 31-72-9238XznkhmUbljy M Alda MD Work Phone: [facility] [place] [facility] MedinceComment on above:Adjustment disorder with anxietyStart: 04-12-2025 End: 54-30-8660LljryiDkryd M Alda MD Work Phone: [facility] [place] [facility] Family MedicineComment on above: Adjustment disorder with anxietyStart: 03-07-2025 End: 86-03-9593pzbgzgppfsVMPAX M HEMMERNot AvailableStart: 03-07-2025 End: 23-31-1064Reddxg outpatient visit 25 minutesJennifer LAWS Work Phone: [facility] [place] [facility] MedinceComment on above:Acute bronchitis, unspecified organism (Primary Dx); Chronic obstructive pulmonary disease, unspecified COPD type (HCC); Lumbar spondylosisStart: 03-07-2025 End: 36-35-4917Xhdpoq Elidia LAWS Work Phone: [facility] [place] [facility] MedinceStart: 03-07-2025 End: 57-76-7392Deukcn Elidia LAWS Work Phone: [facility] [place] [facility] MedinceStart: 02-26-2025 End: 13-95-4413Emxiavbse encounterLittle Johnson LPN Work Phone: [facility] POPULATION HEALTHStart: 01-28-2025 End: 44-24-9157BgmpuyKobdh M Alda MD Work Phone: [facility] CI FMComment on above:Adjustment disorder with anxietyStart: 12-28-2024 End: 56-45-7247JsjztfJdxae M Alda MD Work Phone: [facility] CI FMComment on above:Adjustment disorder with anxietyStart: 11-27-2024 End: 49-52-3905Swxkorcaq Result EncounterJennifer Rodriguez PA Work Phone: [facility] External Department UnsolicitedStart: 11-27-2024 End: 95-34-8284Qalqfmttx Result EncounterJennifer Rodriguez PA Work Phone: [facility] External Department UnsolicitedStart: 11-26-2024 End: 89-53-0739DqreiuEayou M Alda MD Work Phone: [facility] FM 100Comment on above:Adjustment disorder with anxiety (CMS/HCC)Start: 11-19-2024 End: 70-98-2950Gnugbioxi encounterJennifer Rodriguez PA Work Phone: [facility] CI FMStart: 11-14-2024 End: 85-00-9999Wurefq Elidia Rodriguez PA Work Phone: [facility] CI FMStart: 11-14-2024 End: 38-64-1163Zxnsgk Elidia Blackwell Hemmer PA Work Phone: [facility] CI FMStart: 11-14-2024 End: 49-30-4380Fwduuh outpatient visit 25 minutesJennifer Rodriguez PA Work Phone: [facility] CI FMComment on above:Chronic migraine without aura without status migrainosus, not intractable (CMS/HCC) (Primary Dx); Screening for malignant neoplasm of colon; Screening mammogram for breast cancer; Allergy to honey bee venom; Spasm of muscle of lower back; Carpal tunnel syndrome of left wrist; Lumbar pain with radiation down both legs; Irritable bowel syndrome with diarrheaStart: 11-14-2024 End: 39-07-9187crltazzksiGGFDSRubi Gee AvailableStart: 10-22-2024 End: 95-84-8861RrstciFzgqg M Alda MD Work Phone: [facility] FM 100Comment on above:Adjustment disorder with anxiety (CMS/HCC)Start: 09-18-2024 End: 54-02-4970CdtxzjVrrkk M Alda MD Work Phone: [phone] CI FMComment on above:Adjustment disorder with anxiety (CMS/HCC)Start: 08-22-2024 End: 03-53-7677Klefpnxcz Justine Ram MD Work Phone: [phone] CI FMStart: 08-20-2024 End: 33-11-3454RuqtjoRpyfn M Alda MD Work Phone: [phone] CI FMComment on above:Adjustment disorder with anxiety (CMS/HCC)Start: 07-25-2024 End: 51-30-5571Zrbnhw outpatient visit 25 minutesVidya Vu REGULATORY AFFAIRS SPECIALIST Work Phone: [phone] CI FMComment on above:Acute non-recurrent frontal sinusitis (Primary Dx); Nasal congestion; Acute coughStart: 07-25-2024 End: 01-09-7624zxheghxolwHCCSita Pulido AvailableStart: 07-25-2024 End: 14-84-9208Rdkvap Ani Vu REGULATORY AFFAIRS SPECIALIST Work Phone: [phone] CI FMStart: 07-25-2024 End: 00-16-4033Ehwilj Ani Vu REGULATORY AFFAIRS SPECIALIST Work Phone: [phone] CI FMStart: 07-09-2024 End: 06-52-4521CfgcitRbtcw M Alda MD Work Phone: [facility] CI FMComment on above:Adjustment disorder with anxiety (CMS/HCC)Start: 06-13-2024 End: 11-36-5779Yawepkmaryan LAWS Work Phone: [facility] CI FMStart: 06-13-2024 End: 57-94-0766Rmnmxu flowsheetJennifer LAWS Work Phone: [facility] CI FMStart: 06-13-2024 End: 23-50-0744Gbvuow outpatient visit 25 minutesJennifer LAWS Work Phone: [facility] CI FMComment on above:Chronic migraine without aura without status migrainosus, not intractable (CMS/HCC) (Primary Dx); Adjustment disorder with anxiety (CMS/HCC); Irritable bowel syndrome with both constipation and diarrheaStart: 06-13-2024 End: 46-38-9136qmhafwpazfGFGDQ M HEMMERNot AvailableStart: 04-19-2024 End: 47-42-2563BjcoihWczui M Alda MD Work Phone: [facility] CI FMComment on above:Adjustment disorder with anxiety (CMS/HCC)Start: 03-26-2024 End: 46-38-9817Ltdzfborm Justine Ram MD Work Phone: [facility] CI FMComment on above:Med Refill (Please send in Effexor 37.5 mg & Effexor 75mg to [facility] )Start: 03-16-2024 End: 37-62-8596GeeiqeRoyqz M Alda MD Work Phone: [facility] CI FMComment on above:Adjustment disorder with anxiety (CMS/HCC)Start: 11-07-2022 End: 90-40-6527tmmmrohcggGP RUGEN ALDAFacility:H6Zvyix: 07-21-2022 End: 04-09-6115vrjljlflqvNB RUGEN ALDAFacility:Y1Ftvfu: 07-20-2022 End: 48-39-1286anxqqosepfLD RUGEN ALDAFacility:E9Pfcyb: 06-03-2022 End: 48-09-4176oizrruvjvfINVGX M HEMMERFacility:P1Zgwvb: 05-14-2022 End: 37-89-6862zzinswzrkhSP RUGEN ALDAFacility:G5Azszp: 03-31-2022 End: 92-59-8105afwfsjrhloFF RUGEN ALDAFacility:O9Fcizf: 03-30-2022 End: 98-70-8206kucycsgbpyQU RUGEN ALDAFacility:B1Smuco: 02-02-2022 End: 49-07-4220sbllnfqiwaAH RUGEN ALDAFacility:H1 Procedures DateProcedureProcedure DetailPerforming ClinicianStart: 84-62-2860WN LUMBAR SPINE MIN 4Maryann LAWS Work Phone: Plan of Treatment DateCare ActivityDetailAuthorStart: 06-10-2025 End: 89-96-3223Plvneyg encounter hmeavsgox19/24/2025 11:30 AM EST Office Visit [facility] [place] [facility] [address] [place] [address] Jennifer Rodriguez PA [address] [place] [address] [facility] [place] [facility] MedinceStart: 03-18-2025 COVID-19 Vaccine ( season)COVID-19 Vaccine ( season)[facility] HealthcareStart: 08-98-4849Tloimhbgn vaccinationNOMS HealthcareStart: 02-12-2025 End: 50-85-5340Hdphrgd encounter pcforerax65/29/2025 10:30 AM EDT Office Visit [facility] [address] [place] [address] Jennifer Rodriguez PA [address] [place] [address] [facility] CI FMStart: 12-26-2024 End: 51-14-5013Cknebwt encounter /11/2025 11:00 AM EDT Office Visit [facility] [address] [place] [address] Jennifer Rodriguez PA [address] [place] [address] [facility] CI FMStart: 11-14-2024 End: 65-37-0215YDU Breast - bilateral screeningBilateral screening mammogram with tomosynthesis Imaging Routine Screening mammogram for breast cancer Expected: 11/14/2024, Expires: 01/14/2026NOOK HealthcareComment on above: Expected: 11/14/2024, Expires: 01/14/2026Start: 11-14-2024 End: 52-88-4629Xtidktgupth colorectal cancer DNA and occult blood screening [Presence] in StoolCologuard colon cancer screening Lab Routine Screening for malignant neoplasm of colon Expected: 11/14/2024 (Approximate), Expires: 11/14/2025[facility] Work Phone: Comment on above:Expected: 11/14/2024 (Approximate), Expires: 11/14/2025Start: 11-14-2024 End: 26-51-3534IU Lumbar spine 4 ViewsXR LUMBAR SPINE AP/LAT/OBLIQUES Imaging Routine Lumbar pain with radiation down both legs Expected:11/14/2024, Expires: 11/14/2025[facility] HealthcareComment on above:Expected: 11/14/2024, Expires: 11/14/2025Start: 11-14-2024 End: 44-81-6180Nhxnqth encounter hucqpiauf71/30/2025 11:00 AM EDT Office Visit [facility] [address] [facility] [address] [place] [address] Jennifer Rodriguez PA [address] [facility] [address] [place] [address] ArrivedNOMS CI FMComment on above:ArrivedStart: 11-07-2024 End: 31-04-6013Yisljcv encounter xxrmuahbw89/23/2025 11:00 AM EDT Office Visit [facility] [address] [place] [address] Jennifer Rodriguez PA [address] [facility] [address] [place] [address] [facility] CI FMStart: 09-13-2024 End: 93-76-9392Zvfhfqu encounter tqfdxumvb67/27/2025 11:00 AM EST Office Visit [facility] [address] [place] [address] Jennifer Rodriguez, PA [address] [place] [address] [facility] CI FMStart: 07-25-2024 End: 28-64-5157Jtdszub encounter yipqpckgt96/08/2025 2:30 PM EST Office Visit [facility] [address] [place] [address] Vidya Vu, REGULATORY AFFAIRS SPECIALIST [address] [place] [address] ArrivedNOMS CI FMComment on above:ArrivedStart: 06-13-2024 End: 24-63-1289Qcnjorr encounter rfnpsryld70/27/2024 11:00 AM EST Office Visit [facility] [address] [place] [address] Jennifer Rodriguez, PA [address] [place] [address] ArrivedNOMS CI FMComment on above:ArrivedStart: 04-24-2024 End: 97-52-5217Oqrlfxr encounter ujpdusphm90/08/2024 3:30 PM EDT Office Visit [facility] [address] [place] [address] Jennifer Rodriguez, PA [address] [place] [address] [facility] CI FMStart: 55-05-8706Phoxktonc vaccination Influenza Vaccine (#1)[facility] HealthcareStart: 62-78-3956Moaffvlkc for malignant neoplasm of breastMammogramNOMS HealthcareStart: 64-19-6532Ljwoipnpy for malignant neoplasm of cervixNOMS HealthcareStart: 32-02-0946Rqfydsqml for malignant neoplasm of cervixPap SmearNOMS HealthcareStart: 1998 Pneumococcal Vaccine: Pediatrics (0 to 5 Years) and At-Risk Patients (6 to 64 Years) (1 of 2 - PCV)Pneumococcal Vaccine: Pediatrics (0 to 5 Years) and At-Risk Patients (6 to 64 Years) (1 of 2 - PCV)[facility] HealthcareStart: 1979 Screening for malignant neoplasm of colonL[facility] Healthcare Payers DatePayer CategoryPayerPolicy [id number] Care HMO (unspecified)[employer] [id number] Health [id number] [id number] 2024Medicaid (Managed Care)[employer] Member Subscriber Plan / Payer (Effective 2023-) Name: Marion Merida Relation to Subscriber: Self Name: Marion Merida Payer ID: Not on file Group ID: Not on file Type: Not on file Address: [address] [place] [id number] [id number] 2.16.840.1.899767.3.57[id number] 2.16.840.1.776694.3.57[id number] 2.16.840.1.458916.3.57[id number] 2.16.840.1.346579.3.57[id number] 2.16.840.1.369263.3.57[id number] 2.16.840.1.055748.3.57[id number] 2..840.1.129202.3.57[id number] 2.16.840.1.128259.3.57[id number] 2.16.840.1.740516.3.57[id number] 2.16.840.1.839275.3.57[id number] 2.16840.1.155290.3.57[id number] 2.16840.1.910606.3.57[id number] Social History DateTypeDetailFacilityStart: 47-48-8321Fessahp smoking status [facility] tobacco dailyNOOK HealthcareHistory of tobacco useCigarette SmokerNOOK HealthcareStart: 02-15-2024 End: 78-36-2316Tkgcdktnoi smoked current (pack per day) - Yuhzuwol9UKQN HealthcareStart: 78-12-3198Umprjxf use and exposureSmokeless tobacco non-user [facility] HealthcareStart: 02-15-2024 End: 19-49-2699Gftvxzlue beverage intakeEx-drinker (finding)[facility] Start: 02-15-2024 End: 31-27-4646Svtanya use panelLDS HOSPITAL HealthcareStart: 20-83-8883Gvhmows Comment 11-20 cigs/dayLDS HOSPITAL HealthcareStart: 59-23-3799Hnt assigned at birthNot on file [facility] CenterStart: 50-22-4400YtxIgxtvpUZJM Healthcare Functional Status HbpiTimpavezepLxofsgCsnwbwtl22-02-5188Shvxikb Health Questionnaire 2 item (PHQ- 2) [Reported][facility] CenterVdahzrbdhr24-56-1001Jvrkxfr Health Questionnaire 2 item (PHQ- 2) [Reported][facility] Clinical Notes 07-22-2021 to 05-20-2025 Note Date & UabyXodiBzkrsrcz68-24-0640 Telephone encounter Note* Telephone Encounter - Kiera Moore - 05/20/2025 10:23 AM EST ALPRAZolam (Xanax) 0.5 MG tablet [facility]dm [place] [facility] CenterTdcuqlooul79-48-9829 Miscellaneous Notes* Telephone Encounter - Kiera Moore - 05/20/2025 10:23 AM EST ALPRAZolam (Xanax) 0.5 MG tablet Ddm in [place] documented in this encounterUniversity Health Truman Medical CenterPzjtqbsrzb69-40-8691 Telephone encounter Note* Telephone Encounter - VETO Valderrama - 04/12/2025 1:15 PM EDT OARRS reviewed, Rx sent into patient's pharmacy. [facility] CenterDaupwmtjgl90-02-3722 Miscellaneous Notes* Telephone Encounter - VETO Valderrama - 04/12/2025 1:15 PM EDT OARRS reviewed, Rx sent into patient's pharmacy. * Telephone Encounter - [place] Marcial - 04/12/2025 10:05 AM EDT Marion left a message requesting a refill on her ALPRAZolam (Xan[facility] [place] documented in this encounterUniversity Health Truman Medical CenterCnuhfrwohw31-93-6693 Telephone encounter Note* Telephone Encounter - [place] Marcial - 04/12/2025 10:05 AM EDT Marion left a message requesting a refill on her ALPRAZolam (Xanax) [facility] [place] [facility] CenterIzmgttrroj80-58-7914 History of Present illness Narrative* VETO Valderrama - 03/07/2025 3:00 PM EDT Images from the original note were not included. Subjective Patient ID: Marion Merida is a 44 y.o. female who presents for URI. Marion is present today for evaluation of URI. Admits sinus pressure, left ear pain, runny nose, sore throat off/on, post nasal drainage, cough with green/yellow phlegm, hoarseness. She did go to [facility] ER on 02/22/2025, was diagnosed with URI, possible atypical pneumonia, and given a Z-pack. Then again on 02/26/25 Dx. URI, history of pneumonia, rx'd Augmentin, Prednisone (3 days). She is feeling somebetter. She is still has a 1 day left of the Augmentin. Steroids help her have regular bowel movements. Would like medication to help her lose weight. States her back is bothering her with coughing so much. Over the past 2 weeks, how often have you been bothered by any of the following problems? Little interest or pleasure in doing things: Not at all (currently on medication) Feeling down, depressed, or hopeless: Not at all (currently on medication) Patient Health Questionnaire-2 Score: 0 Current Outpatient Medications on File Prior to [...] mL (0.3 mg) as directed 1 (one) timefor 1 dose Inject into upper leg. Call 911 after use. fremanezumab (Ajovy) 225 MG/1.5ML prefilled syringe Inject 1.5 mL (225 mg) under the skin every 30 (thirty) days (Patient not taking: Reported on 03/07/2025) 1.5 mL 5 ipratropium (Atrovent) 0.03 % nasal spray meloxicam (Mobic) 15 MG tablet Take 1 tablet (15 mg) by mouth Daily Take with food (Patient not taking: Reported on 03/07/2025) 30 tablet 2 ondansetron ODT (Zofran-ODT) 4 MG disintegrating tablet wtzdzaxvuvmtssr-FZ-RN 60-15-400 MG tablet Take 1 tablet by mouth every 6 (six) hours if needed (Cough) 28 tablet 0 Ubrogepant (Ubrelvy) 100 MG tablet Take 100 mg by mouth Daily as needed (Migraine) Can take second dose x 1, if needed 1-2 hours following first dose 16 tablet 5 venlafaxine XR (Effexor XR) 37.5 MG 24 hr capsule Take 1 capsule (37.5 mg) by mouth Daily 90 capsule 3 venlafaxine XR (Effexor XR) 75 MG 24 hr capsule Take 1 capsule (75 mg) by mouth Daily 90 capsule 3 [DISCONTINUED] amoxicillin-clavulanate (Augmentin) 875-125 MG tablet [DISCONTINUED] azithromycin (Zithromax) 250 MG tablet TAKE 2 TABLETS by mouth today, THEN take 1 TABLET once a day FOR the next 4 DAYS. [DISCONTINUED] benzonatate (Tessalon) 200 MG capsule No current facility-administered medications on file prior to visit. I have reviewed and reconciled the history and medication list with the patient today. Allergies Allergen Reactions Dicyclomine Dizziness Tizanidine Other Sedation Social History Tobacco Use Smoking status: Every [...] Acute exacerbation of chronic obstructive pulmonary disease (HCC) 12/06/2022 Adjustment disorder with anxiety 12/06/2022 Anxiety Carpal tunnel syndrome of left wrist 12/06/2022 Cellulitis Chronic migraine with aura 12/06/2022 Eczema 12/06/2022 Gastroenteritis H/O CT scan of brain 10/20/2018 H/O CT scan of chest 04/06/2019 was negative for Pulmonary Embolism, No pulmonary infiltrates Hypoglycemia 12/06/2022 Irritable bowel syndrome with diarrhea 12/06/2022 Nervousness Panic disorder with agoraphobia 12/06/2022 Smoker 12/06/2022 Thrombocytosis 12/06/2022 Past Surgical History: Procedure Laterality Date CT ANGIOGRAM CHEST 04/06/2019 CT ANGIOGRAM CHEST [facility] DILATION AND CURETTAGE OF UTERUS 1999, 2014 Visit Vitals BP 110/76 Pulse 94 Temp 98.3 F Resp 16 Ht 5' 4 Wt 145 lb SpO2 96% BMI 24.89 kg/m Smoking Status Every Day BSA 1.72 m Review of Systems Constitutional: Positive for fatigue. Negative for chills and fever. HENT: Positive for ear pain, postnasal drip, rhinorrhea, sinus pressure and voice change. Respiratory: Positive for cough. Negative for shortness of breath and wheezing. Cardiovascular: Negative for chest pain, palpitations and leg swelling. Gastrointestinal: Positive for diarrhea (Chronic, intermittent). Negative for abdominal pain, constipation, nausea and vomiting. Musculoskeletal: Positive for back pain. Skin: Negative for rash. Objective Physical Exam Constitutional: General: She is not in acute distress. Appearance: Normal appearance. She is well-developed. HENT: Head: Normocephalic and atraumatic. Right Ear: Tympanic membrane and ear canal normal. Left Ear: Ear canal normal. Tympanic membrane is erythematous (Mild). Nose: Congestion present. Comments: Turbinates erythematous Mouth/Throat: Mouth: Mucous membranes are moist. Pharynx: Posterior oropharyngeal erythema (Mild) and postnasal drip present. Comments: Voice is hoarse Eyes: General: No scleral icterus. Conjunctiva/sclera: Conjunctivae normal. Cardiovascular: Rate and Rhythm: Normal rate and regular rhythm. Heart sounds: Normal heart sounds. No murmur heard. Pulmonary: Effort: Pulmonary effort is normal. No respiratory distress. Breath sounds: No wheezing, rhonchi or rales. Comments: Mildly harsh Lymphadenopathy: Cervical: Cervical adenopathy (Mild tonsillar on left) present. Skin: General: Skin is warm and dry. Neurological: General: No focal deficit present. Mental Status: She is alert and oriented to person, place, and time. Psychiatric: Mood and Affect: Mood normal. Behavior: Behavior normal. Assessment/Plan Diagnoses and all orders for this visit: Acute bronchitis, unspecified organism - amoxicillin-clavulanate (Augmentin) 875-125 MG tablet; Take 1 tablet (875 mg) by mouth in the morning and 1 tablet (875 mg) before bedtime. Do all this for 4 days. Continue Augmentin for four additional days for a total of 14 days of treatment. Stay hydrated, getplenty of rest. Follow up as needed. Chronic obstructive pulmonary disease, unspecified COPD type ([facility]) - triamcinolone acetonide (Kenalog-40) injection 40 mg - ipratropium-albuterol (Duo-Neb) 0.5-2.5 mg/3 mL nebulizer solution; Take 3 mL by nebulization 4 (four) times a day as needed for wheezing or shortness of breath Provided pt with Kenalog 40 mg IM today, she tolerated this well. Duo-neb as needed. Reviewed how the medication works. Lumbar spondylosis - baclofen (Lioresal) 10 MG tablet; Take 1 tablet (10 mg) by mouth 2 (two) times a day as needed for muscle spasms Patient can take the above as needed. May cause drowsiness. She states she has taken the Baclofen in the past and done well. Did not tolerate the Tizanidine. Pt requested medication to help her lose weight. Advised pt that she does not qualify for weight loss medication at this time. Encouraged healthy diet, stay active. The patient was seen today in follow up of recent hospital ER visits. All available hospital records/labs/diagnostics were reviewed and discussed with the patient. ER discharge meds were reviewed. Any changes to plan are as noted. Follow up in about 4 weeks (around 04/04/2025) for Wellness. documented in this [facility]08-12-2025 History of Present illness Narrative* Little Johnson LPN - 02/26/2025 9:58 AM EDT Pt requests refill on Xanax documented in this [facility]07-14-2025 Telephone encounter Note* Telephone Encounter - Kiera Moore - 01/28/2025 9:02 AM EDT ALPRAZolam (Xanax) 0.5 MG tablet Ddm in [place] [facility] [id number] Miscellaneous Notes* Telephone Encounter - Kiera Moore - 01/28/2025 9:02 AM EDT ALPRAZolam (Xanax) 0.5 MG tablet Ddm in [place] documented in this [facility]06-13-2025 Telephone encounter Note* Telephone Encounter - VETO Valderrama - 12/28/2024 12:45 PM EDT OARRS reviewed, Rx sent into patient's pharmacy. [facility] CenterUnvmxplppi37-37-1032 Miscellaneous Notes* Telephone Encounter - VETO Valderrama - 12/28/2024 12:45 PM EDT OARRS reviewed, Rx sent into patient's pharmacy. * Telephone Encounter - DEEDEE OCONNOR - 12/28/2024 11:04 AM EDT Last OV 11-14-24 Refill 11-26-24 * Telephone Encounter - Kiera Moore - 12/28/2024 11:02 AM EDT ALPRAZolam (Xanax) 0.5 MG tablet Ddm in [place] documented in this encounterUniversity Health [facility] Medical CenterVhdpxdvgry95-77-8436 Telephone encounter Note* Telephone Encounter - DEEDEE OCONNOR - 12/28/2024 11:04 AM EDT Last OV 11-14-24 Refill 11-26-24 [facility] CenterKjzpronmns50-21-8515 Telephone encounter Note* Telephone Encounter - Kiera Moore - 12/28/2024 11:02 AM EDT ALPRAZolam (Xanax) 0.5 MG tablet [place]dm in [place] [facility] CenterNlgeswfdbn90-51-4062 Telephone encounter Note* Telephone Encounter - VETO Valderrama - 11/26/2024 4:08 PM EDT Called and left a detailed message with [facility]. There was no option for me to speak with someone. Had to leave a message. Advised them of adequate documentation already provided for the migraine medications and of the necessity of the epi-pen as a potentially life saving medication. Asked them to return my call. [facility] CenterVgwhcirypw06-10-0989 Miscellaneous Notes* Telephone Encounter - VETO Valderrama - 11/26/2024 4:08 PM EDT Called and left a detailed message with [employer] There was no option for me to speak with someone. Had to leave a message. Advised them of adequate documentation already provided for the migraine medications and of the necessity of the epi-pen as a potentially life saving medication. Asked them to return my call. * Telephone Encounter - Celena Liu LPN - 11/19/2024 1:12 PM EDT UBRELVY DENIED. Printed out denial and given to Jennifer for review. AJOVY denied. Printed out denial and given to Jennifer for review. EPINEPHRINE denied. Printed out denial for Jennifer to review. documented in this encounterUniversity Health Truman Medical CenterUcaujuyofc93-74-7460 Telephone encounter Note* Telephone Encounter - VETO Valderrama - 11/26/2024 1:00 PM EDT OARRS reviewed, Rx sent into patient's pharmacy. [facility] CenterIemytwvrzg31-08-1009 Miscellaneous Notes* Telephone Encounter - VETO Valderrama - 11/26/2024 1:00 PM EDT OARRS reviewed, Rx sent into patient's pharmacy. * Telephone Encounter - [place] Marcial - 11/26/2024 11:07 AM EDT [place] called requesting a refill on her Xanax to [facility] in [place] documented in this encounterUniversity Health Truman Medical CenterFnsiconnnu84-09-0549 Telephone encounter Note* Telephone Encounter - [place] Marcial - 11/26/2024 11:07 AM EDT [place] called requesting a refill on her Xanax to [facility] in [place] [facility] CenterOrqmizaxlv72-26-6879 Telephone encounter Note* Telephone Encounter - VETO Valderrama - 11/20/2024 9:34 AM EDT See other TE [facility] CenterJhoomvcemm01-36-6045 Telephone encounter Note* Telephone Encounter - VETO Valderrama - 11/20/2024 9:34 AM EDT See other TE [facility] CenterLjcemaosoa48-28-0589 Miscellaneous Notes* Telephone Encounter - VETO Valderrama - 11/20/2024 9:34 AM EDT See other TE * Telephone Encounter - Celena Liu LPN - 11/19/2024 1:17 PM EDT EPINEPHRINE denied. Printed out denial for Jennifer to review. documented in this [facility]05-06-2025 Miscellaneous Notes* Telephone Encounter - VETO Valderrama - 11/20/2024 9:34 AM EDT See other TE * Telephone Encounter - Celena Liu LPN - 11/19/2024 1:16 PM EDT AJOVY denied. Printed out denial and given to Jennifer for review. documented in this [facility]05-05-2025 Telephone encounter Note* Telephone Encounter - Celena Liu LPN - 11/19/2024 1:17 PM EDT EPINEPHRINE denied. Printed out denial for Jennifer to review. [facility] CenterNbbosdoyrs05-98-1879 Telephone encounter Note* Telephone Encounter - Celena Liu LPN - 11/19/2024 1:16 PM EDT AJOVY denied. Printed out denial and given to Jennifer for review. [facility] CenterFkrckgrwgt67-26-0961 Telephone encounter Note* Telephone Encounter - Celena Liu LPN - 11/19/2024 1:12 PM EDT UBRELVY DENIED. Printed out denial and given to Jennifer for review. AJOVY denied. Printed out denial and given to Jennifer for review. EPINEPHRINE denied. Printed out denial for Jennifer to review. [facility] CenterObmsneqpfl29-24-6694 History of Present illness Narrative* Jennifer Rodriguez, VETO - 11/14/2024 11:00 AM EDT Images from the original note were not [...] swelling requiring Epi-Pen in past. Her insurance deniedthe pens. Current Outpatient Medications on File Prior [...] syringe Inject 1.5 mL (225 mg) under theskin every 30 (thirty) days (Patient not taking: [...] Acute exacerbation of chronic obstructive pulmonary disease ([facility]) 12/06/2022 Adjustment disorder with anxiety ([facility]) 12/06/2022 Anxiety Carpal tunnel syndrome of left wrist 12/06/2022 Cellulitis Chronic migraine with aura ([facility]) 12/06/2022 Eczema 12/06/2022 Gastroenteritis H/O CT scan of brain 10/20/2018 H/O CT scan of chest 04/06/2019 was negative for Pulmonary Embolism, No pulmonary infiltrates Hypoglycemia 12/06/2022 Irritable bowel syndrome with diarrhea 12/06/2022 Nervousness Panic disorder with agoraphobia ([facility]) 12/06/2022 Smoker 12/06/2022 Thrombocytosis 12/06/2022 Past Surgical [...] while on the Ajovy, was working well forher and was well tolerated. Screening for malignant neoplasm of colon - Cologuard colon cancer screening; Future Provided patient with order to complete Cologuard testing as a screening for colon cancer. If results are negative, will plan to recheck a Cologuard in 3 years. If results are positive, would need toprovide patient with referral for a screening Colonoscopy [...] with some relief. She can continue with Chiropracticcare as needed. Irritable bowel syndrome with diarrhea [...] (around 12/26/2024) for Recheck. documented in this encounterUniversity Health [facility] Medical [id number] Telephone encounter Note* Telephone Encounter - Kiera Moore - 10/23/2024 10:10 AM EDT Appt scheduled [facility] CenterTxvwgknvjm91-00-8309 Miscellaneous Notes* Telephone Encounter - Kiera Moore - 10/23/2024 10:10 AM EDT Appt scheduled * Telephone Encounter - VETO Valderrama - 10/22/2024 5:03 PM EDT Please help pt get scheduled for a follow up appointment within the month. OARRS reviewed, Rx sent into patient's pharmacy. * Telephone Encounter - [place] Marcial - 10/22/2024 9:44 AM EDT [place] called requesting a refill on her ALPRAZolam (Xanax) 0.5 MG to [facility] documented in this [facility]04-07-2025 Telephone encounter Note* Telephone Encounter - VETO Valderrama - 10/22/2024 5:03 PM EDT Please help pt get scheduled for a follow up appointment within the month. OARRS reviewed, Rx sent into patient's pharmacy. [facility] CenterMdmesiyvqf22-85-8442 Telephone encounter Note* Telephone Encounter - [place] Marcial - 10/22/2024 9:44 AM EDT [place] called requesting a refill on her ALPRAZolam (Xanax) 0.5 MG to [facility] CenterXuacipjlaf73-47-6583 Telephone encounter Note* Telephone Encounter - Sheila Myles - 09/18/2024 1:12 PM EST ALPRAZolam (Xanax) 0.5 MG tablet to [facility] [place] [facility] CenterMubmnvnatz72-74-7358 Miscellaneous Notes* Telephone Encounter - Sheila Myles - 09/18/2024 1:12 PM EST ALPRAZolam (Xanax) 0.5 MG tablet to [facility] [place] documented in this encounterUniversity Health Truman Medical CenterIyruvstyfe58-06-0647 Telephone encounter Note* Telephone Encounter - Kiera Moore - 08/22/2024 8:35 AM EST Patient called stating that she did test positive for covid as stated in other telephone encounter.She said she thinks now that it is turning into a sinus infection. She berry she has a lot of pressure in her ears and can't barely hear. She has green phlegm as well. Otc meds are not working. She [facility] [place] CenterRqyohfftln35-85-9789 Miscellaneous Notes* Telephone Encounter - Kiera Moore - 08/22/2024 8:35 AM EST Patient called stating that she did test positive for covid as stated in other telephone encounter.She said she thinks now that it is turning into a sinus infection. She berry she has a lot of pressure in her ears and can't barely hear. She has green phlegm as well. Otc meds are not working. She wondered if [facility] [place]. documented in this encounterUniversity Health Truman Medical [id number] Telephone encounter Note* Telephone Encounter - Celena Liu LPN - 08/20/2024 10:39 AM EST Advised pt to take OTC medications to treat her symptoms. [facility] [id number] Miscellaneous Notes* Telephone Encounter - Celena Liu LPN - 08/20/2024 10:39 AM EST Advised pt to take OTC medications to treat her symptoms. * Telephone Encounter - Kiera Moore - 08/20/2024 9:52 AM EST Patient tested positive for covid and wondered if something could be sent in for her cough low grade fever, runny nose. * Telephone Encounter - Kiera Moore - 08/20/2024 9:51 AM EST ALPRAZolam (Xanax) 0.5 MG tablet Ddm in [place] documented in this [facility]02-03-2025 Telephone encounter Note* Telephone Encounter - Kiera Moore - 08/20/2024 9:52 AM EST Patient tested positive for covid and wondered if something could be sent in for her cough low grade fever, runny nose. [facility] HospitalJzjsvzvxzi47-95-4960 Telephone encounter Note* Telephone Encounter - Kiera Moore - 08/20/2024 9:51 AM EST ALPRAZolam (Xanax) 0.5 MG tablet Ddm in [place] [facility] HospitalEyomunqsav13-29-8125 History of Present illness Narrative* Vidya Vu, REGULATORY AFFAIRS SPECIALIST - 07/25/2024 2:30 PM EST Images from the original note were not [...] mL (0.3 mg) as directed 1 (one) timefor 1 dose 0.3 mL 1 fluconazole (Diflucan) 150 MG tablet Take 1 tablet , and if still with symptoms after 3 days take 1tablet 2 tablet 0 fremanezumab (Ajovy) 225 MG/1.5ML [...] Acute exacerbation of chronic obstructive pulmonary disease ([facility]) 12/06/2022 Adjustment disorder with anxiety ([facility]) 12/06/2022 Anxiety Carpal tunnel syndrome of left wrist 12/06/2022 Cellulitis Chronic migraine with aura ([facility]) 12/06/2022 Eczema 12/06/2022 Gastroenteritis H/O CT scan of brain 10/20/2018 H/O [address] scan of chest 04/06/2019 was negative for Pulmonary Embolism, No pulmonary infiltrates Hypoglycemia 12/06/2022 Irritable bowel syndrome with diarrhea 12/06/2022 Nervousness Panic disorder with agoraphobia ([facility]) 12/06/2022 Smoker 12/06/2022 Thrombocytosis 12/06/2022 Past Surgical [...] and its most common side effects. - rxplpcpbdgkszpc-BR-PE 60-15-400 MG tablet; Take 1 tablet by mouth in the morning and 1 tablet at noon and 1 tablet in the evening and 1 tablet before bedtime. Do all this for 10 days. Dispense: 40 tablet; Refill: 0 3. Acute cough - gaexjngnrabsxqi-IO-GQ 60-15-400 MG tablet; Take 1 tablet by mouth in the morning and 1 tablet at noon and 1 tablet in the evening and 1 tablet before bedtime. Do all this for 10 days. Dispense: 40 tablet; Refill: 0 No follow-ups on file. documented in this encounterUniversity Health Truman Medical CenterUswyoqtdlm46-05-3692 Instructions* Patient Instructions* Vidya Vu NP - 07/25/2024 2:30 PM EST Zpack ordered Capmist Dm ordered documented in this encounterUniversity Health Truman Medical [id number] Telephone encounter Note* Telephone Encounter - VETO Valderrama - 07/09/2024 3:29 PM EST OARRS reviewed, Rx sent into patient's pharmacy. [facility] CenterTlqevfpmqa93-80-0643 Miscellaneous Notes* Telephone Encounter - VETO Valderrama - 07/09/2024 3:29 PM EST OARRS reviewed, Rx sent into patient's pharmacy. * Telephone Encounter - Kiera Moore - 07/09/2024 3:17 PM EST ALPRAZolam (Xanax) 0.5 MG tablet [ DDM IN [place] documented in this encounterUniversity Health Truman Medical CenterEwrbjviasi82-28-2879 Telephone encounter Note* Telephone Encounter - Kiera Moore - 07/09/2024 3:17 PM EST ALPRAZolam (Xanax) 0.5 MG tablet [ [place]DM [place] [facility] [id number] History of Present illness Narrative* VETO Valderrama - 06/13/2024 11:00 AM EST Images from the original note were not [...] go to the restroom. Having watery bowel movementsfor a long. Having BM every time she eats. Denies it being abnormally foul smelling. Has been goingon since she had her son. Couldn't tolerate Bentyl, made her dizzy. Current Outpatient Medications on File Prior to Visit Medication Sig Dispense Refill betamethasone dipropionate 0.05 % cream Apply 1 application topically in the morning and 1 application before bedtime. 15 g 2 fluconazole (Diflucan) 150 MG tablet Take 1 tablet , and if still with symptoms after 3 days take 1tablet 2 tablet 0 fremanezumab (Ajovy) 225 MG/1.5ML [...] mg) by mouth 2 (two) times a dayas needed for anxiety 60 tablet 0 [DISCONTINUED] dicyclomine (Bentyl) 10 MG capsule Take 1 capsule (10 mg) by mouth 2 (two) times a day as needed (Loose stools) 60 capsule 2 EPINEPHrine (Epipen) 0.3 MG/0.3ML injection syringe Inject 0.3 mL (0.3 mg) as directed 1 (one) timefor 1 dose 0.3 mL 1 No current [...] Acute exacerbation of chronic obstructive pulmonary disease ([facility]) 12/06/2022 Adjustment disorder with anxiety ([facility]) 12/06/2022 Anxiety Carpal tunnel syndrome of left wrist 12/06/2022 Cellulitis Chronic migraine with aura ([facility]) 12/06/2022 Eczema 12/06/2022 Gastroenteritis H/O CT scan of brain 10/20/2018 H/O [address] scan of chest 04/06/2019 was negative for Pulmonary Embolism, No pulmonary infiltrates Hypoglycemia 12/06/2022 Irritable bowel syndrome with diarrhea 12/06/2022 Nervousness Panic disorder with agoraphobia ([facility]) 12/06/2022 Smoker 12/06/2022 Thrombocytosis 12/06/2022 Past Surgical [...] her insurance prior to being approved for [employer]. Provided pt with #16 samples and a [...] while on the Ajovy, was working well forher and was well tolerated. If Qulipta is [...] not tolerated. Will have patient start Xifaxin asprescribed. Provided pt with #9 samples and a prescription. Reviewed how the medication works. If not effective, would recommend she try an OTC probiotic daily. Follow up in about 3 months (around 09/13/2024) for Medication Follow Up. documented in this encounterUniversity Health Truman Medical [id number] Telephone encounter Note* Telephone Encounter - Sheila Myles - 04/20/2024 10:30 AM EDT scheduled [facility] [id number] Miscellaneous Notes* Telephone Encounter - Sheila Myles - 04/20/2024 10:30 AM EDT scheduled * Telephone Encounter - VETO Valderrama - 04/19/2024 9:35 AM EDT Please help pt get set up for a medication follow up visit sometime this month. Last refill on Alprazolam until seen. OARRS reviewed, Rx sent into patient's pharmacy. documented in this encounterUniversity Health Truman Medical CenterKigwkdcvhr74-05-1776 Telephone encounter Note* Telephone Encounter - VETO Valderraam - 04/19/2024 9:35 AM EDT Please help pt get set up for a medication follow up visit sometime this month. Last refill on Alprazolam until seen. OARRS reviewed, Rx sent into patient's pharmacy. [facility] CenterZdyalmidke68-00-6621 Telephone encounter Note* Telephone Encounter - VETO Valderrama - 03/16/2024 12:25 PM EDT OARRS reviewed, Rx sent into patient's pharmacy. [facility] CenterVlnovywmiv33-44-1933 Miscellaneous Notes* Telephone Encounter - VETO Valderrama - 03/16/2024 12:25 PM EDT OARRS reviewed, Rx sent into patient's pharmacy. * Telephone Encounter - Sheila Myles - 03/16/2024 12:00 PM EDT ALPRAZolam (Xanax) 0.[facility] [place] documented in this encounterUniversity Health Truman Medical CenterAssszeudjv58-54-1543 Telephone encounter Note* Telephone Encounter - Sheila Myles - 03/16/2024 12:00 PM EDT ALPRAZolam (Xanax) 0.5 MG [facility] [place] [facility] CenterIgvclbksgd73-22-0486 NoteSATISFACTORY FOR EVALUATIONNortvalley hospitaln [facility] SpecialistComment on above:Order Comment: [facility] Testing performed at: [facility], [address] [place] [address], [id number], Ui Developer: Greg Barron MD Testing performed at: [facility], [facility], [address] [place] [address], [id number], Ui Developer: Malcolm Hamilton MD [facility] Collection Date/Time: [facility] Results Received Date/Time: [id number] [facility] Reported Date/Time: [id number] Comment: [QAC]Performed By: #### [id number] #### [facility] Default [address] [place], [place] [address]Kurpgdouzk note* Diagnosis Adjustment disorder with anxiety (CMS/HCC) [...] this encounter [facility]* Diagnosis Acute bronchitis, unspecified organism- Primary Chronic obstructive pulmonary disease, unspecified COPD type (HCC) Lumbar spondylosis Lumbosacral spondylosis without myelopathy documented in this encounter [facility]* Diagnosis Adjustment disorder with anxiety documented in this encounter [facility]* Diagnosis Adjustment disorder with anxiety documented in this encounter [facility] Summary Purpose Family History No Family History Records FoundNo Family History Records FoundNo Family History Records Found Advance Directives No Advanced Directives Records FoundNo Advanced Directives Records FoundNo Advanced Directives Records Found Additional Source Comments INFORMATION SOURCE (unrecogn ized section and content) DATE CREATED AUTHOR 07/28/2021 [facility] DATE CREATED AUTHOR AUTHOR'S ORGANIZ ATION 11/09/2022 [facility] DATE CREATED AUTHOR AUTHOR'S ORGANIZ ATION 03/09/2025 [facility] EPIC Reason for Visit (unrecogniz ed section and content) ReasonOnset DateCommentsMed Ddqklq9104/19/2024Xanax and Effexor [facility] [place] ReasonCommentsMed RefillxanaxReasonOnset DateCommentsMed Xllpbd614Reason Onset DateCommentsMed Xzabcv344Please send in Effexor 37.5 mg & Effexor 75mg to [facility] ClyeReasonOnset DateCommentsMed Vjnzpv454ReasonOnset DateCommentsMed Exnnxc1308/20/2024ReasonOnset DateCommentsMed Lvmblj5512/28/2024 ReasonOnset DateCommentsMed Eugpsh9101/28/2025ReasonOnset DateCommentsMed Refill 05/20/2025 Care Teams (unrecognized sec tion and content) Team MemberRelationshipSpecialtyStart DateEnd Date Jerry Ram MD [address] [place] [address] PCP - GeneralFamily Medicine12/06/22Team MemberRelationshipSpecialtyStart DateEnd Date Jerry Ram MD [address] [place] [address] PCP - [facility]12/06/22 Jerry Ram MD [address] [place] [address] [facility]04/17/24Team MemberRelationshipSpecialtyStart DateEnd Date Jerry Ram MD [address] [place] [address] PCP - [facility]12/06/22 Jerry Ram MD [address] [place] [address] [facility]04/17/24Team MemberRelationshipSpecialtyStart DateEnd Date Jerry Ram MD [address] [place] [address] [facility] - [facility]12/06/22Team MemberRelationshipSpecialtyStart DateEnd Date Jerry Ram MD [address] [place] [address] PCP - [facility]12/06/22 Jerry Ram MD [address] [place] [address] [facility]04/17/24Team MemberRelationshipSpecialtyStart DateEnd Date Jerry Ram MD [address] [place] [address] PCP - [facility]12/06/22 Jerry Ram MD [address] [place] [address] [facility]04/17/24Team MemberRelationshipSpecialtyStart DateEnd Date Jerry Ram MD [address] [place] [address] PCP - [facility]12/06/22 Jerry Ram MD [address] [place] [address] [facility]04/17/24Team MemberRelationshipSpecialtyStart DateEnd Date Jerry Ram MD [address] [place] [address] PCP - [facility]12/06/22 Jrery Ram MD [address] [place] [address] [facility]04/17/24Team MemberRelationshipSpecialtyStart DateEnd Date Jerry Ram MD [address] [place] [address] PCP - [facility]12/06/22 Jennifer Rodriguez PA [address] [place] [address] [facility]07/18/24Team MemberRelationshipSpecialtyStart DateEnd Date Jerry Ram MD [address] [place] [address] PCP - [facility]12/06/22 Jennifer Rodriguez PA [address] [place] [address] [facility] - [address]08/11[facility] MemberRelationshipSpecialtyStart DateEnd Jerry Ram MD [address] [place] [address] PCP - [facility]12/06/22 Jennifer Rodriguez PA [address] [place] [address] [facility] - [address]08/11[facility] MemberRelationshipSpecialtyStart DateEnd Date Jerry Ram MD [address] [place] [address] [facility] - [facility]12/06/22 Jennifer Rodriguez PA [address] [place] [address] [facility]07/18/24Te MemberRelationshipSpecialtyStart DateEnd Date Jerry Ram MD [address] [place] [address] [facility]12/06/22 Jennifer Rodriguez, VETO [address] [place] [address] [facility]08/11[facility] MemberRelationshipSpecialtyStart DateEnd Date Jerry Ram MD [address] [place] [address] [address]22/23 Jennifer Rodriguez PA [address] [place] [address] [facility]07/18/24[facility] MemberRelationshipSpecialtyStart DateEnd Date Jerry Ram MD [address] [place] [address] [facility]12/06/22 Jennifer Rodriguez PA [address] [place] [address] [facility]07/18/24Te MemberRelationshipSpecialtyStart DateEnd Date Jerry Ram MD [address] [place] [address] [facility]12/06/22 Jennifer Rodriguez, PA [address] [place] [address] [facility]07/18/24Te MemberRelationshipSpecialtyStart DateEnd Date Jerry Ram MD [address] [place] [address] [facility]12/06/22 Jennifer Rodriguez, PA [address] [place] [address] [facility]07/18/24 Vidya Vu, REGULATORY AFFAIRS SPECIALIST [address] [place] [address] PCP - [place] [facility]01/15/25Team MemberRelationshipSpecialtyStart DateEnd Date Jerry Ram MD [address] [place] [address] PCP - [facility]12/06/22 Jennifer Rodriguez, PA [address] [place] [address] [facility]07/18/24 Vidya Vu, REGULATORY AFFAIRS SPECIALIST [address] [place] [address] PCP - [place] [facility]01/15/25 Little Johnson LPN [address] [place] [address] 03/06/25Team MemberRelationshipSpecialtyStart DateEnd Date Jerry Ram MD [address] [place] [address] [facility] - [facility]12/06/22 Jennifer Rodriguez, PA [address] [place] [address] [facility]07/18/24 Vidya Vu, REGULATORY AFFAIRS SPECIALIST [address] [place] [address] PCP - [place] [facility]01/15/25 Little Johnson LPN [address] [place] [address] 03/06/25Team MemberRelationshipSpecialtyStart DateEnd Date Jerry Ram MD [address] [place] [address] PCP - [facility]12/06/22 Jennifer Rodriguez PA [address] [facility] [address] [place] [address] [facility]07/18/24 Vidya Vu NP [address] [facility] [address] [place] [address] [facility]01/15/25 Little Johnson LPN [address] [facility] [address] [place] [address] 03/06/25Team MemberRelationshipSpecialtyStart DateEnd Date Jerry Ram MD [address] [facility] [address] [place] [address] [facility] - [facility]12/06/22 Jennifer Rodriguez PA [address] [facility] [address] [place] [address] [facility]07/18/24 Little Johnson LPN [address] [facility] [address] [place] [address] 03/06/25 FOR RECORDS PERTAINING TO PATIENTS WHO ARE [...] BE BASED ON THE PRIMARY CLINICAL RECORDS. [facility] [employer] [facility]. provides no warranty or guarantee of the accuracy or completeness of information in this document.
--- OUTSIDE RECORDS SUMMARY | 2025-05-31 02:09 | XMS_ITS | Clinical Summary ---
Author Organization [employer] tem Address [id number] [address] [place] [address] Care Team Providers Care Iv Technician Name Role Phone Jerry Melo MD Primary Care Provider [phone] Allergies No known active allergies Medications MedicationSigDispense QuantityRefillsLast FilledStart DateEnd DateStatus venlafaxine (EFFEXOR) 75 mg tablet Take 75 mg by mouth daily.Active ALPRAZolam (XANAX) 0.5 mg tablet Take 0.5 mg by mouth nightly as needed for anxiety.Active ketorolac (TORADOL) 10 mg tablet Take 10 mg by mouth every 6 (six) hours as needed for pain.Active diphenhydrAMINE (BENADRYL) 25 mg capsule Take 1 capsule (25 mg total) by mouth every 6 (six) hours as needed for itching for up to 10 doses. 10 capsule 12/10/2021ctive famotidine (PEPCID) 20 mg tablet Take 1 tablet (20 mg total) by mouth in the morning and 1 tablet (20 mg total) before bedtime. 20 tablet 12/10/2021ctive Social History Tobacco UseTypesPacks/DayYears UsedDateSmoking Tobacco: Some DaysCigarettes0.320 Smokeless Tobacco: Never Tobacco Cessation:Ready to Q uit: Yes Alcohol UseStandard Drinks/WeekCommentsNever0 (1 standard drink = 0.6 oz pure alcohol)ChildcareAnswerDate UyxqgqymLaqhzinofClsscvd51/12/2019EmploymentAnswer Date PjhgknnxLlbtwsznyuObtmstc17/12/2019Purpose - LifeAnswerDate RecordedPurpose and direction in ogdnWmeftms74/11/2021CommentsUnknownSex and Gender InformationValueDate RecordedSex Assigned at BirthNot on fileLegal SexFemale 02/20/2015 11:52 AM EDTGender IdentityNot on fileSexual OrientationNot on file Last Filed Vital Signs Vital SignReadingTime TakenCommentsBlood Onoesaov689/7905 2:33 PM EDT Felei751812/10/2021 2:33 PM VEXPeenuhelvau45.9 ??C (98.4 ??F)12/10/2021 1:20 PM EDTRespiratory Lqcw981812/10/2021 2:33 PM EDTOxygen Vbrkencsyg88%12/10/2021 2:33 PM EDTInhaled Oxygen Concentration--Ismqvu81.7 kg (147 lb)12/10/2021 1:20 PM EDT Baccsc514.6 cm (5' 4 )08/31/2021 11:24 AM ESTBody Mass Index25.23008/31/2021 11:24 AM EST Plan of Treatment Health MaintenanceDue DateLast DoneCommentsDepression Aryzygrgs99/15/1991Tobacco Ozxvyeoju90/15/1991Adult BMI Tahaeenyb16/15/1997DTaP,Tdap and Td Vaccines (1 - Tdap)1998Pap Smear2000Influenza Whbsqsa3903/18/2025 Medical Devices Not on file Insurance * Guarantor: Marion Merida TypeRelation to PatientDate of BirthPhone Billing AddressPersonal/HljhljPkhd1980 [phone] [address] Care Teams Team MemberRelationshipSpecialtyStart DateEnd Date Seth, Rugen M, [place] [address] [place] [address] [facility]
--- NOTE | 2025-05-31 02:17 | ED.GENADUL1 ---
HPI HPI - General Adult General Chief complaint: Dental/Oral Stated complaint: HEADACHE/DENTAL PAIN Time Seen by Provider: 05/31/25 02:09 Source: patient Mode of arrival: walk-in Limitations: no limitations History of Present Illness HPI narrative: 45-year-old female presents to the emergency department for right upper dental pain. She notes that she has a bad tooth and she does have access to a dentist. The pain has been present this time for 2 days and is moderate to severe and continuous. No trauma. Related Data Home Medications ?Medication ?Instructions ?Recorded ?Confirmed venlafaxine 37.5 mg 37.5 mg PO DAILY 03/02/24 05/31/25 capsule,extended release 24 hr alprazolam 0.5 mg tablet 0.5 mg PO BID 02/22/25 05/31/25 Previous Rx's ?Medication ?Instructions ?Recorded acetaminophen 300 mg-codeine 30 mg 1 tab PO Q6H PRN pain 5 days #20 05/31/25 tablet tabs clindamycin HCl 300 mg capsule 300 mg PO Q6H 10 days #40 caps 05/31/25 Allergies Allergy/AdvReac Type Severity Reaction Status Date / Time Penicillins Allergy Severe Hives Verified 05/31/25 01:59 Opioid HPI Opioid Management Most Recent Opioid Data: Last Pain Scale 10 Today, 01:56 Review of Systems ROS Narrative A ten point review of systems is negative except as noted above. PFSH PFSH Social History Little interest or pleasure in doing things: not at all Feeling down, depressed, or hopeless: not at all Exam Narrative Exam Narrative: Nurses note and vital signs reviewed General:The patient appears well and in no apparent distress. Patient is resting comfortably on cart. Skin:Warm, dry, no pallor noted.There is no rash noted. Head:Normocephalic, atraumatic Eye: Normal conjunctiva, no drainage Ears, Nose, Mouth, and Throat: oral mucosa is moist. Nares patent. No swelling or erythema. Tooth in question is in the right upper dentition anteriorly and there is some mild gingival swelling. No bleeding or pus present. No swelling to the floor of her mouth. She is handling her oral secretions well. Cardiovascular:Regular Rate and Rhythm Respiratory:Patient is in no distress, no accessory muscle use, lungs are clear to auscultation, no wheezing, rales or rhonchi Back:non-tender GI: Soft and nontender Musculoskeletal: No joint swelling Neurological: Wake and alert Psychiatric:Cooperative Constitutional Vital Signs, click to edit/add: Last Vital Signs Temp 97.8 F 05/31/25 01:56 Pulse 86 05/31/25 01:56 Resp 18 05/31/25 01:56 BP 146/93 H 05/31/25 01:56 Pulse Ox 100 05/31/25 01:56 O2 Del Method Room Air 05/31/25 01:56 Course Vital Signs Vital signs: Vital Signs Temperature 97.8 F 05/31/25 01:56 Pulse Rate 86 05/31/25 01:56 Respiratory Rate 18 05/31/25 01:56 Blood Pressure 146/93 H 05/31/25 01:56 Pulse Oximetry 100 05/31/25 01:56 Oxygen Delivery Method Room Air 05/31/25 01:56 Temperature 97.8 F 05/31/25 01:56 Pulse Rate 86 05/31/25 01:56 Respiratory Rate 18 05/31/25 01:56 Blood Pressure 146/93 H 05/31/25 01:56 Pulse Oximetry 100 05/31/25 01:56 Oxygen Delivery Method Room Air 05/31/25 01:56 Medical Decision Making MDM Narrative Medical decision making narrative: Provided IM Toradol, clindamycin, and topical anesthetic and prescribed Tylenol 3 and clindamycin and will call her dentist in the morning. Treatment diagnosis and follow-up were discussed with the patient. Differential Diagnosis Differential Diagnosis: Odontalgia, dental caries, gingivitis Discharge Plan Discharge Chief Complaint: Dental/Oral Clinical Impression: Odontalgia Patient Disposition: Home, Self-Care Time of Disposition Decision: 02:14 Condition: Good Mode of Transportation: Private Vehicle Prescriptions / Home Meds: New clindamycin HCl 300 mg capsule 300 mg PO Q6H 10 Days Qty: 40 0RF acetaminophen-codeine 300-30 mg tablet 1 tab PO Q6H PRN (Reason: pain) 5 Days Qty: 20 0RF No Action venlafaxine 37.5 mg capsule,extended release 24hr 37.5 mg PO DAILY alprazolam 0.5 mg tablet 0.5 mg PO BID Print Language: Croatian Instructions: Toothache (ED) Referrals: VEGA RAM [Primary Care Provider, Family Practice] - 1 week
[2025-05-31] MEDS: CLINDAMYCIN HCL 150 MG CAPSULE 300 MG PO (02:32)
[2025-05-31] MEDS: KETOROLAC TROMETHAMINE 60 MG/2 ML VIAL IM (02:32)
== END 2025-05-31 02:38 | disposition home or self-care (01) ==
PROVIDERS: Emergency Provider Emergency Medicine; PCP Family Medicine
DX: K08.89 Other specified disorders of teeth and supporting structures (principal)
CPT/HCPCS: 96372; 99284; J1885

== ENCOUNTER 2025-06-02 02:41 | Emergency (ER) | payer OTHER, SELFPAY ==
[2025-06-02 02:50] VITALS: BP 154/98; PULSE 82; TEMP 36.6; O2SAT 98; BMI 24.9
--- NOTE | 2025-06-02 03:14 | ED.GENADUL1 ---
HPI HPI - General Adult General Chief complaint: Dental/Oral Stated complaint: dental pain Time Seen by Provider: 06/02/25 02:47 Source: patient Mode of arrival: walk-in Limitations: no limitations History of Present Illness HPI narrative: 45-year-old female presented to the emergency department for toothache. She was seen here recently and has been on an antibiotic and also Tylenol 3. She states the Tylenol 3 is not strong enough. She will be able to call her dentist office tomorrow for an appointment. The pain is severe and continuous and mostly on the right lower jaw but also in the right upper jaw. Related Data Home Medications ?Medication ?Instructions ?Recorded ?Confirmed venlafaxine 37.5 mg 37.5 mg PO DAILY 03/02/24 06/02/25 capsule,extended release 24 hr alprazolam 0.5 mg tablet 0.5 mg PO BID 02/22/25 06/02/25 Previous Rx's ?Medication ?Instructions ?Recorded acetaminophen 300 mg-codeine 30 mg 1 tab PO Q6H PRN pain 5 days #20 05/31/25 tablet tabs clindamycin HCl 300 mg capsule 300 mg PO Q6H 10 days #40 caps 05/31/25 oxycodone-acetaminophen 5 mg-325 1 tab PO Q6H PRN pain 4 days #15 06/02/25 mg tablet (Percocet) tabs Allergies Allergy/AdvReac Type Severity Reaction Status Date / Time Penicillins Allergy Severe Hives Verified 06/02/25 02:54 Opioid HPI Opioid Management Most Recent Opioid Data: Last Pain Scale 8 Today, 02:50 Review of Systems ROS Narrative A ten point review of systems is negative except as noted above. PFSH PFSH Social History Little interest or pleasure in doing things: not at all Feeling down, depressed, or hopeless: not at all Exam Narrative Exam Narrative: Nurses note and vital signs reviewed General:The patient appears well and in no apparent distress.Patient is resting comfortably on cart. Skin:Warm, dry, no pallor noted.There is no rash noted. Head:Normocephalic, atraumatic Eye: Normal conjunctiva, no drainage Ears, Nose, Mouth, and Throat: oral mucosa is moist. Nares patent. Facial swelling or erythema. No swelling to the floor of her mouth. No gingival swelling or erythema and no bleeding or pus present. Cardiovascular:Regular Rate and Rhythm Respiratory:Patient is in no distress, no accessory muscle use, lungs are clear to auscultation, no wheezing, rales or rhonchi Back:non-tender GI: Soft and nontender Musculoskeletal: No joint swelling Neurological:A&O, normal speech Psychiatric:Cooperative Constitutional Vital Signs, click to edit/add: Last Vital Signs Temp 97.8 F 06/02/25 02:50 Pulse 82 06/02/25 02:50 Resp 16 06/02/25 02:50 BP 154/98 H 06/02/25 02:50 Pulse Ox 98 06/02/25 02:50 O2 Del Method Room Air 06/02/25 02:50 Course Vital Signs Vital signs: Vital Signs Temperature 97.8 F 06/02/25 02:50 Pulse Rate 82 06/02/25 02:50 Respiratory Rate 16 06/02/25 02:50 Blood Pressure 154/98 H 06/02/25 02:50 Pulse Oximetry 98 06/02/25 02:50 Oxygen Delivery Method Room Air 06/02/25 02:50 Temperature 97.8 F 06/02/25 02:50 Pulse Rate 82 06/02/25 02:50 Respiratory Rate 16 06/02/25 02:50 Blood Pressure 154/98 H 06/02/25 02:50 Pulse Oximetry 98 06/02/25 02:50 Oxygen Delivery Method Room Air 06/02/25 02:50 Medical Decision Making [facility] Narrative Medical decision making narrative: He was given IM Toradol and prescribed Percocet and she will contact her dentist's office. Treatment diagnosis and follow-up were discussed with the patient. Differential Diagnosis Differential Diagnosis: Odontalgia, dental infection Discharge Plan Discharge Chief Complaint: Dental/Oral Clinical Impression: Odontalgia Patient Disposition: Home, Self-Care Time of Disposition Decision: 03:05 Condition: Good Mode of Transportation: Private Vehicle Prescriptions / Home Meds: New oxycodone-acetaminophen [Percocet] 5-325 mg tablet 1 tab PO Q6H PRN (Reason: pain) 4 Days Qty: 15 0RF No Action venlafaxine 37.5 mg capsule,extended release 24hr 37.5 mg PO DAILY alprazolam 0.5 mg tablet 0.5 mg PO BID clindamycin HCl 300 mg capsule 300 mg PO Q6H 10 Days Qty: 40 0RF acetaminophen-codeine 300-30 mg tablet 1 tab PO Q6H PRN (Reason: pain) 5 Days Qty: 20 0RF Print Language: Estonian Instructions: Toothache (ED) Referrals: VEGA RAM [Primary Care Provider, Family Practice] - 1 week
[2025-06-02] MEDS: KETOROLAC TROMETHAMINE 60 MG/2 ML VIAL IM (03:33)
--- OUTSIDE RECORDS SUMMARY | 2025-06-02 03:59 | XMS_ITS | CCD ---
Author Organization [facility] CliniSywi Care Team Providers Care Elementary Reading Specialist Name Role Phone YO, DR FERRARI Primary [...] PEREZ Consulting Unavailable [facility] [employer] Unavailable YoJerry murphy MD Primary Care Provider Jerry Ram MD Unavailable Jenniefr Arredondo Unavailable [phone] Vidya Vu NP Unavailable Little Johnson LPN Unavailable JENNIFER RODRIGUEZ Attending Unavailable HEMJENNIFER AVENDANO Attending Unavailable HEMJENNIFER AVENDANO Attending Unavailable VIDYA VU Attending Unavailable Allergies Allergy ClassificationReported Allergen(s)Allergy TypeDate of OnsetReaction(s) Facility (1 source)Amoxicillin / ClavulanateDrug Otdsnlp99-11-7322[facility] (20 sources)Amoxicillin-Pot ClavulanateDrug Zeidaoz02-63-2830DC[facility] Work Phone: (20 sources)DicyclomineDrug Tgdngye16-21-6803FueceuviwUTOX Healthcare (8 sources)tiZANidineDrug Cgrjvns05-13-6638HmrpuFPFP Healthcare Medications Current Medications MedicationDrug Class(es)DatesSig (Normalized)Sig [...] mg oral tablet (20 sources)BenzodiazepineStart: 02-13-2024 End: 52-52-3882kvut 1 tablet by mouth twice daily as needed for anxiety ALPRAZolam (Xanax) 0.5 MG tablet Indications: Adjustment disorder with anxiety Take 1 tablet (0.5 mg) by mouth 2 (two) times a day as needed for anxiety 60 tablet 05/20/2025 06/19/2025 Activeamoxicillin 875 mg / clavulanate 125 mg oral tablet (5 sources)Penicillin-class AntibacterialStart: 03-07-2025 End: 90-71-4156bjgg 1 tablet by mouth in the morningamoxicillin-clavulanate (Augmentin) 875-125 MG tablet Indications: Acute bronchitis, unspecified org anism Take 1 tablet (875 mg) by mouth in the morning and 1 tablet (875 mg) before bedtime. Do all this for 4 days. 8 tablet 03/07/2025 03/11/2025 Active Start: 02-27-2025 End: 19-57-1711yuhucauepzu-clavulanate (Augmentin) 875-125 MG tablet 02/27/2025 03/07/2025 Discontinued (Reorder)baclofen 10 mg oral tablet (4 sources)gamma-Aminobutyric Acid-ergic AgonistStart: 88-96-7026igah 1 tablet by mouth twice daily as needed for muscle spasmsbaclofen (Lioresal) 10 MG tablet Indications: Lumbar spondylosis Take 1 tablet (10 mg) by mouth 2 (two) times a day as needed for muscle spasms 60 tablet 2 03/07/2025 Activebetamethasone 0.5 mg/ml topical cream (20 sources)CorticosteroidStart: 02-71-7028lbeakqkufcjbv dipropionate 0.05 % cream Indications: Sun allergy Apply 1 application topically in the morning and 1 application before bedtime. 15 g 2 02/15/2024 Activedextromethorphan hydrobromide 15 mg / guaiFENesin 400 mg / pseudoephedrine hydrochloride 60 mg oraltablet (9 sources)alpha-Adrenergic Agonist, Uncompetitive K-hdharg-J-aspartate Receptor Antagonist, Sigma-1 AgonistStart: 13-33-2076ezux 1 tablet by mouth every six fvbyosxvftjgygxjwnam-WK-OW 60-15-400 MG tablet Indications: COVID Take 1 tablet by mouth every 6 (six) hours if needed (Cough) 28 tablet 01/17/2025 ActiveStart: 07-25-2024 End: 35-68-7955xfqdrnsbqdeuguc-DM-GG 60-15-400 MG tablet Indications: Nasal congestion , Acute cough Take 1 tabletby mouth in the morning and 1 tablet at noon and 1 tablet in the evening and 1 tablet before bedtime. Do all this for 10 days. 40 tablet 07/25/2024 08/04/2024 Activedicyclomine hydrochloride 10 mg oral capsule (6 sources)AnticholinergicStart: 02-15-2024 End: 31-89-0621dokt 1 capsule by mouth twice daily as neededdicyclomine (Bentyl) 10 MG capsule Indications: Irritable bowel syndrome with both constipation and diarrhea Take 1 capsule (10 mg) by mouth 2 (two) times a day as needed (Loose stools) 60 capsule 2 02/15/2024 06/13/2024 Discontinued (Side effects)[id number] 0.3 ml EPINEPHrine 1 mg/ml auto-injector (20 sources)alpha-Adrenergic Agonist, beta-Adrenergic Agonist, Catecholamine Start: 68-23-1065ESDIYNShkkg (Epipen) 0.3 MG/0.3ML injection syringe Indications: Allergy to honey bee venom Inject 0.3 mL (0.3 mg) as directed 1 (one) time for 1 dose Inject into upper leg. Call 911 after use. 12/20/2024 ActiveStart: 11-14-2024 End: 72-25-5492HQELJXEeopb (Epipen) 0.3 MG/0.3ML injection syringe Indications: Allergy to honey bee venom Inject 0.3 mL (0.3 mg) as directed Daily as needed for anaphylaxis Must be seen in ER following administration 0.6 mL 1 11/14/2024 11/14/2024 DiscontinuedStart: 02-15-2024 End: 52-25-7184RAVSSJLnzhu (Epipen) 0.3 MG/0.3ML injection syringe Indications: Allergy to honey bee venom Inject 0.3 mL (0.3 mg) as directed 1 (one) time for 1 dose Inject into upper leg. Call 911 after use. 2 each 1 11/14/2024 Active1.5 ml fremanezumab-vfrm 150 mg/ml prefilled syringe (20 sources)Start: 02-15-2024 End: 21-19-1709izzyer 1.5 mL by subcutaneous injection every 30 daysfremanezumab (Ajovy) 225 MG/1.5ML prefilled syringe Indications: Chronic migraine without aura without status migrainosus, not intractable Inject 1.5 mL (225 mg) under the skin every 30 (thirty) days1.5 mL 5 11/14/2024 Activeipratropium bromide 0.021 mg/actuat metered dose nasal spray (5 sources)AnticholinergicStart: 19-02-0730xxcpxsjujzz (Atrovent) 0.03 % nasal spray 02/27/2025 Activemeloxicam 15 mg oral tablet (8 sources)Nonsteroidal Anti-inflammatory DrugStart: 69-27-3658jwah 1 tablet by mouth once daily at mealtimemeloxicam (Mobic) 15 MG tablet Indications: Lumbar pain with radiation down both legs Take 1 tablet(15 mg) by mouth Daily Take with food 30 tablet 2 11/28/2024 ActivemethylPREDNISolone (1 source)CorticosteroidStart: 08-22-2024 End: 63-71-9218ocjonlVXEUDYTdrgyx (Medrol Dospak) 4 MG tablets Indications: Acute non-recurrent frontal sinusitis Follow schedule on package instructions 21 tablet 08/22/2024 08/29/2024 Activeondansetron 4 mg disintegrating oral tablet (5 sources)Serotonin-3 Receptor AntagonistStart: 91-24-3086msmtjfqrilu ODT (Zofran-ODT) 4 MG disintegrating tablet 02/27/2025 ActiverifAXIMin 550 mg oral tablet (9 sources)Rifamycin AntibacterialStart: 11-14-2024 End: 79-71-6944qtcm 1 tablet by mouth in the morning, [...] 42 tablet 11/14/2024 11/28/2024 ActiveStart: 06-13-2024 End: 16-54-8876ctcb 1 tablet by mouth in the morning, [...] (7 sources)Central alpha-2 Adrenergic AgonistStart: 11-14-2024 End: 46-48-4873dyBQRsjapl (Zanaflex) 4 MG tablet Indications: Spasm of muscle of lower back Take 1 tablet (4 mg) by mouth as needed at bedtime for muscle spasms for up to 14 days 14 tablet 11/14/2024 11/28/2024 Activeubrogepant 100 mg oral tablet (15 sources)Start: 97-61-5625Acjejniksv (Ubrelvy) 100 MG tablet Indications: Chronic migraine [...] following first dose 8 tablet 5 11/14/2024 Urrizn70 hr venlafaxine 37.5 mg extended release oral capsule (20 sources)Serotonin and Norepinephrine Reuptake InhibitorStart: 79-04-3840lkml 1 capsule by mouth once dailyvenlafaxine XR (Effexor XR) 37.5 MG 24 hr capsule Indications: Adjustment disorder with anxiety Take 1 capsule (37.5 mg) by mouth Daily 90 capsule 3 04/01/2025 ActiveStart: 51-68-7385hdfo 1 capsule by mouth once dailyvenlafaxine XR (Effexor XR) 75 MG 24 hr capsule Indications: Adjustment disorder with anxiety Take 1 capsule (75 mg) by mouth Daily 90 capsule 3 04/01/2025 ActiveStart: 10-19-2023 End: 60-27-4093glpo 1 capsule by mouth once dailyvenlafaxine XR (Effexor XR) 37.5 MG 24 hr capsule Indications: Adjustment disorder with anxiety Take 1 capsule (37.5 mg) by mouth Daily 90 capsule 3 04/19/2024 ActiveStart: 10-19-2023 End: 80-95-7623dgar 1 capsule by mouth once dailyvenlafaxine XR (Effexor XR) 75 MG 24 hr capsule Indications: Adjustment disorder with anxiety Take 1 capsule (75 mg) by mouth Daily 90 capsule 3 04/19/2024 Active Completed/Discontinued Medications MedicationDrug Class(es)DatesSig (Normalized)Sig (Original)Atogepant (Qulipta) 60 MG tablet (13 sources)Start: 06-13-2024 End: 84-30-5290hqra 1 tablet by mouth once dailyAtogepant (Qulipta) 60 MG tablet Indications: Chronic migraine without aura without status migrainosus, not intractable (CMS/HCC) Take 60 mg by mouth Daily 30 tablet 2 06/13/2024 11/14/2024 Discontinued (Cost of medication)Start: 36-75-8200bmkr 1 tablet by mouth once dailyAtogepant (Qulipta) 60 MG tablet Indications: Chronic migraine without aura without status migrainosus, not intractable (CMS/HCC) Take 60 mg by mouth Daily 30 tablet 2 06/13/2024 Activeazithromycin 250 mg oral tablet (9 sources)Macrolide AntimicrobialStart: 02-23-2025 End: 14-19-3934sfzzrtwrndob (Zithromax) 250 MG tablet TAKE 2 TABLETS by mouth today, THEN take 1 TABLET once a dayFOR the next 4 DAYS. 02/23/2025 03/07/2025 Discontinued (Therapy completed)Start: 07-25-2024 End: 33-25-0958aqfz 2 tablets by mouth once daily, then take 1 tablet by mouth once dailyazithromycin (Zithromax) 250 MG tablet Indications: Acute non- recurrent frontal sinusitis Take 2 tablets (500 mg) by mouth Daily for 1 day, THEN 1 tablet (250 mg) Daily for 4 days. 6 tablet 08/22/2024 08/27/2024 Active benzonatate 200 mg oral capsule (3 sources)Non-narcotic AntitussiveStart: 02-27-2025 End: 61-90-4360dmjhucgmjqd (Tessalon) 200 MG capsule 02/27/2025 03/07/2025 Discontinued (Other)fluconazole 150 mg oral tablet (17 sources)Azole AntifungalStart: 03-16-2024 End: 08-83-5168mkodbfpczql (Diflucan) 150 MG tablet Indications: Yeast infection Take 1 tablet , and if still withsymptoms after 3 days take 1 tablet 2 tablet 03/16/2024 11/14/2024 Discontinued (Therapy completed)saccharomyces boulardii 250 mg oral capsule (17 sources)Start: 02-15-2024 End: 23-04-0580yykd 1 capsule by mouth in the morningsaccharomyces boulardii (Florastor) 250 MG capsule Indications: Irritable bowel syndrome with both c onstipation and diarrhea Take 1 capsule (250 mg) by mouth in the morning and 1 capsule (250 mg) before bedtime. 60 capsule 5 02/15/2024 11/14/2024 Discontinued (Other)1 ml triamcinolone acetonide 40 mg/ml prefilled syringe (4 sources)CorticosteroidStart: 03-07-2025 End: 82-74-0750taygdawprudhz acetonide (Kenalog-40) injection 40 mgStart: 03-07-2025 End: 06-82-0846vhpyqa 40 mg by intramuscular injection once40 mg, Intramuscular, Once, On [place] 03/07/25 at 1545, For 1 dose Problems Active Problems Problem ClassificationProblemDateDocumented DateEpisodic/ChronicAcute bronchitis (2 sources)Acute bronchitis; Translations: [Acute bronchitis, unspecified] 61-48-3285SlrbwythIidmbjhsgd disorders (20 sources)Adjustment disorder with anxious mood; Translations: [Adjustment disorder with anxiety]Onset: 622993-74-6664IqjomsnKyilskx disorders (20 sources)Anxiety disorder, unspecified; Translations: [Panic disorder with agoraphobia]Onset: 869989-83-0300JrikgciLdsfhah obstructive pulmonary disease and bronchiectasis (20 sources)Chronic obstructive lung disease; Translations: [Chronic obstructive pulmonary disease, unspecified]Onset: 216775-26-7282QolpvweHjdvnhdhr of teeth and jaw (4 sources)Other specified disorders of teeth and supporting structures; Translations: [OTH SPEC DISORDERS TEETH SUPP STRCT]Onset: 13-21-7233XmgawqdzE Codes: Natural/environment (1 source)Exposure to other specified factors, initial encounter; Translations: [EXPOSURE OTHER SPEC FACTORS INITIAL]Onset: 85-90-2298PabhqnbnCifkxxiw; including migraine (20 sources)Migraine, unspecified, not intractable, without status migrainosus; Translations: [Migraine withoutaura, not refractory ]Onset: 04-01-2022 Resolved: 372729-91-1350DiyokwrSavpzliv; including migraine (3 sources)Headache; including migraine; Translations: [HEADACHE UNSPECIFIED] Onset: 39-94-9787Twxlb aftercare (1 source)Other half-way (current) drug therapy; Translations: [OTH SENIOR LIVING CURRENT DRUG THERAPY]Onset: 45-62-8908HwsodqgcWpcqk endocrine disorders (20 sources)Hypoglycemia; Translations: [Hypoglycemia, unspecified]Onset: 955137-55-7692EkwcrcwMsknw gastrointestinal disorders (20 sources)Irritable bowel syndrome; Translations: [Mixed irritable bowel syndrome]Onset: 157853-25-3629SdhzyvzLesyd gastrointestinal disorders (2 sources)Irritable bowel syndrome with diarrhea; Translations: [Irritable bowel syndrome with diarrhea]86-15-2895UnuhqdaTgwyd lower respiratory disease (2 sources)Cough; Translations: [Acute cough]67-19-8434VxqpdyktRgxiy nervous system disorders (20 sources)Carpal tunnel syndrome of left wrist; Translations: [Carpal tunnel syndrome, left upper limb]Onset: 722938-39-8807YdixejoFwwgd nervous system disorders (1 source)Other acute postprocedural pain; Translations: [OTHER ACUTE POSTPROCEDURAL PAIN]Onset: 04-40-5727GuopyjdgPxmet screening for suspected conditions (not mental disorders or infectious disease) (4 sources)Patient encounter status; Translations: [Encounter for screening for malignant neoplasm of colon]77-04-3813NkziapfuVuyfk upper respiratory disease (2 sources)Nasal congestion; Translations: [Nasal congestion]87-55-9989Kycizutm Other upper respiratory infections (3 sources)Acute frontal sinusitis; Translations: [Acute frontal sinusitis, unspecified]53-35-1313SljrtcgvHxulohhuzdj; intervertebral disc disorders; other back problems (10 sources)Lumbar spondylosis; Translations: [Spondylosis without myelopathy or radiculopathy, lumbar region]Onset: 489967-68-3082WjmbancMlgfpscgdvw; intervertebral disc disorders; other back problems (6 sources)Low back pain; Translations: [Spasm of muscle of lower back] 49-54-1928SrrhqgbkNfcqikvgo-related disorders (20 sources)Nicotine dependence, cigarettes, uncomplicated; Translations: [Nicotine dependence, unspecified, uncomplicated]Onset: ChronicSuperficial injury; contusion (1 source)Abrasion of oral cavity, initial encounter; Translations: [ABRASION ORAL CAVITY INITIAL ENCNTR]Onset: 50-01-0009PvyehtebGingoniufsrs (1 source)CONTACT W/AND (SUSP) EXPOS COVID-19; Translations: [CONTACT W/AND (SUSP) EXPOS COVID-19]Onset: 04-01-2022 Past or Other Problems Problem ClassificationProblemDateDocumented DateEpisodic/ChronicAllergic reactions (20 sources)Urticaria, unspecified; Translations: [Allergic contact dermatitis due to other agents]Onset: 97-43-3709SmrrierwHqyjjg of cervix (20 sources)Cervicovaginal cytology: High grade squamous intraepithelial lesion or carcinoma; Translations: [High grade squamous intraepithelial lesion on cytologic smear of cervix (HGSIL)]Onset: 911680-23-3127TuanhzkzQuhmaappbt associated with dizziness or vertigo (1 source)Dizziness and giddiness; Translations: [DIZZINESS AND GIDDINESS]Onset: 17-99-0981TddojtsuWyfudx and vomiting (4 sources)Nausea with vomiting, unspecified; Translations: [NAUSEA WITH VOMITING UNSPECIFIED]Onset: 02-79-7359XkjgilykFitgaabus of unspecified nature or uncertain behavior (20 sources)Thrombocytosis; Translations: [Thrombocytosis]Onset: 12-06-2022 94-33-0517DwnyzckbHdrge nervous system disorders (1 source)Paresthesia of skin; Translations: [PARESTHESIA OF SKIN]Onset: 65-72-7542YyoxszfcZfvbq skin disorders (3 sources)Rash and other nonspecific skin eruption; Translations: [RASH OTH NONSPECIFIC SKIN ERUPTION]Onset: 01-98-5003VebxpyrzBwyup skin disorders (4 sources)Generalized hyperhidrosis; Translations: [GENERALIZED HYPERHIDROSIS] Onset: 04-99-3000RnewbktsNipab upper respiratory infections (20 sources)Sinusitis; Translations: [Chronic sinusitis, unspecified]Onset: 12-06-2022 Resolved: 248380-44-4976AqzmyptAnulptfbl by nonmedicinal substances (4 sources)Toxic effect of venom of bees, accidental (unintentional), initial encounter; Translations: [TOXIC EFF VENOM BEES ACC INIT ENC]Onset: 02-02-2022 EpisodicResidual codes; unclassified (20 sources)Family history of breast cancer; Translations: [Family history of malignant neoplasm of breast]Onset: 674038-68-9282WwzgjgraDepry infection (1 source)Viral infection, unspecified; Translations: [VIRAL INFECTION UNSPECIFIED]Onset: 55-00-8866Dxjlcjgo Results Test NameValueInterpretationReference RangeFacilityXR LUMBAR SPINE MIN 4Von 82-74[place]55[place] [address] XRay Report Signed Patient: MARION MERIDA MR#: [id number] : 1980 Acct:[id number] Age/Sex: 44 / F ADM Date: 11/27/24 Loc: RAD Attending Dr: Non-Staff Physician M.DArcenio Ordering Physician: JENNIFER RODRIGUEZ Date of Service: 11/27/24 Procedure(s): XR lumbar spine min 4V Accession Number(s): [id number] cc: JERRY RAM ; JENNIFER RODRIGUEZ [place] [id number] Patient Name: MARION MERIDA MRN: [id number] date: 1980 Sex: F Assigned Patient Location: [facility] Current Patient Location: [facility] Accession/Order Number: [id number] Exam Date: 11/27/2024 12:03 Report Date: 11/27/2024 [...] 11/27/2024 12:06 PM Dictation Location: [place] [address] Electronically authenticated by: [id number] Y Date: 11/27/2024 12:06 Dictated By: Jennifer Reyez M.D. Signed By: 11/27/24 1208 DD/ 1206 TD/TT: Dialysis Chief Equipment Technician:TBHRadiology, Radiologist, - 11/27/2024 [place] [address] XRay Report Signed Patient: MARION MERIDA MR#: [id number] : 1980 Acct:[id number] Age/Sex: 44 / F ADM Date: 11/27/24 Loc: DEEP Attending Dr: Non-Staff Physician Denzel Ordering Physician: JENNIFER RODRIGUEZ Date of Service: 11/27/24 Procedure(s): XR lumbar spine min 4V Accession Number(s): [id number] cc: JERRY RAM ; JENNIFER RODRIGUEZ [address] [address] Patient Name: MARION MERIDA MRN: [id number] date: 1980 Sex: F Assigned Patient Location: [facility] Current Patient Location: [facility] Accession/Order Number: [id number] Exam Date: 11/27/2024 12:03 Report Date: 11/27/2024 [...] 11/27/2024 12:06 PM Dictation Location: [place] [address] Electronically authenticated by: [id number] Y Date: 11/27/2024 12:06 Dictated By: Jennifer Reyez M.D. Signed By: 11/27/24 1208 DD/ 1206 TD/TT: Dialysis Chief Equipment Technician: MEGAN HealthcareRadiology Study observation (narrative)[facility]OM[facility] HealthcareXR LUMBAR SPINE MIN 4VOrdered By: Radiologist Radiology on 91-96-2283[facility] Work Phone: GROUP A STREP CULTUREon 07-21-2022S. pyogenes Ag Ql (Unsp spec)Culture Observations: NEGATIVE FOR GROUP A STREPTOCOCCUS.NormalThe [facility] HospitalComment on above: Performed By: #### SSCRN, GRASTCX #### [facility] [address] [place] [address] Dr. Sharonda Murphy AND B AGon 60-67-7639TUKEOZYAPOUBJMedina HospitalComment on above:Result Comment: Negative for Flu A protein angiten. Infection due to Flu A cannot be ruled out. FluA angiten in the sample may be below the detection limit of the test.Performed By: #### INFLUAB #### [facility] [address] [place] [address] Dr. Sharonda TreadwellUBNEGHSGREGORY [facility] on above: Result Comment: Negative for Flu B protein antigen. Infection due to Flu B cannot be ruled out. FluB antigen in the sample may be below the detection limit of the test.Performed By: #### INFLUAB #### [facility] [address] [place] [address] Dr. Sharonda Murphy AGNegativeNormalNEGATIVE SEE COMMENTThe [facility] on above:Performed By: #### INFLUAB #### [facility] [address] [place] [address] Dr. Sharonda Issa AGNegativeNormalNEGATIVE SEE COMMENTThe [facility] HospitalComment on above:Performed By: #### INFLUAB #### [facility] [address] [place] [address] Dr. Sharonda WhiteSTREPT SCREENon 15-37-7932MQUDD SCREEN ANegativeNormalNEGATIVEThe [facility] HospitalComment on above:Performed By: #### SSCRN, GRASTCX #### [facility] [address] [place] [address] Dr. Sharonda WhiteXR CHEST 2 Von 07-84-7080NR CHEST 2 VEXAMINATION: XR CHEST 2 V [...] Electronically authenticated by: TRAVIS MODI Date: 2022-06-03 15:10NoW[facility] AUTO DIFFon 77-63-5932OKJX #0.1 103/ulNormal0.0-0.1The [facility] HospitalComment on above:Performed By: #### CBC #### [facility] [address] [place] [address] Dr. Sharonda WhiteBasophils/100 WBC (Bld)0.9 %Normal0.2-2.0The [facility] Comment on above:Performed By: #### CBC #### [facility] [address] [place] [address] Dr. Sharonda Story #0.2 103/ulNormal0.0-0.7The [facility] HospitalComment on above: Performed By: #### CBC #### [facility] [address] [place] [address] Dr. Sharonda Zaidiosinophils/100 WBC (Bld)1.7 %Normal0.9-7.0The [facility] Comment on above:Performed By: #### CBC #### [facility] [address] [place] [address] Dr. Sharonda Zaidirythrocyte distribution width (RBC) [Ratio]13.3 %Vdelda36.0-15.0 The [facility] HospitalComment on above:Performed By: #### CBC #### [facility] [address] [place] [address] Dr. Sharonda WhiteHematocrit (Bld) [Volume fraction]39.6 %Qglwny65.0-48.0The [facility] HospitalComment on above:Performed By: #### CBC #### [facility] [address] [place] [address] Dr. Sharonda WhiteHemoglobin (Bld) [Mass/Vol]13.5 g/qCXdlssh57.0-16.0The [facility] HospitalComment on above:Performed By: #### CBC #### [facility] [address] [place] [address] Dr. Sharonda Prabhakar #0.04 10e3/ulCritically high0.00-0.03The [facility] Comment on above:Performed By: #### CBC #### [facility] [address] [place] [address] Dr. Sharonda Prabhakar %0.4 %Normal0.0-0.5The [facility] HospitalComment on above: Performed By: #### CBC #### [facility] [address] [place] [address] Dr. Sharonda LopezH #2.3 103/ulNormal1.2-3.8The [facility] HospitalComment on above:Performed By: #### CBC #### [facility] [address] [place] [address] Dr. Sharonda Moncadamphocytes/100 WBC (Bld)23.0 %Wfktuz86.5-60.0The [facility] HospitalComment on above:Performed By: #### CBC #### [facility] [address] [place] [address] Dr. Sharonda Herrera DIFF REQNONormalThe [facility] HospitalComment on above: Performed By: #### CBC #### [facility] [address] [place] [address] Dr. Sharonda Etienne (RBC) [Entitic mass]30.1 szSwybjj04.7-34.0The [facility] HospitalComment on above:Performed By: #### CBC #### [facility] [address] [place] [address] Dr. Sharonda Etienne (RBC) [Mass/Vol]34.1 g/nUTktqlg26.9-35.2The [facility] HospitalComment on above:Performed By: #### CBC #### [facility] [address] [place] [address] Dr. Sharonda Etienne (RBC) [Entitic vol]88.2 pDKtenhk28.0-99.0The [facility] HospitalComment on above:Performed By: #### CBC #### [facility] [address] [place] [address] Dr. Sharonda Vaughn #0.7 103/ulNormal0.3-0.8The [facility] HospitalComment on above:Performed By: #### CBC #### [facility] [address] [place] [address] Dr. Sharonda Berumenocytes/100 WBC (Bld)7.3 %Normal1.7-12.0[facility] Comment on above:Performed By: #### CBC #### [facility] [address] [place] [address] Dr. Sharonda Ashraf #6.6 103/ulCritically high1.4-6.5The [facility] Comment on above:Performed By: #### CBC #### [facility] [address] [place] [address] Dr. Sharonda Lawsutrophils/100 WBC (Bld)66.7 %Lvusvh67.0-75.0The [facility]ome[facility] HospitalComment on above:Performed By: #### CBC #### [facility] [address] [place] [address] Dr. Sharonda WhitePlatelet mean volume (Bld) [Entitic vol]9.2 fLCritically low 9.5-13.5The [facility] HospitalComment on above:Performed By: #### CBC #### [facility] [address] [place] [address] Dr. Sharonda WhitePLT366 103/zpCxdwpv163-859Zgh [facility] HospitalComment on above: Performed By: #### CBC #### [facility] [address] [place] [address] Dr. Sharonda WhiteRBC4.49 106/ulNormal4.20-5.40The [facility] HospitalComment on above:Performed By: #### CBC #### [facility] [address] [place] [address] Dr. Sharonda WhiteWBC9.9 103/ulNormal4.0-11.0The [facility] HospitalComment on above: Performed By: #### CBC #### [facility] [address] [place] [address] Dr. Sharonda WhitePROF CHEM 8 (BAS METB)on 14-74-4380Ebhuk gap [Moles/Vol]12.2 mmol/LNormalGlenbeigh HospitalComment on above:Performed By: #### BMP #### [facility] [address] [place] [address] Dr. Sharonda WhiteCalcium [Mass/Vol]8.0 mg/dLCritically low8.5-10.1The [facility] HospitalComment on above:Performed By: #### BMP #### [facility] [address] [place] [address] Dr. Sharonda WhiteChloride [Moles/Vol]108 mmol/LCritically hmdc57-804Sja [facility] HospitalComment on above:Performed By: #### BMP #### [facility] [address] [place] [address] Dr. Sharonda WhiteCO2 [Moles/Vol]24.2 mmol/UEokoiy53.0-32.0The [facility] Comment on above:Performed By: #### BMP #### [facility] [address] [address] [address] Sharonda WhiteCreatinine [Mass/Vol]0.51 mg/dLCritically low0.55-1.02The [facility] HospitalComment on above:Performed By: #### BMP #### [facility] [address] [address] [address] Mcdonough ChangEGFR-AF CONGOLESE>60Normal>=60The [facility] HospitalComment on above:Performed By: #### BMP #### [facility] [address] [address] [address] Sharonda ZaidiGFR-NON AF CONGOLESE>60Normal>=60The [facility] HospitalComment on above:Performed By: #### BMP #### [facility] [address] [place] [address] Dr. Sharonda WhiteGlucose [Mass/Vol]83 mg/jDNcsovv08-882Gzc [facility] Comment on above:Performed By: #### BMP #### [facility] [address] [place] [address] Dr. Sharonda WhitePotassium [Moles/Vol]3.4 mmol/LCritically low3.5-5.1The [facility] HospitalComment on above:Performed By: #### BMP #### [facility] [address] [place] [address] Dr. Sharonda WhiteSodium [Moles/Vol]141 mmol/VAlnmhy981-937Sqk [facility] Comment on above:Performed By: #### BMP #### [facility] [address] [place] [address] Dr. Sharonda WhiteUrea nitrogen [Mass/Vol]13.0 mg/dLNormal7.0-18.0The [facility] HospitalComment on above:Performed By: #### BMP #### [facility] [address] [place] [address] Dr. Sharonda Dill nitrogen/Creatinine [Mass ratio]25.5 mg/mgNormalThe [facility] HospitalComment on above:Performed By: #### BMP #### [facility] [address] [place] [address] Dr. Sharonda Claudio AUTO DIFFon 19-44-2550PCKN #0.1 103/ulNormal0.0-0.1The [facility] HospitalComment on above:Performed By: #### CBC #### [facility] [address] [place] [address] Dr. Sharonda WhiteBasophils/100 WBC (Bld)1.2 %Normal0.2-2.0The [facility] Comment on above:Performed By: #### CBC #### [facility] [address] [place] [address] Dr. Sharonda Story #0.3 103/ulNormal0.0-0.7The [facility] HospitalComment on above: Performed By: #### CBC #### [facility] [address] [place] [address] Dr. Sharonda Zaidiosinophils/100 WBC (Bld)2.9 %Normal0.9-7.0The [facility] Comment on above:Performed By: #### CBC #### [facility] [address] [place] [address] Dr. Sharonda Zaidirythrocyte distribution width (RBC) [Ratio]13.7 %Tdwshn41.0-15.0 The [facility] HospitalComment on above:Performed By: #### CBC #### [facility] [address] [place] [address] Dr. Sharonda WhiteHematocrit (Bld) [Volume fraction]38.5 %Yldmhf38.0-48.0The [facility] HospitalComment on above:Performed By: #### CBC #### [facility] [address] [place] [address] Dr. Sharonda WhiteHemoglobin (Bld) [Mass/Vol]12.9 g/wNGoymna35.0-16.0The [facility] HospitalComment on above:Performed By: #### CBC #### [facility] [address] [place] [address] Dr. Sharonda Prabhakar #0.02 10e3/ulNormal0.00-0.03The [facility] on above:Performed By: #### CBC #### [facility] [address] [address] [address] Sharonda Prabhakar %0.2 %Normal0.0-0.5The [facility] HospitalComascension [facility] on above: Performed By: #### CBC #### [facility] [address] [address] [address] Sharonda Salguero #2.8 103/ulNormal1.2-3.8The [facility] HospitalComascension [facility] on above:Performed By: #### CBC #### [facility] [address] [place] [address] Dr. Sharonda Lopezhocytes/100 WBC (Bld)30.7 %Pctcca02.5-60.0The [facility] on above:Performed By: #### CBC #### [facility] [address] [place] [address] Dr. Sharonda Herrera DIFF REQNONormalThe [facility] HospitalComment on above: Performed By: #### CBC #### [facility] [address] [place] [address] Dr. Sharonda Vallecillo (RBC) [Entitic mass]30.4 jgOkdsqh72.7-34.0The [facility] on above:Performed By: #### CBC #### [facility] [address] [place] [address] Dr. Sharonda Etienne (RBC) [Mass/Vol]33.5 g/cXLtbxgt55.9-35.2The [place] [facility] Hospitalment on above:Performed By: #### CBC #### [facility] [address] [place] [address] Dr. Sharonda Etienne (RBC) [Entitic vol]90.6 dGLmhqgm34.0-99.0The [facility] on above:Performed By: #### CBC #### [facility] [address] [place] [address] Dr. Sharonda Vaughn #0.9 103/ulCritically high0.3-0.8The [facility] Comment on above:Performed By: #### CBC #### [facility] [address] [address] [address] Sharonda Berumenocytes/100 WBC (Bld)9.7 %Normal1.7-12.0The [facility] Comment on above:Performed By: #### CBC #### [facility] [address] [place] [address] Dr. Sharonda LawsUT #5.0 103/ulNormal1.4-6.5The [facility] HospitalComment on above:Performed By: #### CBC #### [facility] [address] [place] [address] Dr. Sharonda Lawsutrophils/100 WBC (Bld)55.3 %Lzsfay40.0-75.0The [facility] HospitalComment on above:Performed By: #### CBC #### [facility] [address] [place] [address] Dr. Sharonda WhitePlatelet mean volume (Bld) [Entitic vol]9.3 fLCritically low 9.5-13.5The [facility] HospitalComment on above:Performed By: #### CBC #### [facility] [address] [place] [address] Dr. Sharonda WhitePLT353 103/fgJwpesj187-885Gkt [facility] HospitalComment on above: Performed By: #### CBC #### [facility] [address] [place] [address] Dr. Sharonda WhiteRBC4.25 106/ulNormal4.20-5.40The [facility] HospitalComment on above:Performed By: #### CBC #### [facility] [address] [place] [address] Dr. Sharonda WhiteWBC9.1 103/ulNormal4.0-11.0The [facility] HospitalComment on above: Performed By: #### CBC #### [facility] [address] [place] [address] Dr. Sharonda Duttonvid-19 PCR (CVDTBH)on 43-38-6969YPHQ-CoV-2 (COVID-19) RNA EZIO+probe Ql (Unsp spec)Not detectedNormalNOT DETECTEDThe [facility] Comment on above:Result Comment: When diagnostic testing [...] for this test is supported by the Technical Product Manager of Health and Human Service's declaration that [...] longer be used).Performed By: #### CVDTBH #### [facility] [address] [place] [address] Dr. Sharonda Mckeon A AND B AGon 01-84-0628NYZDDOYJP A AGNegativeNormal NEGATIVE SEE COMMENTThe [facility] HospitalComment on above:Performed By: #### INFLUAB #### [facility] [address] [place] [address] Dr. Sharonda WhiteINFLBABAR B AGNegativeNormalNEGATIVE SEE COMMENTThe [facility] HospitalComment on above:Performed By: #### INFLUAB #### [facility] [address] [place] [address] Dr. Sharonda WhiteINTERNAL CONTROLSWithin Normal LimitsNormalWithin Normal Limits The [facility] HospitalComment on above:Performed By: #### INFLUAB #### [facility] [address] [place] [address] Dr. Sharonda WhitePROF 14(COMP METB)on 64-89-1700Vfygiue [Mass/Vol]3.1 g/dL Critically low3.4-5.0The [facility] HospitalComment on above:Performed By: #### CMP #### [facility] [address] [address] [address] Sharonda WhiteAlbumin/Globulin [Mass ratio]0.9 {ratio}NormalThe [facility] HospitalComment on above:Performed By: #### CMP #### [facility] [address] [address] [address] Sharonda WoodsP [Catalytic activity/Vol]95 U/APqkrpb18-647Kzi [facility] HospitalComment on above:Performed By: #### CMP #### [facility] [address] [address] [address] Sharonda WoodsT [Catalytic activity/Vol]17 U/KKmxmvn27-42Vgj [facility] HospitalComment on above:Performed By: #### CMP #### [facility] [address] [place] [address] Dr. Sharonda Trammellon gap [Moles/Vol]13.5 mmol/LNormalThe [facility] Comment on above:Performed By: #### CMP #### [facility] [address] [place] [address] Dr. Shaornda WhiteAST [Catalytic activity/Vol]13 U/LCritically kdj80-57Zea [facility] HospitalComment on above:Performed By: #### CMP #### [facility] [address] [place] [address] Dr. Sharonda WhiteCalcium [Mass/Vol]7.9 mg/dLCritically low8.5-10.1The [facility] HospitalComment on above:Performed By: #### CMP #### [facility] [address] [place] [address] Dr. Sharonda WhiteChloride [Moles/Vol]107 mmol/KSstuag34-637Qll [facility] Comment on above:Performed By: #### CMP #### [facility] [address] [place] [address] Dr. Sharonda WhiteCO2 [Moles/Vol]22.9 mmol/MUqqwyp89.0-32.0The [facility] Comment on above:Performed By: #### CMP #### [facility] [address] [place] [address] Dr. Sharonda WhiteCreatinine [Mass/Vol]0.63 mg/dLNormal0.55-1.02The [facility] HospitalComment on above:Performed By: #### CMP #### [facility] [address] [place] [address] Dr. Sharonda ZaidiGFR-AF CONGOLESE>60Normal>=60The [facility] HospitalComment on above:Performed By: #### CMP #### [facility] [address] [place] [address] Dr. Sharonda ZaidiGFR-NON AF CONGOLESE>60Normal>=60The [facility] HospitalComment on above:Performed By: #### CMP #### [facility] [address] [place] [address] Dr. Sharonda WhiteGlobulin (S) [Mass/Vol]3.3 g/dLNormalThe [facility] HospitalComment on above:Performed By: #### CMP #### [facility] [address] [place] [address] Dr. Sharonda WhiteGlucose [Mass/Vol]119 mg/dLCritically dhmb79-508Quz [facility] HospitalComment on above:Performed By: #### CMP #### [facility] [address] [place] [address] Dr. Sharonda WhitePotassium [Moles/Vol]3.4 mmol/LCritically low3.5-5.1The [facility] HospitalComment on above:Performed By: #### CMP #### [facility] [address] [place] [address] Dr. Sharonda WhiteProtein [Mass/Vol]6.4 g/dLNormal6.4-8.2The [facility] Comment on above:Performed By: #### CMP #### [facility] [address] [place] [address] Dr. Sharonda WhiteSodium [Moles/Vol]140 mmol/NGryvce372-327Lqa [facility] Comment on above:Performed By: #### CMP #### [facility] [address] [place] [address] Dr. Yilan ChangTBIL<0.3Zwhrdn5.2-1.0The [facility] HospitalComment on above: Performed By: #### CMP #### [facility] [address] [place] [address] Dr. Sharonda Dill nitrogen [Mass/Vol]8.0 mg/dLNormal7.0-18.0[facility]igh HospitalComment on above:Performed By: #### CMP #### [facility] [address] [address] [address] Sharonda Dill nitrogen/Creatinine [Mass ratio]12.7 mg/mgNormalThe [facility] HospitalComment on above:Performed By: #### CMP #### [facility] [address] [place] [address] Dr. Sharonda Hernadez - SUREPATH-FPGS AND HPVon 83-91-8580TNATAYAL INFORMATION:None givenNormalNorthern Missouri Medical SpecialistComment on above:Order Comment: [facility] Testing performed at: [employer]-[address], [address], Order Entry Technician: Greg Barron MD Testing performed at: [facility] ([employer])[address], [address], Order Entry Technician: Malcolm Hamilton MD [facility] Collection Date/Time: [facility] Results Received Date/Time: [facility] Reported Date/Time: [id number] Comment: [QA]Performed By: #### [id number] #### [facility] Default [address] [place] [address]ZISTRIOZQD NOTENormalNorthern Day Kimball HospitalComment on above:Order Comment: [facility] Testing performed at: [facility], [address] [place] [address], [phone], Order Entry Technician: Greg Barron MD Testing performed at: [facility], [facility] ([employer])[address], [address], Order Entry Technician: Malcolm Hamilton MD [facility] Collection Date/Time: [facility] Results Received Date/Time: [facility] Reported Date/Time: [id number] Comment: EXPLANATORY NOTE: The Pap is a screening test for cervical cancer. It is not a diagnostic test and is subject to false negative and false positive results. It is most reliable when a satisfactory sample, regularly obtained, is submitted with relevant clinical findings and history, and when the Pap result is evaluated along with historic and current clinical information. [QAC]Performed By: #### [id number] #### [facility] Default [address] [place], [place] [address]EKXWWOK:This Pap test has been evaluated with computer assisted technology.[facility] Medical SpecialistComment on above:Order Comment: [facility] Testing performed at: [employer], [employer], [address], Order Entry Technician: Greg Barron MD Testing performed at: [facility] ([employer])[facility], [address] [place] [address], [address], Order Entry Technician: Malcolm Hamilton MD [facility] Collection Date/Time: [facility] Results Received Date/Time: [facility] Reported Date/Time: Comment: [QAC]Performed By: #### [id number] #### [facility] Default [address] [place], [place] [address]ZWNGSPEBSJNGRJXY:[facility] CENTERNoUniversity [facility] Architecture Technician Comment on above:Order Comment: [facility] Testing performed at: [employer], [facility], [address] [place] [address], [phone], Order Entry Technician: Greg Barron MD Testing performed at: [facility] ([employer])[facility], [address] [place] [address], [address], Order Entry Technician: Malcolm Hamilton MD [facility] Collection Date/Time: [facility] Results Received Date/Time: [facility] Reported Date/Time: [id number] Comment: TNG, CT(ASCP) For informational purposes: All Cytology specimens are processed and screened at [facility]. [address] [place] [address] [[facility]]Performed By: #### [id number] #### [facility] Default [address] [place], [place] [address]QAR mRNA E6/E7, SUREPATH VIALNot detectedNormalNOT DETECTED [facility] HospitalComment on above:Order Comment: [facility] Testing performed at: [employer], [address], Order Entry Technician: Greg Barron MD Testing performed at: [facility], [facility] ([facility])[address], [address], Order Entry Technician: Malcolm Hamilton MD [facility] Collection Date/Time: [facility] Results Received Date/Time: [facility] Reported Date/Time: Comment: Methodology: Service Superintendent-Mediated Amplification This assay detects E6/E7 viral messenger RNA (mRNA) from 14 high-risk HPV types (16,18,31,33,35,39,45,51,52,56,58,59,66,68). The analytical performance characteristics of this assay have been determined by [employer]. The modifications have not been cleared or approved by the FDA. This assay has been validated pursuant to the CLIA regulations and is used for clinical purposes. For additional information, please refer to http://education.W[employer]/faq/QEN553z8 (This link if provided for information/ educational purposes only.) [O6K]Performed By: #### [id number] #### [facility] Default [address] [place], [place] [address]PSZBFIXVBOXYTV/RESULT:NegativeNormalNorthern Day Kimball HospitalComment on above:Order Comment: [facility] Testing performed at: [employer]-[address], [address], Order Entry Technician: Greg Barron MD Testing performed at: [facility], [facility] ([employer])[facility], [address] [place] [address], [address], Order Entry Technician: Malcolm Hamilton MD [facility] Collection Date/Time: [facility] Results Received Date/Time: [facility] Reported Date/Time: [id number] Comment: [QAC]Performed By: #### [id number] #### [facility] Default [address] [place], [place] [address]JNW:None givenNormalNorthern Day Kimball HospitalComascension borg[facility] hospital on above:Order Comment: [facility] Testing performed at: [facility], [address] [place] [address], [address], Order Entry Technician: Greg Barron MD Testing performed at: [facility] ([facility], [address] [place] [address], [address], Order Entry Technician: Malcolm Hamilton MD [facility] Collection Date/Time: [facility] Results Received Date/Time: [facility] Reported Date/Time: [id number] Comment: [QAC]Performed By: #### [id number] #### [facility] Default [address] [place], [place] [address]IZHK. BX:None givenNormalNorthern Day Kimball HospitalComascension borg[facility] le[facility] hospital on above:Order Comment: [facility] Testing performed at: [employer], [facility], [address] [place] [address], [address] [place] [address], [address], Order Entry Technician: Greg Barron MD Testing performed at: [facility] ([employer])[facility], [address] [place] [address], [address], Order Entry Technician: Malcolm Hamilton MD [facility] Collection Date/Time: [facility] Results Received Date/Time: [facility] Reported Date/Time: [id number] Comment: [QAC]Performed By: #### [id number] #### [facility] Default [address] [place], [place] [address]MOYO. PAP:None givenNormalNorthern Day Kimball HospitalComment on above:Order Comment: [facility] Testing performed at: [facility] TechnologiesHighlighterSt[facility], [address] [place] [address], [address] [place] [address], [address] [place] [address], Order Entry Technician: Greg Barron MD Testing performed at: [facility], [facility] ([employer])[facility], [address] [place] [address], [address], Order Entry Technician: Malcolm Hamilton MD [facility] Collection Date/Time: [facility] Results Received Date/Time: [facility] Reported Date/Time: [id number] Comment: [QAC]Performed By: #### [id number] #### [facility] Default [address] [place], [place] [address]DUVCFS:None givenNormalNorthern Day Kimball HospitalComment on above:Order Comment: [facility] Testing performed at: [facility] TechnologiesHigh[facility]ighterSt[facility], [address] [place] [address], [address] [place] [address], [address] [place] [address], Order Entry Technician: Greg Barron MD Testing performed at: [facility], [facility] ([employer])[address], [address], Order Entry Technician: Malcolm Hamilton MD [facility] Collection Date/Time: [facility] Results Received Date/Time: [facility] Reported Date/Time: [id number] Comment: [QAC]Performed By: #### [id number] #### [facility] Default [address] [place] [address] Vital Signs Date TimeVital SignValuePerforming YilgioubjUomueerf30-65-8172 15:16-0400Body zyfyds515.6 cmJennifer LAWS Work Phone: [facility] SystemsBuizuplkgo57-46-6821 15:16-0400Body mass index (BMI) [Ratio]24.89 kg/c7ShmeqJennifer LAWS Work Phone: [facility] SystemsBsnthgowwt86-23-0285 15:16-0400Body temperature 98.29 [degF]Jennifer Hemmer PA Work Phone: [facility] InstituteNqbajnyuly19-97-6244 15:16-0400Body ohqrwp76.77 kgSonuen Hemmer PA Work Phone: [facility] InstituteUugkheyxbg45-38-5835 15:16-0400Diastolic blood kgyxzxcm87 mm[Hg]Jennifer Hemmer PA Work Phone: [facility] InstituteFxovvkgbaq61-55-4155 15:16-0400Heart rate94 /min Jennifer Hemmer PA Work Phone: [facility] InstituteZaffwrkzxx76-04-7317 15:16-0400Respiratory rate16 /minKaren Hemmer PA Work Phone: [place] [address]Enaqnyyuwy86-42-5313 15:16-1018LwS4% (BldA) [Mass fraction]96 %Jennifer Hemmer PA Work Phone: [facility] InstituteNcvjisljcy22-99-4366 15:16-0400Systolic blood kkruyaae760 mm[Hg]Jennifer Hemmer PA Work Phone: [facility] InstituteAxeoozuwde43-21-8215 10:59-0400Body xyhqre579.6 cmKaren Hemmer PA Work Phone: [facility] InstituteEnnyfbzujb82-69-3066 10:59-0400Body mass index (BMI) [Ratio]24.58 kg/x1Umgjc Hemmer PA Work Phone: [facility] InstituteBusyvcplgm65-76-3815 10:59-0400Body .95 kgKaren Hemmer PA Work Phone: [facility] InstituteQznbqthnjd52-21-8562 10:59-0400Diastolic blood rhmobzvp87 mm[Hg]Jennifer Hemmer PA Work Phone: [facility] InstituteMkstflbcba65-60-0034 10:59-0400Heart rate82 /min Jennifer Hemmer PA Work Phone: [facility] InstituteRitasbtlhy00-73-4718 10:59-0400Respiratory rate16 /minKaren Hemmer PA Work Phone: [phone] [place], [place] [address]Tewfohwyhs43-09-5484 10:59-9602XzS0% (BldA) [Mass fraction]97 %Jennifer Rodriguez PA Work Phone: [facility] SystemsLwfvdeacgs05-50-7857 10:59-0400Systolic blood mm[Hg]Jennifer Rodriguez PA Work Phone: [facility] SystemsSegbxyeecl72-40-0456 14:34-0500Body .6 cmVidya Vu TRANSPORTATION CLERK Work Phone: [facility] SystemsNvimkfnpym62-20-2126 14:34-0500Body mass index (BMI) [Ratio]24.85 kg/m2Vidya Vu TRANSPORTATION CLERK Work Phone: [facility] SystemsQlmmktvkol42-27-2963 14:34-0500Body ipqttw97.68 kgVidya Vu TRANSPORTATION CLERK Work Phone: [facility] SystemsAkmbxjqauc73-31-9069 14:34-0500Diastolic blood vvjcxyby36 mm[Hg]Vidya uV TRANSPORTATION CLERK Work Phone: [facility] InstituteUjucvrkeoc00-27-0618 14:34-0500Heart rate76 /min Vidya Vu TRANSPORTATION CLERK Work Phone: [facility] SystemsYcjdknoegu72-13-4053 14:34-0500Respiratory rate17 /minKierika Vu TRANSPORTATION CLERK Work Phone: [facility] InstituteRjxwyhofxs41-39-6899 14:34-0296PuT9% (BldA) [Mass fraction]98 %Vidya Vu TRANSPORTATION CLERK Work Phone: [facility] SystemsOhsscmfggt32-71-6723 14:34-0500Systolic blood dutffgig342 mm[Hg]Vidya Vu TRANSPORTATION CLERK Work Phone: [facility] SystemsEqhqfsebdb87-28-0651 10:56-0500Body mass index (BMI) [Ratio]24.07 kg/k0VnrszJennifer Rodriguez PA Work Phone: [facility] SystemsIbmbtuegod96-20-3543 10:56-0500Body nilwnm32.59 kgJennifer Rodriguez PA Work Phone: [facility] SystemsDiriumzapg12-96-8142 10:56-0500Diastolic blood xgdnwibi19 mm[Hg]Jennifer Rodriguez PA Work Phone: [facility] SystemsUxsbndtqwt25-96-3709 10:56-0500Heart rate79 /min Jennifer Rodriguez PA Work Phone: [facility] SystemsWrahfcjpzv31-96-8591 10:56-0500Respiratory rate16 /minJennifer Rodriguez PA Work Phone: noP[facility] SystemsVbiyovpsya30-93-4214 10:56-2686DoP6% (BldA) [Mass fraction]99 %Jennifer Rodriguez PA Work Phone: noPem[facility] SystemsQppgtxyamp69-33-1687 10:56-0500Systolic blood dmyqpzrp312 mm[Hg]Jennifer Rodriguez PA Work Phone: [facility] Encounters Encounter DateEncounter TypeCare ProviderFacilityStart: 05-20-2025 End: 51-60-2981JoqkogOftoj M Alda MD Work Phone: [facility] [place] [facility] MedinceComment on above:Adjustment disorder with anxietyStart: 04-12-2025 End: 91-86-7282OklccgKfusu M Alda MD Work Phone: [facility] [place] [facility]ado Family MedicineComment on above: Adjustment disorder with anxietyStart: 03-07-2025 End: 21-49-5159neeiugpnevWQCNW M HEMMERNot AvailableStart: 03-07-2025 End: 77-75-6268Wxppsa outpatient visit 25 minutesJennifer LAWS Work Phone: [facility] [place] [facility] MedinceComment on above:Acute bronchitis, unspecified organism (Primary Dx); Chronic obstructive pulmonary disease, unspecified COPD type (HCC); Lumbar spondylosisStart: 03-07-2025 End: 36-50-5172Abbmba Elidia LAWS Work Phone: [facility] [place] [facility] MedinceStart: 03-07-2025 End: 12-39-4304Vkwwus Elidia LAWS Work Phone: [facility] [place] [facility] MedinceStart: 02-26-2025 End: 57-96-9420Nwrmahrxu encounterLittle Johnson LPN Work Phone: [facility] POPULATION HEALTHStart: 01-28-2025 End: 23-71-6513RanbiaVztbn M Alda MD Work Phone: [facility] CI FMComment on above:Adjustment disorder with anxietyStart: 12-28-2024 End: 99-14-8638IpoctrUvvic M Alda MD Work Phone: [facility] CI FMComment on above:Adjustment disorder with anxietyStart: 11-27-2024 End: 13-35-2822Qiksbsodb Result EncounterJennifer Rodriguez PA Work Phone: [facility] External Department UnsolicitedStart: 11-27-2024 End: 55-64-5042Fptdqetfh Result EncounterJennifer Rodriguez PA Work Phone: [facility] External Department UnsolicitedStart: 11-26-2024 End: 75-94-6602ElibjeHjmzo M Alda MD Work Phone: [facility] FM 100Comment on above:Adjustment disorder with anxiety (CMS/HCC)Start: 11-19-2024 End: 23-87-5504Vdoenvthc encounterJennifer Rodriguez PA Work Phone: [facility] CI FMStart: 11-14-2024 End: 80-22-4569Gzubbw Elidia Rodriguez PA Work Phone: [facility] CI FMStart: 11-14-2024 End: 31-56-7906Nbloje Elidia Blackwell Hemmer PA Work Phone: [facility] CI FMStart: 11-14-2024 End: 54-95-3298Iybfao outpatient visit 25 minutesJennifer Rodriguez PA Work [...] Irritable bowel syndrome with diarrheaStart: 11-14-2024 End: 89-93-8933mmhcumtqzqNZLMHRubi Gee AvailableStart: 10-22-2024 End: 26-45-2995ZewvjfArdvn M Alda MD Work Phone: [facility] FM 100Comment on above:Adjustment disorder with anxiety (CMS/HCC)Start: 09-18-2024 End: 16-29-3123DfufdzSazty M Alda MD Work Phone: [phone] CI FMComment on above:Adjustment disorder with anxiety (CMS/HCC)Start: 08-22-2024 End: 67-25-1178Dmyioeeia Justine Ram MD Work Phone: [phone] CI FMStart: 08-20-2024 End: 03-22-0672CnkuseKrgmh M Alda MD Work Phone: [phone] CI FMComment on above:Adjustment disorder with anxiety (CMS/HCC)Start: 07-25-2024 End: 71-65-5345Lqdkrm outpatient visit 25 minutesVidya Vu TRANSPORTATION CLERK Work Phone: [phone] CI FMComment on above:Acute non-recurrent frontal sinusitis (Primary Dx); Nasal congestion; Acute coughStart: 07-25-2024 End: 09-69-9904nzueoexhcqAADSita Pulido AvailableStart: 07-25-2024 End: 24-29-2429Bfzywv Ani Vu TRANSPORTATION CLERK Work Phone: [phone] CI FMStart: 07-25-2024 End: 15-70-9847Ndpbjc Ani Vu TRANSPORTATION CLERK Work Phone: [phone] CI FMStart: 07-09-2024 End: 62-41-9364GxvihtMapeg M Alda MD Work Phone: [facility] CI FMComment on above:Adjustment disorder with anxiety (CMS/HCC)Start: 06-13-2024 End: 52-55-4701Cfqbxsmaryan LAWS Work Phone: [facility] CI FMStart: 06-13-2024 End: 29-09-0295Kngcaf flowsheetJennifer LAWS Work Phone: [facility] CI FMStart: 06-13-2024 End: 81-84-5255Zlxmci outpatient visit 25 minutesJennifer LAWS Work Phone: [facility] CI FMComment on above:Chronic migraine without aura without status migrainosus, not intractable (CMS/HCC) (Primary Dx); Adjustment disorder with anxiety (CMS/HCC); Irritable bowel syndrome with both constipation and diarrheaStart: 06-13-2024 End: 78-69-7613zfwkcoantdIXHGS M HEMMERNot AvailableStart: 04-19-2024 End: 73-14-9874KpkrnxKcmmj M Alda MD Work Phone: [facility] CI FMComment on above:Adjustment disorder with anxiety (CMS/HCC)Start: 03-26-2024 End: 55-89-8336Dwqpusplr Justine Ram MD Work Phone: [facility] CI FMComment on above:Med Refill (Please send in Effexor 37.5 mg & Effexor 75mg to [facility] )Start: 03-16-2024 End: 00-81-7230PuollwVkkki M Alda MD Work Phone: [facility] CI FMComment on above:Adjustment disorder with anxiety (CMS/HCC)Start: 11-07-2022 End: 05-71-6719bjsqanaicdXJ RUGEN ALDAFacility:U4Rievk: 07-21-2022 End: 59-25-8448gnlghizkmqTG RUGEN ALDAFacility:S1Brspa: 07-20-2022 End: 32-30-9627ifrgbqtauuVY RUGEN ALDAFacility:H1Gtmaz: 06-03-2022 End: 46-46-9807boskntiuxfWQABG M HEMMERFacility:F2Xelxg: 05-14-2022 End: 64-33-7248nbfotrurqoTS RUGEN ALDAFacility:W5Qmaha: 03-31-2022 End: 53-56-5251lqvctdapcdRI RUGEN ALDAFacility:G4Pxnxi: 03-30-2022 End: 85-30-1425wvhomrbcxnAA RUGEN ALDAFacility:O3Lyuur: 02-02-2022 End: 34-01-4471enyhcqjyeqAW RUGEN ALDAFacility:H1 Procedures DateProcedureProcedure DetailPerforming ClinicianStart: 29-95-9048OE LUMBAR SPINE MIN 4Maryann LAWS Work Phone: Plan of Treatment DateCare ActivityDetailAuthorStart: 06-10-2025 End: 90-62-5723Iezctuo encounter cfcgqzvqa72/24/2025 11:30 AM EST Office Visit [facility] [place] [facility] [address] [place] [address] Jennifer Rodriguez PA [address] [place] [address] [facility] [place] [facility] MedinceStart: 03-18-2025 COVID-19 Vaccine ( season)COVID-19 Vaccine ( season)[facility] HealthcareStart: 79-78-5963Phzqmpuuu vaccinationNOMS HealthcareStart: 02-12-2025 End: 48-16-4262Vjlohkx encounter pggqlionz45/29/2025 10:30 AM EDT Office Visit [facility] [address] [place] [address] Jennifer Rodriguez PA [address] [place] [address] [facility] CI FMStart: 12-26-2024 End: 98-62-6479Psubryz encounter yzlhqonpv81/11/2025 11:00 AM EDT Office Visit [facility] [address] [place] [address] Jennifer Rodriguez PA [address] [place] [address] [facility] CI FMStart: 11-14-2024 End: 63-98-1330RTD Breast - bilateral screeningBilateral screening mammogram with tomosynthesis Imaging Routine Screening mammogram for breast cancer Expected: 11/14/2024, Expires: 01/14/2026NOTX HealthcareComment on above: Expected: 11/14/2024, Expires: 01/14/2026Start: 11-14-2024 End: 46-52-5377Fzevrkomdon colorectal cancer DNA and occult blood screening [Presence] in StoolCologuard colon cancer screening Lab Routine Screening for malignant neoplasm of colon Expected: 11/14/2024 (Approximate), Expires: 11/14/2025[facility] Work Phone: Comment on above:Expected: 11/14/2024 (Approximate), Expires: 11/14/2025Start: 11-14-2024 End: 42-24-0890RY Lumbar spine 4 ViewsXR LUMBAR SPINE AP/LAT/OBLIQUES Imaging Routine Lumbar pain with radiation down both legs Expected:11/14/2024, Expires: 11/14/2025[facility] HealthcareComment on above:Expected: 11/14/2024, Expires: 11/14/2025Start: 11-14-2024 End: 63-87-3799Xpfrosq encounter zixsedafd43/30/2025 11:00 AM EDT Office Visit [facility] [address] [facility] [address] [place] [address] Jennifer Rodriguez PA [address] [facility] [address] [place] [address] ArrivedNOMS CI FMComment on above:ArrivedStart: 11-07-2024 End: 74-29-6456Pfwsske encounter /23/2025 11:00 AM EDT Office Visit [facility] [address] [place] [address] Jennifer Rodriguez PA [address] [facility] [address] [place] [address] [facility] CI FMStart: 09-13-2024 End: 01-02-0297Gcfrryy encounter odqxxlchu56/27/2025 11:00 AM EST Office Visit [facility] [address] [place] [address] Jennifer Rodriguez, PA [address] [place] [address] [facility] CI FMStart: 07-25-2024 End: 24-53-9514Bwuexbz encounter pgcylvfig20/08/2025 2:30 PM EST Office Visit [facility] [address] [place] [address] Vidya Vu, TRANSPORTATION CLERK [address] [place] [address] ArrivedNOMS CI FMComment on above:ArrivedStart: 06-13-2024 End: 01-09-0884Reijtkf encounter dvfiaeqgv68/27/2024 11:00 AM EST Office Visit [facility] [address] [place] [address] Jennifer Rodriguez, PA [address] [place] [address] ArrivedNOMS CI FMComment on above:ArrivedStart: 04-24-2024 End: 59-70-7764Nqihdje encounter blqzasuig16/08/2024 3:30 PM EDT Office Visit [facility] [address] [place] [address] Jennifer Rodriguez, PA [address] [place] [address] [facility]OM[facility] CI FMStart: 98-69-7236Akeyefiyx vaccination Influenza Vaccine (#1)[facility] HealthcareStart: 81-92-6372Nhjcbtdvm for malignant neoplasm of breastMammogramNOMS HealthcareStart: 96-45-7516Ejoxqegvo for malignant neoplasm of cervixNOMS HealthcareStart: 61-60-5918Bpyomsaak for malignant neoplasm of cervixPap SmearNOMS HealthcareStart: 1998 Pneumococcal Vaccine: Pediatrics (0 to 5 Years) and At-Risk Patients (6 to 64 Years) (1 of 2 - PCV)Pneumococcal Vaccine: Pediatrics (0 to 5 Years) and At-Risk Patients (6 to 64 Years) (1 of 2 - PCV)[facility] HealthcareStart: 1979 Screening for malignant neoplasm of colonUINTAH BAS[facility] Healthcare Payers DatePayer CategoryPayerPolicy [id number] Care HMO (unspecified)[employer] [id number] [id number] [id number] 2024Medicaid (Managed Care)[employer] Member Subscriber Plan / Payer (Effective 2023-) Name: Marion Merida Relation to Subscriber: Self Name: Marion Merida Payer ID: Not on file Group ID: Not on file Type: Not on file Address: [address] [place] [id number] [id number] 2.16.840.1.768111.3.57[id number] 2.16.840.1.956648.3.57[id number] 2.16.840.1.573425.3.57[id number] 2.16.840.1.004252.3.57[id number] 2.16.840.1.389430.3.57[id number] 2.16.840.1.406559.3.57[id number] 2..840.1.474612.3.57[id number] 2.16.840.1.608972.3.57[id number] 2.16.840.1.940373.3.57[id number] 2.16.840.1.150317.3.57[id number] 2.16840.1.749679.3.57[id number] 2.16840.1.183667.3.57[id number] Social History DateTypeDetailFacilityStart: 06-03-7711Amyakqf smoking status [facility] tobacco dailyNOTX HealthcareHistory of tobacco useCigarette SmokerNOTX HealthcareStart: 02-15-2024 End: 77-03-8658Osxcyaedng smoked current (pack per day) - Mbkoidsw5YXVR HealthcareStart: 11-08-7075Nzlczbl use and exposureSmokeless tobacco non-user [facility] HealthcareStart: 02-15-2024 End: 57-06-6137Whzfauysz beverage intakeEx-drinker (finding)[facility] Start: 02-15-2024 End: 21-92-7698Fvemnmi use panelUINTAH BASIN MEDICAL CENTER HealthcareStart: 21-04-5103Tkjvmrj Comment 11-20 cigs/dayUINTAH BASIN MEDICAL [facility]ENTER HealthcareStart: 28-81-3841Kmk assigned at birthNot on file [facility] InstituteStart: 40-83-0093LemGonrmaWFXG Healthcare Functional Status QgqrVorlejoamqCtjzroXqjwncbq78-69-1882Rvqvken Health Questionnaire 2 item (PHQ- 2) [Reported][facility] InstituteKsmumdrygd06-38-2725Edqtdpj Health Questionnaire 2 item (PHQ- 2) [Reported][facility] Clinical Notes 07-22-2021 to 05-20-2025 Note Date & QfbjXufrFnzqwsde93-22-3224 Telephone encounter Note* Telephone Encounter - Kiera Moore - 05/20/2025 10:23 AM EST ALPRAZolam (Xanax) 0.5 MG tablet Ddm in [place] [facility] InstituteIdoalgpqwr60-84-4349 Miscellaneous Notes* Telephone Encounter - Kiera Moore - 05/20/2025 10:23 AM EST ALPRAZolam (Xanax) 0.5 MG tablet Ddm in [place] documented in this encounterFreeman Heart InstituteOkrlvrulqf73-40-5593 Telephone encounter Note* Telephone Encounter - VETO Valderrama - 04/12/2025 1:15 PM EDT OARRS reviewed, Rx sent into patient's pharmacy. [facility] InstituteUvlndvdzdm41-80-5013 Miscellaneous Notes* Telephone Encounter - VETO Valderrama - 04/12/2025 1:15 PM EDT OARRS reviewed, Rx sent into patient's pharmacy. * Telephone Encounter - [place] Marcial - 04/12/2025 10:05 AM EDT Marion left a message requesting a refill on her ALPRAZolam (Xanax) [facility] [place] documented in this encounterFreeman Heart InstituteJgyadsahjb11-21-9382 Telephone encounter Note* Telephone Encounter - [place] Marcial - 04/12/2025 10:05 AM EDT Marion left a message requesting a refill on her ALPRAZolam (Xanax) [facility].[address] [facility] [place] [facility] InstituteJjvzjdfxji40-71-6256 History of Present illness Narrative* VETO Valderrama [...] green/yellow phlegm, hoarseness. She did go to [facility] ER on 02/22/2025, was diagnosed with URI, [...] ondansetron ODT (Zofran-ODT) 4 MG disintegrating tablet enuxsmojylamyfp-HE-DV 60-15-400 MG tablet Take 1 tablet by [...] pulmonary disease, unspecified COPD type ([facility]) - triamcinolone acetonide (Kenalog-40) injection 40 mg [...] (around 04/04/2025) for Wellness. documented in this [facility]08-12-2025 History of Present illness Narrative* Little Johnson LPN - 02/26/2025 9:58 AM EDT Pt requests refill on Xanax documented in this [facility]07-14-2025 Telephone encounter Note* Telephone Encounter - Kiera Moore - 01/28/2025 9:02 AM EDT ALPRAZolam (Xanax) 0.5 MG tablet Ddm in [place] [facility] InstituteNpdenyidxu70-47-4031 Miscellaneous Notes* Telephone Encounter - Kiera Moore - 01/28/2025 9:02 AM EDT ALPRAZolam (Xanax) 0.5 MG tablet Ddm in [place] documented in this [facility]06-13-2025 Telephone encounter Note* Telephone Encounter - VTEO Valderrama - 12/28/2024 12:45 PM EDT OARRS reviewed, Rx sent into patient's pharmacy. [facility] InstituteUdswmbxpen61-97-9319 Miscellaneous Notes* Telephone Encounter - VETO Valderrama - 12/28/2024 12:45 PM EDT OARRS reviewed, Rx sent into patient's pharmacy. * Telephone Encounter - DEEDEE OCONNOR - 12/28/2024 11:04 AM EDT Last OV 11-14-24 Refill 11-26-24 * Telephone Encounter - Kiera Moore - 12/28/2024 11:02 AM EDT ALPRAZolam (Xanax) 0.5 MG tablet Ddm in [place] documented in this encounterFreeman Heart InstituteWontbizjdw98-84-6734 Telephone encounter Note* Telephone Encounter - DEEDEE OCONNOR - 12/28/2024 11:04 AM EDT Last OV 11-14-24 Refill 11-26-24 [facility] InstituteYeszfzptij72-72-0424 Telephone encounter Note* Telephone Encounter - Kiera Moore - 12/28/2024 11:02 AM EDT ALPRAZolam (Xanax) 0.5 MG tablet Ddm in [place] [facility] InstitutePgzlevlkuf27-15-8527 Telephone encounter Note* Telephone Encounter - VETO Valderrama - 11/26/2024 4:08 PM EDT Called and left a detailed message with [facility]. There was no option for me to speak with someone. Had to leave a message. Advised them of adequate documentation already provided for the migraine medications and of the necessity of the epi-pen as a potentially life saving medication. Asked them to return my call. [facility] InstituteWvuzvmxcur82-52-7456 Miscellaneous Notes* Telephone Encounter - VETO Valderrama - 11/26/2024 4:08 PM EDT Called and left a detailed message with [facility]. There was no option for me to [...] for Jennifer to review. documented in this encounterFreeman Heart InstituteYtxhckqchu39-16-4530 Telephone encounter Note* Telephone Encounter - VETO Valderrama - 11/26/2024 1:00 PM EDT OARRS reviewed, Rx sent into patient's pharmacy. [facility] InstituteBwnakauczo14-82-3157 Miscellaneous Notes* Telephone Encounter - VETO Valderrama - 11/26/2024 1:00 PM EDT OARRS reviewed, Rx sent into patient's pharmacy. * Telephone Encounter - [place] Marcial - 11/26/2024 11:07 AM EDT Marion called requesting a refill on her Xanax to [facility] in [place] documented in this encounterFreeman Heart InstituteBxsmewnzkx51-65-1387 Telephone encounter Note* Telephone Encounter - [place] Marcial - 11/26/2024 11:07 AM EDT Marion called requesting a refill on her Xanax to [facility] in [place] [facility] InstituteRhbbhtpgfs85-85-2428 Telephone encounter Note* Telephone Encounter - VETO Valderrama - 11/20/2024 9:34 AM EDT See other TE [facility] InstituteRqsfazphax30-01-4154 Telephone encounter Note* Telephone Encounter - VETO Valderrama - 11/20/2024 9:34 AM EDT See other TE [facility] InstituteWkwflzlqdn87-71-2442 Miscellaneous Notes* Telephone Encounter - VETO Valderrama - 11/20/2024 9:34 AM EDT See other TE * Telephone Encounter - Celena Liu LPN - 11/19/2024 1:17 PM EDT EPINEPHRINE denied. Printed out denial for Jennifer to review. documented in this [facility]05-06-2025 Miscellaneous Notes* Telephone Encounter - VETO Valderrama - 11/20/2024 9:34 AM EDT See other TE * Telephone Encounter - Celena Liu LPN - 11/19/2024 1:16 PM EDT AJOVY denied. Printed out denial and given to Jennifer for review. documented in this [facility]05-05-2025 Telephone encounter Note* Telephone Encounter - Celena Liu LPN - 11/19/2024 1:17 PM EDT EPINEPHRINE denied. Printed out denial for Jennifer to review. [facility] InstituteZagkkjqboy68-48-5227 Telephone encounter Note* Telephone Encounter - Celena Liu LPN - 11/19/2024 1:16 PM EDT AJOVY denied. Printed out denial and given to Jennifer for review. [facility] InstituteGnpzjboeyg03-82-1512 Telephone encounter Note* Telephone Encounter - Celena Liu LPN - 11/19/2024 1:12 PM EDT UBRELVY DENIED. Printed out denial and given to Jennifer for review. AJOVY denied. Printed out denial and given to Jennifer for review. EPINEPHRINE denied. Printed out denial for Jennifer to review. [facility] InstituteNoiqoyzozg44-34-7349 History of Present illness Narrative* Jennifer Rodriguez, [...] Acute exacerbation of chronic obstructive pulmonary disease ([facility]) 12/06/2022 Adjustment disorder with anxiety ([facility]) 12/06/2022 Anxiety Carpal tunnel syndrome of left wrist 12/06/2022 Cellulitis Chronic migraine with aura ([facility]) 12/06/2022 Eczema 12/06/2022 Gastroenteritis H/O CT scan of brain 10/20/2018 H/O CT scan of chest 04/06/2019 was negative for Pulmonary Embolism, No pulmonary infiltrates Hypoglycemia 12/06/2022 Irritable bowel syndrome with diarrhea 12/06/2022 Nervousness Panic disorder with agoraphobia ([facility]) 12/06/2022 Smoker 12/06/2022 Thrombocytosis 12/06/2022 Past Surgical [...] (around 12/26/2024) for Recheck. documented in this encounterFreeman Heart InstituteHjariigewj38-88-6529 Telephone encounter Note* Telephone Encounter - Kiera Moore - 10/23/2024 10:10 AM EDT Appt scheduled [facility] InstituteEgaccmbsje64-27-2991 Miscellaneous Notes* Telephone Encounter - Kiera Moore [...] her ALPRAZolam (Xanax) 0.5 MG to [facility] documented in this [facility]04-07-2025 Telephone encounter Note* Telephone Encounter - VETO Valderrama - 10/22/2024 5:03 PM EDT Please help pt get scheduled for a follow up appointment within the month. OARRS reviewed, Rx sent into patient's pharmacy. [facility] InstituteOodaoblprf99-87-5635 Telephone encounter Note* Telephone Encounter - [place] Marcial - 10/22/2024 9:44 AM EDT [place] called requesting a refill on her ALPRAZolam (Xanax) 0.5 MG to [id number] Telephone encounter Note* Telephone Encounter - Sheila Myles - 09/18/2024 1:12 PM EST ALPRAZolam (Xanax) 0.5 MG tablet to [facility] [place] [facility] [id number] Miscellaneous Notes* Telephone Encounter - Sheila Myles - 09/18/2024 1:12 PM EST ALPRAZolam (Xanax) 0.5 MG tablet to [facility] [place] documented in this encounterFre[facility] [id number] Telephone encounter Note* Telephone Encounter - Kiera [...] [facility] [place] [id number] Miscellaneous Notes* Telephone Encounter - Kiera Moore [...] [facility] [place] in [facility] encounter[facility] [id number] Telephone encounter Note* Telephone Encounter - Celena Liu LPN - 08/20/2024 10:39 AM EST Advised pt to take OTC medications to treat her symptoms. [facility] [id number] Miscellaneous Notes* Telephone Encounter - Celena Liu [...] ALPRAZolam (Xanax) 0.5 MG tablet Ddm [place] documented in this [facility]02-03-2025 Telephone encounter Note* Telephone Encounter - Kiera Moore - 08/20/2024 9:52 AM EST Patient tested positive for covid and wondered if something could be sent in for her cough low grade fever, runny nose. [facility] ChildrenQqvphllmoj16-24-8425 Telephone encounter Note* Telephone Encounter - Kiera Moore - 08/20/2024 9:51 AM EST ALPRAZolam (Xanax) 0.5 MG tablet Ddm in [place] [facility] ChildrenQbzjowdfqn35-71-9797 History of Present illness Narrative* Vidya Vu, TRANSPORTATION CLERK - 07/25/2024 2:30 PM EST Images from [...] Acute exacerbation of chronic obstructive pulmonary disease ([facility]) 12/06/2022 Adjustment disorder with anxiety ([facility]) 12/06/2022 Anxiety Carpal tunnel syndrome of left wrist 12/06/2022 Cellulitis Chronic migraine with aura ([facility]) 12/06/2022 Eczema 12/06/2022 Gastroenteritis H/O CT scan of brain 10/20/2018 H/O CT scan of chest 04/06/2019 was negative for Pulmonary Embolism, No pulmonary infiltrates Hypoglycemia 12/06/2022 Irritable bowel syndrome with diarrhea 12/06/2022 Nervousness Panic disorder with agoraphobia ([facility]) 12/06/2022 Smoker 12/06/2022 Thrombocytosis 12/06/2022 Past Surgical [...] and its most common side effects. - cncrmsbnogcfrjh-PW-EO 60-15-400 MG tablet; Take 1 tablet by mouth in the morning and 1 tablet at noon and 1 tablet in the evening and 1 tablet before bedtime. Do all this for 10 days. Dispense: 40 tablet; Refill: 0 3. Acute cough - hvdypwtnepabbrl-TK-RG 60-15-400 MG tablet; Take 1 tablet by mouth in the morning and 1 tablet at noon and 1 tablet in the evening and 1 tablet before bedtime. Do all this for 10 days. Dispense: 40 tablet; Refill: 0 No follow-ups on file. documented in this encounterFreeman Heart [id number] Instructions* Patient Instructions* Vidya Vu NP - 07/25/2024 2:30 PM EST Zpack ordered Capmist Dm ordered documented in this encounterFreeman Heart InstituteTxuiqcvzpq36-71-0877 Telephone encounter Note* Telephone Encounter - VETO Valderrama - 07/09/2024 3:29 PM EST OARRS reviewed, Rx sent into patient's pharmacy. [facility] InstituteSfupwswlav66-27-5995 Miscellaneous Notes* Telephone Encounter - VETO Valderrama - 07/09/2024 3:29 PM EST OARRS reviewed, Rx sent into patient's pharmacy. * Telephone Encounter - Kiera Moore - 07/09/2024 3:17 PM EST ALPRAZolam (Xanax) 0.5 MG tablet [ DDM IN [place] documented in this encounterFreeman Heart InstituteWrzncysjuy04-70-6182 Telephone encounter Note* Telephone Encounter - Kiera Moore - 07/09/2024 3:17 PM EST ALPRAZolam (Xanax) 0.5 MG tablet [ DDM IN [place] [facility] [id number] History of Present illness Narrative* VETO Valderrama [...] Acute exacerbation of chronic obstructive pulmonary disease ([facility]) 12/06/2022 Adjustment disorder with anxiety ([facility]) 12/06/2022 Anxiety Carpal tunnel syndrome of left wrist 12/06/2022 Cellulitis Chronic migraine with aura ([facility]) 12/06/2022 Eczema 12/06/2022 Gastroenteritis H/O CT scan of brain 10/20/2018 H/O [address] scan of chest 04/06/2019 was negative for Pulmonary Embolism, No pulmonary infiltrates Hypoglycemia 12/06/2022 Irritable bowel syndrome with diarrhea 12/06/2022 Nervousness Panic disorder with agoraphobia ([facility]) 12/06/2022 Smoker 12/06/2022 Thrombocytosis 12/06/2022 Past Surgical [...] her insurance prior to being approved for [employer]. Provided pt with #16 samples and a [...] for Medication Follow Up. documented in this encounterFreeman Heart InstituteQdiscvirpl82-76-3772 Telephone encounter Note* Telephone Encounter - Sheila Myles - 04/20/2024 10:30 AM EDT scheduled [facility] InstituteEuusnzzltj58-17-4170 Miscellaneous Notes* Telephone Encounter - Sheila Myles - 04/20/2024 10:30 AM EDT scheduled * Telephone Encounter - VETO Valderrama - 04/19/2024 9:35 AM EDT Please help pt get set up for a medication follow up visit sometime this month. Last refill on Alprazolam until seen. OARRS reviewed, Rx sent into patient's pharmacy. documented in this encounterFreeman Heart InstituteLpklrogxro76-86-2921 Telephone encounter Note* Telephone Encounter - VETO Valderrama - 04/19/2024 9:35 AM EDT Please help pt get set up for a medication follow up visit sometime this month. Last refill on Alprazolam until seen. OARRS reviewed, Rx sent into patient's pharmacy. [facility] InstituteUscuyaxyzt87-50-9447 Telephone encounter Note* Telephone Encounter - VETO Valderrama - 03/16/2024 12:25 PM EDT OARRS reviewed, Rx sent into patient's pharmacy. [facility] InstituteFkedrzmxnq00-75-9005 Miscellaneous Notes* Telephone Encounter - VETO Valderrama - 03/16/2024 12:25 PM EDT OARRS reviewed, Rx sent into patient's pharmacy. * Telephone Encounter - Sheila Myles - 03/16/2024 12:00 PM EDT ALPRAZolam (Xanax) 0.5 [facility] [place] documented in this encounterFreeman Heart InstituteAbuisobdbe50-26-1748 Telephone encounter Note* Telephone Encounter - Sheila Myles - 03/16/2024 12:00 PM EDT ALPRAZolam (Xanax) 0.5 MG tablet [facility] [place] [facility] InstituteSokxeoakfj41-75-3754 NoteSATISFACTORY FOR EVALUATIONNorttucson heart hospitaln [facility] SpecialistComment on above:Order Comment: [facility] Testing performed at: O, [facility], [address] [place] [address], [phone], Order Entry Technician: Greg Barron MD Testing performed at: [facility], [facility], [address] [place] [address], [phone], Order Entry Technician: Malcolm Hamilton MD [facility] Collection Date/Time: [facility] Results Received Date/Time: [id number] [facility] Reported Date/Time: [id number] Comment: [QAC]Performed By: #### [id number] #### [facility] Default [address] [place], [place] [address]Mnektsmlti note* Diagnosis Adjustment disorder with anxiety (CMS/HCC) [...] section and content) DATE CREATED AUTHOR 07/28/2021 [facility] Architecture Technician DATE CREATED AUTHOR AUTHOR'S ORGANIZ ATION 11/09/2022 [facility] DATE CREATED AUTHOR AUTHOR'S ORGANIZ ATION 03/09/2025 [facility] EPIC Reason for Visit (unrecogniz ed section and content) ReasonOnset DateCommentsMed Hkkuqu7504/19/2024Xanax and Effexor [facility] [place] ReasonCommentsMed RefillxanaxReasonOnset DateCommentsMed Aduflw994Reason Onset DateCommentsMed Vxgfcl174Please send in Effexor 37.5 mg & Effexor 75mg to [facility] [place] ClyeReasonOnset DateCommentsMed Iecgub484ReasonOnset DateCommentsMed Nnqhme2308/20/2024ReasonOnset DateCommentsMed Mwaeag7812/28/2024 ReasonOnset DateCommentsMed Pdjufg8701/28/2025ReasonOnset DateCommentsMed Refill 05/20/2025 Care Teams (unrecognized sec tion and content) Team MemberRelationshipSpecialtyStart DateEnd Date Jerry Ram MD [address] [place] [address] PCP - GeneralFamily Medicine12/06/22Team MemberRelationshipSpecialtyStart DateEnd Date Jerry Ram MD [address] [place] [address] PCP - [facility]12/06/22 Jerry Ram MD [address] [place] [address] [facility]04/17/24Team MemberRelationshipSpecialtyStart DateEnd Date Jerry Ram MD [address] [place] [address] PCP - [facility]12/06/22 Jerry Ram MD [address] [place] [address] [facility]04/17/24Team MemberRelationshipSpecialtyStart DateEnd Date Jerry Ram MD [address] [place] [address] [facility] - [facility]12/06/22Team MemberRelationshipSpecialtyStart DateEnd Date Jerry Ram MD [address] [place] [address] PCP - [facility]12/06/22 Jerry Ram MD [address] [place] [address] [facility]04/17/24Team MemberRelationshipSpecialtyStart DateEnd Date Jerry Ram MD [address] [place] [address] PCP - [facility]12/06/22 Jerry Ram MD [address] [place] [address] [facility]04/17/24Team MemberRelationshipSpecialtyStart DateEnd Date Jerry Ram MD [address] [place] [address] PCP - [facility]12/06/22 Jerry Ram MD [address] [place] [address] [facility]04/17/24Team MemberRelationshipSpecialtyStart DateEnd Date Jerry Ram MD [address] [place] [address] PCP - [facility]12/06/22 Jerry Ram MD [address] [place] [address] [facility]04/17/24Team MemberRelationshipSpecialtyStart DateEnd Date Jerry Ram MD [address] [place] [address] PCP - [facility]12/06/22 Jennifer Rodriguez PA [address] [place] [address] [facility]07/18/24Team MemberRelationshipSpecialtyStart DateEnd Date Jerry Ram MD [address] [place] [address] PCP - [facility]12/06/22 Jennifer Rodriguez PA [address] [place] [address] [facility] - [address]08/11[facility] MemberRelationshipSpecialtyStart DateEnd Jerry Ram MD [address] [place] [address] PCP - [facility]12/06/22 Jennifer Rodriguez PA [address] [place] [address] [facility] - [address]08/11[facility] MemberRelationshipSpecialtyStart DateEnd Date Jerry Ram MD [address] [place] [address] [facility] - [facility]12/06/22 Jennifer Rodriguez PA [address] [place] [address] [facility]07/18/24Te MemberRelationshipSpecialtyStart DateEnd Date Jerry Ram MD [address] [place] [address] [facility]12/06/22 Jennifer Rodriguez, VETO [address] [place] [address] [facility]08/11[facility] MemberRelationshipSpecialtyStart DateEnd Date Jerry Ram MD [address] [place] [address]22/23 Jennifer Rodriguez PA [address] [place] [address] [facility]07/18/24[facility] MemberRelationshipSpecialtyStart DateEnd Date Jerry Ram MD [address] [place] [address] [facility]12/06/22 Jennifer Rodriguez PA [address] [place] [address] [facility]07/18/24Te MemberRelationshipSpecialtyStart DateEnd Date Jerry Ram MD [address] [place] [address] [facility]12/06/22 Jennifer Rodriguez, PA [address] [place] [address] [facility]07/18/24Te MemberRelationshipSpecialtyStart DateEnd Date Jerry Ram MD [address] [place] [address] [facility]12/06/22 Jennifer Rodriguez, PA [address] [place] [address] [facility]07/18/24 Vidya Vu, TRANSPORTATION CLERK [address] [place] [address] PCP - [facility]01/15/25Team MemberRelationshipSpecialtyStart DateEnd Date Jerry Ram MD [address] [place] [address] PCP - [facility]12/06/22 Jennifer Rodriguez, PA [address] [place] [address] [facility]07/18/24 Vidya Vu, TRANSPORTATION CLERK [address] [place] [address] PCP - [facility]01/15/25 Little Johnson LPN [address] [place] [address] 03/06/25Team MemberRelationshipSpecialtyStart DateEnd Date Jerry Ram MD [address] [place] [address] [facility] - [facility]12/06/22 Jennifer Rodriguez, PA [address] [place] [address] [facility]07/18/24 Vidya Vu, TRANSPORTATION CLERK [address] [place] [address] PCP - [facility]01/15/25 Little Johnson LPN [address] [place] [address] 03/06/25Team MemberRelationshipSpecialtyStart DateEnd Date Jerry Ram MD [address] [place] [address] PCP - [facility]12/06/22 Jennifer Rodriguez PA [address] [facility] [address] [place] [address] [facility]07/18/24 Vidya Vu NP [address] [facility] [address] [place] [address] [facility]01/15/25 Little Johnson LPN [address] [facility] [address] [place] [address] 03/06/25Team MemberRelationshipSpecialtyStart DateEnd Date Jerry Ram MD [address] [facility] [address] [place] [address] [facility] - [facility]12/06/22 Jennifer Rodriguez PA [address] [facility] [address] [place] [address] [facility]07/18/24 Little Johnson LPN [address] [facility] [address] [place] [address] 03/06/25 FOR RECORDS PERTAINING TO PATIENTS WHO [...] BE BASED ON THE PRIMARY CLINICAL RECORDS. [facility]. provides no warranty or guarantee of the accuracy or completeness of information in this document.
--- OUTSIDE RECORDS SUMMARY | 2025-06-02 04:00 | XMS_ITS | Clinical Summary ---
Author Organization [employer] tem Address [id number] [address] [place] [address] Care Team Providers Care Development Spec Name Role Phone Jerry Melo MD Primary Care Provider [phone] Allergies No known active allergies Medications MedicationSigDispense [...] standard drink = 0.6 oz pure alcohol)ChildcareAnswerDate UxbbczzeKqzcduqqgCchmlut07/12/2019EmploymentAnswer Date WrsmiwclKaaadmrkwwUqbjzmr65/12/2019Purpose - LifeAnswerDate RecordedPurpose and direction in imevRjlvqbz46/11/2021CommentsUnknownSex and Gender InformationValueDate RecordedSex Assigned at BirthNot on fileLegal SexFemale 02/20/2015 11:52 AM EDTGender IdentityNot on fileSexual OrientationNot on file Last Filed Vital Signs Vital SignReadingTime TakenCommentsBlood Drqegfqx364/7905 2:33 PM EDT Tqdnm852412/10/2021 2:33 PM JSEOvxmniodpnk86.9 ??C (98.4 ??F)12/10/2021 1:20 PM EDTRespiratory Zlix269412/10/2021 2:33 PM EDTOxygen Iscrvgganv19%12/10/2021 2:33 PM EDTInhaled Oxygen Concentration--Oswfsd32.7 kg (147 lb)12/10/2021 1:20 PM EDT Mmnefu906.6 cm (5' 4 )08/31/2021 11:24 AM ESTBody Mass Index25.23008/31/2021 11:24 AM EST Plan of Treatment Health MaintenanceDue DateLast DoneCommentsDepression Puxusdkxe23/15/1991Tobacco Bjuoviayi88/15/1991Adult BMI Zqvzhncmy96/15/1997DTaP,Tdap and Td Vaccines (1 - Tdap)1998Pap Smear2000Influenza Lquyiia6003/18/2025 Medical Devices Not on file Insurance * Guarantor: Marion Merida TypeRelation to PatientDate of BirthPhone Billing AddressPersonal/DfwyaxNxyw1980 [address] [address] Care Teams Team MemberRelationshipSpecialtyStart DateEnd Date Anna Maria, Rugen M, [place] [address] [place] [address] [facility]08/31/21
--- OUTSIDE RECORDS SUMMARY | 2025-06-02 04:00 | XMS_ITS | Encounter Summary ---
Author Organization [facility] Address [address] [place] [address] Care Team Providers Care Professor Of Art History Name Role Phone Jerry Melo MD Primary Care Provider [phone] Jennifer Chapman PA Unavailable [phone] Little Johnson LPN Unavailable Reason for Visit * ReasonOnset DateCommentsMed Dlqzaf6605/20/2025 Encounter Details DateTypeDepartmentCare Team (Latest Contact Info)Vcmapshuuiu46/03/2025Refill [facility] [place] [facility] [address] [facility] [address] [place] [address] Jerry Melo MD [address] [facility] [address] [place], [place] [address] Adjustment disorder with anxiety Social History Tobacco UseTypesPacks/DayYears UsedDateSmoking Tobacco: Every RdtBhmytmrzvm744 Smokeless Tobacco: Never Comments:11-20 cigs/day Alcohol UseStandard Drinks/WeekCommentsNot Currently0 (1 standard drink = 0.6 oz pure alcohol)PHQ-2AnswerDate RecordedPatient Health Questionnaire-2 Score0 03/07/2025CommentsUnknownSex and Gender InformationValueDate RecordedSex Assigned at BirthNot on fileLegal HgpPeojdl11/15/2023 7:28 PM EDTGender Identity Not on fileSexual OrientationNot on filedocumented as of this encounter Miscellaneous Notes * Telephone Encounter - Kiera Chaumich - 05/20/2025 10:23 AM EST ALPRAZolam (Xanax) 0.5 MG tablet Ddm in [place] documented in this encounter Plan of Treatment DateTypeDepartmentCare Team (Latest Contact Info)Jshwyomfidk96/24/2025 11:30 AM ESTOffice Visit [facility] [place] [facility] [address] [facility] [address] [place] [address] Jennifer Chapman PA [address] [place] [address] documented as of this encounter Visit Diagnoses Diagnosis Adjustment disorder with anxiety documented in this encounter Care Teams Team MemberRelationshipSpecialtyStart DateEnd Date Jerry Melo MD [address] [facility] [address] [place] [address] [facility] - [facility]12/06/22 Jennifer Chapman PA [address] [facility] [address] [place] [address] PCP - [facility]07/18/24 Little Johnson LPN [address] [place] [address] 03/06/25documented as of this encounter
--- OUTSIDE RECORDS SUMMARY | 2025-06-02 04:00 | XMS_ITS | Patient Health Record ---
Author Organization [employer] Address [address] [place] [address] Care Team Providers Care Liquid Loader Name Role Phone Emeli Mcallister Primary Care Provider Allergies Allergen (clinical drug ingredient) Drug/Non Drug Allergy documented on EMR Reaction Allergy Type Onset Date Status PenicillinUnknownDrug AllergyActive Reason For Referral No Information Plan Of Treatment No Information Insurance Providers Payer Name Payer Address Payer Phone Subscriber Number Group Number Insured Name Patient Relationship to Insured Coverage Start Date Coverage End Date [employer] [place] [employer] [address] [place] [address] [id number] TOPHER GARCIASelf - patient is the [id number] [facility] [address] [place] [id number], TOPHER Self - patient is the [id number] [employer] [place] [place] [id number], THERESASelf - patient is the [id number] Wrap [facility] [place] [id number], THERESASelf - patient is the [id number]/
--- OUTSIDE RECORDS SUMMARY | 2025-06-02 04:00 | XMS_ITS | Clinical Summary ---
Author Organization [facility] Address [address] [place] [address] Care Team Providers Care Resident Programs Assistant Name Role Phone Jerry Melo MD Primary Care Provider [phone] Jennifer Chapman Unavailable [phone] Little Johnson LPN Unavailable Allergies Active AllergyReactionsCriticalityNoted DateCommentsDicyclomineDizzinessMedium 06/13/20246339GesjzdmptwOaqol92/11/2025 Sedation Medications MedicationSigDispense QuantityRefillsLast FilledStart DateEnd DateStatus betamethasone dipropionate 0.05 % cream Indications:Sun allergyApply 1 application topically in the morning and 1 application before bedtime. 15 g 4Active fremanezumab (Ajovy) 225 MG/1.5ML prefilled syringe Indications:Chronic migraine without aura without status migrainosus, not intractableInject 1.5 mL (225 mg) under the skin every 30 (thirty) days 1.5 mL 5Active Additional Information Patient not taking.Reason: Cost, Reported on 03/07/2025 meloxicam (Mobic) 15 MG tablet Indications:Lumbar pain with radiation down both legsTake 1 tablet (15 mg) by mouth Daily Take with food 30 tablet 5Active Additional Information Patient not taking.Reported on 03/07/2025 EPINEPHrine (Epipen) 0.3 MG/0.3ML injection syringe Indications:Allergy to honey bee venomInject 0.3 mL (0.3 mg) as directed 1 (one) time for 1 dose Inject into upper leg. Call 911 after use.5Active Ubrogepant (Ubrelvy) 100 MG tablet Indications:Chronic migraine without aura without status migrainosus, not intractableTake 100 mg by mouth Daily as needed (Migraine) Can take second dose x 1, if needed 1-2 hours following first dose 16 tablet 5Active cuehudpjprqvyyf-MT-DY 60-15-400 MG tablet Indications:COVIDTake 1 tablet by mouth every 6 (six) hours if needed (Cough) 28 tablet 5Active ipratropium (Atrovent) 0.03 % nasal spray 02/27/2025tive ondansetron ODT (Zofran-ODT) 4 MG disintegrating tablet 02/27/2025tive ipratropium-albuterol (Duo-Neb) 0.5-2.5 mg/3 mL nebulizer solution Indications:Chronic obstructive pulmonary disease, unspecified COPD type (HCC) Take 3 mL by nebulization 4 (four) times a day as needed for wheezing or shortness of breath 50 mL tive baclofen (Lioresal) 10 MG tablet Indications:Lumbar spondylosisTake 1 tablet (10 mg) by mouth 2 (two) times a day as needed for muscle spasms 60 tablet 5Active venlafaxine XR (Effexor XR) 37.5 MG 24 hr capsule Indications:Adjustment disorder with anxietyTake 1 capsule (37.5 mg) by mouth Daily 90 capsule 5Active venlafaxine XR (Effexor XR) 75 MG 24 hr capsule Indications:Adjustment disorder with anxietyTake 1 capsule (75 mg) by mouth Daily 90 capsule 5Active ALPRAZolam (Xanax) 0.5 MG tablet Indications:Adjustment disorder with anxietyTake 1 tablet (0.5 mg) by mouth 2 (two) times a day as needed for anxiety 60 tablet 5Active ALPRAZolam (Xanax) 0.5 MG tablet Indications:Adjustment disorder with anxietyTake 1 tablet (0.5 mg) by mouth 2 (two) times a day as needed for anxiety 60 tablet Discontinued(Reorder) Active Problems ProblemNoted DateDiagnosed DateLumbar ahymerpejbo34/13/2025llergy to honey bee venom02/15/2024OPD (chronic obstructive pulmonary disease)12/06/2022djustment disorder with tjhwkjs6012/06/2022arpal tunnel syndrome of left wrist12/06/2022 Chronic migraine without aura without status migrainosus, not intractable 12/06/20226537Jnogle52/22/2023High grade squamous intraepithelial lesion on cytologic smear of cervix (HGSIL)12/06/20222330Wdlkbpqhvsqr58/22/2023Irritable bowel syndrome with both constipation and zezzorrv52/22/2023anic disorder with lsvnfhfywdt54/22/7246Ibbhti73/22/8382Dgygwovtwfpmup18/22/2023Family history of breast cwnldm9907/22/2021un qqfdllb6012/22/2015 Resolved Problems ProblemNoted DateDiagnosed DateResolved DateEpisodic wxuvsszn93/31/2024 02/15/2024hronic migraine with aura/02/20236110Lhnwtfvgx00/22/2023 02/15/2024 Encounters DateTypeDepartmentCare VwkyWfcgvsjiqll14/03/2025Refill [facility] [address] [facility] [address] [place] [phone] Jerry Melo MD Adjustment disorder with wabdxix5104/12/2025Refill [facility] [address] [place] [address] Jerry Melo MD Adjustment disorder with vrdmsnh3604/05/2025Patient Outreach [facility] [address] [place] [address] Little Johnson LPN 04/01/2025Telephone [facility] [address] [facility] [address] [place] [phone] Jerry Melo MD Med Ijjoeo5403/07/2025 3:00 PM EDTOffice Visit [facility] [address] [place] [phone] Jennifer Chapman, PA Acute bronchitis, unspecified organism (Primary Dx); Chronic obstructive pulmonary disease, unspecified COPD type (HCC); Lumbar lwaxjfqjlql17/21/2025Refill [facility] [address] [place] [address] Jennifer Chapman PA Chronic obstructive pulmonary disease, unspecified COPD type (HCC)03/07/2025 Bamboo flowsheet [facility] [address] [place] [address] Jennifer Chapman PA 03/07/20252321Igzppm47/20/2025Patient Outreach [facility] [address] [place] [address] Little Johnson LPN from Last 3 Months Family History Medical HistoryRelationNameCommentsBreast cancerFather's SisterHypertension MotherCoronary artery diseaseOtherDiabetes type IIOtherHypertensionOtherLung cancerOtherProstate cancerOtherColon cancerPaternal GrandfatherRelationName StatusCommentsFather's SisterMotherAliveOtherfamily hxPaternal Grandfather Social History Tobacco UseTypesPacks/DayYears UsedDateSmoking Tobacco: Every IbuMvblzondiy841 Smokeless Tobacco: Never Tobacco Cessation:Ready to Q uit: Not Asked; Counseling Given: Not Answered Comments:11-20 cigs/day Alcohol UseStandard Drinks/WeekCommentsNot Currently0 (1 standard drink = 0.6 oz pure alcohol)PHQ-2AnswerDate RecordedPatient Health Questionnaire-2 Score0 03/07/2025CommentsUnknownSex and Gender InformationValueDate RecordedSex Assigned at BirthNot on fileLegal ManOksqwq20/15/2023 7:28 PM EDTGender Identity Not on fileSexual OrientationNot on file Last Filed Vital Signs Vital SignReadingTime TakenCommentsBlood Uajfkkqc187/7608 3:16 PM EDT Emooe1814 3:16 PM OPVDyirhauzvei36.8 ??C (98.3 ??F)03/07/2025 3:16 PM EDTRespiratory Ussi0863/ 3:16 PM EDTOxygen Sariskygaz21%03/07/2025 3:16 PM EDTInhaled Oxygen Concentration--Wbohow95.8 kg (145 lb)03/07/2025 3:16 PM EDT Cmlgyl740.6 cm (5' 4 )03/07/2025 3:16 PM EDTBody Mass Index24.8903/07/2025 3:16 PM EDT Plan of Treatment DateTypeDepartmentCare Team (Latest Contact Info)Uhnfdytzkxv10/24/2025 11:30 AM ESTOffice Visit [facility] [address] [facility] [address] [place] [phone] Jennifer Chapman PA 112 [facility] 110 [place], [place] [phone] Health MaintenanceDue DateLast DoneCommentsCT Cxrlyahzfwqm1979Colonoscopy 1979Colorectal Cancer Lrmawpfdn1979FIT-DNA1979FIT1979 FOBT1980 3863Mhwiismpfajjj1979Pneumococcal Vaccine: Pediatrics (0 to 5 Years) and At-Risk Patients (6 to 64 Years) (1 of 2 - PCV)1998Pap Smear 2000Cervical Cancer Xmfvnvibq27/15/2009HPV/Yygixu5705/01/2009Mammogram 2019COVID-19 Vaccine ( season)/05/2022, 11/04/2021 Influenza Vaccine (#1)2025 Insurance * Guarantor: Marion Merida TypeRelation to PatientDate of BirthPhone Billing AddressPersonal/YzdowpJqgi1980 [address] [address] Care Teams Team MemberRelationshipSpecialtyStart DateEnd Date Jerry Melo MD [address] [address] PCP - [facility]12/06/22 Jennifer Chapman PA [address] [facility] 110 [place] [address] PCP - [facility]07/18/24 Little Johnson LPN [address] [facility] 110 [place] [address] 03/06/25
[2025-06-02] MEDS: OXYCODONE HCL/ACETAMINOPHEN 5MG/325MG 1 TAB PO (04:30)
[2025-06-02 05:01] VITALS: BP 123/84; PULSE 82; O2SAT 99
== END 2025-06-02 04:30 | disposition home or self-care (01) ==
LOC: ER 03:55
PROVIDERS: Emergency Provider Emergency Medicine; PCP Family Medicine
DX: K08.89 Other specified disorders of teeth and supporting structures (principal)
CPT/HCPCS: 96372; 99284; J1885

== ENCOUNTER 2025-06-18 13:51 | Emergency (ER) | payer OTHER, SELFPAY ==
[2025-06-18] VITALS (12 sets, daily range): BP systolic 128–141; BP diastolic 87–102; PULSE 80–94; TEMP 37; O2SAT 96–100; BMI 24.9
--- NOTE | 2025-06-18 14:00 | ECG_ITS ---
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 Measurements Intervals [place] Rate: 83 P: 69 WV: 122 QRS: 68 QRSD: 80 T: 38 QT: 350 QTc: 390 Interpretive Statements 1100 Sinus rhythm 9110 normal ECG Compared to ECG 12/11/2020 19:40:47 No significant changes Electronically Signed On 06-18-2025 19:59:57 EST by GISELE QUEZADA M.D.
--- NOTE | 2025-06-18 14:02 | ED.GENADUL1 ---
HPI HPI - General Adult General Chief complaint: Dizziness Stated complaint: DIZZINESS Time Seen by Provider: 06/18/25 13:54 Source: patient Mode of arrival: ambulance History of Present Illness HPI narrative: 45-year-old female presented to the emergency department for a chief complaint of feeling like she was going to pass out. She had taken 2 hours previously her second ever dose of Ubrelvy. She was in her car when the symptoms started. She felt hot and dizzy and felt like she was going to pass out and she was nauseous. She did not have a syncopal episode and does not have chest pain. She does not have palpitations now. Related Data Home Medications ?Medication ?Instructions ?Recorded ?Confirmed venlafaxine 37.5 mg 37.5 mg PO DAILY 03/02/24 06/18/25 capsule,extended release 24 hr alprazolam 0.5 mg tablet 0.5 mg PO BID 02/22/25 06/18/25 ubrogepant 100 mg tablet (Ubrelvy) mg 06/18/25 Previous Rx's ?Medication ?Instructions ?Recorded acetaminophen 300 mg-codeine 30 mg 1 tab PO Q6H PRN pain 5 days #20 05/31/25 tablet tabs Allergies Allergy/AdvReac Type Severity Reaction Status Date / Time Penicillins Allergy Severe Hives Verified 06/18/25 13:54 Opioid HPI Opioid Management Most Recent Opioid Data: Last Pain Scale 10 06/02/25, 04:30 Review of Systems ROS Narrative A ten point review of systems is negative except as noted above. PFSH PFSH Social History Little interest or pleasure in doing things: not at all Feeling down, depressed, or hopeless: not at all Exam Narrative Exam Narrative: Nurses note and vital signs reviewed General:The patient appears well and in no apparent distress.Patient is resting comfortably on cart. Skin:Warm, dry, no pallor noted.There is no rash noted. Head:Normocephalic, atraumatic Eye: Normal conjunctiva, no drainage Ears, Nose, Mouth, and Throat: oral mucosa is moist. Nares patent. Cardiovascular:Regular Rate and Rhythm Respiratory:Patient is in no distress, no accessory muscle use, lungs are clear to auscultation, no wheezing, rales or rhonchi Back:non-tender GI: Soft and nontender Musculoskeletal: The patient has no evidence of calf tenderness, no pitting edema, symmetrical pulses noted bilaterally Neurological:A&O x4, normal speech Psychiatric:Cooperative Constitutional Vital Signs, click to edit/add: Last Vital Signs Temp 98.6 F 06/18/25 13:55 Pulse 83 06/18/25 14:50 Resp 24 H 06/18/25 14:50 BP 136/89 06/18/25 14:13 Pulse Ox 96 06/18/25 14:30 O2 Del Method Room Air 06/18/25 13:55 Course Vital Signs Vital signs: Vital Signs Blood Pressure 141/102 H 06/18/25 13:54 Temperature 98.6 F 06/18/25 13:55 Pulse Rate 83 06/18/25 14:50 Respiratory Rate 24 H 06/18/25 14:50 Blood Pressure 136/89 06/18/25 14:13 Pulse Oximetry 96 06/18/25 14:30 Oxygen Delivery Method Room Air 06/18/25 13:55 Medical Decision Making MDM Narrative Medical decision making narrative: Her workup is negative. My impression at this point is that her symptoms were due to side effects from Ubrelvy. She will discontinue that medication. Treatment diagnosis and follow-up were discussed with the patient. Differential Diagnosis Differential Diagnosis: Medication side effect, electrolyte imbalance, kidney disease, anemia Lab Data Lab results reviewed: Yes I reviewed the patient's lab results Labs: Lab Results 06/18/25 06/18/25 Range/Units 13:55 14:42 WBC 13.4 H (4.0-11.0) 10^3/uL RBC 4.82 (4.20-5.40) 10^6/uL Hgb 14.9 (12.0-16.0) g/dL Hct 43.0 (36.0-48.0) % MCV 89.2 (81.0-99.0) fL MCH 30.9 (26.7-34.0) pg MCHC 34.7 (29.9-35.2) g/dL RDW 14.0 (11.0-15.0) % Plt Count 416 (150-450) 10^3/uL MPV 8.9 L (9.5-13.5) fL Neut % (Auto) 72.7 (43.0-75.0) % Lymph % (Auto) 17.6 L (20.5-60.0) % Hayes % (Auto) 7.5 (1.7-12.0) % Eos % (Auto) 0.9 (0.9-7.0) % Baso % (Auto) 1.0 (0.2-2.0) % Neut # (Auto) 9.8 H (1.4-6.5) 10^3/uL Lymph # (Auto) 2.4 (1.2-3.8) 10^3/uL Hayes # (Auto) 1.0 H (0.3-0.8) 10^3/uL Eos # (Auto) 0.1 (0.0-0.7) 10^3/uL Baso # (Auto) 0.1 (0.0-0.1) 10^3/uL Abs Immat Gran (auto) 0.04 H (0.00-0.03) 10^3/uL Imm/Tot Granulo (auto) 0.3 (0.0-0.5) % Sodium 140 (136-145) mmol/L Potassium 4.3 (3.5-5.1) mmol/L Chloride 103 (98-107) mmol/L Carbon Dioxide 26.6 (21.0-32.0) mmol/L Anion Gap 14.7 BUN 13.0 (7.0-18.0) mg/dL Creatinine 0.69 (0.55-1.02) mg/dL Est GFR ( Amer) >60 (>=60 mL/min/1.73m^2) Est GFR (Non-Af Amer) >60 (>=60 mL/min/1.73m^2) BUN/Creatinine Ratio 18.8 Glucose 95 (74-106) mg/dL Calcium 8.7 (8.5-10.1) mg/dL Troponin I High Sens <4.0 L (4.0-51.3) pg/mL Urine Color Lt. yellow (YELLOW) Urine Clarity Clear (CLEAR) Urine pH 7.0 (5.0-9.0) Ur Specific [place] 1.010 (1.005-1.025) Urine Protein Negative (NEG/TRACE) mg/dL Urine Glucose (UA) Negative (NEGATIVE) mg/dL Urine Ketones Negative (NEGATIVE) mg/dL Urine Occult Blood Trace-i (NEGATIVE) Urine Nitrite Negative (NEGATIVE) Urine Bilirubin Negative (NEGATIVE) Urine Urobilinogen 0.2 (0.2-1.0) EU/dL Ur Leukocyte Esterase Negative (NEGATIVE) Urine RBC 0-2 (0-2) #/HPF Urine WBC None seen (NONE SEEN) #/HPF Ur Squamous Epith Cells Rare (NONE/RARE) #/LPF Urine Crystals None seen (None Seen) #/HPF Urine Bacteria Trace A (NONE SEEN) #/HPF Urine Casts None seen (NONE SEEN) #/LPF Urine Mucus None seen (NONE SEEN) Ur Culture Indicated? No ECG Data Attestation: I personally reviewed and interpreted this ECG as follows: (EKG on my interpretation shows sinus rhythm with rate of 83 and no acute change) Discharge Plan Discharge Chief Complaint: Dizziness Clinical Impression: Medication side effects Patient Disposition: Home, Self-Care Time of Disposition Decision: 15:10 Condition: Good Mode of Transportation: Private Vehicle Prescriptions / Home Meds: No Action Ubrelvy 100 mg tablet venlafaxine 37.5 mg capsule,extended release 24hr 37.5 mg PO DAILY alprazolam 0.5 mg tablet 0.5 mg PO BID acetaminophen-codeine 300-30 mg tablet 1 tab PO Q6H PRN (Reason: pain) 5 Days Qty: 20 0RF Print Language: Maltese Instructions: Adverse Drug Reaction (ED) Referrals: VEGA RAM [Primary Care Provider, Family Practice] - 1 week
[2025-06-18 14:06] LABS: Hematocrit 43.0 % (36.0-48.0); Hemoglobin 14.9 g/dL (12.0-16.0); Immature Granulocytes Abs Auto 0.04 10^3/uL (0.00-0.03); Immature Granulocytes Pct Auto 0.3 % (0.0-0.5); Lymphocytes Absolute Auto 2.4 10^3/uL (1.2-3.8); Mean Corpuscular HGB Conc 34.7 g/dL (29.9-35.2); Mean Corpuscular Hemoglobin 30.9 pg (26.7-34.0); Mean Corpuscular Volume 89.2 fL (81.0-99.0); Platelet Count 416 10^3/uL (150-450); Red Blood Count 4.82 10^6/uL (4.20-5.40); White Blood Count 13.4 10^3/uL (4.0-11.0)
[2025-06-18 14:24] LABS: Anion Gap 14.7; Blood Urea Nitrogen 13.0 mg/dL (7.0-18.0); Calcium 8.7 mg/dL (8.5-10.1); Carbon Dioxide 26.6 mmol/L (21.0-32.0); Chloride 103 mmol/L (98-107); Estimated GFR (African America >60 (>=60 mL/min/1.73m^2); Estimated GFR (Non-African Ame >60 (>=60 mL/min/1.73m^2); Glucose 95 mg/dL (74-106); Potassium 4.3 mmol/L (3.5-5.1); Sodium 140 mmol/L (136-145)
--- OUTSIDE RECORDS SUMMARY | 2025-06-18 14:24 | XMS_ITS | Encounter Summary ---
Author Organization [facility] Address [address] [place] [address] Care Team Providers Care Renewable Energy Broker Name Role Phone Jerry Melo MD Primary Care Provider [phone] Jennifer Chapman PA Unavailable [phone] Little Johnson LPN Unavailable Reason for Visit * ReasonOnset DateCommentsMed Nndgxs7806/17/2025 Encounter Details DateTypeDepartmentCare Team (Latest Contact Info)Qrttksjnjja84/01/2025Refill [facility] [address] [facility] [address] [place] [address] Jerry Melo MD [address] [facility] 110 [place] [address] Adjustment disorder with anxiety Social History Tobacco UseTypesPacks/DayYears UsedDateSmoking Tobacco: Every JuyEoighkhbso118 Smokeless Tobacco: Never Comments:11-20 cigs/day Alcohol UseStandard Drinks/WeekCommentsNot Currently0 (1 standard drink = 0.6 oz pure alcohol)PHQ-2AnswerDate RecordedPatient Health Questionnaire-2 Score0 03/07/2025CommentsUnknownSex and Gender InformationValueDate RecordedSex Assigned at BirthNot on fileLegal ZzlWfmzwn97/15/2023 7:28 PM EDTGender Identity Not on fileSexual OrientationNot on filedocumented as of this encounter Miscellaneous Notes * Telephone Encounter - Kiera Moore - 06/18/2025 1:11 PM EST Lvm * Telephone Encounter - VETO Valderrama - 06/17/2025 3:23 PM EST Patient NS for appointment on 06/10. Please help her get rescheduled. Small supply of Xanax sent. Last refill until seen. OARRS report generated and reviewed. * Telephone Encounter - Kiera Moore - 06/17/2025 11:22 AM EST ALPRAZolam (Xanax) 0.5 MG tablet Ddm in [place] documented in this encounter Plan of Treatment Not on file documented as of this encounter Visit Diagnoses Diagnosis Adjustment disorder with anxiety documented in this encounter Care Teams Team MemberRelationshipSpecialtyStart DateEnd Date Jerry Melo MD [address] [address] [facility] - [facility] Jennifer Chapman PA [address] [facility] [address] [place] [address] PCP - [facility]07/18/24 Little Johnson LPN [address] [facility] [address] [place] [address] 03/06/25documented as of this encounter
--- OUTSIDE RECORDS SUMMARY | 2025-06-18 14:24 | XMS_ITS | Clinical Summary ---
Author Organization [facility] Address [facility] [address] [place] [address] Care Team Providers Care Natural Foods Clerk Name Role Phone Jerry Melo MD Primary Care Provider [phone] Allergies No known active allergies Medications MedicationSigDispense [...] standard drink = 0.6 oz pure alcohol)ChildcareAnswerDate QnmhhrwzBumvwxjswEqhdpzo06/12/2019EmploymentAnswer Date CteodtxpReuxseibbcJrhonks64/12/2019Purpose - LifeAnswerDate RecordedPurpose and direction in gxzeDhvshbf64/11/2021CommentsUnknownSex and Gender InformationValueDate RecordedSex Assigned at BirthNot on fileLegal SexFemale 02/20/2015 11:52 AM EDTGender IdentityNot on fileSexual OrientationNot on file Last Filed Vital Signs Vital SignReadingTime TakenCommentsBlood Hrwbhueg054/7905 2:33 PM EDT Bujnx270412/10/2021 2:33 PM JLULhyhdiuovmb75.9 ??C (98.4 ??F)12/10/2021 1:20 PM EDTRespiratory Fkeg633512/10/2021 2:33 PM EDTOxygen Bqlerqzuyo27%12/10/2021 2:33 PM EDTInhaled Oxygen Concentration--Rcxpyp77.7 kg (147 lb)12/10/2021 1:20 PM EDT Iltbku877.6 cm (5' 4 )08/31/2021 11:24 AM ESTBody Mass Index25.23008/31/2021 11:24 AM EST Plan of Treatment Health MaintenanceDue DateLast DoneCommentsDepression Evvvtspbj84/15/1991Tobacco Esijpwzfy04/15/1991Adult BMI Obzpsmdqz51/15/1997DTaP,Tdap and Td Vaccines (1 - Tdap)1998Pap Smear2000Influenza Kmjyhic9503/18/2025 Medical Devices Not on file Insurance * Guarantor: Marion Merida TypeRelation to PatientDate of BirthPhone Billing AddressPersonal/VyuxcwWxds1980 [address] [address] Care Teams Team MemberRelationshipSpecialtyStart DateEnd Date Lorie, Rugen M, [place] [address] [place] [address] [facility]
--- OUTSIDE RECORDS SUMMARY | 2025-06-18 14:24 | XMS_ITS ---
Author Organization [facility] Healthcare Address [address] [place] [address] Care Team Providers Care Furnace Installer Helper Name Role Phone Jerry Melo MD Primary Care Provider [phone] Jennifer Chapman Unavailable [phone] Little Johnson LPN Unavailable Emergency Department Transitional Care Management (TCM) Status:Closed (Closed) Start date:06/02/2025 Enrollment date:06/03/2025 Enrollment reason:Identified using hospital discharge data End date:06/04/2025 Close reason:Actively enrolled in CCM Overview Discharged from [facility] ER on 06/02. Please contact within 2 days of discharge for ERTOC and schedule a follow-up appointment if needed. Continued Care and Services Coordination
--- OUTSIDE RECORDS SUMMARY | 2025-06-18 14:24 | XMS_ITS | Encounter Summary ---
Author Organization [facility] Healthcare Address [address] [place] [address] Care Team Providers Care Help Desk Consultant Name Role Phone Jerry Melo MD Primary Care Provider [phone] Jennifer Chapman Unavailable Little Johnson LPN Unavailable Encounter Details DateTypeDepartmentCare Team (Latest Contact Info)Gdwsxpcjnjc51/18/2025Patient Outreach [facility] [address] [place] [address] Little Johnson LPN 112 [facility] 110 [place] [address] Social History Tobacco UseTypesPacks/DayYears UsedDateSmoking Tobacco: Every AuhQygjszknbp182 Smokeless Tobacco: Never Comments:11-20 cigs/day Alcohol UseStandard Drinks/WeekCommentsNot Currently0 (1 standard drink = 0.6 oz pure alcohol)PHQ-2AnswerDate RecordedPatient Health Questionnaire-2 Score0 03/07/2025CommentsUnknownSex and Gender InformationValueDate RecordedSex Assigned at BirthNot on fileLegal CsyPbbmfj27/15/2023 7:28 PM EDTGender Identity Not on fileSexual OrientationNot on filedocumented as of this encounter Progress Notes * Little Johnson LPN - 06/04/2025 11:26 AM EST Images from the original note were not included. Records in chart. SERENA partially complete. Unable to reach pt. Medications not reconciled. Flowsheet Row Patient Outreach from 06/04/2025 in [facility] with Little Johnson LPN Hospital Information ED, Hospital or Penitentiary Facility Discharge? ED Patient has been contacted within 2 days of being seen in the ED No Have two attempts been made, within 2 days of being seen in the ED, to contact the patient? Yes Diagnosis Odontalgia Discharge Date 06/02/25 Discharged To: Home Setting Discharge Hospital [facility] Engagement Admission Date 06/02/25 Medications Discharge medications reviewed and reconciled from hospital? No [unable to reach pt. Updated new med per d/c orders] Medication Comments prescription aded :oxycodone-acetaminophen (Percocet) 5-325 mg tablet 1 tab PO Q6H PRN for 4 days. No other med changes Appointments Does the patient have a primary care provider? Yes [06/10 est pt appt] Does the patient have any upcoming specialty appointments? No Self Management Does patient have home health? no Patient Teaching Wrap Up Wrap Up Additional Comments presented to ER for toothache. She was recently and has been on an antibiotic and also Tylenol 3. She states the Tylenol 3 is not strong enough. She will be able to call her dentist office tomorrow for an appointment. The pain is severe and continuous and mostly on the right lower jaw but also in the right upper jaw documented in this encounter Plan of Treatment Not on file documented as of this encounter Visit Diagnoses Diagnosis Odontalgia- Primary Unspecified disorder of the teeth and supporting structures Chronic obstructive pulmonary disease, unspecified COPD type (HCC) documented in this encounter Care Teams Team MemberRelationshipSpecialtyStart DateEnd Date Jerry Melo MD [address] [address] PCP - GeneralFamily Medicine12/06/22 Jennifer Chapman PA 112 [facility] 110 [place] [address] PCP - [facility]07/18/24 Little Johnson LPN [address] [address] 03/06/25documented as of this encounter
--- OUTSIDE RECORDS SUMMARY | 2025-06-18 14:24 | XMS_ITS | Clinical Summary ---
Author Organization [facility] Healthcare Address [address] [place] [address] Care Team Providers Care Inventory Control Supervisor Name Role Phone Jerry Melo MD Primary Care Provider [phone] Jennifer Chapman Unavailable [phone] Little Johnson LPN Unavailable Allergies Active AllergyReactionsCriticalityNoted DateCommentsDicyclomineDizzinessMedium 06/13/20247849UsisvdkvsxXigyv68/11/2025 Sedation Medications MedicationSigDispense QuantityRefillsLast FilledStart DateEnd DateStatus betamethasone dipropionate 0.05 % cream Indications:Sun allergyApply 1 application topically in the morning and 1 application before bedtime. 15 g 4Active meloxicam (Mobic) 15 MG tablet Indications:Lumbar pain [...] hours following first dose 16 tablet 5Active arbkxgkhyvenqdt-SL-YI 60-15-400 MG tablet Indications:COVIDTake 1 tablet by mouth every 6 (six) hours if needed (Cough) 28 tablet 5Active ipratropium (Atrovent) 0.03 % nasal spray 5Active ondansetron ODT (Zofran-ODT) 4 MG disintegrating tablet 02/27/2025tive ipratropium-albuterol (Duo-Neb) 0.5-2.5 mg/3 mL nebulizer solution Indications:Chronic obstructive pulmonary disease, unspecified COPD type (HCC) Take 3 mL by nebulization 4 (four) times a day as needed for wheezing or shortness of breath 50 mL 5Active baclofen (Lioresal) 10 MG tablet Indications:Lumbar spondylosisTake [...] mg) by mouth Daily 90 capsule 5Active oxyCODONE-acetaminophen (Percocet) 5-325 MG tablet Take 1 tablet by mouth every 6 (six) hours if zrzsvh825Active clindamycin (Cleocin) 300 MG capsule Take 300 mg by mouth in the morning and 300 mg at noon and 300 mg in the evening and 300 mg before bedtime.5Active ALPRAZolam (Xanax) 0.5 MG tablet Indications:Adjustment disorder with anxietyTake 1 tablet (0.5 mg) by mouth 2 (two) times a day as needed for anxiety 28 tablet 5Active fremanezumab (Ajovy) 225 MG/1.5ML prefilled syringe Indications:Chronic migraine without aura without status migrainosus, not intractableInject 1.5 mL (225 mg) under the skin every 30 (thirty) days 1.5 mL Discontinued(Cost of medication) ALPRAZolam (Xanax) 0.5 MG tablet Indications:Adjustment disorder with anxietyTake 1 tablet (0.5 mg) by mouth 2 (two) times a day as needed for anxiety 60 tablet Discontinued(Reorder) ALPRAZolam (Xanax) 0.5 MG tablet Indications:Adjustment disorder with anxietyTake 1 tablet (0.5 mg) by mouth 2 (two) times a day as needed for anxiety 60 tablet Discontinued(Reorder) acetaminophen-codeine (Tylenol w/ Codeine #3) 300-30 MG tablet Take 1 tablet by mouth every 6 (six) hours if zsxivb90 Discontinued(Ineffective) Active Problems ProblemNoted DateDiagnosed DateLumbar ympumcxoewh37/13/2025llergy to honey bee venom02/15/2024OPD (chronic obstructive pulmonary disease)12/06/2022djustment disorder with yssojqy5612/06/2022arpal tunnel syndrome of left wrist12/06/2022 Chronic migraine without aura without status migrainosus, not intractable 12/06/20226294Bupgop62/22/2023High grade squamous intraepithelial lesion on cytologic smear of cervix (HGSIL)12/06/20228389Grdacdzmcacf90/22/2023Irritable bowel syndrome with both constipation and uescttlc60/22/2023anic disorder with fsnejlnvmrx11/22/1360Xlzogj63/22/8615Pftyhqyaedfeei74/22/2023Family history of breast srfkxx7007/22/2021un kdkqegg4912/22/2015 Resolved Problems ProblemNoted DateDiagnosed DateResolved DateEpisodic /31/2024 02/15/2024hronic migraine with aura/02/20231087Ryjpxmmqz06/22/2023 02/15/2024 Encounters DateTypeDepartmentCare MxsmJijbilflhbx33/01/2025Refill [facility] [address] [place] [id number] Jerry Melo MD Adjustment disorder with zfyxocg1306/04/2025Patient Outreach [facility] [address] [place] [address] BoligeeLittle, [facility] 06/03/2025bstract [facility] [address] [place] [address] Little Johnson [facility] 05/20/2025Refill [facility] [address] [place] [address] Jerry Melo MD Adjustment disorder with ijquzmg4304/12/2025Refill [facility] [address] [place] [address] Jerry Melo MD Adjustment disorder with pavqflt0104/05/2025[facility] [address] [place] [address] [facility] 04/01/2025Telephone [facility] [address] [place] [address] Jerry Melo MD Med Refillfrom Last 3 Months Family History Medical HistoryRelationNameCommentsBreast cancerFather's SisterHypertension MotherCoronary artery diseaseOtherDiabetes type IIOtherHypertensionOtherLung cancerOtherProstate cancerOtherColon cancerPaternal GrandfatherRelationName StatusCommentsFather's SisterMotherAliveOtherfamily hxPaternal Grandfather Social History Tobacco UseTypesPacks/DayYears UsedDateSmoking Tobacco: Every AnqYbgfjmdvmr135 Smokeless Tobacco: Never Tobacco Cessation:Ready to Q uit: Not Asked; Counseling Given: Not Answered Comments:11-20 cigs/day Alcohol UseStandard Drinks/WeekCommentsNot Currently0 (1 standard drink = 0.6 oz pure alcohol)PHQ-2AnswerDate RecordedPatient Health Questionnaire-2 Score0 03/07/2025CommentsUnknownSex and Gender InformationValueDate RecordedSex Assigned at BirthNot on fileLegal QrzEzsatt83/15/2023 7:28 PM EDTGender Identity Not on fileSexual OrientationNot on file Last Filed Vital Signs Vital SignReadingTime TakenCommentsBlood Inrsbhrh967/7608 3:16 PM EDT Cnkzh3689 3:16 PM EKFKgnexdivdoo01.8 ??C (98.3 ??F)03/07/2025 3:16 PM EDTRespiratory Ufbj3725 3:16 PM EDTOxygen Irafncavze84%03/07/2025 3:16 PM EDTInhaled Oxygen Concentration--Xexgpe69.8 kg (145 lb)03/07/2025 3:16 PM EDT Iqjlpm360.6 cm (5' 4 )03/07/2025 3:16 PM EDTBody Mass Index24.8903/07/2025 3:16 PM EDT Plan of Treatment Health MaintenanceDue DateLast DoneCommentsCT Bwpzmslwnuea1979Colonoscopy 1979Colorectal Cancer Snffajbev1979FIT-DNA1979FIT1979 FOBT1979 0894Kcfqfymdbofse1979Pneumococcal Vaccine: Pediatrics (0 to 5 Years) and At-Risk Patients (6 to 64 Years) (1 of 2 - PCV)1998Pap Smear 2000Cervical Cancer Ljjovenbv97/15/2009HPV/Vukshd3405/01/2009Mammogram 2019COVID-19 Vaccine ( season)/05/2022, 11/04/2021 Influenza Vaccine (#1)2025 Insurance * Guarantor: Marion Merida TypeRelation to PatientDate of BirthPhone Billing AddressPersonal/KchlvvFqyu1980 [address] [address] Care Teams Team MemberRelationshipSpecialtyStart DateEnd Date Jerry Melo MD [address] [facility] [address] [place] [address] PCP - [facility]12/06/22 Jennifer Chapman PA [address] [facility] [address] [place] [address] PCP - [facility]07/18/24 Little Johnson LPN [address] [facility] [address] [place] [address] 03/06/25
--- OUTSIDE RECORDS SUMMARY | 2025-06-18 14:37 | XMS_ITS | CCD ---
Author Organization [facility] Care Team Providers Care Project Coordinator Rn Name Role Phone YO, DR FERRARI Primary [...] of OnsetReaction(s) Facility (1 source)Amoxicillin / ClavulanateDrug Vphzyno99-74-0089GkwGood [facility] (20 sources)Amoxicillin-Pot ClavulanateDrug Rfmnhuh98-65-6596[facility] Work Phone: (20 sources)DicyclomineDrug Cowragw81-96-4148NgfmokiakUHVK Healthcare (8 sources)tiZANidineDrug Bllnoeu28-68-6629NaclmVCXH Healthcare Medications Current Medications MedicationDrug Class(es)DatesSig (Normalized)Sig [...] mg oral tablet (20 sources)BenzodiazepineStart: 02-13-2024 End: 46-47-3048ocpu 1 tablet by mouth twice daily as needed for anxiety ALPRAZolam (Xanax) 0.5 MG tablet Indications: Adjustment disorder with anxiety Take 1 tablet (0.5 mg) by mouth 2 (two) times a day as needed for anxiety 60 tablet 05/20/2025 06/19/2025 Activeamoxicillin 875 mg / clavulanate 125 mg oral tablet (5 sources)Penicillin-class AntibacterialStart: 03-07-2025 End: 21-70-9578gizp 1 tablet by mouth in the morningamoxicillin-clavulanate (Augmentin) 875-125 MG tablet Indications: Acute bronchitis, unspecified org anism Take 1 tablet (875 mg) by mouth in the morning and 1 tablet (875 mg) before bedtime. Do all this for 4 days. 8 tablet 03/07/2025 03/11/2025 Active Start: 02-27-2025 End: 39-79-8083cndtvleivvs-clavulanate (Augmentin) 875-125 MG tablet 02/27/2025 03/07/2025 Discontinued (Reorder)baclofen 10 mg oral tablet (4 sources)gamma-Aminobutyric Acid-ergic AgonistStart: 16-27-6103bfcq 1 tablet by mouth twice daily as needed for muscle spasmsbaclofen (Lioresal) 10 MG tablet Indications: Lumbar spondylosis Take 1 tablet (10 mg) by mouth 2 (two) times a day as needed for muscle spasms 60 tablet 2 03/07/2025 Activebetamethasone 0.5 mg/ml topical cream (20 sources)CorticosteroidStart: 61-25-3056vdvoqeukpctcv dipropionate 0.05 % cream Indications: Sun allergy Apply 1 application topically in the morning and 1 application before bedtime. 15 g 2 02/15/2024 Activedextromethorphan hydrobromide 15 mg / guaiFENesin 400 mg / pseudoephedrine hydrochloride 60 mg oraltablet (9 sources)alpha-Adrenergic Agonist, Uncompetitive Q-qpcokp-C-aspartate Receptor Antagonist, Sigma-1 AgonistStart: 16-49-5056jnkc 1 tablet by mouth every six ujxxxdphyxikjknujjrz-MI-ND 60-15-400 MG tablet Indications: COVID Take 1 tablet by mouth every 6 (six) hours if needed (Cough) 28 tablet 01/17/2025 ActiveStart: 07-25-2024 End: 47-74-9402kouqhohfcbpryhp-DM-GG 60-15-400 MG tablet Indications: Nasal congestion , Acute cough Take 1 tabletby mouth in the morning and 1 tablet at noon and 1 tablet in the evening and 1 tablet before bedtime. Do all this for 10 days. 40 tablet 07/25/2024 08/04/2024 Activedicyclomine hydrochloride 10 mg oral capsule (6 sources)AnticholinergicStart: 02-15-2024 End: 46-55-2731vqdv 1 capsule by mouth twice daily as neededdicyclomine (Bentyl) 10 MG capsule Indications: Irritable bowel syndrome with both constipation and diarrhea Take 1 capsule (10 mg) by mouth 2 (two) times a day as needed (Loose stools) 60 capsule 2 02/15/2024 06/13/2024 Discontinued (Side effects)[id number] 0.3 ml EPINEPHrine 1 mg/ml auto-injector (20 sources)alpha-Adrenergic Agonist, beta-Adrenergic Agonist, Catecholamine Start: 92-35-1105TQJQARWvwxj (Epipen) 0.3 MG/0.3ML injection syringe Indications: Allergy to honey bee venom Inject 0.3 mL (0.3 mg) as directed 1 (one) time for 1 dose Inject into upper leg. Call 911 after use. 12/20/2024 ActiveStart: 11-14-2024 End: 82-65-9107YZOEIMRkhxf (Epipen) 0.3 MG/0.3ML injection syringe Indications: Allergy to honey bee venom Inject 0.3 mL (0.3 mg) as directed Daily as needed for anaphylaxis Must be seen in ER following administration 0.6 mL 1 11/14/2024 11/14/2024 DiscontinuedStart: 02-15-2024 End: 81-92-4775RBFNBBPvesj (Epipen) 0.3 MG/0.3ML injection syringe Indications: Allergy to honey bee venom Inject 0.3 mL (0.3 mg) as directed 1 (one) time for 1 dose Inject into upper leg. Call 911 after use. 2 each 1 11/14/2024 Active1.5 ml fremanezumab-vfrm 150 mg/ml prefilled syringe (20 sources)Start: 02-15-2024 End: 85-94-9293jvkkfk 1.5 mL by subcutaneous injection every 30 daysfremanezumab (Ajovy) 225 MG/1.5ML prefilled syringe Indications: Chronic migraine without aura without status migrainosus, not intractable Inject 1.5 mL (225 mg) under the skin every 30 (thirty) days1.5 mL 5 11/14/2024 Activeipratropium bromide 0.021 mg/actuat metered dose nasal spray (5 sources)AnticholinergicStart: 99-47-5996cmnhxqrjptu (Atrovent) 0.03 % nasal spray 02/27/2025 Activemeloxicam 15 mg oral tablet (8 sources)Nonsteroidal Anti-inflammatory DrugStart: 44-40-1131umnw 1 tablet by mouth once daily at mealtimemeloxicam (Mobic) 15 MG tablet Indications: Lumbar pain with radiation down both legs Take 1 tablet(15 mg) by mouth Daily Take with food 30 tablet 2 11/28/2024 ActivemethylPREDNISolone (1 source)CorticosteroidStart: 08-22-2024 End: 92-39-2154zetxbcJAMSQFUapntf (Medrol Dospak) 4 MG tablets Indications: Acute non-recurrent frontal sinusitis Follow schedule on package instructions 21 tablet 08/22/2024 08/29/2024 Activeondansetron 4 mg disintegrating oral tablet (5 sources)Serotonin-3 Receptor AntagonistStart: 32-01-9394lfkgzyiglmt ODT (Zofran-ODT) 4 MG disintegrating tablet 02/27/2025 ActiverifAXIMin 550 mg oral tablet (9 sources)Rifamycin AntibacterialStart: 11-14-2024 End: 45-70-8428ahpb 1 tablet by mouth in the morning, [...] 42 tablet 11/14/2024 11/28/2024 ActiveStart: 06-13-2024 End: 44-06-2270zrvw 1 tablet by mouth in the morning, [...] (7 sources)Central alpha-2 Adrenergic AgonistStart: 11-14-2024 End: 65-04-0205qoUBXgsyez (Zanaflex) 4 MG tablet Indications: Spasm of muscle of lower back Take 1 tablet (4 mg) by mouth as needed at bedtime for muscle spasms for up to 14 days 14 tablet 11/14/2024 11/28/2024 Activeubrogepant 100 mg oral tablet (15 sources)Start: 24-26-3088Jryfuonlbg (Ubrelvy) 100 MG tablet Indications: Chronic migraine [...] following first dose 8 tablet 5 11/14/2024 Iqbpht15 hr venlafaxine 37.5 mg extended release oral capsule (20 sources)Serotonin and Norepinephrine Reuptake InhibitorStart: 71-67-4172cbff 1 capsule by mouth once dailyvenlafaxine XR (Effexor XR) 37.5 MG 24 hr capsule Indications: Adjustment disorder with anxiety Take 1 capsule (37.5 mg) by mouth Daily 90 capsule 3 04/01/2025 ActiveStart: 29-09-3617aisp 1 capsule by mouth once dailyvenlafaxine XR (Effexor XR) 75 MG 24 hr capsule Indications: Adjustment disorder with anxiety Take 1 capsule (75 mg) by mouth Daily 90 capsule 3 04/01/2025 ActiveStart: 10-19-2023 End: 41-22-8651zjkm 1 capsule by mouth once dailyvenlafaxine XR (Effexor XR) 37.5 MG 24 hr capsule Indications: Adjustment disorder with anxiety Take 1 capsule (37.5 mg) by mouth Daily 90 capsule 3 04/19/2024 ActiveStart: 10-19-2023 End: 81-96-0224mcwq 1 capsule by mouth once dailyvenlafaxine XR (Effexor XR) 75 MG 24 hr capsule Indications: Adjustment disorder with anxiety Take 1 capsule (75 mg) by mouth Daily 90 capsule 3 04/19/2024 Active Completed/Discontinued Medications MedicationDrug Class(es)DatesSig (Normalized)Sig (Original)Atogepant (Qulipta) 60 MG tablet (13 sources)Start: 06-13-2024 End: 39-60-1793tjun 1 tablet by mouth once dailyAtogepant (Qulipta) 60 MG tablet Indications: Chronic migraine without aura without status migrainosus, not intractable (CMS/HCC) Take 60 mg by mouth Daily 30 tablet 2 06/13/2024 11/14/2024 Discontinued (Cost of medication)Start: 47-46-2701fnvo 1 tablet by mouth once dailyAtogepant (Qulipta) 60 MG tablet Indications: Chronic migraine without aura without status migrainosus, not intractable (CMS/HCC) Take 60 mg by mouth Daily 30 tablet 2 06/13/2024 Activeazithromycin 250 mg oral tablet (9 sources)Macrolide AntimicrobialStart: 02-23-2025 End: 07-53-2999sqoczouxmpad (Zithromax) 250 MG tablet TAKE 2 TABLETS by mouth today, THEN take 1 TABLET once a dayFOR the next 4 DAYS. 02/23/2025 03/07/2025 Discontinued (Therapy completed)Start: 07-25-2024 End: 08-81-2972gsvw 2 tablets by mouth once daily, then take 1 tablet by mouth once dailyazithromycin (Zithromax) 250 MG tablet Indications: Acute non- recurrent frontal sinusitis Take 2 tablets (500 mg) by mouth Daily for 1 day, THEN 1 tablet (250 mg) Daily for 4 days. 6 tablet 08/22/2024 08/27/2024 Active benzonatate 200 mg oral capsule (3 sources)Non-narcotic AntitussiveStart: 02-27-2025 End: 86-12-8002oloqraxnzbc (Tessalon) 200 MG capsule 02/27/2025 03/07/2025 Discontinued (Other)fluconazole 150 mg oral tablet (17 sources)Azole AntifungalStart: 03-16-2024 End: 80-80-7671uecmhzxzxpb (Diflucan) 150 MG tablet Indications: Yeast infection Take 1 tablet , and if still withsymptoms after 3 days take 1 tablet 2 tablet 03/16/2024 11/14/2024 Discontinued (Therapy completed)saccharomyces boulardii 250 mg oral capsule (17 sources)Start: 02-15-2024 End: 57-09-2895fvnz 1 capsule by mouth in the morningsaccharomyces boulardii (Florastor) 250 MG capsule Indications: Irritable bowel syndrome with both c onstipation and diarrhea Take 1 capsule (250 mg) by mouth in the morning and 1 capsule (250 mg) before bedtime. 60 capsule 5 02/15/2024 11/14/2024 Discontinued (Other)1 ml triamcinolone acetonide 40 mg/ml prefilled syringe (4 sources)CorticosteroidStart: 03-07-2025 End: 19-62-3227mdfmzurzquvxt acetonide (Kenalog-40) injection 40 mgStart: 03-07-2025 End: 18-46-5292xgrymm 40 mg by intramuscular injection once40 mg, Intramuscular, Once, On Lama 03/07/25 at 1545, For 1 dose Problems Active Problems Problem ClassificationProblemDateDocumented DateEpisodic/ChronicAcute bronchitis (2 sources)Acute bronchitis; Translations: [Acute bronchitis, unspecified] 19-45-6635GihnnrzyYprtutchfz disorders (20 sources)Adjustment disorder with anxious mood; Translations: [Adjustment disorder with anxiety]Onset: 450045-82-2364CzgteecJsrmvoh disorders (20 sources)Anxiety disorder, unspecified; Translations: [Panic disorder with agoraphobia]Onset: 442881-83-9398NilzesgXajqgus obstructive pulmonary disease and bronchiectasis (20 sources)Chronic obstructive lung disease; Translations: [Chronic obstructive pulmonary disease, unspecified]Onset: 255596-09-7798QwdfbauLsvlvmcqn of teeth and jaw (4 sources)Other specified disorders of teeth and supporting structures; Translations: [OTH SPEC DISORDERS TEETH SUPP STRCT]Onset: 36-10-9507OilvcbwqC Codes: Natural/environment (1 source)Exposure to other specified factors, initial encounter; Translations: [EXPOSURE OTHER SPEC FACTORS INITIAL]Onset: 58-61-2691DzgskunsFnhsjzdz; including migraine (20 sources)Migraine, unspecified, not intractable, without status migrainosus; Translations: [Migraine withoutaura, not refractory ]Onset: 04-01-2022 Resolved: 552932-47-3670VzvkeghJisrwxzy; including migraine (3 sources)Headache; including migraine; Translations: [HEADACHE UNSPECIFIED] Onset: 53-20-4262Vwpma aftercare (1 source)Other watermelon inspector (current) drug therapy; Translations: [OTH SHELTER CURRENT DRUG THERAPY]Onset: 41-20-6409TxsbraboOkxkh endocrine disorders (20 sources)Hypoglycemia; Translations: [Hypoglycemia, unspecified]Onset: 577545-05-2040QatjxpyBxmyz gastrointestinal disorders (20 sources)Irritable bowel syndrome; Translations: [Mixed irritable bowel syndrome]Onset: 388731-78-9215AwgvvlpZcpss gastrointestinal disorders (2 sources)Irritable bowel syndrome with diarrhea; Translations: [Irritable bowel syndrome with diarrhea]91-23-2736LsiattfHnhsk lower respiratory disease (2 sources)Cough; Translations: [Acute cough]55-65-7563RiyqknbeFxovf nervous system disorders (20 sources)Carpal tunnel syndrome of left wrist; Translations: [Carpal tunnel syndrome, left upper limb]Onset: 047867-55-8194YtwwfseUymqi nervous system disorders (1 source)Other acute postprocedural pain; Translations: [OTHER ACUTE POSTPROCEDURAL PAIN]Onset: 05-81-4461UwzbourvIpzck screening for suspected conditions (not mental disorders or infectious disease) (4 sources)Patient encounter status; Translations: [Encounter for screening for malignant neoplasm of colon]24-00-5547ZoinaupdCrxcb upper respiratory disease (2 sources)Nasal congestion; Translations: [Nasal congestion]99-95-7220Anaeenyc Other upper respiratory infections (3 sources)Acute frontal sinusitis; Translations: [Acute frontal sinusitis, unspecified]92-82-5015IkxxxboiJbuvyghrlzq; intervertebral disc disorders; other back problems (10 sources)Lumbar spondylosis; Translations: [Spondylosis without myelopathy or radiculopathy, lumbar region]Onset: 190984-80-2714OtgtqynDznuzlscauc; intervertebral disc disorders; other back problems (6 sources)Low back pain; Translations: [Spasm of muscle of lower back] 28-13-9018FmowyjveTxamcsgid-related disorders (20 sources)Nicotine dependence, cigarettes, uncomplicated; Translations: [Nicotine dependence, unspecified, uncomplicated]Onset: ChronicSuperficial injury; contusion (1 source)Abrasion of oral cavity, initial encounter; Translations: [ABRASION ORAL CAVITY INITIAL ENCNTR]Onset: 20-01-9939DnlzrwygXtpegymvtspq (1 source)CONTACT W/AND (SUSP) EXPOS COVID-19; Translations: [CONTACT W/AND (SUSP) EXPOS COVID-19]Onset: 04-01-2022 Past or Other Problems Problem ClassificationProblemDateDocumented DateEpisodic/ChronicAllergic reactions (20 sources)Urticaria, unspecified; Translations: [Allergic contact dermatitis due to other agents]Onset: 75-00-9961RlnreybfTzlhlc of cervix (20 sources)Cervicovaginal cytology: High grade squamous intraepithelial lesion or carcinoma; Translations: [High grade squamous intraepithelial lesion on cytologic smear of cervix (HGSIL)]Onset: 245051-17-8271ZuhpjdubOzubhutvyb associated with dizziness or vertigo (1 source)Dizziness and giddiness; Translations: [DIZZINESS AND GIDDINESS]Onset: 16-50-7927ZarnwsfkTmlhyv and vomiting (4 sources)Nausea with vomiting, unspecified; Translations: [NAUSEA WITH VOMITING UNSPECIFIED]Onset: 09-50-9775SiclshplYqcmenvks of unspecified nature or uncertain behavior (20 sources)Thrombocytosis; Translations: [Thrombocytosis]Onset: 12-06-2022 48-93-0251OwitneooRefbe nervous system disorders (1 source)Paresthesia of skin; Translations: [PARESTHESIA OF SKIN]Onset: 78-19-2701ClbawiayNnkwm skin disorders (3 sources)Rash and other nonspecific skin eruption; Translations: [RASH OTH NONSPECIFIC SKIN ERUPTION]Onset: 32-05-0730LxpnznhvWdoyt skin disorders (4 sources)Generalized hyperhidrosis; Translations: [GENERALIZED HYPERHIDROSIS] Onset: 43-39-8716NcnyxxybCfuxu upper respiratory infections (20 sources)Sinusitis; Translations: [Chronic sinusitis, unspecified]Onset: 12-06-2022 Resolved: 023355-87-0330VcnjrsvTnhnwazzj by nonmedicinal substances (4 sources)Toxic effect of venom of bees, accidental (unintentional), initial encounter; Translations: [TOXIC EFF VENOM BEES ACC INIT ENC]Onset: 02-02-2022 EpisodicResidual codes; unclassified (20 sources)Family history of breast cancer; Translations: [Family history of malignant neoplasm of breast]Onset: 462584-65-4438JnrldcjsPysje infection (1 source)Viral infection, unspecified; Translations: [VIRAL INFECTION UNSPECIFIED]Onset: 45-84-3426Frimfhvr Results Test NameValueInterpretationReference RangeFacilityXR LUMBAR SPINE MIN 4Von 54-58[place]13[place] [address] XRay Report Signed Patient: MARION MERIDA MR#: [id number] : 1980 Acct:[id number] Age/Sex: 44 / F ADM Date: 11/27/24 Loc: RAD Attending Dr: Non-Staff Physician M.DArcenio Ordering Physician: JENNIFER RODRIGUEZ Date of Service: 11/27/24 Procedure(s): XR lumbar spine min 4V Accession Number(s): [id number] cc: JERRY RAM ; JENNIFER RODRIGUEZ [place] [id number] Patient Name: MARION MERIDA MRN: [id number] date: 1980 Sex: F Assigned [facility] Current [facility]: [facility] Accession/Order Number: [id number] Exam Date: 11/27/2024 12:03 Report Date: 11/27/2024 [...] Reyez M.D. 11/27/2024 12:06 PM Dictation Location: [place] [address] Electronically authenticated by: [id number] Y Date: 11/27/2024 12:06 Dictated By: Jennifer Reyez M.D. Signed By: 11/27/24 1208 DD/ 1206 TD/TT: Laboratory Machinist:TBHRadiology, Radiologist, - 11/27/2024 [place] [address] XRay Report Signed Patient: MARION MERIDA MR#: [id number] : 1980 Acct:[id number] Age/Sex: 44 / F ADM Date: 11/27/24 Loc: [facility] Attending Dr: Non-Staff Physician Denzel Ordering Physician: JENNIFER RODRIGUEZ Date of Service: 11/27/24 Procedure(s): XR lumbar spine min 4V Accession Number(s): [id number] cc: JERRY RAM ; JENNIFER RODRIGUEZ [address] [address] Patient Name: MARION MERIDA MRN: [id number] date: 1980 Sex: F Assigned [facility]: [facility] Current [facility]: [facility] Accession/Order Number: [id number] Exam Date: 11/27/2024 12:03 Report Date: 11/27/2024 [...] Reyez M.D. 11/27/2024 12:06 PM Dictation Location: [place] [address] Electronically authenticated by: [id number] Y Date: 11/27/2024 12:06 Dictated By: Jennifer Reyez M.D. Signed By: 11/27/24 1208 DD/ 1206 TD/TT: Laboratory Machinist: MEGAN HealthcareRadiology Study observation (narrative)[facility]OM[facility] HealthcareXR LUMBAR SPINE MIN 4VOrdered By: Radiologist Radiology on 88-61-1209[facility] Work Phone: GROUP A STREP CULTUREon 07-21-2022S. pyogenes Ag Ql (Unsp spec)Culture Observations: NEGATIVE FOR GROUP A STREPTOCOCCUS.NormalThe [facility] Medical CenterComment on above: Performed By: #### SSCRN, GRASTCX #### [facility] [address] [place] [address] Dr. Sharonda Page AND B AGon 25-83-1233BKGTHDTTMCEGZFostoria City HospitalComment on above:Result Comment: Negative for Flu A protein angiten. Infection due to Flu A cannot be ruled out. FluA angiten in the sample may be below the detection limit of the test.Performed By: #### INFLUAB #### [facility] [address] [place] [address] Dr. Sharonda TreadwellUBNEGHSGREGORY [facility] on above: Result Comment: Negative for Flu B protein antigen. Infection due to Flu B cannot be ruled out. FluB antigen in the sample may be below the detection limit of the test.Performed By: #### INFLUAB #### [facility] [address] [place] [address] Dr. Sharonda Page AGNegativeNormalNEGATIVE SEE COMMENTThe [facility] on above:Performed By: #### INFLUAB #### [facility] [address] [place] [address] Dr. Sharonda Issa AGNegativeNormalNEGATIVE SEE COMMENTThe [facility] CenterComment on above:Performed By: #### INFLUAB #### [facility] [address] [place] [address] Dr. Sharonda WhiteSTREPT SCREENon 75-23-7167HLDQN SCREEN ANegativeNormalNEGATIVEThe [facility] CenterComment on above:Performed By: #### SSCRN, GRASTCX #### [facility] [address] [place] [address] Dr. Sharonda WhiteXR CHEST 2 Von 17-93-8317AE CHEST 2 VEXAMINATION: XR CHEST 2 V [...] Electronically authenticated by: TRAVIS MODI Date: 2022-06-03 15:10NoMartins Ferry [facility] AUTO DIFFon 68-28-6553ZMSU #0.1 103/ulNormal0.0-0.1The [facility] CenterComment on above:Performed By: #### CBC #### [facility] [address] [place] [address] Dr. Sharonda WhiteBasophils/100 WBC (Bld)0.9 %Normal0.2-2.0[facility] Comment on above:Performed By: #### CBC #### [facility] [address] [place] [address] Dr. Sharonda Story #0.2 103/ulNormal0.0-0.7The [facility] CenterComment on above: Performed By: #### CBC #### [facility] [address] [place] [address] Dr. Sharonda Zaidiosinophils/100 WBC (Bld)1.7 %Normal0.9-7.0[facility] Comment on above:Performed By: #### CBC #### [facility] [address] [place] [address] Dr. Sharonda Zaidirythrocyte distribution width (RBC) [Ratio]13.3 %Rspisb17.0-15.0 The [facility] CenterComment on above:Performed By: #### CBC #### [facility] [address] [place] [address] Dr. Sharonda WhiteHematocrit (Bld) [Volume fraction]39.6 %Okvibc10.0-48.0The [facility] CenterComment on above:Performed By: #### CBC #### [facility] [address] [place] [address] Dr. Sharonda WhiteHemoglobin (Bld) [Mass/Vol]13.5 g/mVLkajts63.0-16.0The [facility] CenterComment on above:Performed By: #### CBC #### [facility] [address] [place] [address] Dr. Sharonda Prabhakar #0.04 10e3/ulCritically high0.00-0.03[facility] Comment on above:Performed By: #### CBC #### [facility] [address] [place] [address] Dr. Sharonda Prabhakar %0.4 %Normal0.0-0.5The [facility] CenterComment on above: Performed By: #### CBC #### [facility] [address] [place] [address] Dr. Sharonda LopezH #2.3 103/ulNormal1.2-3.8The [facility] CenterComment on above:Performed By: #### CBC #### [facility] [address] [place] [address] Dr. Sharonda Moncadamphocytes/100 WBC (Bld)23.0 %Xjuvmg04.5-60.0The [facility] CenterComment on above:Performed By: #### CBC #### [facility] [address] [place] [address] Dr. Sharonda Herrera DIFF REQNONormalThe [facility] Medical CenterComment on above: Performed By: #### CBC #### [facility] [address] [place] [address] Dr. Sharonda Etienne (RBC) [Entitic mass]30.1 zhZrzrmn43.7-34.0The [facility] CenterComment on above:Performed By: #### CBC #### [facility] [address] [place] [address] Dr. Sharonda Etienne (RBC) [Mass/Vol]34.1 g/eLYhjehe62.9-35.2The [facility] CenterComment on above:Performed By: #### CBC #### [facility] [address] [place] [address] Dr. Sharonda Etienne (RBC) [Entitic vol]88.2 zUDbetev42.0-99.0The [facility] CenterComment on above:Performed By: #### CBC #### [facility] [address] [place] [address] Dr. Sharonda Vaughn #0.7 103/ulNormal0.3-0.8The [facility] CenterComment on above:Performed By: #### CBC #### [facility] [address] [place] [address] Dr. Sharonda Berumenocytes/100 WBC (Bld)7.3 %Normal1.7-12.0[facility] Comment on above:Performed By: #### CBC #### [facility] [address] [place] [address] Dr. Sharonda Ashraf #6.6 103/ulCritically high1.4-6.5[facility] Comment on above:Performed By: #### CBC #### [facility] [address] [place] [address] Dr. Sharonda Lawsutrophils/100 WBC (Bld)66.7 %Xkurfz80.0-75.0The [facility] CenterComment on above:Performed By: #### CBC #### [facility] [address] [place] [address] Dr. Sharonda WhitePlatelet mean volume (Bld) [Entitic vol]9.2 fLCritically low 9.5-13.5The [facility] CenterComment on above:Performed By: #### CBC #### [facility] [address] [place] [address] Dr. Sharonda WhitePLT366 103/igQzoljb001-957Kte [facility] CenterComment on above: Performed By: #### CBC #### [facility] [address] [place] [address] Dr. Sharonda WhiteRBC4.49 106/ulNormal4.20-5.40The [facility] CenterComment on above:Performed By: #### CBC #### [facility] [address] [place] [address] Dr. Sharonda WhiteWBC9.9 103/ulNormal4.0-11.0The [facility] CenterComment on above: Performed By: #### CBC #### [facility] [address] [place] [address] Dr. Sharonda WhitePROF CHEM 8 (BAS METB)on 50-28-6832Iuhdv gap [Moles/Vol]12.2 mmol/LNormalGood Samaritan HospitalComment on above:Performed By: #### BMP #### [facility] [address] [place] [address] Dr. Sharonda WhiteCalcium [Mass/Vol]8.0 mg/dLCritically low8.5-10.1The [facility] CenterComment on above:Performed By: #### BMP #### [facility] [address] [place] [address] Dr. Sharonda WhiteChloride [Moles/Vol]108 mmol/LCritically misd64-948Sfd [facility] CenterComment on above:Performed By: #### BMP #### [facility] [address] [place] [address] Dr. Sharonda WhiteCO2 [Moles/Vol]24.2 mmol/HHioibo88.0-32.0The [facility] Comment on above:Performed By: #### BMP #### [facility] [address] [address] [address] Sharonda WhiteCreatinine [Mass/Vol]0.51 mg/dLCritically low0.55-1.02The [facility] CenterComment on above:Performed By: #### BMP #### [facility] [address] [address] [address] Mcdonough ChangEGFR-AF BRITISH>60Normal>=60The [facility] CenterComment on above:Performed By: #### BMP #### [facility] [address] [address] [address] Sharonda ZaidiGFR-NON AF BRITISH>60Normal>=60The [facility] CenterComment on above:Performed By: #### BMP #### [facility] [address] [place] [address] Dr. Sharonda WhiteGlucose [Mass/Vol]83 mg/pGPzcwoe88-363Kdp [facility] Comment on above:Performed By: #### BMP #### [facility] [address] [place] [address] Dr. Sharonda WhitePotassium [Moles/Vol]3.4 mmol/LCritically low3.5-5.1The [facility] CenterComment on above:Performed By: #### BMP #### [facility] [address] [place] [address] Dr. Sharonda WhiteSodium [Moles/Vol]141 mmol/TWrblvf101-983Evm [facility] Comment on above:Performed By: #### BMP #### [facility] [address] [place] [address] Dr. Sharonda WhiteUrea nitrogen [Mass/Vol]13.0 mg/dLNormal7.0-18.0The [facility] CenterComment on above:Performed By: #### BMP #### [facility] [address] [place] [address] Dr. Sharonda Dill nitrogen/Creatinine [Mass ratio]25.5 mg/mgNormalThe [facility] CenterComment on above:Performed By: #### BMP #### [facility] [address] [place] [address] Dr. Sharonda Claudio AUTO DIFFon 60-67-4312PUAG #0.1 103/ulNormal0.0-0.1The [facility] CenterComment on above:Performed By: #### CBC #### [facility] [address] [place] [address] Dr. Sharonda WhiteBasophils/100 WBC (Bld)1.2 %Normal0.2-2.0The [facility] Comment on above:Performed By: #### CBC #### [facility] [address] [place] [address] Dr. Sharonda Story #0.3 103/ulNormal0.0-0.7The [facility] CenterComment on above: Performed By: #### CBC #### [facility] [address] [place] [address] Dr. Sharonda Zaidiosinophils/100 WBC (Bld)2.9 %Normal0.9-7.0The [facility] Comment on above:Performed By: #### CBC #### [facility] [address] [place] [address] Dr. Sharonda Zaidirythrocyte distribution width (RBC) [Ratio]13.7 %Vsthjf29.0-15.0 The [facility] CenterComment on above:Performed By: #### CBC #### [facility] [address] [place] [address] Dr. Sharonda WhiteHematocrit (Bld) [Volume fraction]38.5 %Nswmhp44.0-48.0The [facility] CenterComment on above:Performed By: #### CBC #### [facility] [address] [place] [address] Dr. Sharonda WhiteHemoglobin (Bld) [Mass/Vol]12.9 g/oRRoefvt92.0-16.0The [facility] CenterComment on above:Performed By: #### CBC #### [facility] [address] [place] [address] Dr. Sharonda Prabhakar #0.02 10e3/ulNormal0.00-0.03The [facility] on above:Performed By: #### CBC #### [facility] [address] [address] [address] Sharonda Prabhakar %0.2 %Normal0.0-0.5The [facility] CenterCompontiac general hospital on above: Performed By: #### CBC #### [facility] [address] [address] [address] Sharonda Salguero #2.8 103/ulNormal1.2-3.8The [facility] CenterCompontiac general hospital on above:Performed By: #### CBC #### [facility] [address] [place] [address] Dr. Sharonda Lopezhocytes/100 WBC (Bld)30.7 %Ejizid98.5-60.0The [facility] on above:Performed By: #### CBC #### [facility] [address] [place] [address] Dr. Sharonda Herrera DIFF REQNONormalThe [facility] CenterComment on above: Performed By: #### CBC #### [facility] [address] [place] [address] Dr. Sharonda Vallecillo (RBC) [Entitic mass]30.4 xyTwbslz56.7-34.0The [facility] on above:Performed By: #### CBC #### [facility] [address] [place] [address] Dr. Sharonda Etienne (RBC) [Mass/Vol]33.5 g/qAWzytru94.9-35.2The [facility] Centerment on above:Performed By: #### CBC #### [facility] [address] [place] [address] Dr. Sharonda Etienne (RBC) [Entitic vol]90.6 aUPigwka44.0-99.0The [facility] on above:Performed By: #### CBC #### [facility] [address] [place] [address] Dr. Sharonda Vaughn #0.9 103/ulCritically high0.3-0.8The [facility] Comment on above:Performed By: #### CBC #### [facility] [address] [address] [address] Sharonda Berumenocytes/100 WBC (Bld)9.7 %Normal1.7-12.0The [facility] Comment on above:Performed By: #### CBC #### [facility] [address] [place] [address] Dr. Sharonda LawsUT #5.0 103/ulNormal1.4-6.5The [facility] CenterComment on above:Performed By: #### CBC #### [facility] [address] [place] [address] Dr. Sharonda Lawsutrophils/100 WBC (Bld)55.3 %Utadpf30.0-75.0The [facility] CenterComment on above:Performed By: #### CBC #### [facility] [address] [place] [address] Dr. Sharonda WhitePlatelet mean volume (Bld) [Entitic vol]9.3 fLCritically low 9.5-13.5The [facility] CenterComment on above:Performed By: #### CBC #### [facility] [address] [place] [address] Dr. Sharonda WhitePLT353 103/jsPvjmgu284-623Rbd [facility] CenterComment on above: Performed By: #### CBC #### [facility] [address] [place] [address] Dr. Sharonda WhiteRBC4.25 106/ulNormal4.20-5.40The [facility] CenterComment on above:Performed By: #### CBC #### [facility] [address] [place] [address] Dr. Sharonda WhiteWBC9.1 103/ulNormal4.0-11.0The [facility] CenterComment on above: Performed By: #### CBC #### [facility] [address] [place] [address] Dr. Sharonda Duttonvid-19 PCR (CVDTBH)on 40-37-9035ZGEP-CoV-2 (COVID-19) RNA EZIO+probe Ql (Unsp spec)Not detectedNormalNOT DETECTEDThe [facility] Comment on above:Result Comment: When [...] for this test is supported by the Software Configuration Engineer of Health and Human Service's declaration that [...] longer be used).Performed By: #### CVDTBH #### [facility] [address] [place] [address] Dr. Sharonda Mckeon A AND B AGon 89-97-0061IQORGWJFS A AGNegativeNormal NEGATIVE SEE COMMENTThe [facility] CenterComment on above:Performed By: #### INFLUAB #### [facility] [address] [place] [address] Dr. Sharonda WhiteINFLBABAR B AGNegativeNormalNEGATIVE SEE COMMENTThe [facility] CenterComment on above:Performed By: #### INFLUAB #### [facility] [address] [place] [address] Dr. Sharonda WhiteINTERNAL CONTROLSWithin Normal LimitsNormalWithin Normal Limits The [facility] CenterComment on above:Performed By: #### INFLUAB #### [facility] [address] [place] [address] Dr. Sharonda WhitePROF 14(COMP METB)on 05-27-4177Dbgexga [Mass/Vol]3.1 g/dL Critically low3.4-5.0The [facility] CenterComment on above:Performed By: #### CMP #### [facility] [address] [address] [address] Sharonda WhiteAlbumin/Globulin [Mass ratio]0.9 {ratio}NormalThe [facility] CenterComment on above:Performed By: #### CMP #### [facility] [address] [address] [address] Sharonda WoodsP [Catalytic activity/Vol]95 U/UKvqbcj31-795Erx [facility] CenterComment on above:Performed By: #### CMP #### [facility] [address] [address] [address] Sharonda WoodsT [Catalytic activity/Vol]17 U/FQmomvy23-30Umq [facility] CenterComment on above:Performed By: #### CMP #### [facility] [address] [place] [address] Dr. Sharonda Trammellon gap [Moles/Vol]13.5 mmol/LNormalThe [facility] Comment on above:Performed By: #### CMP #### [facility] [address] [place] [address] Dr. Sharonda WhiteAST [Catalytic activity/Vol]13 U/LCritically wzu63-95Eud [facility] CenterComment on above:Performed By: #### CMP #### [facility] [address] [place] [address] Dr. Sharonda WhiteCalcium [Mass/Vol]7.9 mg/dLCritically low8.5-10.1The [facility] CenterComment on above:Performed By: #### CMP #### [facility] [address] [place] [address] Dr. Sharonda WhiteChloride [Moles/Vol]107 mmol/QSszdmz93-397Nku [facility] Comment on above:Performed By: #### CMP #### [facility] [address] [place] [address] Dr. Sharonda WhiteCO2 [Moles/Vol]22.9 mmol/KOiqorx71.0-32.0The [facility] Comment on above:Performed By: #### CMP #### [facility] [address] [place] [address] Dr. Sharonda WhiteCreatinine [Mass/Vol]0.63 mg/dLNormal0.55-1.02The [facility] CenterComment on above:Performed By: #### CMP #### [facility] [address] [place] [address] Dr. Sharonda ZaidiGFR-AF BRITISH>60Normal>=60The [facility] CenterComment on above:Performed By: #### CMP #### [facility] [address] [place] [address] Dr. Sharonda ZaidiGFR-NON AF BRITISH>60Normal>=60The [facility] CenterComment on above:Performed By: #### CMP #### [facility] [address] [place] [address] Dr. Sharonda WhiteGlobulin (S) [Mass/Vol]3.3 g/dLNormalThe [facility] CenterComment on above:Performed By: #### CMP #### [facility] [address] [place] [address] Dr. Sharonda WhiteGlucose [Mass/Vol]119 mg/dLCritically jnyi10-635Zbl [facility] CenterComment on above:Performed By: #### CMP #### [facility] [address] [place] [address] Dr. Sharonda WhitePotassium [Moles/Vol]3.4 mmol/LCritically low3.5-5.1The [facility] CenterComment on above:Performed By: #### CMP #### [facility] [address] [place] [address] Dr. Sharonda WhiteProtein [Mass/Vol]6.4 g/dLNormal6.4-8.2The [facility] Comment on above:Performed By: #### CMP #### [facility] [address] [place] [address] Dr. Sharonda WhiteSodium [Moles/Vol]140 mmol/QIjwlih385-092Gxe [facility] Comment on above:Performed By: #### CMP #### [facility] [address] [place] [address] Dr. Yilan ChangTBIL<0.3Tvsbri7.2-1.0The [facility] CenterComment on above: Performed By: #### CMP #### [facility] [address] [place] [address] Dr. Sharonda Dill nitrogen [Mass/Vol]8.0 mg/dLNormal7.0-18.0[facility] Samaritan HospitalComment on above:Performed By: #### CMP #### [facility] [address] [address] [address] Sharonda Dill nitrogen/Creatinine [Mass ratio]12.7 mg/mgNormalThe [facility] CenterComment on above:Performed By: #### CMP #### [facility] [address] [place] [address] Dr. Sharonda Hernadez - SUREPATH-FPGS AND HPVon 98-02-1670SFJLZQKY INFORMATION:None givenNormalNorthern [place] Medical SpecialistComment on above:Order Comment: [facility] Testing performed at: [facility], [address], Box Lining Machine Feeder: Greg Barron MD Testing performed at: [facility] ([facility])[address], [address], Box Lining Machine Feeder: Malcolm Hamilton MD [facility] Collection Date/Time: [facility] Results Received Date/Time: [facility] Reported Date/Time: [id number] Comment: [QA]Performed By: #### [id number] #### [facility] Default [address] [place] [id number] NOTENormalNorthern The Institute Of LivingComment on above:Order Comment: [facility] Testing performed at: [facility], [address] [place] [address], [phone], Box Lining Machine Feeder: Greg Barron MD Testing performed at: [facility], [facility] ([facility])[address], [address], Box Lining Machine Feeder: Malcolm Hamilton MD [facility] Collection Date/Time: [facility] Results Received Date/Time: [facility] Reported Date/Time: [id number] Comment: EXPLANATORY NOTE: The Pap is a screening test for cervical cancer. It is not a diagnostic test and is subject to false negative and false positive results. It is most reliable when a satisfactory sample, regularly obtained, is submitted with relevant clinical findings and history, and when the Pap result is evaluated along with historic and current clinical information. [QAC]Performed By: #### [id number] #### [facility] [address] [place], [place] [address]NQZMOOM:This Pap test has been evaluated with computer assisted technology.[facility] Medical SpecialistComment on above:Order Comment: [facility] Testing performed at: [facility], [facility], [address], Box Lining Machine Feeder: Greg Barron MD Testing performed at: [facility] ([facility], [address] [place] [address], [address], Box Lining Machine Feeder: Malcolm Hamilton MD [facility] Collection Date/Time: [facility] Results Received Date/Time: [facility] Reported Date/Time: Comment: [QAC]Performed By: #### [id number] #### [facility] [address] [place], [place] [id number]:[facility] CENTERNoProMedica [facility] Manager Audit Comment on above:Order Comment: [facility] performed at: [facility], [facility], [address] [place] [address], [phone], Box Lining Machine Feeder: Greg Barron MD Testing performed at: [facility] ([facility], [address] [place] [address], [address], Box Lining Machine Feeder: Malcolm Hamilton MD [facility] Collection Date/Time: [facility] Results Received Date/Time: [facility] Reported Date/Time: [id number] Comment: TNG, CT(ASCP) For informational purposes: All Cytology specimens are processed and screened at [facility]. [address] [place] [address] [[facility]]Performed By: #### [id number] #### [facility] Default [address] [place], [place] [address]IRQ mRNA E6/E7, [employer] VIALNot detectedNormalNOT DETECTED Northern The Institute Of LivingComment on above:Order Comment: [facility] Testing performed at: [facility], [address], Box Lining Machine Feeder: Greg Barron MD Testing performed at: [facility], [facility] ([facility])[address], [address], Box Lining Machine Feeder: Malcolm Hamilton MD [facility] Collection Date/Time: [facility] Results Received Date/Time: [facility] Reported Date/Time: Comment: Methodology: Conservation Engineer-Mediated Amplification This assay detects E6/E7 viral messenger RNA (mRNA) from 14 high-risk HPV types (16,18,31,33,35,39,45,51,52,56,58,59,66,68). The analytical performance characteristics of this assay have been determined by [employer]. The modifications have not been cleared or approved by the FDA. This assay has been validated pursuant to the CLIA regulations and is used for clinical purposes. For additional information, please refer to http://education.[employer].Mesitis/faq/ZRN540u2 (This link if provided for information/ educational purposes only.) [O6K]Performed By: #### [id number] #### [facility] Default [address] [place], [place] [address]JQSSKMJJKSXCPT/RESULT:NegativeNormalNorthern The Institute Of LivingComment on above:Order Comment: [facility] Testing performed at: [facility], [address], Box Lining Machine Feeder: Greg Barron MD Testing performed at: [facility], [facility] ([facility], [address] [place] [address], [address], Box Lining Machine Feeder: Malcolm Hamilton MD [facility] Collection Date/Time: [facility] Results Received Date/Time: [facility] Reported Date/Time: [id number] Comment: [QAC]Performed By: #### [id number] #### [facility] [address] [place], [place] [address]GAP:None givenNormalNorthern The Institute Of LivingCompontiac general hospital on above:Order Comment: [facility] Testing performed at: [facility], [address] [place] [address], [address], Box Lining Machine Feeder: Greg Barron MD Testing performed at: [facility] ([facility], [address] [place] [address], [address], Box Lining Machine Feeder: Malcolm Hamilton MD [facility] Collection Date/Time: [facility] Results Received Date/Time: [facility] Reported Date/Time: [id number] Comment: [QAC]Performed By: #### [id number] #### [facility] Default [address] [place], [place] [address]AYFG. BX:None givenNormalNorthern The Institute Of LivingCompontiac general hospital on above:Order Comment: [facility] Testing performed at: [facility], [facility], [address] [place] [address], [address] [place] [address], [address], Box Lining Machine Feeder: Greg Barron MD Testing performed at: [facility] ([facility], [address] [place] [address], [address], Box Lining Machine Feeder: Malcolm Hamilton MD [facility] Collection Date/Time: [facility] Results Received Date/Time: [facility] Reported Date/Time: [id number] Comment: [QAC]Performed By: #### [id number] #### [facility] Default [address] [place], [place] [address]DTPF. PAP:None givenNormalNorthern The Institute Of LivingComment on above:Order Comment: [facility] Testing performed at: [facility] HoldingsW[facility]usHouston [facility], [address] [place] [address], [address] [place] [address], [address] [place] [address], Box Lining Machine Feeder: Greg Barron MD Testing performed at: [facility], [facility] ([facility], [address] [place] [address], [address], Box Lining Machine Feeder: Malcolm Hamilton MD [facility] Collection Date/Time: [facility] Results Received Date/Time: [facility] Reported Date/Time: [id number] Comment: [QAC]Performed By: #### [id number] #### [facility] Default [address] [place], [place] [address]TNFFYB:None givenNormalNorthern The Institute Of LivingComment on above:Order Comment: [facility] Testing performed at: [facility] HoldingsW[facility]usHouston [facility], [address] [place] [address], [address] [place] [address], [address] [place] [address], Box Lining Machine Feeder: rGeg Barron MD Testing performed at: [facility], [facility] ([facility])[address], [address], Box Lining Machine Feeder: Malcolm Hamilton MD [facility] Collection Date/Time: [facility] Results Received Date/Time: [facility] Reported Date/Time: [id number] Comment: [QAC]Performed By: #### [id number] #### [facility] Default [address] [place] [address] Vital Signs Date TimeVital SignValuePerforming HvfjbxwxgOxmrryor91-68-0635 15:16-0400Body ksecul950.6 cmJennifer LAWS Work Phone: NOWashington [facility] HospitalUsrtoiiodp92-97-4516 15:16-0400Body mass index (BMI) [Ratio]24.89 kg/k1YegkmJennifer LAWS Work Phone: NOWashington [facility] Memorial HospitalQujdvxnyug54-42-8387 15:16-0400Body temperature 98.29 [degF]Jennifer Hemmer PA Work Phone: [facility] HospitalGbrijexwte02-26-4621 15:16-0400Body kklaxe81.77 kgSonuen Hemmer PA Work Phone: [facility] HospitalMpzwjvirnx94-58-6833 15:16-0400Diastolic blood atzsgllr07 mm[Hg]Jennifer Hemmer PA Work Phone: [facility] HospitalZfosysvxtu87-84-1731 15:16-0400Heart rate94 /min Jennifer Hemmer PA Work Phone: [facility] HospitalErjcmdxnrv11-60-5027 15:16-0400Respiratory rate16 /minKaren Hemmer PA Work Phone: [place] [address]Gmgkgkcgxk45-72-3035 15:16-3783LrU8% (BldA) [Mass fraction]96 %Jennifer Hemmer PA Work Phone: [facility] HospitalZodllqwrbx99-17-8594 15:16-0400Systolic blood xsocynxm477 mm[Hg]Jennifer Hemmer PA Work Phone: [facility] HospitalKpsomveudg18-40-6322 10:59-0400Body .6 cmKaren Hemmer PA Work Phone: [facility] HospitalGkbncxyrdv87-99-0570 10:59-0400Body mass index (BMI) [Ratio]24.58 kg/q3Zohub Hemmer PA Work Phone: [facility] HospitalJzlvimyism13-47-7990 10:59-0400Body ohvana13.95 kgKaren Hemmer PA Work Phone: [facility] HospitalNaowtqzhax65-15-7533 10:59-0400Diastolic blood rtlhfidb93 mm[Hg]Jennifer Hemmer PA Work Phone: [facility] HospitalNczyrmynfq33-74-7165 10:59-0400Heart rate82 /min Jennifer Hemmer PA Work Phone: [facility] HospitalHdrqrnbcgt43-14-8077 10:59-0400Respiratory rate16 /minKaren Hemmer PA Work Phone: [phone] [place], [place] [address]Qwedqbryrf87-67-4353 10:59-7600BaF4% (BldA) [Mass fraction]97 %Jennifer Rodriguez PA Work Phone: [facility] HospitalOtrsjmkxpy34-66-6130 10:59-0400Systolic blood uuiqkewx326 mm[Hg]Jennifer Rodriguez PA Work Phone: [facility] HospitalByskutyxts52-85-0440 14:34-0500Body zegljd686.6 cmVidya Vu GREENHOUSE TRANSPLANTER Work Phone: [facility] HospitalOhwdpcgnjz58-00-2909 14:34-0500Body mass index (BMI) [Ratio]24.85 kg/m2Vidya Vu GREENHOUSE TRANSPLANTER Work Phone: [facility] HospitalKsspnzjyef28-54-0018 14:34-0500Body ppmkfo65.68 kgVidya Vu GREENHOUSE TRANSPLANTER Work Phone: [facility] HospitalRiduygnima79-90-3905 14:34-0500Diastolic blood kjncatsq74 mm[Hg]Vidya Vu GREENHOUSE TRANSPLANTER Work Phone: [facility] HospitalXpomviwaqq01-17-3604 14:34-0500Heart rate76 /min Vidya Vu GREENHOUSE TRANSPLANTER Work Phone: [facility] HospitalUhpmkefqgr35-33-2465 14:34-0500Respiratory rate17 /minKierika Vu GREENHOUSE TRANSPLANTER Work Phone: [facility] HospitalPxsbleydci69-78-5544 14:34-0458OdR0% (BldA) [Mass fraction]98 %Vidya Vu GREENHOUSE TRANSPLANTER Work Phone: [facility] HospitalYandjzfeyr33-33-9715 14:34-0500Systolic blood usvxujlm410 mm[Hg]Vidya Vu GREENHOUSE TRANSPLANTER Work Phone: [facility] HospitalJajchtudom53-73-6017 10:56-0500Body mass index (BMI) [Ratio]24.07 kg/x5DxqzdJennifer Rodriguez PA Work Phone: [facility] HospitalDbgqwzapik65-83-0744 10:56-0500Body .59 kgJennifer Rodriguez PA Work Phone: [facility] HospitalTcunxdvjss00-69-5023 10:56-0500Diastolic blood csueucsn95 mm[Hg]Jennifer Rodriguez PA Work Phone: [facility] HospitalGkvmyhwqkh83-63-3378 10:56-0500Heart rate79 /min Jennifer Rodriguez PA Work Phone: [facility] HospitalBplizuypsu54-25-5208 10:56-0500Respiratory rate16 /minJennifer Rodriguez PA Work Phone: no[facility] HospitalGmjsjcvzlv43-98-4641 10:56-5185TnN6% (BldA) [Mass fraction]99 %Jennifer Rodriguez PA Work Phone: no[facility] HospitalHdqrbynzxa79-48-5376 10:56-0500Systolic blood gmxospwt077 mm[Hg]Jennifer Rodriguez PA Work Phone: [facility] Encounters Encounter DateEncounter TypeCare ProviderFacilityStart: 05-20-2025 End: 07-89-2646KlayhfKveor M Alda MD Work Phone: [facility] [place] [facility] MedinceComment on above:Adjustment disorder with anxietyStart: 04-12-2025 End: 14-56-6002ExursePzngc M Alda MD Work Phone: [facility] [place] [facility] MedicineComment on above: Adjustment disorder with anxietyStart: 03-07-2025 End: 49-48-4657naraeblvhoOOWEV M HEMMERNot AvailableStart: 03-07-2025 End: 96-41-8909Gsezyf outpatient visit 25 minutesJennifer LAWS Work Phone: [facility] [place] [facility] MedinceComment on above:Acute bronchitis, unspecified organism (Primary Dx); Chronic obstructive pulmonary disease, unspecified COPD type (HCC); Lumbar spondylosisStart: 03-07-2025 End: 44-98-4247Xlqoto Elidia LAWS Work Phone: [facility] [place] [facility] MedinceStart: 03-07-2025 End: 90-70-8114Kbsqff Elidia LAWS Work Phone: [facility] [place] [facility] MedinceStart: 02-26-2025 End: 35-50-9399Ntacrcgsy encounterLittle Johnson LPN Work Phone: [facility] POPULATION HEALTHStart: 01-28-2025 End: 62-64-5244PtntcuJfrtx M Alda MD Work Phone: [facility] CI FMComment on above:Adjustment disorder with anxietyStart: 12-28-2024 End: 05-83-9395NvgequJkgfj M Alda MD Work Phone: [facility] CI FMComment on above:Adjustment disorder with anxietyStart: 11-27-2024 End: 72-78-5535Rbtfxvrqj Result EncounterJennifer Rodriguez PA Work Phone: [facility] External Department UnsolicitedStart: 11-27-2024 End: 71-81-9117Pdfqmlfmj Result EncounterJennifer Rodriguez PA Work Phone: [facility] External Department UnsolicitedStart: 11-26-2024 End: 61-02-1058FwuupjHjbmf M Alda MD Work Phone: [facility] 100Comment on above:Adjustment disorder with anxiety (CMS/HCC)Start: 11-19-2024 End: 62-47-9230Ozairwflj encounterJennifer Rodriguez PA Work Phone: [facility] CI FMStart: 11-14-2024 End: 37-69-7682Obarep Elidia Rodriguez PA Work Phone: [facility] CI FMStart: 11-14-2024 End: 17-64-9651Iqzcyl Elidia Blackwell Hemmer PA Work Phone: [facility] CI FMStart: 11-14-2024 End: 72-22-9011Igylyz outpatient visit 25 minutesJennifer Rodriguez PA Work [...] Irritable bowel syndrome with diarrheaStart: 11-14-2024 End: 61-02-9554fyymxoqntbDVCHJRubi Gee AvailableStart: 10-22-2024 End: 91-99-1616WhcxhsKwzhg M Alda MD Work Phone: [facility] 100Comment on above:Adjustment disorder with anxiety (CMS/HCC)Start: 09-18-2024 End: 15-47-7593YlfzzlMgyyg M Alda MD Work Phone: [phone] CI FMComment on above:Adjustment disorder with anxiety (CMS/HCC)Start: 08-22-2024 End: 81-69-9607Hcudfaydp Justine Ram MD Work Phone: [phone] CI FMStart: 08-20-2024 End: 91-29-7564QafmdaRocis M Alda MD Work Phone: [phone] CI FMComment on above:Adjustment disorder with anxiety (CMS/HCC)Start: 07-25-2024 End: 58-18-6401Vtaugc outpatient visit 25 minutesVidya Vu GREENHOUSE TRANSPLANTER Work Phone: [phone] CI FMComment on above:Acute non-recurrent frontal sinusitis (Primary Dx); Nasal congestion; Acute coughStart: 07-25-2024 End: 58-47-5430fusyzjdnoqEDQSita Pulido AvailableStart: 07-25-2024 End: 01-46-6414Fmfghb Ani Vu GREENHOUSE TRANSPLANTER Work Phone: [phone] CI FMStart: 07-25-2024 End: 92-63-3585Rmeneg Ani Vu GREENHOUSE TRANSPLANTER Work Phone: [phone] CI FMStart: 07-09-2024 End: 87-87-5188DxejfqFvzeg M Alda MD Work Phone: [facility] CI FMComment on above:Adjustment disorder with anxiety (CMS/HCC)Start: 06-13-2024 End: 05-43-8475Vgrusgmaryan LAWS Work Phone: [facility] CI FMStart: 06-13-2024 End: 74-52-5864Fwmnld flowsheetJennifer LAWS Work Phone: [facility] CI FMStart: 06-13-2024 End: 16-66-7246Wrszlt outpatient visit 25 minutesJennifer LAWS Work Phone: [facility] CI FMComment on above:Chronic migraine without aura without status migrainosus, not intractable (CMS/HCC) (Primary Dx); Adjustment disorder with anxiety (CMS/HCC); Irritable bowel syndrome with both constipation and diarrheaStart: 06-13-2024 End: 58-51-7678uwklwyoqreMKRGE M HEMMERNot AvailableStart: 04-19-2024 End: 32-91-8431OurkilPngie M Alda MD Work Phone: [facility] CI FMComment on above:Adjustment disorder with anxiety (CMS/HCC)Start: 03-26-2024 End: 39-34-9099Pqpjfcxeb Justine Ram MD Work Phone: [facility] CI FMComment on above:Med Refill (Please send in Effexor 37.5 mg & Effexor 75mg to [facility] )Start: 03-16-2024 End: 77-74-4293SzwtwoCuhvf M Alda MD Work Phone: [facility] CI FMComment on above:Adjustment disorder with anxiety (CMS/HCC)Start: 11-07-2022 End: 27-94-3668dbcyavnfcxEN RUGEN ALDAFacility:L2Kwuvs: 07-21-2022 End: 17-76-4905rlknuhrlbqIE RUGEN ALDAFacility:X2Szdwn: 07-20-2022 End: 46-51-1477bkhftacuyaXY RUGEN ALDAFacility:H5Gxpza: 06-03-2022 End: 63-23-6816rkixqzayriFQBIH M HEMMERFacility:Z3Vvoep: 05-14-2022 End: 68-85-4637zgnbwnfoieUO RUGEN ALDAFacility:U6Rujbx: 03-31-2022 End: 85-00-6645tfiwfmuswaPJ RUGEN ALDAFacility:O2Wepyc: 03-30-2022 End: 93-50-2060laajevtvoiOR RUGEN ALDAFacility:N6Mddlf: 02-02-2022 End: 71-13-2466fexxtdblgmNF RUGEN ALDAFacility:H1 Procedures DateProcedureProcedure DetailPerforming ClinicianStart: 09-42-0223LG LUMBAR SPINE MIN 4Maryann LAWS Work Phone: Plan of Treatment DateCare ActivityDetailAuthorStart: 06-10-2025 End: 67-96-5631Htrraxj encounter otkvkrkmg21/24/2025 11:30 AM EST Office Visit [facility] [place] [facility] [address] [place] [address] Jennifer Rodriguez PA [address] [place] [address] [facility] [place] [facility] MedinceStart: 03-18-2025 COVID-19 Vaccine ( season)COVID-19 Vaccine ( season)[facility] HealthcareStart: 19-36-1130Dugoqndjc vaccinationNOMS HealthcareStart: 02-12-2025 End: 63-53-8945Gdolvsy encounter /29/2025 10:30 AM EDT Office Visit [facility] [address] [place] [address] Jennifer Rodriguez PA [address] [place] [address] [facility] CI FMStart: 12-26-2024 End: 49-68-9352Anpgkvm encounter xbsbxiyfa14/11/2025 11:00 AM EDT Office Visit [facility] [address] [place] [address] Jennifer Rodriguez PA [address] [place] [address] [facility] CI FMStart: 11-14-2024 End: 20-31-6089FHM Breast - bilateral screeningBilateral screening mammogram with tomosynthesis Imaging Routine Screening mammogram for breast cancer Expected: 11/14/2024, Expires: 01/14/2026NOAR HealthcareComment on above: Expected: 11/14/2024, Expires: 01/14/2026Start: 11-14-2024 End: 88-21-4367Iuqucfwoggf colorectal cancer DNA and occult blood screening [Presence] in StoolCologuard colon cancer screening Lab Routine Screening for malignant neoplasm of colon Expected: 11/14/2024 (Approximate), Expires: 11/14/2025[facility] Work Phone: Comment on above:Expected: 11/14/2024 (Approximate), Expires: 11/14/2025Start: 11-14-2024 End: 34-85-4056LA Lumbar spine 4 ViewsXR LUMBAR SPINE AP/LAT/OBLIQUES Imaging Routine Lumbar pain with radiation down both legs Expected:11/14/2024, Expires: 11/14/2025[facility] HealthcareComment on above:Expected: 11/14/2024, Expires: 11/14/2025Start: 11-14-2024 End: 19-85-5769Emwbaeh encounter xhtyyxfjp85/30/2025 11:00 AM EDT Office Visit [facility] [address] [place] [address] Jennifer Rodriguez PA [address] [facility] [address] [place] [address] ArrivedNOMS CI FMComment on above:ArrivedStart: 11-07-2024 End: 01-11-8397Evdmphs encounter klriylwyt06/23/2025 11:00 AM EDT Office Visit [facility] [address] [place] [address] Jennifer Rodriguez PA [address] [facility] [address] [place] [address] [facility] CI FMStart: 09-13-2024 End: 79-44-5579Hsqgpuc encounter adtwgnrqw27/27/2025 11:00 AM EST Office Visit [facility] [address] [place] [address] Jennifer Rodriguez, PA [address] [place] [address] [facility] CI FMStart: 07-25-2024 End: 82-40-0612Nycubfq encounter hhrdulvgp29/08/2025 2:30 PM EST Office Visit [facility] [address] [place] [address] Vidya Vu, GREENHOUSE TRANSPLANTER [address] [place] [address] ArrivedNOMS CI FMComment on above:ArrivedStart: 06-13-2024 End: 37-37-8879Gjjsapq encounter moipkchsi34/27/2024 11:00 AM EST Office Visit [facility] [address] [place] [address] Jennifer Rodriguez, PA [address] [place] [address] ArrivedNOMS CI FMComment on above:ArrivedStart: 04-24-2024 End: 66-30-1744Lhjfpdm encounter wtoraoucm36/08/2024 3:30 PM EDT Office Visit [facility] [address] [place] [address] Jennifer Rodriguez, PA [address] [place] [address] NOM[facility] CI FMStart: 84-54-8029Hdplkfebb vaccination Influenza Vaccine (#1)[facility] HealthcareStart: 32-29-8486Otolzwkbi for malignant neoplasm of breastMammogramNOMS HealthcareStart: 90-66-8783Vgszlnlrk for malignant neoplasm of cervixNOMS HealthcareStart: 39-70-0774Bazusiuom for malignant neoplasm of cervixPap SmearNOMS HealthcareStart: 1998 Pneumococcal Vaccine: Pediatrics (0 to 5 Years) and At-Risk Patients (6 to 64 Years) (1 of 2 - PCV)Pneumococcal Vaccine: Pediatrics (0 to 5 Years) and At-Risk Patients (6 to 64 Years) (1 of 2 - PCV)[facility] HealthcareStart: 1979 Screening for malignant neoplasm of colon[facility] Healthcare Payers DatePayer CategoryPayerPolicy [id number] Care HMO (unspecified)[employer] [id number] [id number] [id number] 2024Medicaid (Managed Care)[employer] Member Subscriber Plan / Payer (Effective 2023-) Name: Marion Merida Relation to Subscriber: Self Name: Marion Merida Payer ID: Not on file Group ID: Not on file Type: Not on file Address: [address] [place] [id number] [id number] 2.16.840.1.354083.3.57[id number] 2.16.840.1.789823.3.57[id number] 2.16.840.1.684591.3.57[id number] 2.16.840.1.688954.3.57[id number] 2.16.840.1.326195.3.57[id number] 2..840.1.000910.3.57[id number] 2.16.840.1.769371.3.57[id number] 2.16.840.1.386728.3.57[id number] 2.16.840.1.381118.3.57[id number] 2.16840.1.400212.3.57[id number] 2.16840.1.885370.3.57[id number] Social History DateTypeDetailFacilityStart: 25-66-8025Zxyhmcl smoking status [facility] tobacco dailyNOAR HealthcareHistory of tobacco useCigarette SmokerNOAR HealthcareStart: 02-15-2024 End: 42-48-9923Uajgyihdaf smoked current (pack per day) - Mhmnlzmz9JXNK HealthcareStart: 92-59-0187Rvdynof use and exposureSmokeless tobacco non-user [facility] HealthcareStart: 02-15-2024 End: 35-85-6806Qgmffkwel beverage intakeEx-drinker (finding)[facility] Start: 02-15-2024 End: 95-79-0039Yarapdq use panelACADIA HEALTHCARE HealthcareStart: 73-27-7365Biabywf Comment 11-20 cigs/dayACADIA HEALTHCARE HealthcareStart: 61-76-6821Krc assigned at birthNot on file [facility] HospitalStart: 40-98-6013GlcZrbhklCRMC Healthcare Functional Status NcfrBgtbxxjujjZfnlaoQbdiqrfg81-88-9545Jvujdzq Health Questionnaire 2 item (PHQ- 2) [Reported]University HospitalQmxohlortw52-67-6547Twkbgtq Health Questionnaire 2 item (PHQ- 2) [Reported][facility] Clinical Notes 07-22-2021 to 05-20-2025 Note Date & SzniMezzCjffndfe87-07-7170 Telephone encounter Note* Telephone Encounter - Kiera Moore - 05/20/2025 10:23 AM EST ALPRAZolam (Xanax) 0.5 MG tablet Ddm in [place] [facility] HospitalQcytskiyuv36-48-3285 Miscellaneous Notes* Telephone Encounter - Kiera Moore - 05/20/2025 10:23 AM EST ALPRAZolam (Xanax) 0.5 MG tablet Ddm in [place] documented in this encounterUniversity HospitalDasqlwllha77-26-8435 Telephone encounter Note* Telephone Encounter - VETO Valderrama - 04/12/2025 1:15 PM EDT OARRS reviewed, Rx sent into patient's pharmacy. [facility] HospitalXsgcpbedsq10-42-9165 Miscellaneous Notes* Telephone Encounter - VETO Valderrama - 04/12/2025 1:15 PM EDT OARRS reviewed, Rx sent into patient's pharmacy. * Telephone Encounter - [place] Marcial - 04/12/2025 10:05 AM EDT Marion left a message requesting a refill on her ALPRAZolam (Xanax) [facility] [place] documented in this encounterUniversity HospitalXkqjhttwin76-05-6633 Telephone encounter Note* Telephone Encounter - [place] Marcial - 04/12/2025 10:05 AM EDT [place] left a message requesting a refill on her ALPRAZolam (Xanax) [facility] [place] [facility] HospitalUwfqxtggqh20-40-1393 History of Present illness Narrative* VETO Valderrama [...] green/yellow phlegm, hoarseness. She did go to [facility] ER on 02/22/2025, was diagnosed with URI, [...] ondansetron ODT (Zofran-ODT) 4 MG disintegrating tablet drxopnneryibvac-JV-TD 60-15-400 MG tablet Take 1 tablet by [...] pulmonary disease, unspecified COPD type ([facility]) - triamcinolone acetonide (Kenalog-40) injection 40 mg [...] (around 04/04/2025) for Wellness. documented in this [facility]08-12-2025 History of Present illness Narrative* Little Johnson LPN - 02/26/2025 9:58 AM EDT Pt requests refill on Xanax documented in this [facility]07-14-2025 Telephone encounter Note* Telephone Encounter - Kiera Moore - 01/28/2025 9:02 AM EDT ALPRAZolam (Xanax) 0.5 MG tablet Ddm in [place] [facility] HospitalUpymxerkse63-07-1031 Miscellaneous Notes* Telephone Encounter - Kiera Moore - 01/28/2025 9:02 AM EDT ALPRAZolam (Xanax) 0.5 MG tablet [facility]dm in [place] documented in this [facility]06-13-2025 Telephone encounter Note* Telephone Encounter - VETO Valderrama - 12/28/2024 12:45 PM EDT OARRS reviewed, Rx sent into patient's pharmacy. University HospitalUgjvsefkqw98-21-8899 Miscellaneous Notes* Telephone Encounter - VETO Valderrama - 12/28/2024 12:45 PM EDT OARRS reviewed, Rx sent into patient's pharmacy. * Telephone Encounter - DEEDEE OCONNOR - 12/28/2024 11:04 AM EDT Last OV 11-14-24 Refill 11-26-24 * Telephone Encounter - Keira Moore - 12/28/2024 11:02 AM EDT ALPRAZolam (Xanax) 0.5 MG tablet [facility] in [place] documented in this encounterUniversity HospitalPkqtkijyig04-28-5410 Telephone encounter Note* Telephone Encounter - DEEDEE OCONNOR - 12/28/2024 11:04 AM EDT Last OV 11-14-24 Refill 11-26-24 University HospitalNxoodwrlak69-39-7101 Telephone encounter Note* Telephone Encounter - Kiera Moore - 12/28/2024 11:02 AM EDT ALPRAZolam (Xanax) 0.5 MG tablet Ddm in [place] University HospitalAsofqkxoqf85-43-2091 Telephone encounter Note* Telephone Encounter - VETO Valderrama - 11/26/2024 4:08 PM EDT Called and left a detailed message with [facility]. There was no option for me to speak with someone. Had to leave a message. Advised them of adequate documentation already provided for the migraine medications and of the necessity of the epi-pen as a potentially life saving medication. Asked them to return my call. University HospitalOlapjlpljb22-34-9609 Miscellaneous Notes* Telephone Encounter - VETO Valderrama - 11/26/2024 4:08 PM EDT Called and left a detailed message with [facility]. There was no option for me to [...] Jennifer to review. documented in this encounterUniversity HospitalPhzoxluibj12-73-9121 Telephone encounter Note* Telephone Encounter - VETO Valderrama - 11/26/2024 1:00 PM EDT OARRS reviewed, Rx sent into patient's pharmacy. [facility] HospitalAusmtntqvx87-22-8071 Miscellaneous Notes* Telephone Encounter - VETO Valderrama - 11/26/2024 1:00 PM EDT OARRS reviewed, Rx sent into patient's pharmacy. * Telephone Encounter - [place] Marcial - 11/26/2024 11:07 AM EDT Marion called requesting a refill on her Xanax to [facility] [place] documented in this encounterUniversity HospitalTebkssqrrq26-83-8413 Telephone encounter Note* Telephone Encounter - [place] Marcial - 11/26/2024 11:07 AM EDT Marion called requesting a refill on her Xanax to [facility] [place] University HospitalWijvlcbxsh15-58-5314 Telephone encounter Note* Telephone Encounter - VETO Valderrama - 11/20/2024 9:34 AM EDT See other TE University HospitalWufaqgqjyb61-58-0755 Telephone encounter Note* Telephone Encounter - VETO Valderrama - 11/20/2024 9:34 AM EDT See other TE [facility] HospitalXofodfsyzu39-67-6837 Miscellaneous Notes* Telephone Encounter - VETO Valderrama - 11/20/2024 9:34 AM EDT See other TE * Telephone Encounter - Celena Liu LPN - 11/19/2024 1:17 PM EDT EPINEPHRINE denied. Printed out denial for Jennifer to review. documented in this [facility]05-06-2025 Miscellaneous Notes* Telephone Encounter - VETO Valderrama - 11/20/2024 9:34 AM EDT See other TE * Telephone Encounter - Celena Liu LPN - 11/19/2024 1:16 PM EDT AJOVY denied. Printed out denial and given to Jennifer for review. documented in this [facility]05-05-2025 Telephone encounter Note* Telephone Encounter - Celena Liu LPN - 11/19/2024 1:17 PM EDT EPINEPHRINE denied. Printed out denial for Jennifer to review. [facility] HospitalIcljbczlma80-76-8823 Telephone encounter Note* Telephone Encounter - Celena Liu LPN - 11/19/2024 1:16 PM EDT AJOVY denied. Printed out denial and given to Jennifer for review. [facility] HospitalXcddrwmgqq71-89-5130 Telephone encounter Note* Telephone Encounter - Celena Liu LPN - 11/19/2024 1:12 PM EDT UBRELVY DENIED. Printed out denial and given to Jennifer for review. AJOVY denied. Printed out denial and given to Jennifer for review. EPINEPHRINE denied. Printed out denial for Jennifer to review. [facility] HospitalGzypbhpiyn04-48-6039 History of Present illness Narrative* Jennifer Rodriguez, [...] Acute exacerbation of chronic obstructive pulmonary disease ([facility]) 12/06/2022 Adjustment disorder with anxiety ([facility]) 12/06/2022 Anxiety Carpal tunnel syndrome of left wrist 12/06/2022 Cellulitis Chronic migraine with aura ([facility]) 12/06/2022 Eczema 12/06/2022 Gastroenteritis H/O CT scan of brain 10/20/2018 H/O CT scan of chest 04/06/2019 was negative for Pulmonary Embolism, No pulmonary infiltrates Hypoglycemia 12/06/2022 Irritable bowel syndrome with diarrhea 12/06/2022 Nervousness Panic disorder with agoraphobia ([facility]) 12/06/2022 Smoker 12/06/2022 Thrombocytosis 12/06/2022 Past Surgical [...] 12/26/2024) for Recheck. documented in this encounterUniversity HospitalYvirsjimdy24-02-9616 Telephone encounter Note* Telephone Encounter - Kiera Moore - 10/23/2024 10:10 AM EDT Appt scheduled [facility] HospitalAuqhzpwetp63-09-4631 Miscellaneous Notes* Telephone Encounter - Kiera Moore [...] her ALPRAZolam (Xanax) 0.[facility] documented in this [facility]04-07-2025 Telephone encounter Note* Telephone Encounter - VETO Valderrama - 10/22/2024 5:03 PM EDT Please help pt get scheduled for a follow up appointment within the month. OARRS reviewed, Rx sent into patient's pharmacy. [facility] HospitalGtomjtaarc05-33-4356 Telephone encounter Note* Telephone Encounter - [place] Marcial - 10/22/2024 9:44 AM EDT Marion called requesting a refill on her ALPRAZolam (Xanax) 0.5 MG to [facility] HospitalLevhhsofrd26-41-5186 Telephone encounter Note* Telephone Encounter - Sheila Myles - 09/18/2024 1:12 PM EST ALPRAZolam (Xanax) 0.5 MG tablet to [facility] [place] [facility] HospitalNquopgxkcn15-56-1190 Miscellaneous Notes* Telephone Encounter - Sheila Myles - 09/18/2024 1:12 PM EST ALPRAZolam (Xanax) 0.5 MG tablet to [facility] [place] documented in this encounterUniversity HospitalXtbglzwebq64-30-2105 Telephone encounter Note* Telephone Encounter - Kiera [...] [facility] [place] HospitalJndyhmkxix56-41-7495 Miscellaneous Notes* Telephone Encounter - Kiera Moore [...] [facility] [place] documented in this encounterUniversity [id number] Telephone encounter Note* Telephone Encounter - Celena Liu LPN - 08/20/2024 10:39 AM EST Advised pt to take OTC medications to treat her symptoms. [facility] [id number] Miscellaneous Notes* Telephone Encounter - Celena Liu [...] ALPRAZolam (Xanax) 0.5 MG tablet [facility] in [place] documented in this [facility]02-03-2025 Telephone encounter Note* Telephone Encounter - Kiera Moore - 08/20/2024 9:52 AM EST Patient tested positive for covid and wondered if something could be sent in for her cough low grade fever, runny nose. [facility] [id number] Telephone encounter Note* Telephone Encounter - Kiera Moore - 08/20/2024 9:51 AM EST ALPRAZolam (Xanax) 0.5 MG tablet Ddm [place] [facility] [id number] History of Present illness Narrative* Vidya Vu, GREENHOUSE TRANSPLANTER - 07/25/2024 2:30 PM EST Images from [...] Acute exacerbation of chronic obstructive pulmonary disease ([facility]) 12/06/2022 Adjustment disorder with anxiety ([facility]) 12/06/2022 Anxiety Carpal tunnel syndrome of left wrist 12/06/2022 Cellulitis Chronic migraine with aura ([facility]) 12/06/2022 Eczema 12/06/2022 Gastroenteritis H/O CT scan of brain 10/20/2018 H/O CT scan of chest 04/06/2019 was negative for Pulmonary Embolism, No pulmonary infiltrates Hypoglycemia 12/06/2022 Irritable bowel syndrome with diarrhea 12/06/2022 Nervousness Panic disorder with agoraphobia ([facility]) 12/06/2022 Smoker 12/06/2022 Thrombocytosis 12/06/2022 Past Surgical [...] and its most common side effects. - pvbswqarqslzcly-IM-YO 60-15-400 MG tablet; Take 1 tablet by mouth in the morning and 1 tablet at noon and 1 tablet in the evening and 1 tablet before bedtime. Do all this for 10 days. Dispense: 40 tablet; Refill: 0 3. Acute cough - chdnoixutzzuerp-JI-HB 60-15-400 MG tablet; Take 1 tablet by mouth in the morning and 1 tablet at noon and 1 tablet in the evening and 1 tablet before bedtime. Do all this for 10 days. Dispense: 40 tablet; Refill: 0 No follow-ups on file. documented in this encounterUniversity [id number] Instructions* Patient Instructions* Vidya Vu NP - 07/25/2024 2:30 PM EST Zpack ordered Capmist Dm ordered documented in this encounterUniversity [id number] Telephone encounter Note* Telephone Encounter - VETO Valderrama - 07/09/2024 3:29 PM EST OARRS reviewed, Rx sent into patient's pharmacy. University [id number] Miscellaneous Notes* Telephone Encounter - VETO Valderrama - 07/09/2024 3:29 PM EST OARRS reviewed, Rx sent into patient's pharmacy. * Telephone Encounter - Kiera Moore - 07/09/2024 3:17 PM EST ALPRAZolam (Xanax) 0.5 MG tablet [ DDM IN [place] documented in this encounterUniversity [id number] Telephone encounter Note* Telephone Encounter - Kiera Moore - 07/09/2024 3:17 PM EST ALPRAZolam (Xanax) 0.5 MG tablet [ DDM IN [place] [facility] [id number] History of Present illness Narrative* VETO Valderrama [...] Acute exacerbation of chronic obstructive pulmonary disease ([facility]) 12/06/2022 Adjustment disorder with anxiety ([facility]) 12/06/2022 Anxiety Carpal tunnel syndrome of left wrist 12/06/2022 Cellulitis Chronic migraine with aura ([facility]) 12/06/2022 Eczema 12/06/2022 Gastroenteritis H/O CT scan of brain 10/20/2018 H/O CT scan of chest 04/06/2019 was negative for Pulmonary Embolism, No pulmonary infiltrates Hypoglycemia 12/06/2022 Irritable bowel syndrome with diarrhea 12/06/2022 Nervousness Panic disorder with agoraphobia ([facility]) 12/06/2022 Smoker 12/06/2022 Thrombocytosis 12/06/2022 Past Surgical [...] her insurance prior to being approved for [employer] Provided pt with #16 samples and a [...] Medication Follow Up. documented in this encounterUniversity [id number] Telephone encounter Note* Telephone Encounter - Sheila Myles - 04/20/2024 10:30 AM EDT scheduled University [id number] Miscellaneous Notes* Telephone Encounter - Sheila Myles - 04/20/2024 10:30 AM EDT scheduled * Telephone Encounter - VETO Valderrama - 04/19/2024 9:35 AM EDT Please help pt get set up for a medication follow up visit sometime this month. Last refill on Alprazolam until seen. OARRS reviewed, Rx sent into patient's pharmacy. documented in this encounterUniversity [id number] Telephone encounter Note* Telephone Encounter - VETO Valderrama - 04/19/2024 9:35 AM EDT Please help pt get set up for a medication follow up visit sometime this month. Last refill on Alprazolam until seen. OARRS reviewed, Rx sent into patient's pharmacy. University HospitalAgduriwtka50-64-0400 Telephone encounter Note* Telephone Encounter - VETO Valderrama - 03/16/2024 12:25 PM EDT OARRS reviewed, Rx sent into patient's pharmacy. University [id number] Miscellaneous Notes* Telephone Encounter - VETO Valderrama - 03/16/2024 12:25 PM EDT OARRS reviewed, Rx sent into patient's pharmacy. * Telephone Encounter - Shiela Myles - 03/16/2024 12:00 PM EDT ALPRAZolam (Xanax) 0.5 [facility] tablet [facility] [place] documented in this encounterUniversity [id number] Telephone encounter Note* Telephone Encounter - Sheila Myles - 03/16/2024 12:00 PM EDT ALPRAZolam (Xanax) 0.5 MG tablet [facility] [place] University [id number] NoteSATISFACTORY FOR EVALUATIONNortmount graham regional medical centern [facility] SpecialistComment on above:Order Comment: [facility] Testing performed at: O, [facility], [address] [place] [address], [phone], [employer] Lining Machine Feeder: Greg Barron MD Testing performed at: [facility], [facility], [address] [place] [address], [phone], [employer] Machine Feeder: Malcolm Hamilton MD [facility] Collection Date/Time: [facility] Results Received Date/Time: [id number] [facility] Reported Date/Time: [id number] Comment: [QAC]Performed By: #### [id number] #### [facility] Default [address] [place], [place] [address]Ftzjwljcuh note* Diagnosis Adjustment disorder with anxiety (CMS/HCC) [...] section and content) DATE CREATED AUTHOR 07/28/2021 [facility] Manager Audit DATE CREATED AUTHOR AUTHOR'S ORGANIZ ATION 11/09/2022 [facility] DATE CREATED AUTHOR AUTHOR'S ORGANIZ ATION 03/09/2025 [facility] EPIC Reason for Visit (unrecogniz ed section and content) ReasonOnset DateCommentsMed Wvtqvw0704/19/2024Xanax and Effexor Drug [facility] [place] ReasonCommentsMed RefillxanaxReasonOnset DateCommentsMed Kfykio704Reason Onset DateCommentsMed Dapuiq694Please send in Effexor 37.5 mg & Effexor 75mg to Drug Hannah ClyeReasonOnset DateCommentsMed Pusnzl424ReasonOnset DateCommentsMed Bqzetb1008/20/2024ReasonOnset DateCommentsMed Ozrnrz7212/28/2024 ReasonOnset DateCommentsMed Ztifal9301/28/2025ReasonOnset DateCommentsMed Refill 05/20/2025 Care Teams (unrecognized sec tion and content) Team MemberRelationshipSpecialtyStart DateEnd Date Jerry Ram MD [address] [place] [address] PCP - GeneralFamily Medicine12/06/22Team MemberRelationshipSpecialtyStart DateEnd Date Jerry Ram MD [address] [place] [address] PCP - [facility]12/06/22 Jerry Ram MD [address] [place] [address] [facility]04/17/24Team MemberRelationshipSpecialtyStart DateEnd Date Jerry Ram MD [address] [place] [address] PCP - [facility]12/06/22 Jerry Ram MD [address] [place] [address] [facility]04/17/24Team MemberRelationshipSpecialtyStart DateEnd Date Jerry Ram MD [address] [place] [address] [facility] - [facility]12/06/22Team MemberRelationshipSpecialtyStart DateEnd Date Jerry Ram MD [address] [place] [address] PCP - [facility]12/06/22 Jerry Ram MD [address] [place] [address] [facility]04/17/24Team MemberRelationshipSpecialtyStart DateEnd Date Jerry Ram MD [address] [place] [address] PCP - [facility]12/06/22 Jerry Ram MD [address] [place] [address] [facility]04/17/24Team MemberRelationshipSpecialtyStart DateEnd Date Jerry Ram MD [address] [place] [address] PCP - [facility]12/06/22 Jerry Ram MD [address] [place] [address] [facility]04/17/24Team MemberRelationshipSpecialtyStart DateEnd Date Jerry Ram MD [address] [place] [address] PCP - [facility]12/06/22 Jerry Ram MD [address] [place] [address] [facility]04/17/24Team MemberRelationshipSpecialtyStart DateEnd Date Jerry Ram MD [address] [place] [address] PCP - [facility]12/06/22 Jennifer Rodriguez PA [address] [place] [address] [facility]07/18/24Team MemberRelationshipSpecialtyStart DateEnd Date Jerry Ram MD [address] [place] [address] PCP - [facility]12/06/22 Jennifer Rodriguez PA [address] [place] [address] [facility] - [address]08/11[facility] MemberRelationshipSpecialtyStart DateEnd Jerry Ram MD [address] [place] [address] PCP - [facility]12/06/22 Jennifer Rodriguez PA [address] [place] [address] [facility] - [address]08/11[facility] MemberRelationshipSpecialtyStart DateEnd Date Jerry Ram MD [address] [place] [address] [facility] - [facility]12/06/22 Jennifer Rodriguez PA [address] [place] [address] [facility]07/18/24Te MemberRelationshipSpecialtyStart DateEnd Date Jerry Ram MD [address] [place] [address] [facility]12/06/22 Jennifer Rodriguez, VETO [address] [place] [address] [facility]08/11[facility] MemberRelationshipSpecialtyStart DateEnd Date Jerry Ram MD [address] [place] [address]22/23 Jennifer Rodriguez PA [address] [place] [address] [facility]07/18/24[facility] MemberRelationshipSpecialtyStart DateEnd Date Jerry Ram MD [address] [place] [address] [facility]12/06/22 Jennifer Rodriguez PA [address] [place] [address] [facility]07/18/24Te MemberRelationshipSpecialtyStart DateEnd Date eJrry Ram MD [address] [place] [address] [facility]12/06/22 Jennifer Rodriguez, PA [address] [place] [address] [facility]07/18/24Te MemberRelationshipSpecialtyStart DateEnd Date Jerry Ram MD [address] [place] [address] [facility]12/06/22 Jennifer Rodriguez, PA [address] [place] [address] [facility]07/18/24 Vidya Vu, GREENHOUSE TRANSPLANTER [address] [place] [address] PCP - [facility]01/15/25Team MemberRelationshipSpecialtyStart DateEnd Date Jerry Ram MD [address] [place] [address] PCP - [facility]12/06/22 Jennifer Rodriguez, PA [address] [place] [address] [facility]07/18/24 Vidya Vu, GREENHOUSE TRANSPLANTER [address] [place] [address] PCP - [facility]01/15/25 Little Johnson LPN [address] [place] [address] 03/06/25Team MemberRelationshipSpecialtyStart DateEnd Date Jerry Ram MD [address] [place] [address] [facility] - [facility]12/06/22 Jennifer Rodriguez, PA [address] [place] [address] [facility]07/18/24 Vidya Vu, GREENHOUSE TRANSPLANTER [address] [place] [address] PCP - [employer]01/15/25 Little Johnson LPN [address] [place] [address] 03/06/25Team MemberRelationshipSpecialtyStart DateEnd Date Jerry Ram MD [address] [place] [address] PCP - [facility]12/06/22 Jennifer Rodriguez PA [address] [facility] [address] [place] [address] [facility]07/18/24 Vidya Vu NP [address] [facility] [address] [place] [address] [facility]01/15/25 Little Johnson LPN [address] [facility] [address] [place] [address] 03/06/25Team MemberRelationshipSpecialtyStart DateEnd Date Jerry Ram MD [address] [facility] [address] [place] [address] [facility] - [facility]12/06/22 Jennifer Rodriguez PA [address] [facility] [address] [place] [address] [facility]07/18/24 Little Johnson LPN [address] [facility] [address] [place] [address] 03/06/25 FOR RECORDS PERTAINING TO PATIENTS WHO [...] THE PRIMARY CLINICAL RECORDS. [facility] [employer] [facility]. provides no warranty or guarantee of the accuracy or completeness of information in this document.
[2025-06-18 14:53] LABS: Glucose Urine UA NEGATIVE (NEGATIVE)
[2025-06-18 15:01] LABS: Cast Seen? NONE SEEN #/LPF (NONE SEEN); Crystals Seen? None Seen #/HPF (None Seen); Urine Culture Indicated NO
== END 2025-06-18 15:21 | disposition home or self-care (01) ==
PROVIDERS: Emergency Provider Emergency Medicine; PCP Family Medicine
DX: R42 Dizziness and giddiness (principal); T50.995A Adverse effect of other drugs, medicaments and biological substances, initial encounter
CPT/HCPCS: 36415; 80048; 81001; 84484; 85025; 93005; 96374; 99284; J2405